=== PATIENT | female | born 1940 | race Caucasian/White ===

== ENCOUNTER → 2016-11-06 | Outpatient (CLI) | payer OTHER ==
[~2016-11-06] MED LIST: ACET-1311 PO; AMPH12.5 PO; ASCA500 PO; CHOL100010 PO; LANS30TA3 PO; LMC25 PO; MIRT15TA2 PO; MIRT15TA3 PO; MRLP17 PO; OMEG10007 PO; PANT40TA PO; co Q10 PO
== END | disposition home or self-care (01) ==
LOC: C.LAB 16:42
PROVIDERS: ATTEND Psychiatry & Neurology Psychiatry
DX: F33.2 Major depressive disorder, recurrent severe without psychotic features (principal); Z51.81 Encounter for therapeutic drug level monitoring; Z79.899 Other long term (current) drug therapy

== ENCOUNTER → 2017-11-03 | Outpatient (CLI) | payer OTHER ==
[2017-11-03 18:02] LABS: INR 0.9 (0.9-1.1)
[2017-11-03 18:22] LABS: ALBUMIN 3.4 gm/dl (3.4-5.0); ALKALINE PHOSPHATASE 37 U/L (45-117); ALT/SGPT 19 U/L (12-78); AST/SGOT 16 U/L (15-37); BLOOD UREA NITROGEN 17 mg/dl (7-18); CALCIUM 9.2 mg/dl (8.5-10.1); CARBON DIOXIDE 27 mmol/L (21-32); CHOLESTEROL 290 mg/dl (0-200); CREATININE 1.04 mg/dl (0.60-1.20); GLUCOSE 89 mg/dl (70-99); GLUCOSE,FASTING 89 mg/dl (70-99); POTASSIUM 4.1 mmol/L (3.5-5.1); SODIUM 140 mmol/L (136-145)
[2017-11-03 18:29] LABS: LDL CHOLESTEROL CALCULATED 188 mg/dl; TOTAL PROTEIN 7.5 gm/dl (6.4-8.2)
[2017-11-03 19:45] LABS: BASO % 0.2 %; BASO ABS # 0.01 K/uL (0-0.2); EOS ABS # 0.13 K/uL (0-0.5); HEMOGLOBIN 13.2 g/dL (12.0-16.0); IG# 0.02 K/uL (0.00-0.02); LYMPH % 32.8 %; MEAN CELL VOLUME 97.6 fL (80-100); MEAN CORPUSCULAR HEMOGLOBIN 31.4 pg (25-34); MEAN CORPUSCULAR HGB CONC 32.2 g/dl (32-36); MEAN PLATELET VOLUME 13.1 fL (7.4-10.4); MONO % 8.4 %; MONO ABS # 0.54 K/uL (0.11-0.59); NEUT % 56.3 %; NEUT ABS # 3.61 K/uL (1.4-6.5); PLATELET COUNT 292 K/uL (130-400); RED CELL DISTRIBUTION WIDTH CV 15.3 % (11.5-14.5); RED CELL DISTRIBUTION WIDTH SD 54.7 fL (36.4-46.3); WHITE BLOOD COUNT 6.41 K/uL (4.8-10.8)
== END | disposition home or self-care (01) ==
LOC: C.LAB 15:47
PROVIDERS: ATTEND Psychiatry & Neurology Psychiatry
DX: F33.2 Major depressive disorder, recurrent severe without psychotic features (principal)

== ENCOUNTER 2018-07-22 16:33 | Inpatient (IN) ==
[2018-07-22] MEDS ORDERED: SODIUM CHLORIDE 0.9% 1000ML 1,000 ML IV SCH (17:15)
[2018-07-22 17:31] LABS: Basophils # (auto) 0.04 K/uL (0-0.2); Basophils % (auto) 0.6 %; Eosinophils # (auto) 0.22 K/uL (0-0.5); Eosinophils % (auto) 3.2 %; Hemoglobin 10.3 g/dL (12.0-16.0); Immature Granulocytes # (auto) 0.01 K/uL (0.00-0.02); Immature Granulocytes % (auto) 0.1 %; Lymphocytes # (auto) 2.52 K/uL (1.2-3.4); Lymphocytes % (auto) 36.7 %; Mean Corpuscular Hgb Conc 32.2 g/dL (32-36); Mean Corpuscular Volume 95.8 fL (80-100); Mean Platelet Volume 11.6 fL (7.4-10.4); Monocytes # (auto) 0.91 K/uL (0.11-0.59); Monocytes % (auto) 13.2 %; Neutrophils # (auto) 3.17 K/uL (1.4-6.5); Neutrophils % (auto) 46.2 %; Platelet Count 371 K/uL (130-400); RDW Coefficient of Variation 16.3 % (11.5-14.5); RDW Standard Deviation 57.6 fL (36.4-46.3); Red Blood Count 3.34 M/uL (4.2-5.4); White Blood Count 6.87 K/uL (4.8-10.8)
[2018-07-22 17:47] LABS: Albumin Level 2.8 gm/dl (3.4-5.0); BUN Creatinine Ratio 28.9 (10-20); Calcium 9.1 mg/dl (8.5-10.1); Creatinine Clr Calc Pharmacy 39.8 ml/min; Est GFR (Non-African American) 52.6; Potassium 3.7 mmol/L (3.5-5.1)
[2018-07-22 17:50] LABS: Albumin Globulin Ratio 0.7 (0.9-2); Bilirubin,Total 0.2 mg/dl (0.2-1); Globulin 3.8 gm/dl (2.5-4.0); Total Protein 6.6 gm/dl (6.4-8.2)
[2018-07-22] MEDS ORDERED: OPTIRAY 320 125ml IV PRN (19:52)
--- NOTE | 2018-07-22 20:10 | CT Scan Report ---
CT abd pelvis oral and IV con CLINICAL HISTORY: 78 years-old Female presenting with ABD PAIN, ostomy obstruction. TECHNIQUE: Multidetector CT of the abdomen and pelvis was performed after the administration of oral and intravenous contrast. IV contrast: 116 mL of Optiray 320. One or more dose lowering techniques we re used consistent with the principles of ALARA (as low as reasonably achievable), including automati c exposure control, mA or kV adjustment to individual patient size, and/or use of iterative reconstru ction. COMPARISON: . CT DOSE (mGy.cm): The estimated cumulative dose is 274.10 mGy.cm. FINDINGS: Custom Ski Maker topogram: Marked stool burden. Lung bases: Minimal dependent changes likely atelectasis. Mild multichamber enlargement of the heart. Aortic valve and mitral annular calcification. No pericardial or pleural effusion. Liver: Normal morphology. No liver lesion. Patent hepatic vasculature. Biliary: No intrahepatic or extrahepatic biliary ductal dilatation. Normal gallbladder. Pancreas: Moderate parenchymal atrophy. Spleen: Surgically absent. Adrenal glands: Normal. Kidneys and ureters: Multiple parapelvic cysts at the lower poles of the kidneys. No nephrolithiasis. No hydronephrosis. Cortical atrophy of the left kidney. Nondistended ureters. Bladder: Normal. Pelvic organs: Normal. Bowel: Marked stool burden in the mid transverse colon to the mid descending colon. Mild wall thicken ing of the proximal transverse colon. Postsurgical changes of ileocecectomy with thin ileocolic anast omosis in the right mid abdomen, which is patent. There is also an overlying decompression stoma ari ing from the ascending colon (series 3 image 203). This is new from prior. Small bowel is unobstructe d. Trace hilar hernia. Postsurgical changes at the gastroesophageal junction. Circumferential wall th ickening of the distal esophagus suggested. Peritoneal cavity: No free fluid or intraperitoneal gas. Lymph nodes: No enlarged lymph nodes in the abdomen or pelvis. Vasculature: Atherosclerosis of the normal caliber abdominal aorta. IVC patent. Abdominal wall: Postsurgical changes of the ventral midline abdomen. No associated fluid collection. The right mid abdominal stoma is also new from prior. No associated inflammatory change or fluid. Musculoskeletal: Osteopenia suspected. Anterior vertebral body height loss of T11, unchanged. Postsur gical changes of an old intramedullary jeanette tract in the left femur. IMPRESSION: 1. Marked stool burden in the transverse colon to the descending colon. Mild wall thickening of the proximal transverse colon raises concern for stercoral colitis. 2. Decompression stoma in the ascending colon new from prior. No associated complication. 3. Postsurgical changes of ileocecectomy with a patent right mid abdomen ileocolic anastomosis. This also appears new from prior. 4. Circumferential wall thickening of the distal esophagus raises concern for esophagitis. Correlate clinically. 5. Mild cardiomegaly. Electronically signed by: Philip Baez M.D. 07/22/2018 8:08 PM
[2018-07-22 23:03] LABS: Magnesium 2.3 mg/dl (1.8-2.4)
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
[2018-07-23] MEDS ORDERED: LORazepam 0.25 MG/0.5 ML VIAL IV PRN (00:16)
[2018-07-23] MEDS ORDERED: LACTULOSE SYRUP 30 GM/45 ML UDP PO STA (00:16)
[2018-07-23] MEDS ORDERED: KETOROLAC TROMETHAMINE 15 MG/ML VIAL IV PRN (00:16)
[2018-07-23] MEDS ORDERED: NON-FORMULARY MEDICATION (Acetaminophen [Tylenol 8 Hour] 650 MG) PO PRN (00:16)
[2018-07-23] MEDS ORDERED: LACTATED RINGER'S 1,000 ML IV ONE (00:16)
[2018-07-23] MEDS ORDERED: POLYETHYLENE (MIRALAX) 17 GM PACK PO PRN (00:16)
[2018-07-23] MEDS ORDERED: PROCHLORPERAZINE 5 MG in SYRINGE 4 ML IV PRN (00:16)
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
[2018-07-23] MEDS: PANTOprazole 40 MG TAB PO SCH ×3 (01:45→21:12)
[2018-07-23] MEDS: DOCUSATE SODIUM/SENNA 50/8.6MG TAB PO SCH ×2 (01:45→08:45)
[2018-07-23] MEDS ORDERED: POLYETHYLENE (MIRALAX) 17 GM PACK PO STA (03:49)
[2018-07-23] MEDS ORDERED: LACTULOSE SYRUP 20 GM/30 ML UDC PO STA (03:49)
[2018-07-23] MEDS: LEVOTHYROXINE SODIUM 50 MCG TABLET PO SCH (06:01)
[2018-07-23 06:28] LABS: Basophils # (auto) 0.03 K/uL (0-0.2); Basophils % (auto) 0.5 %; Eosinophils # (auto) 0.23 K/uL (0-0.5); Eosinophils % (auto) 3.5 %; Hematocrit (blood only) 32.2 % (37-47); Hemoglobin 10.1 g/dL (12.0-16.0); Immature Granulocytes # (auto) 0.02 K/uL (0.00-0.02); Immature Granulocytes % (auto) 0.3 %; Lymphocytes # (auto) 2.44 K/uL (1.2-3.4); Lymphocytes % (auto) 36.7 %; Mean Corpuscular Hgb Conc 31.4 g/dL (32-36); Mean Platelet Volume 12.2 fL (7.4-10.4); Monocytes # (auto) 1.05 K/uL (0.11-0.59); Monocytes % (auto) 15.8 %; Neutrophils # (auto) 2.88 K/uL (1.4-6.5); Neutrophils % (auto) 43.2 %; Platelet Count 375 K/uL (130-400); RDW Coefficient of Variation 16.3 % (11.5-14.5); RDW Standard Deviation 56.8 fL (36.4-46.3); Red Blood Count 3.39 M/uL (4.2-5.4); White Blood Count 6.65 K/uL (4.8-10.8)
[2018-07-23] MEDS: lamoTRIgine 100 MG TAB PO SCH (08:46)
[2018-07-23] MEDS: LORATADINE 10 MG TAB PO SCH (08:46)
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
[2018-07-23] MEDS: AMPHETAMINE ASP/SULF/DEXTRAMPH 10 MG TAB PO SCH ×2 (08:47→13:03)
[2018-07-23] MEDS: LISINOPRIL 10 MG TAB PO SCH (08:47)
[2018-07-23] MEDS: ENOXAPARIN INJ 30 MG/0.3 ML SYR SQ SCH (08:47)
[2018-07-23] MEDS ORDERED: AMPHETAMINE ASP/SULF/DEXTRAMPH 10 MG TAB PO SCH ×2 (09:00→14:00)
[2018-07-23] MEDS ORDERED: LAVAGE SOLUTION 4000ML PR SCH (09:15)
[2018-07-23] MEDS: MINERAL OIL ENEMA 133 ML BTL PR SCH ×2 (10:10→22:05)
--- NOTE | 2018-07-23 15:19 | Hospitalist Progress Note ---
Date of Service July 23, 2018 Assessment & Plan (1) Abdominal pain: Obstipation H/O bowel surgery/colostomy May 2018 --CT ABD: Marked stool burden in the transverse colon to the descending colon. Mild wall thickening of the proximal transverse colon raises concern for stercoral colitis. Decompression stoma in the ascending colon new from prior. No associated complication. Postsurgical changes of ileocecectomy with a patent right mid abdomen ileocolic anastomosis. This also appears new from prior. Circumferential wall thickening of the distal esophagus raises concern for esophagitis. Correlate clinically. Mild cardiomegaly. --Continue bowel regimen as per surgery --May need sub total colectomy with permanent end colostomy if conservative management fails --Appreciate Surgery help --Monitor Stoma output Hypertension stable Continue Lisinopril Hypothyroidism: Continue Levothyroxine Mood disorder, ADD Continue home meds GERD Esophagitis noted on CT Continue Ranitidine PPI increased to BID Hypokalemia: Resolved Monitor Post Op Anemia Hb stable monitor DVT Px: Lovenox SQ Code Status Full code Subjective Patient resting in bed comfortably No apparent distress Currently not interested to discuss Discussed with Staff Getting enemas for stool burden Physical Exam 2 Vital Signs (Past 24 Hours): Last Vital Signs Temp 36.8 C 07/23/18 15:02 Pulse 64 07/23/18 15:02 Resp 17 07/23/18 15:02 BP 127/74 07/23/18 15:02 Pulse Ox 93 07/23/18 15:02 Physical Exam: Physical Exam: Vitals signs as noted above General Appearance:Moderately built and nourished, no apparent distress Head: normocephalic, Atraumatic Eyes: normal inspection, EOMI Neck: Trachea midline Respiratory/Chest: Patient refused Cardiovascular: Refused Abdomen/GI:Refused Extremities/Musculoskelatal:normal inspection Neurologic/Psych:AAOX3 Skin: normal color, warm Results & Data Laboratory Results Short CBC 07/22/18 07/23/18 Range/Units 17:23 05:53 WBC 6.87 6.65 (4.8-10.8) K/uL Hgb 10.3 L 10.1 L (12.0-16.0) g/dL Hct 32.0 L 32.2 L (37-47) % Plt Count 371 375 (130-400) K/uL BMP 07/22/18 17:23 Sodium 142 Potassium 3.7 Chloride 112 H Carbon Dioxide 24 BUN 30 H Creatinine 1.02 Glucose 97 Calcium 9.1 Liver Function 07/22/18 Range/Units 17:23 Total Bilirubin 0.2 (0.2-1) mg/dl AST 12 L (15-37) U/L ALT 16 (12-78) U/L Alkaline Phosphatase 31 L (45-117) U/L Albumin 2.8 L (3.4-5.0) gm/dl _ (1) Abdominal pain Abdominal location: generalized Qualified Code(s): R10.84 - Generalized abdominal pain
[2018-07-23] MEDS: MIRTAZAPINE SOLTAB 15 MG PO SCH (21:13)
[2018-07-24] MEDS: LEVOTHYROXINE SODIUM 50 MCG TABLET PO SCH (05:47)
[2018-07-24 06:15] LABS: Hemoglobin 10.9 g/dL (12.0-16.0); Mean Corpuscular Hgb Conc 32.1 g/dL (32-36); Mean Platelet Volume 11.8 fL (7.4-10.4); Platelet Count 387 K/uL (130-400); RDW Coefficient of Variation 16.3 % (11.5-14.5); RDW Standard Deviation 57.5 fL (36.4-46.3); Red Blood Count 3.54 M/uL (4.2-5.4); White Blood Count 8.18 K/uL (4.8-10.8)
[2018-07-24 06:53] LABS: BUN Creatinine Ratio 14.5 (10-20); Calcium 9.3 mg/dl (8.5-10.1); Creatinine Clr Calc Pharmacy 35.6 ml/min; Est GFR (African American) 60.3; Potassium 3.9 mmol/L (3.5-5.1)
[2018-07-24] MEDS: AMPHETAMINE ASP/SULF/DEXTRAMPH 10 MG TAB PO SCH ×2 (08:58→14:04)
[2018-07-24] MEDS: LORATADINE 10 MG TAB PO SCH (08:59)
[2018-07-24] MEDS: PANTOprazole 40 MG TAB PO SCH ×2 (08:59→22:00)
[2018-07-24] MEDS: lamoTRIgine 100 MG TAB PO SCH (08:59)
[2018-07-24] MEDS: LISINOPRIL 10 MG TAB PO SCH (09:00)
[2018-07-24] MEDS: ENOXAPARIN INJ 30 MG/0.3 ML SYR SQ SCH ×2 (09:00→09:06)
[2018-07-24] MEDS: MINERAL OIL ENEMA 133 ML BTL PR SCH ×4 (10:04→22:45)
--- NOTE | 2018-07-24 10:41 | Surgery Progress Note ---
Date of Service July 24, 2018 Assessment & Plan (1) Constipation: s/p loop colostomy for stercoral perforation, now with functioning afferent limb but constipation in efferent limb/distal colon. Currently getting cholyte, enemas, awaiting bm. Continue current therapy Advance to full liquids. continue cholyte, enemas until bm no acute surgical management surgery will follow Present on Admission?: Yes Subjective 78 y/o female s/p loop colostomy for hypotonic colon and severe constipation with stercoral perforation, readmitted for poorly functioning colostomy. Good output from afferent limb into colostomy bag. Currently getting golyte through bright into efferent limb due to larger stool burden in distal colon, also getting enemas. She reports no bm yet. Denies pain, tolerating clears. Physical Exam 2 Vital Signs (Past 24 Hours): Last Vital Signs Temp 36.7 C 07/24/18 07:33 Pulse 63 07/24/18 07:33 Resp 18 07/24/18 07:33 BP 158/83 H 07/24/18 07:33 Pulse Ox 94 07/24/18 07:33 Constitutional: WD/WN, vitals as above no acute distress Gastrointestinal (Abdomen): Inspection/Auscultation: abdomen not distended Percussion/Palpation: abdomen soft; abdomen nontender colostomy healthy, stool and gas in bag. Catheter in efferent limb clamped. _ (1) Constipation Constipation type: unspecified constipation type Qualified Code(s): K59.00 - Constipation, unspecified
--- NOTE | 2018-07-24 15:29 | Hospitalist Progress Note ---
Date of Service July 24, 2018 Assessment & Plan (1) Abdominal pain: Obstipation H/O bowel surgery/colostomy May 2018 --CT ABD: Marked stool burden in the transverse colon to the descending colon. Mild wall thickening of the proximal transverse colon raises concern for stercoral colitis. Decompression stoma in the ascending colon new from prior. No associated complication. Postsurgical changes of ileocecectomy with a patent right mid abdomen ileocolic anastomosis. This also appears new from prior. Circumferential wall thickening of the distal esophagus raises concern for esophagitis. Correlate clinically. Mild cardiomegaly. --Continue bowel regimen as per surgery --May need sub total colectomy with permanent end colostomy if conservative management fails --Appreciate Surgery help --Monitor Stoma output + stool in colostomy bag --Advance diet as tolerated Hypertension stable Continue Lisinopril Hypothyroidism: Continue Levothyroxine Mood disorder, ADD Continue home meds GERD Esophagitis noted on CT Continue Ranitidine PPI increased to BID Hypokalemia: Resolved Monitor Post Op Anemia Hb stable monitor DVT Px: Lovenox SQ Code Status Full code Subjective Patient is seen and examined at bedside Doing better today Reports intermittent abd pain Nausea improving Denies chest pain, dyspnea Getting enemas for stool burden Physical Exam 2 Vital Signs (Past 24 Hours): Last Vital Signs Temp 36.7 C 07/24/18 07:33 Pulse 63 07/24/18 07:33 Resp 18 07/24/18 07:33 BP 158/83 H 07/24/18 07:33 Pulse Ox 94 07/24/18 07:33 Physical Exam: Physical Exam: Vitals signs as noted above General Appearance:Moderately built and nourished, no apparent distress Head: normocephalic, Atraumatic Eyes: normal inspection, EOMI Neck: Trachea midline Respiratory/Chest: Normal Breath sounds, CTA Cardiovascular: S1, S2, +systolic murmur Abdomen/GI:+ colostomy -stool in colostomy bag Extremities/Musculoskelatal:normal inspection Neurologic/Psych:AAOX3, grossly no focal deficits Skin: normal color, warm Results & Data Laboratory Results Short CBC 07/24/18 Range/Units 05:56 WBC 8.18 (4.8-10.8) K/uL Hgb 10.9 L (12.0-16.0) g/dL Hct 34.0 L (37-47) % Plt Count 387 (130-400) K/uL [facility] 07/24/18 05:56 Sodium 140 Potassium 3.9 Chloride 110 H Carbon Dioxide 24 BUN 15 Creatinine 1.03 Glucose 84 Calcium 9.3 _ (1) Abdominal pain Abdominal location: generalized Qualified Code(s): R10.84 - Generalized abdominal pain
[2018-07-24] MEDS: ACETAMINOPHEN 325 MG TAB PO PRN (18:09)
[2018-07-24] MEDS: MIRTAZAPINE SOLTAB 15 MG PO SCH (21:59)
[2018-07-25] MEDS: LEVOTHYROXINE SODIUM 50 MCG TABLET PO SCH (06:09)
[2018-07-25 06:35] LABS: BUN Creatinine Ratio 12.6 (10-20); Calcium 9.2 mg/dl (8.5-10.1); Est GFR (African American) 67.3; Est GFR (Non-African American) 58.1; Potassium 4.3 mmol/L (3.5-5.1)
--- NOTE | 2018-07-25 09:19 | Surgery Progress Note ---
Date of Service July 25, 2018 Assessment & Plan (1) Constipation: 07/25/2018 +BM x 3 between yesterday and this AM. Denies pain Tolerating full liquid diet and states that she is hungry and would like more options- will advance to low fiber diet for lunch. 07/24/2018 s/p loop colostomy for stercoral perforation, now with functioning afferent limb but constipation in efferent limb/distal colon. Currently getting cholyte , enemas, awaiting bm. Continue current therapy Advance to full liquids. continue cholyte, enemas until bm no acute surgical management surgery will follow Subjective Sitting at side of the bed for examination. Reports 3 BMs between yesterday and this AM. Denies pain Tolerating full liquid diet. States that she is hungry and would like more options to eat. Physical Exam 2 Vital Signs (Past 24 Hours): Last Vital Signs Temp 36.8 C 07/25/18 07:40 Pulse 71 07/25/18 07:40 Resp 18 07/25/18 07:40 BP 161/71 H 07/25/18 07:40 Pulse Ox 95 07/25/18 07:40 Gastrointestinal (Abdomen): Percussion/Palpation: abdomen soft; abdomen nontender output good into colostomy bag _ (1) Constipation Constipation type: unspecified constipation type Qualified Code(s): K59.00 - Constipation, unspecified
[2018-07-25] MEDS: ENOXAPARIN INJ 30 MG/0.3 ML SYR SQ SCH (09:51)
[2018-07-25] MEDS: LORATADINE 10 MG TAB PO SCH (09:56)
[2018-07-25] MEDS: LISINOPRIL 10 MG TAB PO SCH (09:56)
[2018-07-25] MEDS: PANTOprazole 40 MG TAB PO SCH ×2 (09:56→21:24)
[2018-07-25] MEDS: AMPHETAMINE ASP/SULF/DEXTRAMPH 10 MG TAB PO SCH ×2 (09:56→13:37)
[2018-07-25] MEDS: lamoTRIgine 100 MG TAB PO SCH (09:57)
[2018-07-25] MEDS: MINERAL OIL ENEMA 133 ML BTL PR SCH (10:16)
[2018-07-25] MEDS: ACETAMINOPHEN 325 MG TAB PO PRN (15:40)
[2018-07-25] MEDS: TRAMADOL HCL 50 MG TABLET PO PRN (17:40)
--- NOTE | 2018-07-25 17:41 | Hospitalist Progress Note ---
Date of Service July 25, 2018 Assessment & Plan (1) Abdominal pain: Obstipation H/O bowel surgery/colostomy May 2018 --CT ABD: Marked stool burden in the transverse colon to the descending colon. Mild wall thickening of the proximal transverse colon raises concern for stercoral colitis. Decompression stoma in the ascending colon new from prior. No associated complication. Postsurgical changes of ileocecectomy with a patent right mid abdomen ileocolic anastomosis. This also appears new from prior. Circumferential wall thickening of the distal esophagus raises concern for esophagitis. Correlate clinically. Mild cardiomegaly. --Continue bowel regimen as per surgery --May need sub total colectomy with permanent end colostomy if conservative management fails --Appreciate Surgery help --Monitor Stoma output -- +BMs --Advanced to low fiber diet --nausea, abd pain resolved Hypertension stable Continue Lisinopril Hypothyroidism: Continue Levothyroxine Mood disorder, ADD Continue home meds GERD Esophagitis noted on CT Continue Ranitidine PPI increased to BID Hypokalemia: Resolved Monitor Post Op Anemia Hb stable monitor DVT Px: Lovenox SQ Code Status Full code Subjective Patient is seen and examined at bedside Doing well today Denies abd pain, nausea today Tolerating diet + BMs Denies chest pain, dyspnea Physical Exam 2 Vital Signs (Past 24 Hours): Last Vital Signs Temp 36.6 C 07/25/18 15:31 Pulse 79 07/25/18 15:31 Resp 18 07/25/18 15:31 BP 129/79 07/25/18 15:31 Pulse Ox 94 07/25/18 15:31 Physical Exam: Physical Exam: Vitals signs as noted above General Appearance:Moderately built and nourished, no apparent distress Head: normocephalic, Atraumatic Eyes: normal inspection, EOMI Neck: Trachea midline Respiratory/Chest: Normal Breath sounds, CTA Cardiovascular: S1, S2, +systolic murmur Abdomen/GI:+ colostomy Extremities/Musculoskelatal:normal inspection Neurologic/Psych:AAOX3, grossly no focal deficits Skin: normal color, warm Results & Data Laboratory Results [facility] [place] 07/25/18 05:41 Sodium 139 Potassium 4.3 Chloride 109 H Carbon Dioxide 25 BUN 12 Creatinine 0.94 Glucose 91 Calcium 9.2 _ (1) Abdominal pain Abdominal location: generalized Qualified Code(s): R10.84 - Generalized abdominal pain
[2018-07-25] MEDS: MIRTAZAPINE SOLTAB 15 MG PO SCH (21:24)
[2018-07-26] MEDS: LEVOTHYROXINE SODIUM 50 MCG TABLET PO SCH (06:29)
[2018-07-26] MEDS: PANTOprazole 40 MG TAB PO SCH ×2 (08:22→21:55)
[2018-07-26] MEDS: LORATADINE 10 MG TAB PO SCH (08:22)
[2018-07-26] MEDS: LISINOPRIL 10 MG TAB PO SCH (08:22)
[2018-07-26] MEDS: lamoTRIgine 100 MG TAB PO SCH (08:22)
[2018-07-26] MEDS: ENOXAPARIN INJ 30 MG/0.3 ML SYR SQ SCH (08:23)
[2018-07-26] MEDS: AMPHETAMINE ASP/SULF/DEXTRAMPH 10 MG TAB PO SCH ×2 (08:26→13:57)
--- NOTE | 2018-07-26 08:49 | Surgery Progress Note ---
Date of Service July 26, 2018 Assessment & Plan (1) Constipation: 07/26/2018 patient denies abdominal pain +BM (formed) Denies nausea- tolerating low fiber diet. Will order KUB this AM- hopefully can remove catheter from stoma. as above. KUB shows continued large stool burden distal to stoma. clinically doing better but will continue to give enemas and colyte prep through stoma. We really need to clean out the entire colon distal to the stoma. 07/25/2018 +BM x 3 between yesterday and this AM. Denies pain Tolerating full liquid diet and states that she is hungry and would like more options- will advance to low fiber diet for lunch. 07/24/2018 s/p loop colostomy for stercoral perforation, now with functioning afferent limb but constipation in efferent limb/distal colon. Currently getting cholyte , enemas, awaiting bm. Continue current therapy Advance to full liquids. continue cholyte, enemas until bm no acute surgical management surgery will follow Subjective Patient in chair at bedside- reports that she is feeling good today. +BM tolerating low fiber diet. Physical Exam 2 Vital Signs (Past 24 Hours): Last Vital Signs Temp 36.7 C 07/26/18 08:00 Pulse 68 07/26/18 08:00 Resp 16 07/26/18 08:00 BP 152/82 H 07/26/18 08:00 Pulse Ox 96 07/26/18 08:00 Gastrointestinal (Abdomen): Percussion/Palpation: abdomen soft; abdomen nontender and no guarding good output into colostomy bag; catheter in stoma clamped at this time _ (1) Constipation Constipation type: unspecified constipation type Qualified Code(s): K59.00 - Constipation, unspecified
[2018-07-26] MEDS ORDERED: MINERAL OIL ENEMA 133 ML BTL PR SCH (09:00)
[2018-07-26 09:41] LABS: Hematocrit (blood only) 34.7 % (37-47); Hemoglobin 10.9 g/dL (12.0-16.0); Mean Corpuscular Hgb Conc 31.4 g/dL (32-36); Mean Corpuscular Volume 95.3 fL (80-100); Platelet Count 406 K/uL (130-400); RDW Coefficient of Variation 16.3 % (11.5-14.5); RDW Standard Deviation 57.1 fL (36.4-46.3); Red Blood Count 3.64 M/uL (4.2-5.4); White Blood Count 5.25 K/uL (4.8-10.8)
[2018-07-26] MEDS: MINERAL OIL ENEMA 133 ML BTL PR SCH (09:57)
--- NOTE | 2018-07-26 09:57 | XRay Report ---
KUB CLINICAL HISTORY: Atonic colon. History of perforation with right lower quadrant colostomy. FINDINGS: 2 AP supine abdominal radiographs are compared to study dated 06/10/2018 and correlated wit h abdominal CT dated 07/22/2018. There is a nonobstructed abdominal bowel gas pattern, noting a colost juliano in the right lower quadrant. There is moderate to severe constipation. No evidence of intraperito esthela free air is seen on these supine images. There are no abnormal abdominal calcifications. The ske letal structures are osteopenic. Degenerative changes noted in the lumbar spine, sacroiliac joints, a nd hips. IMPRESSION: 1. Moderate to severe constipation. 2. There is no evidence of bowel obstruction, noting a right lower quadrant colostomy. Electronically signed by: Irineo Chang M.D. 07/26/2018 9:56 AM
[2018-07-26 10:17] LABS: Creatinine Clr Calc Pharmacy 31.9 ml/min; Est GFR (African American) 52.8; Est GFR (Non-African American) 45.5
[2018-07-26] MEDS: LAVAGE SOLUTION 4000ML PR SCH ×3 (12:44→14:41)
--- NOTE | 2018-07-26 15:28 | Hospitalist Progress Note ---
Date of Service July 26, 2018 Assessment & Plan (1) Abdominal pain: Obstipation H/O bowel surgery/colostomy May 2018 --CT ABD: Marked stool burden in the transverse colon to the descending colon. Mild wall thickening of the proximal transverse colon raises concern for stercoral colitis. Decompression stoma in the ascending colon new from prior. No associated complication. Postsurgical changes of ileocecectomy with a patent right mid abdomen ileocolic anastomosis. This also appears new from prior. Circumferential wall thickening of the distal esophagus raises concern for esophagitis. Correlate clinically. Mild cardiomegaly. --Continue bowel regimen as per surgery --May need sub total colectomy with permanent end colostomy if conservative management fails --Appreciate Surgery help --Monitor Stoma output -- +BMs --Advanced to low fiber diet --Repeat KUB today: Moderate to severe constipation. There is no evidence of bowel obstruction, noting a right lower quadrant colostomy. --Continue bowel regimen--enemas Hypertension stable Continue Lisinopril Hypothyroidism: Continue Levothyroxine Mood disorder, ADD Continue home meds GERD Esophagitis noted on CT Continue Ranitidine PPI increased to BID Hypokalemia: Resolved Monitor Post Op Anemia Hb stable monitor DVT Px: Lovenox SQ Code Status Full code Subjective Patient is seen and examined at bedside Reports abdominal pain with movement Denies nausea, chest pain, dyspnea KUB today shows moderate to severe stool burden + stool in colostomy bag Tolerating diet Physical Exam 2 Vital Signs (Past 24 Hours): Last Vital Signs Temp 36.7 C 07/26/18 08:00 Pulse 68 07/26/18 08:00 Resp 16 07/26/18 08:00 BP 128/68 07/26/18 13:29 Pulse Ox 96 07/26/18 08:00 Physical Exam: Physical Exam: Vitals signs as noted above General Appearance:Moderately built and nourished, no apparent distress Head: normocephalic, Atraumatic Eyes: normal inspection, EOMI Neck: Trachea midline Respiratory/Chest: Normal Breath sounds, CTA Cardiovascular: S1, S2, +systolic murmur Abdomen/GI:+ colostomy Extremities/Musculoskelatal:normal inspection Neurologic/Psych:AAOX3, grossly no focal deficits Skin: normal color, warm Results & Data Laboratory Results Short CBC 07/26/18 Range/Units 09:28 WBC 5.25 (4.8-10.8) K/uL Hgb 10.9 L (12.0-16.0) g/dL Hct 34.7 L (37-47) % Plt Count 406 H (130-400) K/uL [facility] 07/26/18 09:28 Creatinine 1.15 _ (1) Abdominal pain Abdominal location: generalized Qualified Code(s): R10.84 - Generalized abdominal pain
[2018-07-26] MEDS: TRAMADOL HCL 50 MG TABLET PO PRN ×2 (16:03→22:07)
[2018-07-26] MEDS: MIRTAZAPINE SOLTAB 15 MG PO SCH (21:56)
[2018-07-27] MEDS: LEVOTHYROXINE SODIUM 50 MCG TABLET PO SCH (06:38)
[2018-07-27] MEDS: LAVAGE SOLUTION 4000ML PR SCH ×12 (08:29→21:58)
--- NOTE | 2018-07-27 08:42 | Surgery Progress Note ---
Date of Service July 27, 2018 Assessment & Plan (1) Constipation: 07/27/2018 Patient doing well- denies abdominal pain +passing flatus, +BM KUB reviewed with patient - will continue to give enemas and colyte prep through stoma Tolerating low fiber diet. pt seen/as above. no bm per rectum today no pain/looks good stoma functioning will hold the enemas for now but increase his golytely to 100 cc's per hour. recommend better bowel prep prior to d/c. 07/26/2018 patient denies abdominal pain +BM (formed) Denies nausea- tolerating low fiber diet. Will order KUB this AM- hopefully can remove catheter from stoma. as above. KUB shows continued large stool burden distal to stoma. clinically doing better but will continue to give enemas and colyte prep through stoma. We really need to clean out the entire colon distal to the stoma. 07/25/2018 +BM x 3 between yesterday and this AM. Denies pain Tolerating full liquid diet and states that she is hungry and would like more options- will advance to low fiber diet for lunch. 07/24/2018 s/p loop colostomy for stercoral perforation, now with functioning afferent limb but constipation in efferent limb/distal colon. Currently getting cholyte , enemas, awaiting bm. Continue current therapy Advance to full liquids. continue cholyte, enemas until bm no acute surgical management surgery will follow Subjective Patient feeling well- reviewed results of KUB with her. Physical Exam 2 Vital Signs (Past 24 Hours): Last Vital Signs Temp 36.6 C 07/26/18 23:55 Pulse 65 07/26/18 23:55 Resp 16 07/26/18 23:55 BP 130/72 07/26/18 23:55 Pulse Ox 94 07/26/18 23:55 Gastrointestinal (Abdomen): Inspection/Auscultation: + abdomen distended ( mild distention ) Percussion/Palpation: abdomen soft catheter in place in stoma- clamped _ (1) Constipation Constipation type: unspecified constipation type Qualified Code(s): K59.00 - Constipation, unspecified
[2018-07-27] MEDS: AMPHETAMINE ASP/SULF/DEXTRAMPH 10 MG TAB PO SCH ×2 (09:35→13:01)
[2018-07-27] MEDS: lamoTRIgine 100 MG TAB PO SCH (09:40)
[2018-07-27] MEDS: LORATADINE 10 MG TAB PO SCH (09:40)
[2018-07-27] MEDS: PANTOprazole 40 MG TAB PO SCH ×2 (09:42→20:29)
[2018-07-27] MEDS: LISINOPRIL 10 MG TAB PO SCH (09:42)
[2018-07-27] MEDS: ENOXAPARIN INJ 30 MG/0.3 ML SYR SQ SCH (09:45)
[2018-07-27] MEDS: MINERAL OIL ENEMA 133 ML BTL PR SCH (10:14)
[2018-07-27 13:23] LABS: Calcium 8.6 mg/dl (8.5-10.1); Creatinine Clr Calc Pharmacy 39.4 ml/min; Est GFR (African American) 68.2; Est GFR (Non-African American) 58.9; Potassium 3.9 mmol/L (3.5-5.1)
--- NOTE | 2018-07-27 15:38 | Hospitalist Progress Note ---
Date of Service July 27, 2018 Assessment & Plan (1) Abdominal pain: Obstipation H/O bowel surgery/colostomy May 2018 --CT ABD: Marked stool burden in the transverse colon to the descending colon. Mild wall thickening of the proximal transverse colon raises concern for stercoral colitis. Decompression stoma in the ascending colon new from prior. No associated complication. Postsurgical changes of ileocecectomy with a patent right mid abdomen ileocolic anastomosis. This also appears new from prior. Circumferential wall thickening of the distal esophagus raises concern for esophagitis. Correlate clinically. Mild cardiomegaly. --Continue bowel regimen as per surgery --May need sub total colectomy with permanent end colostomy if conservative management fails -- +BMs, Still not Clear --Advanced to low fiber diet --KUB Yesterday: Moderate to severe constipation. There is no evidence of bowel obstruction, noting a right lower quadrant colostomy. --Continue bowel regimen--enemas Hypertension stable Continue Lisinopril Hypothyroidism: Continue Levothyroxine Mood disorder, ADD Continue home meds GERD Esophagitis noted on CT Continue Ranitidine PPI increased to BID Hypokalemia: Resolved Monitor Post Op Anemia Hb stable monitor DVT Px: Lovenox SQ Code Status Full code Subjective 78 yo female c PMH of hypertension, mood disorder, ADD, hypothyroidism, GERD. Recent confinement last month for bowel perforation status post ex lap, colonic decompression, enteral lysis, abdominal washout, right diverting right colostomy. Patient discharged to [facility]. Recent outpatient follow-up with surgeon last week. Patient has not had bowel movement for over 24 hours despite laxative which is unusual as per patient. Patient noted pain on ostomy site. Some nausea, no emesis. Bothersome reflux symptoms despite antacid intake. No chest pain, S OB, no fever, no chills. KUB c moderate to severe stool burden + stool in colostomy bag Tolerating diet, Bowels not cleared out yet, DC when OK c Surgery ROS-No Headache, No Visual Changes, No Fever, No Chills, No Neck Pain or Stiffness, No Chest Pain, No Palpitations, No SOB, No BEGUM, No Cough, No Sputum, No Wheezing, No Abdominal Pain, No Diarrhea, No Hematemesis, No Hemoptysis, No Unexpected Weight Loss, No Flank pain, No Melena, No Hematochezia, No Frequency , No Urgency, No Burning, No Hematuria, No Rashes, No Diaphoresis. Appetite is Normal, C/O Constipation Physical Exam Gen-AAO x 3, NAD, Afebrile Head-NCAT, EOMI, PERRLA, Anicteric Sclera, No Posterior Pharyngeal Erythema Neck-Supple, No JVD, No Thyromegaly, No Masses, No LAD, No Bruits Lungs-Clear to Auscultation Bilaterally, No Rales, No Rhonchi, No Wheezing, No Crepitus Chest-No S4, +S1, +S2, No S3, No Murmurs, No Rubs, No Gallops, No Ectopy Abdomen-Soft, Bowel Sounds Present, Non Tender, Non Distended, No Hepatomegaly, No Splenomegaly, No Palpable Masses, No Rebound, No Rigidity, No Guarding Musculoskeletal-Full Range of Motion Bilaterally, No CVAT Extremities-No Cyanosis, No Clubbing, No Edema Nuero-Cranial Nerves II-XII grossly intact, Motor WNL, DTRs WNL, Strength WNL, No Focal Psych-Normal Mood Physical Exam 2 Vital Signs (Past 24 Hours): Last Vital Signs Temp 36.7 C 07/27/18 08:43 Pulse 60 07/27/18 08:43 Resp 16 07/27/18 08:43 BP 162/82 H 07/27/18 08:43 Pulse Ox 94 07/27/18 08:43 Results & Data Laboratory Results Current Diagnoses Constipation, unspecified (07/23/18) Generalized abdominal pain (07/23/18) Allergies aspirin Allergy (Unknown, Verified 07/22/18 17:33) Unknown meperidine Allergy (Unknown, Verified 07/22/18 17:33) Unknown Height/Weight/Isolation Height 5 ft 2 in Weight 52.4 kg Chemistry 07/26/18 07/27/18 09:28 12:50 Sodium 143 Potassium 3.9 Chloride 111 H Carbon Dioxide 26 Anion Gap 7.0 BUN 18 Creatinine 1.15 0.93 Glucose 95 _ (1) Abdominal pain Abdominal location: generalized Qualified Code(s): R10.84 - Generalized abdominal pain
[2018-07-27] MEDS: MIRTAZAPINE SOLTAB 15 MG PO SCH (20:29)
[2018-07-28] MEDS: LEVOTHYROXINE SODIUM 50 MCG TABLET PO SCH (06:23)
[2018-07-28] MEDS: LAVAGE SOLUTION 4000ML PR SCH ×11 (07:44→21:31)
[2018-07-28] MEDS: PANTOprazole 40 MG TAB PO SCH ×2 (09:43→20:21)
[2018-07-28] MEDS: LORATADINE 10 MG TAB PO SCH (09:43)
[2018-07-28] MEDS: lamoTRIgine 100 MG TAB PO SCH (09:43)
[2018-07-28] MEDS: AMPHETAMINE ASP/SULF/DEXTRAMPH 10 MG TAB PO SCH ×2 (09:43→13:30)
[2018-07-28] MEDS: ENOXAPARIN INJ 30 MG/0.3 ML SYR SQ SCH (09:43)
[2018-07-28] MEDS: LISINOPRIL 10 MG TAB PO SCH (09:45)
--- NOTE | 2018-07-28 09:59 | Surgery Progress Note ---
Date of Service July 28, 2018 Assessment & Plan (1) Constipation: 07/28/2018 +passing flatus, +BM per rectum (per patient they were large BMs) Tolerating low fiber diet without issue. Continue to give enemas and colyte prep through stoma until completed. May repeat imaging. Plan is for patient to return to [facility] at discharge. as above. clinically doing ok. will d/w primary team. Would be ok to d/c to [facility]. would keep bright in stoma and have [facility] give colyte 3-4 times daily for the next 1-2 weeks. I can remove catheter in the office. 07/27/2018 Patient doing well- denies abdominal pain +passing flatus, +BM KUB reviewed with patient - will continue to give enemas and colyte prep through stoma Tolerating low fiber diet. pt seen/as above. no bm per rectum today no pain/looks good stoma functioning will hold the enemas for now but increase his golytely to 100 cc's per hour. recommend better bowel prep prior to d/c. 07/26/2018 patient denies abdominal pain +BM (formed) Denies nausea- tolerating low fiber diet. Will order KUB this AM- hopefully can remove catheter from stoma. as above. KUB shows continued large stool burden distal to stoma. clinically doing better but will continue to give enemas and colyte prep through stoma. We really need to clean out the entire colon distal to the stoma. 07/25/2018 +BM x 3 between yesterday and this AM. Denies pain Tolerating full liquid diet and states that she is hungry and would like more options- will advance to low fiber diet for lunch. 07/24/2018 s/p loop colostomy for stercoral perforation, now with functioning afferent limb but constipation in efferent limb/distal colon. Currently getting cholyte , enemas, awaiting bm. Continue current therapy Advance to full liquids. continue cholyte, enemas until bm no acute surgical management surgery will follow Subjective Patient sitting in chair at bedside- reports she is feeling ok, "wants to get out of here" Reports that she moved her bowels yesterday afternoon and this AM. Physical Exam 2 Vital Signs (Past 24 Hours): Last Vital Signs Temp 36.7 C 07/28/18 07:00 Pulse 60 07/28/18 07:00 Resp 16 07/28/18 07:00 BP 137/75 07/28/18 07:00 Pulse Ox 96 07/28/18 07:00 Gastrointestinal (Abdomen): Percussion/Palpation: abdomen soft; abdomen nontender _ (1) Constipation Constipation type: unspecified constipation type Qualified Code(s): K59.00 - Constipation, unspecified
--- NOTE | 2018-07-28 13:50 | Discharge Summary ---
Date of Service July 28, 2018 Admission HPI Per Admitting Provider Patient name : Tonia Higuera History obtained from patient and records. Medical history significant for hypertension, mood disorder, ADD, hypothyroidism , GERD. Recent confinement last month for bowel perforation status post ex lap, colonic decompression, enteral lysis, abdominal washout, right diverting right colostomy. Patient discharged to [facility]. Recent outpatient follow-up with surgeon last week. Patient has not had bowel movement for over 24 hours despite laxative which is unusual as per patient. Patient noted pain on ostomy site. Some nausea, no emesis. Bothersome reflux symptoms despite antacid intake. No chest pain, S OB, no fever, no chills. 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 Admission Exam Per Admitting Provider Temp 36.7 C 07/22/18 16:41 Pulse 72 07/22/18 21:14 Resp 16 07/22/18 21:14 BP 130/72 07/22/18 21:14 Pulse Ox 98 07/22/18 21:14 Physical Exam: GENERAL: Slightly uncomfortable, anxious , no respiratory distress SKIN: Pallor , warm HEENT: Pale palpebral conjunctivae, no ptosis, dry buccal mucosa NECK : Supple, no tenderness CHEST : CTA, no tenderness HEART : RRR, systolic murmur ABDOMEN: distention, dressing right anterior abdomen, minimal tenderness over ostomy site EXTREMITIES : No LE swelling/tenderness, no other conspicuous deformities noted NEUROLOGIC : Coherent, no facial asymmetry, no other gross focality Principal Diagnosis Obstipation Abdominal pain Constipation UTI Altered mental status Anemia Gastroparesis Osteoarthritis Discharge Exam ROS-No Headache, No Visual Changes, No Fever, No Chills, No Neck Pain or Stiffness, No Chest Pain, No Palpitations, No SOB, No BEGUM, No Cough, No Sputum, No Wheezing, No Abdominal Pain, No Diarrhea, No Hematemesis, No Hemoptysis, No Unexpected Weight Loss, No Flank pain, No Melena, No Hematochezia, No Frequency , No Urgency, No Burning, No Hematuria, No Rashes, No Diaphoresis. Appetite is Normal, notes positive large BMs Physical Exam Gen-AAO x 3, NAD, Afebrile Head-NCAT, EOMI, PERRLA, Anicteric Sclera, No Posterior Pharyngeal Erythema Neck-Supple, No JVD, No Thyromegaly, No Masses, No LAD, No Bruits Lungs-Clear to Auscultation Bilaterally, No Rales, No Rhonchi, No Wheezing, No Crepitus Chest-No S4, +S1, +S2, No S3, No Murmurs, No Rubs, No Gallops, No Ectopy Abdomen-Soft, Bowel Sounds Present, Non Tender, Non Distended, No Hepatomegaly, No Splenomegaly, No Palpable Masses, No Rebound, No Rigidity, No Guarding Musculoskeletal-Full Range of Motion Bilaterally, No CVAT Extremities-No Cyanosis, No Clubbing, No Edema Nuero-Cranial Nerves II-XII grossly intact, Motor WNL, DTRs WNL, Strength WNL, No Focal Psych-Normal Mood Discharge Data Allergies Allergy/AdvReac Type Severity Reaction Status Date / Time aspirin Allergy Unknown Unknown Verified 07/22/18 17:33 meperidine Allergy Unknown Unknown Verified 07/22/18 17:33 Consultations 07/22/18 22:19 ED Decision to Admit Stat 07/23/18 00:16 Consult General Surgery Routine Current Diagnoses Constipation, unspecified (07/23/18) Generalized abdominal pain (07/23/18) Allergies aspirin Allergy (Unknown, Verified 07/22/18 17:33) Unknown meperidine Allergy (Unknown, Verified 07/22/18 17:33) Unknown Height/Weight/Isolation Height 5 ft 2 in Weight 52.4 kg Chemistry 07/27/18 12:50 Sodium 143 Potassium 3.9 Chloride 111 H Carbon Dioxide 26 Anion Gap 7.0 BUN 18 Creatinine 0.93 Glucose 95 Ordered Studies 07/22/18 17:06 CT abd pelvis oral and IV con Stat Hospital Course (1) Abdominal pain: Obstipation H/O bowel surgery/colostomy May 2018 --CT ABD: Marked stool burden in the transverse colon to the descending colon. Mild wall thickening of the proximal transverse colon raises concern for stercoral colitis. Decompression stoma in the ascending colon new from prior. No associated complication. Postsurgical changes of ileocecectomy with a patent right mid abdomen ileocolic anastomosis. This also appears new from prior. Circumferential wall thickening of the distal esophagus raises concern for esophagitis. Correlate clinically. Mild cardiomegaly. -- +BMs Hypertension stable Continue Lisinopril Hypothyroidism: Continue Levothyroxine Mood disorder, ADD Continue home meds GERD Esophagitis noted on CT Continue Ranitidine PPI increased to BID Hypokalemia: Resolved Monitor Post Op Anemia Hb stable monitor DVT Px: Lovenox SQ Code Status Full code Total Time Total Time Spent Total Time Spent (In Minutes): 60 mins Total Time Includes: Examination of the Patient, Discharge Planning, Medication Reconciliation and Communication With Other Providers Discharge Plan Discharge Items Patient Disposition: Transfer [facility] Reason For Visit: ABD PAIN Discharge Diagnosis: Obstipation/constipation Hypothyroidism ADHD Depression GERD Hypertension Hyperlipidemia Osteoarthritis UTI Gastroparesis Discharge Goals: Improve function Activity: Resume your previous activity Lifting: None Bathing: No limitations Exercise/Sports: None Weightbearing: Left weightbearing and Right weightbearing Non-emergency contact: Primary Care Provider and Surgeon Call non-emergency contact if: you have any medication questions Follow-up/Referrals: Marino Isabel, DO [Surgeon] - (In 1-2 weeks to remove colostomy catheter , please send extra colostomy supplies) Diet: Heart Healthy Addtl Provider Instructions: Irrigate colostomy catheter with 150 cc Golytely TID for 1 week, then retrun to Dr. Isabel's office to have cath removed Prescriptions: Continue lisinopril 10 mg tablet 10 mg PO QAM RF: 0 pantoprazole 40 mg Tablet,Delayed Release (Dr/Ec) 40 mg PO QAM RF: 0 lamotrigine [Lamictal] 150 mg Tablet 150 mg PO QAM RF: 0 cholecalciferol (vitamin D3) 1,000 unit Capsule 1,000 unit PO QAM RF: 0 dextroamphetamine-amphetamine [Adderall] 10 mg Tablet 20 mg PO QAM RF: 0 levothyroxine 50 mcg Tablet 50 mcg PO QAM RF: 0 mirtazapine 45 mg Tablet 45 mg PO HS RF: 0 acetaminophen [Tylenol 8 Hour] 650 mg tablet extended release 650 mg PO Q4 PRN (Reason: genergal discomfort/fever) RF: 0 ranitidine HCl 300 mg Tablet 300 mg PO HS RF: 0 ondansetron HCl [Zofran] 4 mg Tablet 4 mg PO Q6 PRN (Reason: Nausea) RF: 0 pseudoephedrine HCl [Sudafed] 30 mg Tablet 30 mg PO Q6H PRN (Reason: Congestion) RF: 0 loratadine 10 mg Tablet 10 mg PO QAM RF: 0 bisacodyl 5 mg Tablet 5 mg PO Q12 PRN (Reason: constipation) RF: 0 guaifenesin 600 mg Tablet Extended Release 12hr 600 mg PO Q12H PRN (Reason: liquidy sectretion) RF: 0 Discontinued dextroamphetamine-amphetamine [Adderall] 10 mg Tablet 10 mg PO DAILY RF: 0 Stand-Alone Forms: [facility] Discharge Orders: Discharge Order (Routine); Ordered 07/28/18 Ordered By: Toi Mendez Skilled Items Patient informed of condition?: Yes DNR: No Discharge Level of Care: Skilled Communicable Disease: No Discharge Prognosis: Improving Admission Data Admit Date/Time: 07/23/18 13:55 Attending Provider: Toi Mendez Admit Provider: Yan Rodriguez Primary Care Provider: Kyle Angel Other Providers: Yan Rodriguez ; Marino Isabel Service: Surgical Services Other Pending Studies at Discharge: No
[2018-07-28] MEDS: MIRTAZAPINE SOLTAB 15 MG PO SCH (20:20)
[2018-07-29] MEDS: LEVOTHYROXINE SODIUM 50 MCG TABLET PO SCH (06:26)
[2018-07-29 07:23] LABS: Hematocrit (blood only) 30.8 % (37-47); Hemoglobin 9.7 g/dL (12.0-16.0); Mean Corpuscular Hgb Conc 31.5 g/dL (32-36); Mean Corpuscular Volume 95.4 fL (80-100); Mean Platelet Volume 12.4 fL (7.4-10.4); Platelet Count 365 K/uL (130-400); RDW Coefficient of Variation 16.3 % (11.5-14.5); RDW Standard Deviation 57.4 fL (36.4-46.3); Red Blood Count 3.23 M/uL (4.2-5.4); White Blood Count 7.32 K/uL (4.8-10.8)
[2018-07-29 07:56] LABS: Creatinine Clr Calc Pharmacy 47.6 ml/min; Est GFR (African American) 85.7
[2018-07-29] MEDS: LAVAGE SOLUTION 4000ML PR SCH ×11 (08:08→22:02)
[2018-07-29] MEDS: LORATADINE 10 MG TAB PO SCH (08:09)
[2018-07-29] MEDS: AMPHETAMINE ASP/SULF/DEXTRAMPH 10 MG TAB PO SCH ×2 (08:09→13:06)
[2018-07-29] MEDS: ENOXAPARIN INJ 30 MG/0.3 ML SYR SQ SCH (08:09)
[2018-07-29] MEDS: lamoTRIgine 100 MG TAB PO SCH (08:10)
[2018-07-29] MEDS: PANTOprazole 40 MG TAB PO SCH ×2 (08:11→20:53)
[2018-07-29] MEDS: LISINOPRIL 10 MG TAB PO SCH (08:11)
[2018-07-29] MEDS: MIRTAZAPINE SOLTAB 15 MG PO SCH (20:53)
[2018-07-29] MEDS ORDERED: HYDROmorphone INJ 0.5 MG/0.5 ML SYR IV PRN (23:19)
[2018-07-29] MEDS ORDERED: HYDROmorphone INJ 0.5 MG/0.5 ML SYR ONE (23:23)
[2018-07-29] MEDS ORDERED: SODIUM CHLORIDE 0.9% 1000ML 1,000 ML IV SCH (23:30)
[2018-07-29] MEDS ORDERED: IOVERSOL 100ml IV PRN (23:59)
[2018-07-30] MEDS: LEVOTHYROXINE SODIUM 50 MCG TABLET PO SCH (06:14)
[2018-07-30] MEDS: LAVAGE SOLUTION 4000ML PR SCH (06:16)
--- NOTE | 2018-07-30 08:13 | CT Scan Report ---
CT abd pelvis IV con only CLINICAL HISTORY: 78 years-old Female presenting with severe abdominal pain. TECHNIQUE: Multidetector CT of the abdomen and pelvis was performed after the administration of intra venous contrast. IV contrast: 93 mL of Optiray 320. One or more dose lowering techniques were used co nsistent with the principles of ALARA (as low as reasonably achievable), including automatic exposure control, mA or kV adjustment to individual patient size, and/or use of iterative reconstruction. COMPARISON: 07/22/2018. CT DOSE (mGy.cm): The estimated cumulative dose is 269.85 mGy.cm. FINDINGS: Sheet [employer] topogram: Moderate stool burden, slightly decreased from prior. Lung bases: Minimal dependent changes likely atelectasis. Solid polygonal subpleural 3 mm nodule in t he lateral basal left lower lobe (series 3 image 16). This is unchanged since chest CT in 2007. Mild multichamber enlargement of the heart. Aortic valve and mitral annular calcification. No pericardial or pleural effusion. Liver: Congenital hypoplasia of the medial segments of the left hepatic lobe. No focal lesion. Patent hepatic vasculature. Biliary: No intrahepatic or extrahepatic biliary ductal dilatation. Normal gallbladder. Pancreas: Moderate parenchymal atrophy. Spleen: Surgically absent. Adrenal glands: Normal. Kidneys and ureters: Mild atrophy of the left kidney. Few parapelvic cysts noted bilaterally. No neph rolithiasis. No hydronephrosis. Nondistended ureters. Bladder: Normal. Pelvic organs: Uterus and ovaries normal. Bowel: Significant interval decrease in stool burden in the left:. Persistent moderate stool burden i n the right colon. Mild wall thickening of the colon is suggested extending from the distal transvers e to the proximal sigmoid colon though this may in part be due to underdistention. Postsurgical devlin es of ileocecectomy with ileocolic anastomosis. Decompression stoma of the ascending colon with inter milo placement of a Chowdhury catheter through the stoma. Small bowel is unobstructed. Postsurgical change s at the gastroesophageal junction likely from closure of the hernia defect. Postsurgical changes of distal gastrectomy with a gastroduodenal ostomy. Peritoneal cavity: No free fluid or intraperitoneal gas. Lymph nodes: No enlarged lymph nodes in the abdomen or pelvis. Vasculature: Atherosclerosis of the normal caliber abdominal aorta. IVC patent. Abdominal wall: Postsurgical changes of the ventral midline abdomen. No associated fluid collection. Musculoskeletal: Osteopenia suspected. Anterior vertebral body height loss of T11, unchanged. Postsur gical changes of an old intramedullary jeanette tract in the left femur. Defect in the left iliac fossa as on prior exam, chronic. IMPRESSION: 1. Interval decreased all burden predominantly in the left colon with moderate persistent stool sunshine en in the right colon. Mild wall thickening of the left colon may be due to underdistention or mild b owel wall edema/colitis. 2. Chowdhury catheter now in place within the ascending colonic decompression stoma. 3. Postsurgical changes of ileocecectomy, ileocolic anastomosis, distal gastrectomy, gastrojejunosto my, and hiatal hernia repair. No bowel obstruction. 4. Mild cardiomegaly. Electronically signed by: Philip Baez M.D. 07/30/2018 8:12 AM
[2018-07-30] MEDS: PANTOprazole 40 MG TAB PO SCH (08:44)
[2018-07-30] MEDS: LORATADINE 10 MG TAB PO SCH (08:44)
[2018-07-30] MEDS: LISINOPRIL 10 MG TAB PO SCH (08:45)
[2018-07-30] MEDS: lamoTRIgine 100 MG TAB PO SCH (08:45)
[2018-07-30] MEDS: AMPHETAMINE ASP/SULF/DEXTRAMPH 10 MG TAB PO SCH ×2 (08:46→13:06)
[2018-07-30] MEDS: ENOXAPARIN INJ 30 MG/0.3 ML SYR SQ SCH (08:46)
--- NOTE | 2018-07-30 13:01 | Surgery Progress Note ---
Date of Service July 30, 2018 Assessment & Plan (1) Obstipation: pt can be discharged I recommend keeping catheter in colon and giving colyte daily for another week or 10 days to clean out remaining distal colon apparently not accepted at rehab. will go home with visiting nurses f/u with me in 7-10 days tried to call son...voicemail not set up Subjective feeling ok. denies pain alot of bowel movements according to her nurse Physical Exam 2 Vital Signs (Past 24 Hours): Last Vital Signs Temp 36.3 C L 07/30/18 11:30 Pulse 61 07/30/18 11:30 Resp 16 07/30/18 11:30 BP 166/80 H 07/30/18 11:34 Pulse Ox 95 07/30/18 11:30 Physical Exam: alert. nad abd: soft. stoma fx. nontender. minimal distension
[2018-07-30] MEDS ORDERED: LAVAGE SOLUTION 4000ML PR SCH (14:00)
== END 2018-07-30 18:21 | disposition home health service (06) | DRG 392 ==
LOC: ED 16:33 → 3N 16:33 → SUATTDRO 07-23 13:55

== ENCOUNTER 2021-11-29 05:05 | Inpatient (IN) ==
--- NOTE | 2021-11-06 08:51 | PAT Medication Instructions ---
Medication Instructions Date of Service November 06, 2021 Home Medications cholecalciferol (vitamin D3) 25 mcg (1,000 unit) capsule 1,000 unit PO QAM lamotrigine 150 mg tablet (Lamictal) 150 mg PO QAM pantoprazole 40 mg tablet,delayed release 40 mg PO QAM acetaminophen 650 mg tablet,extended release (Tylenol 8 Hour) 650 mg PO Q4 PRN loratadine 10 mg tablet 10 mg PO QAM dextroamphetamine-amphetamine 10 mg tablet (Adderall) 10 mg PO .COMPLEX levothyroxine 50 mcg tablet 25 mcg PO QAM lisinopril 5 mg tablet 10 mg PO QAM mirtazapine 15 mg tablet 15 mg PO HS ondansetron HCl 4 mg tablet (Zofran) 8 mg PO Q6 PRN aluminum-magnesium hydroxide 225 mg-200 mg/5 mL oral suspension 5 ml PO DAILY DO NOT take the morning of surgery cholecalciferol (vitamin D3) 25 mcg (1,000 unit) capsule 1,000 unit PO QAM loratadine 10 mg tablet 10 mg PO QAM dextroamphetamine-amphetamine 10 mg tablet (Adderall) 10 mg PO .COMPLEX lisinopril 5 mg tablet 10 mg PO QAM aluminum-magnesium hydroxide 225 mg-200 mg/5 mL oral suspension 5 ml PO DAILY Take morning of surgery With a small sip of water, OTHERWISE NOTHING TO EAT OR DRINK AFTER MIDNIGHT: lamotrigine 150 mg tablet (Lamictal) 150 mg PO QAM pantoprazole 40 mg tablet,delayed release 40 mg PO QAM acetaminophen 650 mg tablet,extended release (Tylenol 8 Hour) 650 mg PO Q4 PRN (okay to take up to 4 hours prior to surgery if needed) levothyroxine 50 mcg tablet 25 mcg PO QAM ondansetron HCl 4 mg tablet (Zofran) 8 mg PO Q6 PRN (if needed) Take evening before surgery acetaminophen 650 mg tablet,extended release (Tylenol 8 Hour) 650 mg PO Q4 PRN (if needed) mirtazapine 15 mg tablet 15 mg PO HS ondansetron HCl 4 mg tablet (Zofran) 8 mg PO Q6 PRN (if needed) Other Notes If you have any questions please call us at [phone] or [phone] or or [phone]
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
[2021-11-29] MEDS ORDERED: ACETAMINOPHEN 500 MG TAB PO SCH (06:00)
[2021-11-29] MEDS ORDERED: GABAPENTIN 300 MG CAP PO SCH (06:00)
[2021-11-29] MEDS ORDERED: ceFAZolin 1000MG 1,000 MG/7.5 ML SYR IV SCH (06:00)
[2021-11-29] MEDS ORDERED: LR 500ML BOLUS, THEN 15ML/HR IV SCH (06:00)
[2021-11-29] MEDS ORDERED: TRANEXAMIC ACID 1,000 MG **IV Pre-op IV SCH (06:00)
[2021-11-29] MEDS ORDERED: TRANEXAMIC ACID 1,000 MG **IV Intra-op IV SCH (06:00)
[2021-11-29] MEDS ORDERED: ROPIVACAINE 0.5% HCL/PF 150 MG, BUPIVACAINE 0.75% MPF 20 ML, EPINEPHrine 30MG/30ML (OR ... INFIL SCH (06:00)
[2021-11-29] MEDS ORDERED: dexAMETHasone 4 MG TAB PO SCH (06:00)
[2021-11-29] MEDS ORDERED: LR 60ML/HR IV SCH (06:00)
[2021-11-29] MEDS ORDERED: FAMOTIDINE 20 MG TAB PO SCH (06:00)
[2021-11-29] MEDS ORDERED: BUPIVACAINE 0.5 % 5 MG/1 ML PF 10ML VIAL ONE (06:10)
[2021-11-29] MEDS ORDERED: ORTHO JOINT ANESTHETIC ONE (06:27)
--- NOTE | 2021-11-29 06:42 | History & Physical Bridge Note ---
Date of Service November 29, 2021 History & Physical Bridge Note I have examined the patient, reviewed the History & Physical and in the interval since the performance of the History & Physical I have noted the following changes of clinical significance: no changes noted
[2021-11-29] MEDS ORDERED: PROPOFOL IV EMULSION 10 MG/ML 20 ML VIAL IV ONE (06:48)
[2021-11-29] MEDS ORDERED: MIDAZOLAM HCL 1 MG/ML 2ML VIAL ONE (06:48)
[2021-11-29] MEDS ORDERED: fentaNYL citrate 100 MCG/2 ML VIAL IV PRN (07:04)
[2021-11-29] MEDS ORDERED: ePHEDrine sulfate 50 MG/ML AMP IV PRN (07:04)
[2021-11-29] MEDS ORDERED: ONDANSETRON INJ 2 MG/ML 2 ML VIAL IV PRN (07:04)
[2021-11-29] MEDS ORDERED: ATROPINE SULFATE 0.1 MG/ML 10ML SYR IV PRN (07:04)
[2021-11-29] MEDS ORDERED: ONDANSETRON INJ 2 MG/ML 2 ML VIAL ONE (07:43)
[2021-11-29] MEDS ORDERED: ePHEDrine sulfate 50 MG/ML AMP ONE (07:47)
--- NOTE | 2021-11-29 08:12 | Operative Report ---
PG Post Operative Report Pre & Post Diagnosis Operation Date: 11/29/21 07:00 Pre-Op Diagnosis: Degenerative Joint Disease Right Hip Post-Op Diagnosis: Degenerative Joint Disease Right Hip I identified the patient and participated in the time-out.: Yes Procedure Operation Date: 11/29/21 07:00 Actual Procedures p Right Anterior Total Hip Arthroplasty, Uncemented(Right) - Jose Roberto Macias DO Surgeon Jose Roberto Macias, Foreign Exchange Dealer Jose Roberto Otto PAC Estimated Blood Loss 100 Findings Consistent with Post-Op Diagnosis Specimens Right femoral head Complications none Disposition Disposition: Recovery Room Indications Tonia is a pleasant 81-year-old female who is been doing chronic increasing right hip and groin pain. X-rays and clinical examination are diagnostic for advanced arthritis of the right hip. After failing conservative treatment, she elected proceed with a right anterior total hip arthroplasty. Description of Procedure Implants used I used a ZimmerBiomet total hip arthroplasty system with a size 5 standard offset Avenir Complete stem, a 46 mm G7 cup with a 25mm screw, an E1 polyethylene liner, a 28 mm ceramic head with a -3.5 neck. Shira arrived at the hospital for the above procedure. She was seen in the preoperative holding area and the operative extremity was identified and signed. She was given a spinal anesthetic, a preoperative antibiotic, and TXA. She was then taken back to the operating room and laid on the table in the supine position. She was given basic sedation. The operative leg was secured to a Puristst leg positioner. The hip was then prepped and draped in sterile fashion. A timeout was done and the patient and the operative extremity was properly identified. An anterior approach was used. Dissection was taken down through the fascia and the tensor muscle belly was retracted laterally and the rectus was retracted medially. The circumflex vessels were identified and ligated. The capsule was then incised and tagged for later repair. The femoral neck was then cut and the femoral head was removed. The acetabulum was exposed. Time was spent doing a complete circumferential labral release. Sequential reaming of the acetabulum up to a size 45 reamer was done. Final reamings were done under fluoroscopy to ensure appropriate version. A Biomet 46mm G7 cup was then impacted into place. A single 25 mm screw was placed. The E1 polyethylene liner was then snapped into place. Surrounding soft tissues were then injected with 100 cc of an orthopedic pain control cocktail. The proximal femur was then exposed. Sequential broaching up to a size 5 broach was done. Off that broach a size 28 head with a -3.5 neck was trialed. The hip was reduced and fluoroscopic images showed anatomic alignment of the implants in acceptable length. The broach was removed. The final size 5 standard offset Avenir Complete stem was then impacted into place. A ceramic 28mm head with a - 3.5 neck was then impacted onto the stem and the hip was reduced. Final fluoroscopic images showed anatomic alignment of the hip. The capsule was then closed with #1 Vicryl suture. A dilute betadyne lavage was then done for 3 minutes. The joint was then irrigated with normal saline solution. The fascia was closed with #1 PDS suture. Skin was closed with 2-0 Vicryl, edin, and a Silverlon dressing. She was then transferred to a hospital bed and taken to the post anesthesia care unit in stable condition. She tolerated the procedure well. Jose Roberto Otto PA-C, was present for the entire procedure. He was critical for patient positioning, prepping, draping, retraction exposure, wound closure and application of sterile dressing. I attest to the content of the Intraoperative Record and any orders documented therein. Any exceptions are noted below.
--- NOTE | 2021-11-29 08:48 | Fluoroscopy Report ---
INTRAOPERATIVE RADIOGRAPHS CLINICAL HISTORY: Right hip arthroplasty. Fluoroscopy time: 18 seconds. FINDINGS: 2 spot fluoroscopic views of the right hip are presented. The first image shows surgical ab sence of the right femoral head with the acetabular cup in place. The second image shows a right hip arthroplasty in near-anatomic alignment. A single cortical lag screw transfixes the acetabular cup. T here is no evidence of acute fracture on these fluoroscopic views. IMPRESSION: Intraoperative images from a right hip arthroplasty procedure as above. Electronically signed by: Irineo Chang M.D. 11/29/2021 8:47 AM
--- NOTE | 2021-11-29 09:08 | XRay Report ---
XR hip 1V RT w pelvis CLINICAL HISTORY: IN PACU - A/P PELVIS and LATERAL HIP TECHNIQUE: 2 views of the right hip and single frontal view of the pelvis were obtained. Comparison: Comparison is made to hip radiographs 07/24/2021 FINDINGS: Patient is status post total hip arthroplasty with expected postsurgical changes including soft tissu e swelling, subcutaneous emphysema, and surgical staple placement. No periarticular lucency or hardwa re fracture is seen. IMPRESSION: Expected postoperative appearance status post placement of total hip arthroplasty. ACT 112: Negative or not required by law. Electronically signed by: Flip Barlow M.D. 11/29/2021 9:07 AM
--- NOTE | 2021-11-29 09:41 | Anesthesiology Progress Note ---
Date of Service November 29, 2021 Anesthesia Post Procedure Vital Signs Vital Signs: Temp Pulse Pulse Resp BP Pulse Ox 11/29/21 09:30 36.7 C 63 12 130/62 95 11/29/21 09:20 65 20 148/51 H 95 11/29/21 09:10 65 20 147/67 H 96 11/29/21 09:00 36.9 C 65 19 148/63 H 100 11/29/21 08:50 68 19 147/61 H 100 11/29/21 08:40 65 17 149/65 H 100 11/29/21 08:34 37 C 66 18 153/58 H 100 11/29/21 06:00 36.9 C 53 L 18 178/76 H 97 Transfer of Care Handoff Completed per policy Notes Mental Status: alert / awake / arousable Patient Amnestic to Procedure: Yes Nausea / Vomiting: adequately controlled Pain: adequately controlled Airway Patency, RR, SpO2: stable & adequate BP & HR: stable & adequate Hydration State: stable & adequate Neuraxial Anesthesia: was administered and sensory block is resolving Anesthetic Complications: no major complications apparent and Pt Satisfied with anesthetic care
[2021-11-29] MEDS ORDERED: MAGNESIUM HYDROXIDE SUSP 30 ML UDC PO PRN (09:45)
[2021-11-29] MEDS ORDERED: bisacodyL 10 MG SUPP PR PRN (09:45)
[2021-11-29] MEDS ORDERED: SODIUM CHLORIDE 0.9% 1000ML 1,000 ML IV SCH (09:45)
[2021-11-29] MEDS ORDERED: HYDROmorphone INJ 0.5 MG/0.5 ML SYR IV PRN (09:45)
[2021-11-29] MEDS ORDERED: NALOXONE HCL 0.4 MG/1 ML VIAL/CARP IV PRN (09:45)
[2021-11-29] MEDS ORDERED: METOCLOPRAMIDE HCL INJ 5 MG/ML 2 ML VIAL IV PRN (09:45)
[2021-11-29] MEDS: KETOROLAC TROMETHAMINE 15 MG/ML VIAL IV SCH ×3 (12:28→23:41)
[2021-11-29] MEDS: LORATADINE 10 MG TAB PO SCH (12:28)
[2021-11-29] MEDS: MULTIVITAMIN TAB PO SCH (12:28)
[2021-11-29] MEDS: lisinopril 10 MG TAB PO SCH (12:29)
[2021-11-29] MEDS: DOCUSATE SODIUM 100 MG CAP PO SCH ×2 (12:30→20:54)
[2021-11-29] MEDS: LEVOTHYROXINE SODIUM 25 MCG TABLET PO SCH (12:30)
[2021-11-29] MEDS: lamoTRIgine 100 MG TAB PO SCH (12:30)
[2021-11-29] MEDS: ACETAMINOPHEN 500 MG TAB PO SCH ×2 (15:26→20:54)
[2021-11-29] MEDS: ceFAZolin 2000MG 2,000 MG/15 ML SYR IV SCH ×2 (15:32→23:41)
[2021-11-29] MEDS: SENNA 8.6 MG TAB PO SCH (20:53)
[2021-11-29] MEDS: MIRTAZAPINE TAB 15 MG TAB PO SCH (20:54)
[2021-11-30] MEDS: ACETAMINOPHEN 500 MG TAB PO SCH ×3 (05:36→21:57)
[2021-11-30] MEDS: KETOROLAC TROMETHAMINE 15 MG/ML VIAL IV SCH ×3 (05:36→18:01)
[2021-11-30] MEDS: LEVOTHYROXINE SODIUM 25 MCG TABLET PO SCH (05:36)
[2021-11-30] MEDS: oxyCODONE HCL IR 5 MG TAB (IMMEDIATE RELEASE) PO PRN (05:41)
[2021-11-30] MEDS ORDERED: dexAMETHasone 4 MG TAB PO SCH (08:00)
--- NOTE | 2021-11-30 08:30 | Orthopedic Progress Note ---
Date of Service November 30, 2021 Assessment & Plan (1) Status post right hip replacement: Overall she is doing fairly well. She does not need much pain in the right hip. She will be seen by physical therapy today for ambulation and range of motion exercises. She is on Xarelto for DVT prophylaxis. She is hoping to be discharged to rehab facility. I do want to keep her for a day or 2 to make sure that her pain is controlled and she feels stable in the hip before discharge. Raymond Randall was seen and examined at bedside this morning. Overall she seems to be doing fairly well. She has been up to the bedside commode but has not been ambulating more than that. She is not having much pain in the right hip. She has no complaints. Review of Systems All systems reviewed & are unremarkable except as noted in HPI & below. Physical Exam On physical examination of the right hip, the dressing is clean and dry. Her leg lengths are equal. She has active dorsiflexion plantarflexion of her right ankle.. Results & Data Results & Data Laboratory Results . Diagnostic Findings Postoperative x-rays of the right hip show the prosthesis to be in anatomic alignment without any evidence of fracture, screws, or loosening. PG Care Time/CCT Total # of Minutes Spent Total Time Spent with Patient: Total time spent is greater than 50% in coordination of care (as documented) at patient's floor/unit and/or counseling patient: Coding Level of Care Code 42854 Post Operative Follow-Up Diagnoses Status post right hip replacement Z96.641
[2021-11-30] MEDS: RIVAROXABAN 10 MG TABLET PO SCH (08:55)
[2021-11-30] MEDS: lamoTRIgine 100 MG TAB PO SCH (08:56)
[2021-11-30] MEDS: MULTIVITAMIN TAB PO SCH (08:56)
[2021-11-30] MEDS: lisinopril 10 MG TAB PO SCH (08:56)
[2021-11-30] MEDS: LORATADINE 10 MG TAB PO SCH (08:56)
[2021-11-30] MEDS: DOCUSATE SODIUM 100 MG CAP PO SCH ×2 (08:57→20:23)
[2021-11-30] MEDS: AMPHETAMINE ASP/SULF/DEXTRAMPH 20 MG TAB PO SCH (09:05)
[2021-11-30] MEDS: SENNA 8.6 MG TAB PO SCH (20:23)
[2021-11-30] MEDS: MIRTAZAPINE TAB 15 MG TAB PO SCH (20:24)
[2021-12-01] MEDS: KETOROLAC TROMETHAMINE 15 MG/ML VIAL IV SCH ×2 (00:15→05:29)
[2021-12-01] MEDS: LEVOTHYROXINE SODIUM 25 MCG TABLET PO SCH (05:28)
[2021-12-01] MEDS: ACETAMINOPHEN 500 MG TAB PO SCH ×3 (05:28→21:55)
--- NOTE | 2021-12-01 07:59 | Orthopedic Progress Note ---
Date of Service December 01, 2021 Assessment & Plan (1) Status post right hip replacement: Overall she is progressing slowly. She was able to ambulate 10 feet yesterday with physical therapy. She will be seen by physical therapy again for ambulation and range of motion exercises. She is on Xarelto 10 mg daily for a aspirin allergy. She would like to go to [facility] upon discharge but it does not appear that a bed will be available until Thursday or Thursday. She will continue to work with physical therapy. Raymond Randall was seen and examined at bedside this morning. Overall she is doing fairly well. She was able to walk about 10 feet yesterday with physical therapy. She is having too much pain in the left hip. She is awaiting bed availability at a rehab facility. Review of Systems All systems reviewed & are unremarkable except as noted in HPI & below. Physical Exam On physical examination of the right hip, the dressing is clean and dry. Her leg lengths are equal. She has active dorsiflexion and plantarflexion of her right ankle. Results & Data Results & Data Laboratory Results . Diagnostic Findings . PG Care Time/CCT Total # of Minutes Spent Total Time Spent with Patient: Total time spent is greater than 50% in coordination of care (as documented) at patient's floor/unit and/or counseling patient: Coding Level of Care Code 20859 Post Operative Follow-Up Diagnoses Status post right hip replacement Z96.641
[2021-12-01] MEDS: AMPHETAMINE ASP/SULF/DEXTRAMPH 20 MG TAB PO SCH (08:19)
[2021-12-01] MEDS: MULTIVITAMIN TAB PO SCH (08:20)
[2021-12-01] MEDS: lisinopril 10 MG TAB PO SCH (08:20)
[2021-12-01] MEDS: RIVAROXABAN 10 MG TABLET PO SCH (08:20)
[2021-12-01] MEDS: lamoTRIgine 100 MG TAB PO SCH (08:20)
[2021-12-01] MEDS: DOCUSATE SODIUM 100 MG CAP PO SCH ×2 (08:20→21:55)
[2021-12-01] MEDS: LORATADINE 10 MG TAB PO SCH (08:20)
[2021-12-01] MEDS: ONDANSETRON INJ 2 MG/ML 2 ML VIAL IV PRN (08:25)
[2021-12-01] MEDS: MIRTAZAPINE TAB 15 MG TAB PO SCH (21:55)
[2021-12-01] MEDS: SENNA 8.6 MG TAB PO SCH (21:55)
[2021-12-02] MEDS: LEVOTHYROXINE SODIUM 25 MCG TABLET PO SCH (05:29)
[2021-12-02] MEDS: ACETAMINOPHEN 500 MG TAB PO SCH ×3 (05:29→21:00)
[2021-12-02] MEDS: MULTIVITAMIN TAB PO SCH (08:28)
[2021-12-02] MEDS: RIVAROXABAN 10 MG TABLET PO SCH (08:28)
[2021-12-02] MEDS: AMPHETAMINE ASP/SULF/DEXTRAMPH 20 MG TAB PO SCH (08:28)
[2021-12-02] MEDS: lisinopril 10 MG TAB PO SCH (08:29)
[2021-12-02] MEDS: LORATADINE 10 MG TAB PO SCH (08:29)
[2021-12-02] MEDS: lamoTRIgine 100 MG TAB PO SCH (08:29)
[2021-12-02] MEDS: DOCUSATE SODIUM 100 MG CAP PO SCH ×2 (08:29→20:50)
[2021-12-02] MEDS: ONDANSETRON INJ 2 MG/ML 2 ML VIAL IV PRN (09:09)
--- NOTE | 2021-12-02 10:46 | Orthopedic Progress Note ---
Date of Service December 02, 2021 Assessment & Plan (1) Status post right hip replacement: Unfortunately she does not seem to be doing well right now. She had some emesis in a bag, which she said was mostly from intense gastric reflux. She was a little bit difficult to arouse and she was very confused and upset while was talking with her. I am going to get some blood work including a CBC and CMP. I also got a consult the hospitalist for help in treating her intense GERD as well as her delirium. She is waiting for placement at [facility] when a bed becomes available. Raymond Randall was seen and examined at bedside this morning. Unfortunately she seems very confused. She was insistent that somebody contact her son. She seemed confused about what was going on. She was very upset. She was having significant acid reflux, which apparently is not new for her. She was participating well with physical therapy yesterday. She does not seem to be doing as well today. She seems very tired. It was a little bit difficult to g et her to respond to my questions. Review of Systems All systems reviewed & are unremarkable except as noted in HPI & below. Physical Exam Physical examination of the right hip, the dressing is clean and dry. Her leg lengths are equal. She has active dorsiflexion plantarflexion of her right ank le. Results & Data Results & Data Laboratory Results . Diagnostic Findings . PG Care Time/CCT Total # of Minutes Spent Total Time Spent with Patient: Total time spent is greater than 50% in coordination of care (as documented) at patient's floor/unit and/or counseling patient: Coding Level of Care Code 72038 Post Operative Follow-Up Diagnoses Status post right hip replacement Z96.641
[2021-12-02] MEDS ORDERED: PANTOprazole 40 MG in SYRINGE 0 ML IV SCH (11:00)
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
[2021-12-02 13:15] LABS: Basophils # (auto) 0.02 K/uL (0-0.2); Basophils % (auto) 0.2 %; Eosinophils % (auto) 2.4 %; Hematocrit (blood only) 36.6 % (37-47); Hemoglobin 11.6 g/dL (12.0-16.0); Immature Granulocytes # (auto) 0.03 K/uL (0.00-0.02); Immature Granulocytes % (auto) 0.4 %; Lymphocytes % (auto) 23.8 %; Mean Corpuscular Hemoglobin 30.6 pg (25-34); Mean Corpuscular Hgb Conc 31.7 g/dL (32-36); Mean Corpuscular Volume 96.6 fL (80-100); Mean Platelet Volume 13.1 fL (7.4-10.4); Monocytes # (auto) 0.81 K/uL (0.11-0.59); Monocytes % (auto) 9.6 %; Neutrophils # (auto) 5.34 K/uL (1.4-6.5); Neutrophils % (auto) 63.6 %; Platelet Count 296 K/uL (130-400); RDW Coefficient of Variation 15.6 % (11.5-14.5); RDW Standard Deviation 54.9 fL (36.4-46.3); Red Blood Count 3.79 M/uL (4.2-5.4)
[2021-12-02 13:48] LABS: Albumin Globulin Ratio 1.1 (0.9-2); Albumin Level 3.4 gm/dl (3.4-5.0); BUN Creatinine Ratio 29.5 (10-20); Bilirubin,Total 0.5 mg/dl (0.2-1.0); Creatinine Clr Calc Pharmacy 33.2 ml/min; Est GFR (African American) 57.7 ml/min; Est GFR (Non-African American) 49.8 ml/min; Potassium 4.1 mmol/L (3.5-5.1); Total Protein 6.4 gm/dl (6.0-8.3)
[2021-12-02] MEDS: FAMOTIDINE 20 MG TAB PO SCH ×2 (14:45→20:50)
[2021-12-02] MEDS: PANTOprazole 40 MG TAB PO SCH (14:46)
[2021-12-02] MEDS ORDERED: OLANZapine 10 MG/2.1 ML SDV IM STA (20:27)
[2021-12-02] MEDS: MIRTAZAPINE TAB 15 MG TAB PO SCH (20:33)
[2021-12-02] MEDS: SENNA 8.6 MG TAB PO SCH (20:51)
[2021-12-03] MEDS: ACETAMINOPHEN 500 MG TAB PO SCH ×3 (06:06→21:55)
[2021-12-03] MEDS: LEVOTHYROXINE SODIUM 25 MCG TABLET PO SCH (06:06)
--- NOTE | 2021-12-03 06:48 | CT Scan Report ---
CT OF THE HEAD WITHOUT CONTRAST CLINICAL HISTORY: Altered mental status. COMPARISON STUDY: Head CT April 07, 2013. CT DOSE: 537.48 mGy.cm TECHNIQUE: Helical axial images of the head were obtained without IV contrast. Automated exposure con trol was utilized for the study. A dose lowering technique was utilized adhering to the principles o f ALARA. FINDINGS: No acute intracranial hemorrhage, midline shift or mass effect is present. White matter hyp odensities favor small vessel disease. The ventricular system is unremarkable. The basal cisterns are patent. No extra-axial collections are present. There are no findings to suggest acute dural sinus t hrombosis or acute territorial infarct. No significant calvarial abnormalities are present. Visualize d portions of the sinuses and mastoid air cells are clear. IMPRESSION: No acute intracranial findings. ACT 112: Negative or not required by law. Electronically signed by: Bebo Purcell M.D. 12/03/2021 6:45 AM
--- NOTE | 2021-12-03 06:48 | Orthopedic Progress Note ---
Date of Service December 03, 2021 Assessment & Plan (1) Status post right hip replacement: With regards to her hip she seems to be doing well. She is actually ambulating very well with physical therapy when they come by. She does have this intermittent postoperative confusion. She was seen by the hospitalist and her H&H was acceptable. When she is not having this intermittent postoperative confusion or delirium, she is actually doing quite well. I think she is stable for discharge to a rehab facility. She can be discharged to rehab facility when a bed becomes available. She will follow-up with orthopedics in 2 weeks. Raymond Bertrand was seen and examined at bedside this morning. She was asleep when I am in the room and I woke her up. She was a little delirious at that point. She seemed a little confused about where she was or what was going on. She did not seem to be having much pain in the hip. She was a little bit sleepy and I let her fall back asleep. Review of Systems All systems reviewed & are unremarkable except as noted in HPI & below. Physical Exam Physical examination the right hip shows dressing to be clean and dry. Her leg lengths are equal.. Results & Data Results & Data Laboratory Results . Diagnostic Findings . PG Care Time/CCT Total # of Minutes Spent Total Time Spent with Patient: Total time spent is greater than 50% in coordination of care (as documented) at patient's floor/unit and/or counseling patient: Coding Level of Care Code 77787 Post Operative Follow-Up Diagnoses Status post right hip replacement Z96.641
[2021-12-03 07:41] LABS: BUN Creatinine Ratio 25.2 (10-20); Calcium 8.6 mg/dl (8.5-10.1); Creatinine Clr Calc Pharmacy 33.9 ml/min; Est GFR (Non-African American) 50.9 ml/min; Potassium 4.2 mmol/L (3.5-5.1)
[2021-12-03] MEDS: lamoTRIgine 100 MG TAB PO SCH (09:38)
[2021-12-03] MEDS: RIVAROXABAN 10 MG TABLET PO SCH (09:38)
[2021-12-03] MEDS: PANTOprazole 40 MG TAB PO SCH (09:38)
[2021-12-03] MEDS: LORATADINE 10 MG TAB PO SCH (09:39)
[2021-12-03] MEDS: DOCUSATE SODIUM 100 MG CAP PO SCH ×2 (09:39→21:53)
[2021-12-03] MEDS: MULTIVITAMIN TAB PO SCH (09:39)
[2021-12-03] MEDS: FAMOTIDINE 20 MG TAB PO SCH ×2 (09:39→21:54)
[2021-12-03] MEDS: lisinopril 10 MG TAB PO SCH (09:39)
[2021-12-03] MEDS: AMPHETAMINE ASP/SULF/DEXTRAMPH 20 MG TAB PO SCH (09:42)
[2021-12-03 10:25] LABS: Appearance Urine Clear (Clear); Bilirubin Urine Negative (Negative); Blood Urine Negative (Negative); Color Urine Yellow; Glucose Urine UA Negative (Negative); Ketones Urine Negative (Negative); Leukocyte Esterase Urine Negative (Negative); Nitrite Urine Negative (Negative); Protein Urine Negative (Negative); Specific Gravity Urine 1.019 (1.000-1.030); Urobilinogen Urine Negative (Negative)
--- NOTE | 2021-12-03 17:36 | Hospitalist Progress Note ---
Date of Service December 03, 2021 Assessment & Plan (1) Status post right hip replacement: Plan: S/P Right SERENA with Dr. Macias Activity and wound care orders as per ortho Pain control with bowel regimen Continue PT/OT Incentive Spirometry Monitor CBC Hgb stable 11.6 (2) GERD (gastroesophageal reflux disease): Plan: Longstanding history of GERD Noted that patient has not been receiving routine Protonix Continue Protonix, Pepcid (3) Postoperative confusion: Plan: Delirium UA normal Limit use of narcotics as able Delirium precautions Use of Glasses/Hearing aids if uses at baseline Reorient frequently Zyprexa as needed (4) HTN (hypertension): Plan: Continue lisinopril (5) Depression: (6) ADHD: Plan: Continue home meds Follows with Dr. Francois (7) Hypothyroidism: Plan: Continue levothyroxine (8) DVT prophylaxis: Plan: Rivaroxaban 10 mg daily as per Ortho Thank you for this consultation. We will follow the patient with you during their hospital stay. You can [facility] a [facility] via the [facility] role in [place] Text. Admission and Anticipated Discharge Date Admission Date: December 03, 2021 Subjective Patient is seen and examined at bedside Oriented and cooperative during my encounter today Pain at surgical site is controlled Denies any chest pain, shortness of breath, dizziness, nausea, abdominal pain Was confused and agitated overnight likely secondary to delirium Review of Systems Review of Systems: All systems reviewed & are unremarkable except as noted in Subjective Physical Exam Physical Exam: Physical Exam: Vitals signs as noted above General Appearance:Moderately built and nourished, no apparent distress Head: normocephalic, Atraumatic Eyes: normal inspection, EOMI Neck: supple, Trachea midline Respiratory/Chest: Normal breath sounds, CTA, No accessory muscle use Cardiovascular: S1, S2, + murmur Abdomen/GI:Soft, Non tender, + well-healed surgical scar, Bowel sounds present Extremities/Musculoskeletal:normal inspection, no edema, right hip surgical site in dressing Neurologic/Psych:AAO, grossly no focal neurological deficits Skin: normal color, warm Results & Data Results & Data ([facility]) Vital Signs (Past 12 Hours) Vital Signs Temp Pulse Pulse Resp BP Pulse Ox 12/03/21 15:34 36.9 C 73 16 125/76 94 12/03/21 07:29 36.4 C L 63 16 107/70 95 Laboratory Results BMP 12/03/21 06:38 Sodium 139 Potassium 4.2 Chloride 109 H Carbon Dioxide 25 BUN 26 H Creatinine 1.03 Glucose 92 Calcium 8.6 Urine 12/03/21 Range/Units 10:05 Urine Color Yellow Urine Appearance Clear (Clear) Urine pH 5.0 (4.5-7.5) Ur Specific [place] 1.019 (1.000-1.030) Urine Protein Negative (Negative) Urine Glucose (UA) Negative (Negative)
[2021-12-03] MEDS: MIRTAZAPINE TAB 15 MG TAB PO SCH (21:54)
[2021-12-03] MEDS: SENNA 8.6 MG TAB PO SCH (21:54)
[2021-12-04] MEDS: ACETAMINOPHEN 500 MG TAB PO SCH ×3 (06:08→21:37)
[2021-12-04] MEDS: LEVOTHYROXINE SODIUM 25 MCG TABLET PO SCH (06:08)
--- NOTE | 2021-12-04 06:41 | Orthopedic Progress Note ---
Date of Service December 04, 2021 Assessment & Plan (1) Status post right hip replacement: She seems to be doing about as well as expected. She is working well with physical therapy. She does have some intermittent confusion. She is currently awaiting discharge to a nursing facility. She was recently switched to an inpatient. She is on Xarelto for DVT prophylaxis. Raymond Bertrand was seen and examined at bedside this morning. She was asleep when I entered the room. I spoke with the nurse. She said that she was awake and alert overnight. She was not having much pain in her hip. She has been participating well with physical therapy. She does have intermittent bouts of confusion. Review of Systems All systems reviewed & are unremarkable except as noted in HPI & below. Physical Exam On physical examination of the right hip, the dressing has been changed. Her leg lengths are equal. Results & Data Results & Data Laboratory Results . Diagnostic Findings . PG Care Time/CCT Total # of Minutes Spent Total Time Spent with Patient: Total time spent is greater than 50% in coordination of care (as documented) at patient's floor/unit and/or counseling patient: Coding Level of Care Code 47752 Post Operative Follow-Up Diagnoses Status post right hip replacement Z96.641
[2021-12-04 08:04] LABS: Hematocrit (blood only) 33.5 % (37-47); Hemoglobin 10.8 g/dL (12.0-16.0); Mean Corpuscular Hemoglobin 31.3 pg (25-34); Mean Corpuscular Hgb Conc 32.2 g/dL (32-36); Mean Corpuscular Volume 97.1 fL (80-100); Mean Platelet Volume 12.6 fL (7.4-10.4); Platelet Count 309 K/uL (130-400); RDW Coefficient of Variation 15.6 % (11.5-14.5); RDW Standard Deviation 55.3 fL (36.4-46.3); Red Blood Count 3.45 M/uL (4.2-5.4); White Blood Count 6.92 K/uL (4.8-10.8)
[2021-12-04 08:17] LABS: Est GFR (African American) 45.8 ml/min; Est GFR (Non-African American) 39.5 ml/min; Potassium 4.2 mmol/L (3.5-5.1)
[2021-12-04 08:18] LABS: BUN Creatinine Ratio 22.8 (10-20); Calcium 9.1 mg/dl (8.5-10.1); Creatinine Clr Calc Pharmacy 27.5 ml/min
[2021-12-04] MEDS: LORATADINE 10 MG TAB PO SCH (08:27)
[2021-12-04] MEDS: DOCUSATE SODIUM 100 MG CAP PO SCH ×2 (08:27→21:36)
[2021-12-04] MEDS: PANTOprazole 40 MG TAB PO SCH (08:27)
[2021-12-04] MEDS: FAMOTIDINE 20 MG TAB PO SCH ×2 (08:27→21:37)
[2021-12-04] MEDS: lamoTRIgine 100 MG TAB PO SCH (08:27)
[2021-12-04] MEDS: MULTIVITAMIN TAB PO SCH (08:27)
[2021-12-04] MEDS: RIVAROXABAN 10 MG TABLET PO SCH (08:27)
[2021-12-04] MEDS: lisinopril 10 MG TAB PO SCH (08:28)
[2021-12-04] MEDS: AMPHETAMINE ASP/SULF/DEXTRAMPH 20 MG TAB PO SCH (08:30)
[2021-12-04] MEDS ORDERED: SODIUM CHLORIDE 0.9% 1000ML 1,000 ML IV ONE (10:51)
--- NOTE | 2021-12-04 19:05 | Hospitalist Progress Note ---
Date of Service December 04, 2021 Assessment & Plan (1) Status post right hip replacement: Plan: S/P Right SERENA with Dr. Macias Activity and wound care orders as per ortho Pain control with bowel regimen Continue PT/OT Incentive Spirometry Monitor CBC Hgb stable Waiting for rehab placement (2) GERD (gastroesophageal reflux disease): Plan: Longstanding history of GERD Noted that patient has not been receiving routine Protonix Continue Protonix, Pepcid (3) Postoperative confusion: Plan: Delirium UA normal Limit use of narcotics as able Delirium precautions Use of Glasses/Hearing aids if uses at baseline Reorient frequently Zyprexa as needed (4) HTN (hypertension): Plan: Continue lisinopril (5) Depression: (6) ADHD: Plan: Continue home meds Follows with Dr. Francois (7) Hypothyroidism: Plan: Continue levothyroxine (8) DVT prophylaxis: Plan: Rivaroxaban 10 mg daily as per Ortho Thank you for this consultation. We will follow the patient with you during their hospital stay. You can reach a member of the [facility] Hospitalist Team 12/01 via [facility] in [place] Text. Admission and Anticipated Discharge Date Admission Date: December 03, 2021 Subjective Patient is seen and examined at bedside No recurrence of confusion Has some pain at surgical site with ambulation No other complaints Family at bedside Waiting for placement Denies any chest pain, shortness of breath, dizziness, nausea, abdominal pain Review of Systems Review of Systems: All systems reviewed & are unremarkable except as noted in Subjective Physical Exam Physical Exam: Physical Exam: Vitals signs as noted above General Appearance:Moderately built and nourished, no apparent distress Head: normocephalic, Atraumatic Eyes: normal inspection, EOMI Neck: supple, Trachea midline Respiratory/Chest: Normal breath sounds, CTA, No accessory muscle use Cardiovascular: S1, S2, + murmur Abdomen/GI:Soft, Non tender, + well-healed surgical scar, Bowel sounds present Extremities/Musculoskeletal:normal inspection, no edema, right hip surgical site in dressing Neurologic/Psych:AAO, grossly no focal neurological deficits Skin: normal color, warm Results & Data Results & Data ([facility]) Vital Signs (Past 12 Hours) Vital Signs Temp Pulse Resp BP Pulse Ox 12/04/21 15:50 36.7 C 86 16 111/75 95 12/04/21 07:51 36.8 C 61 16 132/79 98 Laboratory Results Short CBC 12/04/21 Range/Units 07:19 WBC 6.92 (4.8-10.8) K/uL Hgb 10.8 L (12.0-16.0) g/dL Hct 33.5 L (37-47) % Plt Count 309 (130-400) K/uL BMP 12/04/21 07:19 Sodium 139 Potassium 4.2 Chloride 107 Carbon Dioxide 27 BUN 29 H Creatinine 1.27 H Glucose 100 H Calcium 9.1
[2021-12-04] MEDS: MIRTAZAPINE TAB 15 MG TAB PO SCH (21:37)
[2021-12-04] MEDS: SENNA 8.6 MG TAB PO SCH (21:37)
[2021-12-05] MEDS: LEVOTHYROXINE SODIUM 25 MCG TABLET PO SCH (05:23)
[2021-12-05] MEDS: ACETAMINOPHEN 500 MG TAB PO SCH ×3 (05:23→20:21)
[2021-12-05 06:34] LABS: Creatinine Clr Calc Pharmacy 30.6 ml/min; Est GFR (African American) 52.2 ml/min; Est GFR (Non-African American) 45.1 ml/min
--- NOTE | 2021-12-05 06:43 | Orthopedic Progress Note ---
Date of Service December 05, 2021 Assessment & Plan (1) Status post right hip replacement: Overall she seems to be doing well. She is not having much pain in the hip. She does have intermittent confusion. She is awaiting placement at [facility] facility. Unfortunately, there are no beds available at [facility] and the family is unwilling to go to any other rehab facility. Raymond Randall was seen and examined at bedside this morning. She was sleeping when I entered the room. I did not wake her. She is usually confused when I wake her. According to the therapy notes, she has been doing well with therapy, walking 150 feet. She had no acute events overnight. Review of Systems All systems reviewed & are unremarkable except as noted in HPI & below. Physical Exam On physical examination of the right hip, the dressing is clean and dry and her leg lengths are equal. . Results & Data Results & Data Laboratory Results . Diagnostic Findings . PG Care Time/CCT Total # of Minutes Spent Total Time Spent with Patient: Total time spent is greater than 50% in coordination of care (as documented) at patient's floor/unit and/or counseling patient: Coding Level of Care Code 82589 Post Operative Follow-Up Diagnoses Status post right hip replacement Z96.641
[2021-12-05] MEDS: DOCUSATE SODIUM 100 MG CAP PO SCH ×2 (08:21→20:22)
[2021-12-05] MEDS: RIVAROXABAN 10 MG TABLET PO SCH (08:21)
[2021-12-05] MEDS: MULTIVITAMIN TAB PO SCH (08:21)
[2021-12-05] MEDS: LORATADINE 10 MG TAB PO SCH (08:21)
[2021-12-05] MEDS: PANTOprazole 40 MG TAB PO SCH (08:21)
[2021-12-05] MEDS: lamoTRIgine 100 MG TAB PO SCH (08:21)
[2021-12-05] MEDS: FAMOTIDINE 20 MG TAB PO SCH ×2 (08:21→20:22)
[2021-12-05] MEDS: lisinopril 10 MG TAB PO SCH (08:21)
[2021-12-05] MEDS: AMPHETAMINE ASP/SULF/DEXTRAMPH 20 MG TAB PO SCH (08:21)
--- NOTE | 2021-12-05 18:20 | Hospitalist Progress Note ---
Date of Service December 05, 2021 Assessment & Plan (1) Status post right hip replacement: Plan: S/P Right SERENA with Dr. Macias Activity and wound care orders as per ortho Pain control with bowel regimen Continue PT/OT Incentive Spirometry Monitor CBC Hgb stable Waiting for rehab placement (2) GERD (gastroesophageal reflux disease): Plan: Longstanding history of GERD Noted that patient has not been receiving routine Protonix Continue Protonix, Pepcid (3) Postoperative confusion: Plan: Delirium UA normal Limit use of narcotics as able Delirium precautions Use of Glasses/Hearing aids if uses at baseline Reorient frequently Zyprexa as needed continue current management (4) HTN (hypertension): Plan: Continue lisinopril (5) Depression: (6) ADHD: Plan: Continue home meds Follows with Dr. Francois (7) Hypothyroidism: Plan: Continue levothyroxine (8) DVT prophylaxis: Plan: Rivaroxaban 10 mg daily as per Ortho Thank you for this consultation. We will follow the patient with you during their hospital stay. You can reach a member of the [facility] Hospitalist Team 12/01 via [facility] in [place] Text. Admission and Anticipated Discharge Date Admission Date: December 03, 2021 Subjective Patient is seen and examined at bedside Intermittently confused on and off Offers no complaints Waiting for placement Denies any chest pain, shortness of breath, dizziness, nausea, abdominal pain Review of Systems Review of Systems: All systems reviewed & are unremarkable except as noted in Subjective Physical Exam Physical Exam: Physical Exam: Vitals signs as noted above General Appearance:Moderately built and nourished, no apparent distress Head: normocephalic, Atraumatic Eyes: normal inspection, EOMI Neck: supple, Trachea midline Respiratory/Chest: Normal breath sounds, CTA, No accessory muscle use Cardiovascular: S1, S2, + murmur Abdomen/GI:Soft, Non tender, + well-healed surgical scar, Bowel sounds present Extremities/Musculoskeletal:normal inspection, no edema, right hip surgical site in dressing Neurologic/Psych:AAO, grossly no focal neurological deficits Skin: normal color, warm Results & Data Results & Data ([facility]) Vital Signs (Past 12 Hours) Vital Signs Temp Pulse Resp BP Pulse Ox 12/05/21 15:57 36.6 C 96 H 16 137/72 98 12/05/21 07:25 36.7 C 64 16 134/77 95 Laboratory Results [facility] 12/05/21 05:29 Creatinine 1.14
[2021-12-05] MEDS: MIRTAZAPINE TAB 15 MG TAB PO SCH (20:22)
[2021-12-05] MEDS: SENNA 8.6 MG TAB PO SCH (20:23)
[2021-12-06] MEDS: ACETAMINOPHEN 500 MG TAB PO SCH ×3 (05:37→21:13)
[2021-12-06] MEDS: LEVOTHYROXINE SODIUM 25 MCG TABLET PO SCH (05:37)
[2021-12-06] MEDS: DOCUSATE SODIUM 100 MG CAP PO SCH ×2 (08:49→21:14)
[2021-12-06] MEDS: lisinopril 10 MG TAB PO SCH (08:49)
[2021-12-06] MEDS: PANTOprazole 40 MG TAB PO SCH (08:49)
[2021-12-06] MEDS: MULTIVITAMIN TAB PO SCH (08:50)
[2021-12-06] MEDS: lamoTRIgine 100 MG TAB PO SCH (08:50)
[2021-12-06] MEDS: LORATADINE 10 MG TAB PO SCH (08:50)
[2021-12-06] MEDS: FAMOTIDINE 20 MG TAB PO SCH ×2 (08:50→21:14)
[2021-12-06] MEDS: RIVAROXABAN 10 MG TABLET PO SCH (08:51)
[2021-12-06] MEDS: AMPHETAMINE ASP/SULF/DEXTRAMPH 20 MG TAB PO SCH (08:53)
[2021-12-06] MEDS: oxyCODONE HCL IR 5 MG TAB (IMMEDIATE RELEASE) PO PRN ×2 (09:57→21:13)
--- NOTE | 2021-12-06 13:32 | Orthopedic Progress Note ---
Date of Service December 06, 2021 Assessment & Plan (1) Status post right hip replacement: She seems more awake and alert today. She is on Xarelto for DVT prophylaxis. She has been ambulating well with physical therapy. We are currently awaiting placement in a rehab facility. Raymond Bertrand was seen and examined at bedside this morning. Overall she is doing fairly well. She is having little bit of pain in the hip but is not too bad. She has no complaints. Review of Systems All systems reviewed & are unremarkable except as noted in HPI & below. Physical Exam On physical examination of the right hip, the dressing is clean and dry. Her leg lengths are equal. Results & Data Results & Data Laboratory Results . Diagnostic Findings . PG Care Time/CCT Total # of Minutes Spent Total Time Spent with Patient: Total time spent is greater than 50% in coordination of care (as documented) at patient's floor/unit and/or counseling patient: Coding Level of Care Code 19642 Post Operative Follow-Up Diagnoses Status post right hip replacement Z96.641
[2021-12-06] MEDS: SENNA 8.6 MG TAB PO SCH (21:13)
[2021-12-06] MEDS: MIRTAZAPINE TAB 15 MG TAB PO SCH (21:14)
[2021-12-07] MEDS: LEVOTHYROXINE SODIUM 25 MCG TABLET PO SCH (05:37)
[2021-12-07] MEDS: ACETAMINOPHEN 500 MG TAB PO SCH ×3 (05:37→20:52)
--- NOTE | 2021-12-07 07:40 | Orthopedic Progress Note ---
Date of Service December 07, 2021 Assessment & Plan (1) Status post right hip replacement: She seems to be doing pretty well with her right hip. She has been working well with physical therapy. She does have intermittent bouts of confusion, but other than that she is not having any issues. We are awaiting bed availability at [facility] on Thursday. Raymond Bertrand was seen and examined at bedside this morning. She was sleeping when I entered the room. I did not wake her. I was not aware of any acute events overnight. Review of Systems All systems reviewed & are unremarkable except as noted in HPI & below. Physical Exam Physical examination of the right leg shows leg lengths to be equal. The dressing is clean and dry.. Results & Data Results & Data Laboratory Results . Diagnostic Findings . PG Care Time/CCT Total # of Minutes Spent Total Time Spent with Patient: Total time spent is greater than 50% in coordination of care (as documented) at patient's floor/unit and/or counseling patient: Coding Level of Care Code 93583 Post Operative Follow-Up Diagnoses Status post right hip replacement Z96.641
[2021-12-07] MEDS: lamoTRIgine 100 MG TAB PO SCH (08:49)
[2021-12-07] MEDS: AMPHETAMINE ASP/SULF/DEXTRAMPH 20 MG TAB PO SCH (08:49)
[2021-12-07] MEDS: RIVAROXABAN 10 MG TABLET PO SCH (08:49)
[2021-12-07] MEDS: MULTIVITAMIN TAB PO SCH (08:49)
[2021-12-07] MEDS: FAMOTIDINE 20 MG TAB PO SCH ×2 (08:49→20:52)
[2021-12-07] MEDS: lisinopril 10 MG TAB PO SCH (08:49)
[2021-12-07] MEDS: DOCUSATE SODIUM 100 MG CAP PO SCH ×2 (08:49→20:51)
[2021-12-07] MEDS: PANTOprazole 40 MG TAB PO SCH (08:49)
[2021-12-07] MEDS: LORATADINE 10 MG TAB PO SCH (08:49)
[2021-12-07] MEDS ORDERED: ALUMINUM/MAGNESIUM/SIMETH (MAALOX MAX) 30 ML UDC PO PRN (11:15)
--- NOTE | 2021-12-07 18:00 | Hospitalist Progress Note ---
Date of Service December 07, 2021 Assessment & Plan (1) Status post right hip replacement: Plan: S/P Right SERENA with Dr. Macias Activity and wound care orders as per ortho Pain control with bowel regimen Continue PT/OT Incentive Spirometry Monitor CBC Hgb stable Waiting for rehab placement (2) GERD (gastroesophageal reflux disease): Plan: Longstanding history of GERD Noted that patient has not been receiving routine Protonix Continue Protonix, Pepcid Added Maalox as needed (3) Postoperative confusion: Plan: Delirium UA normal Limit use of narcotics as able Delirium precautions Use of Glasses/Hearing aids if uses at baseline Reorient frequently Zyprexa as needed continue current management (4) HTN (hypertension): Plan: Continue lisinopril (5) Depression: (6) ADHD: Plan: Continue home meds Follows with Dr. Francois (7) Hypothyroidism: Plan: Continue levothyroxine (8) DVT prophylaxis: Plan: Rivaroxaban 10 mg daily as per Ortho Thank you for this consultation. We will follow the patient with you during their hospital stay. You can reach a member of the [facility] Hospitalist Team 12/01 [facility] in [place] Text. Admission and Anticipated Discharge Date Admission Date: December 03, 2021 Subjective Patient is seen and examined at bedside States having heartburn today Waiting for rehab placement Intermittently delirious Denies any chest pain, shortness of breath, dizziness, nausea, abdominal pain Review of Systems Review of Systems: All systems reviewed & are unremarkable except as noted in Subjective Physical Exam Physical Exam: Physical Exam: Vitals signs as noted above General Appearance:Moderately built and nourished, no apparent distress Head: normocephalic, Atraumatic Eyes: normal inspection, EOMI Neck: supple, Trachea midline Respiratory/Chest: Normal breath sounds, CTA, No accessory muscle use Cardiovascular: S1, S2, + murmur Abdomen/GI:Soft, Non tender, + well-healed surgical scar, Bowel sounds present Extremities/Musculoskeletal:normal inspection, no edema, right hip surgical site in dressing Neurologic/Psych:AAO, grossly no focal neurological deficits Skin: normal color, warm Results & Data Results & Data ([facility]) Vital Signs (Past 12 Hours) Vital Signs Temp Pulse Resp BP Pulse Ox 12/07/21 15:49 36.7 C 96 H 16 164/98 H 98 12/07/21 07:43 36.3 C L 58 L 16 104/69 95
[2021-12-07] MEDS: SENNA 8.6 MG TAB PO SCH (20:51)
[2021-12-07] MEDS: MIRTAZAPINE TAB 15 MG TAB PO SCH (20:52)
[2021-12-08] MEDS: ACETAMINOPHEN 500 MG TAB PO SCH ×3 (05:29→21:08)
[2021-12-08] MEDS: LEVOTHYROXINE SODIUM 25 MCG TABLET PO SCH (05:29)
[2021-12-08 07:47] LABS: Creatinine Clr Calc Pharmacy 33.6 ml/min; Est GFR (African American) 58.4 ml/min; Est GFR (Non-African American) 50.3 ml/min
[2021-12-08] MEDS: RIVAROXABAN 10 MG TABLET PO SCH (08:21)
[2021-12-08] MEDS: FAMOTIDINE 20 MG TAB PO SCH ×2 (08:21→21:08)
[2021-12-08] MEDS: AMPHETAMINE ASP/SULF/DEXTRAMPH 20 MG TAB PO SCH (08:21)
[2021-12-08] MEDS: PANTOprazole 40 MG TAB PO SCH (08:21)
[2021-12-08] MEDS: lisinopril 10 MG TAB PO SCH (08:22)
[2021-12-08] MEDS: lamoTRIgine 100 MG TAB PO SCH (08:22)
[2021-12-08] MEDS: MULTIVITAMIN TAB PO SCH (08:22)
[2021-12-08] MEDS: LORATADINE 10 MG TAB PO SCH (08:22)
[2021-12-08] MEDS: DOCUSATE SODIUM 100 MG CAP PO SCH ×2 (08:22→21:09)
--- NOTE | 2021-12-08 16:05 | Hospitalist Progress Note ---
Date of Service December 08, 2021 Assessment & Plan (1) Status post right hip replacement: Plan: S/P Right SERENA with Dr. Macias Activity and wound care orders as per ortho Pain control with bowel regimen Continue PT/OT Incentive Spirometry Monitor CBC Hgb stable Waiting for rehab placement (2) GERD (gastroesophageal reflux disease): Plan: Longstanding history of GERD Noted that patient has not been receiving routine Protonix Continue Protonix, Pepcid Added Maalox as needed (3) Postoperative confusion: Plan: Delirium UA normal Limit use of narcotics as able Delirium precautions Use of Glasses/Hearing aids if uses at baseline Reorient frequently Zyprexa as needed continue current management (4) HTN (hypertension): Plan: Continue lisinopril (5) Depression: (6) ADHD: Plan: Continue home meds Follows with Dr. Frnacois (7) Hypothyroidism: Plan: Continue levothyroxine (8) DVT prophylaxis: Plan: Rivaroxaban 10 mg daily as per Ortho Thank you for this consultation. We will follow the patient with you during their hospital stay. You can reach a member of the [facility] Hospitalist Team 12/01 via the [facility] in [place] Text. Admission and Anticipated Discharge Date Admission Date: December 03, 2021 Subjective Patient is seen and examined at bedside No new complaints today Waiting for rehab placement Intermittently delirious, seemed to be oriented today Denies any chest pain, shortness of breath, dizziness, nausea, abdominal pain Review of Systems Review of Systems: All systems reviewed & are unremarkable except as noted in Subjective Physical Exam Physical Exam: Physical Exam: Vitals signs as noted above General Appearance:Moderately built and nourished, no apparent distress Head: normocephalic, Atraumatic Eyes: normal inspection, EOMI Neck: supple, Trachea midline Respiratory/Chest: Normal breath sounds, CTA, No accessory muscle use Cardiovascular: S1, S2, + murmur Abdomen/GI:Soft, Non tender, + well-healed surgical scar, Bowel sounds present Extremities/Musculoskeletal:normal inspection, no edema, right hip surgical site in dressing Neurologic/Psych:AAO, grossly no focal neurological deficits Skin: normal color, warm Results & Data Results & Data ([facility]) Vital Signs (Past 12 Hours) Vital Signs Temp Pulse Resp BP BP Pulse Ox 12/08/21 15:55 36.5 C 89 18 123/77 95 12/08/21 07:11 36.4 C L 69 18 150/75 H 99 Laboratory Results [facility] 12/08/21 06:22 Creatinine 1.04
[2021-12-08] MEDS: MIRTAZAPINE TAB 15 MG TAB PO SCH (21:09)
[2021-12-08] MEDS: SENNA 8.6 MG TAB PO SCH (21:09)
[2021-12-09] MEDS: LEVOTHYROXINE SODIUM 25 MCG TABLET PO SCH (05:53)
[2021-12-09] MEDS: ACETAMINOPHEN 500 MG TAB PO SCH (05:53)
[2021-12-09] MEDS: AMPHETAMINE ASP/SULF/DEXTRAMPH 20 MG TAB PO SCH (08:25)
[2021-12-09] MEDS: RIVAROXABAN 10 MG TABLET PO SCH (08:25)
[2021-12-09] MEDS: MULTIVITAMIN TAB PO SCH (08:25)
[2021-12-09] MEDS: lisinopril 10 MG TAB PO SCH (08:25)
[2021-12-09] MEDS: FAMOTIDINE 20 MG TAB PO SCH (08:25)
[2021-12-09] MEDS: LORATADINE 10 MG TAB PO SCH (08:25)
[2021-12-09] MEDS: lamoTRIgine 100 MG TAB PO SCH (08:25)
[2021-12-09] MEDS: DOCUSATE SODIUM 100 MG CAP PO SCH (08:26)
[2021-12-09] MEDS: PANTOprazole 40 MG TAB PO SCH (08:26)
--- NOTE | 2021-12-09 11:35 | Orthopedic Progress Note ---
Date of Service December 09, 2021 Assessment & Plan (1) Status post right hip replacement: Overall she seems to be doing fairly well. She has been working well with physical therapy and her pain is well controlled. She is on Xarelto for DVT prophylaxis. [facility]. She will follow-up with orthopedics in 2 weeks. Raymond Randall was seen and examined at bedside this morning. Overall she is doing f airly well. She denies any much pain in the right hip. She has been working well with physical therapy. She has no complaints. Review of Systems All systems reviewed & are unremarkable except as noted in HPI & below. Physical Exam On physical examination of the right hip, the dressing is clean and dry. Her leg lengths are equal.. Results & Data Results & Data Laboratory Results . Diagnostic Findings . PG Care Time/CCT Total # of Minutes Spent Total Time Spent with Patient: Total time spent is greater than 50% in coordination of care (as documented) at patient's floor/unit and/or counseling patient: Coding Level of Care Code 94548 Post Operative Follow-Up Diagnoses Status post right hip replacement Z96.641
--- NOTE | 2021-12-09 11:36 | Discharge Summary ---
Date of Service December 09, 2021 Principal Diagnosis Same as "Discharge Diagnosis" noted below under Discharge Instructions. Discharge Exam On physical examination of the right hip, the dressing is clean and dry. Her leg lengths are equal.. Discharge Data Consultations 12/02/21 10:41 Consult Hospitalist Routine Procedures Performed Operation Date: 11/29/21 07:00 Actual Procedures p Right Anterior Total Hip Arthroplasty, Uncemented(Right) - Jose Roberto Macias DO Ordered Studies 11/29/21 07:00 FL hip RT 1V Routine 12/03/21 05:24 CT head/brain wo con Urgent Hospital Course (1) Status post right hip replacement: On November 29, 2021 Elza arrived at [facility] and underwent a right hip replacement without complication. She had a spinal anesthetic. Postoperatively she was started on Xarelto for DVT prophylaxis and transferred to the general orthopedic floors. On postop day #1, her vital signs were stable and her pain was well controlled. She was able to participate pretty well with physical therapy. She was awaiting placement to a group home facility. On postop day #2 she continued to do fairly well but she seemed to have intermittent bouts of confusion. Full work-up was negative. The hospitalist was consulted to help evaluate. She can continue to do fairly well throughout her stay. She was able to participate well with physical therapy daily. She had intermittent bouts of confusion but it always resolved. She was not complaining of pain in her hip and all narcotics had been held. On December 09, 2021 a bed became available at [facility] and she was then discharged to home. She will follow-up with orthopedics in 2 weeks. PG Care Time/CCT Total # of Minutes Spent Total Time Spent with Patient: Total time spent is greater than 50% in coordination of care (as documented) at patient's floor/unit and/or counseling patient: Discharge Plan Discharge Items Patient Disposition: Transfer [facility] Reason For Visit: Degenerative Joint Disease Right Hip Discharge Diagnosis: Right hip replacement Activity: As commented below Non-emergency contact: Surgeon Call non-emergency contact if: your wound has increased redness and your wound has increased drainage Follow-up/Referrals: Kyle Angel MD [Primary Care Provider] - Diet: Regular Addtl Attending Provider Instructions: Activity and Therapy Recommendations: * If you are using [facility] then therapy will be provided at your home until they feel you have accomplished all of your goals. * If you are using [facility] then Physical Therapy will be provided until they feel you are ready to start Outpatient Physical Therapy. * If you are not using home therapy then Outpatient Physical Therapy should start about 3-5 days from your day of surgery. Therapy will last about 6-10 weeks * You were shown a series of exercises in the hospital. Do these exercises three times each day including the exercises you were shown in physical therapy. * Get up and walk several times each day.~ For the first four weeks, try not to stand or walk for more than one hour at a time. If you do stand or walk for more than one hour, you will not hurt anything, but your leg will likely swe ll.~~ * As you feel comfortable, you may change from the walker or crutches to a cane and~then to independent walking. Medications: * Narcotic You will likely be sent home from the hospital with a prescription for the narcotic pain medication that worked best throughout your stay. * Aspirin Most patients will be required to take Aspirin 81mg twice a day for 6 weeks after surgery. This is obtained [id number] and a prescription is not necessary. * Other medications may be prescribed for specific circumstances. If you have any questions, please call the office at . * Resume previous home medications unless otherwise instructed TEDs/Elastic Stockings: The white elastic stockings help limit swelling and prevent blood clots from forming in your legs. The more you wear them, the more they work. Wear them for six weeks. Dressing Care: Leave the Silverlon dressing in place for 7 days. After 7 days you may remove the dressing. If the incision is not draining then you may leave the edin open to air. If there is a little bit of drainage or if the edni are getting stuck on your clothing then cover the incision with a dry dressing. The edin will be removed at your 2 week follow-up appointment. Showering: You may shower with the Silverlon dressing in place. Do not let the shower spray hit the dressing directly. Pat the Silverlon dressing dry. If the dressing becomes wet underneath, then simply remove the dressing. Keep the incision dry until you are 7 days out from the day of surgery. After 7 days you may remove the Silverlon dressing and shower with the edin exposed. Let soapy water run over the edin and pat them dry. Do not scrub or soak the incision. Things To Watch For: * Drainage from the incision site that occurs more than one week after your surgery. * Increased redness at the incision site. * Fever above 102 degrees Fahrenheit. * Unusual chest pain or shortness of breath. * Call [facility] at with any of the above problems Follow-Up Visit: Follow-up with Dr. Macias's PA (Jose Roberto Otto) 2-3 weeks after your day of surgery. He will remove your edin and answer any questions. If you have any additional questions or concerns, Dr Macias is usually in the office at the same time and will be available An appointment was probably scheduled when you signed-up for surgery in the office. If you have any questions call Office Instructions: More detailed instructions as well as Frequently Asked Questions were provided in a folder by our office when you signed-up for surgery. Please review these instructions when you get home. If you have any further questions or concerns, please feel free to call the office at [phone] Pending Studies at Discharge: No Stand-Alone Forms: My [facility] Tr[facility].by, Smoking Cessation Skilled Items Patient informed of condition?: Yes DNR: No Discharge Level of Care: Skilled Communicable Disease: No Discharge Prognosis: Improving Lines: None Urinary Catheter: No Medications and DC Order Prescriptions: New Xarelto 10 mg Tablet 10 mg PO DAILY Qty: 30 RF: 0 Continued mirtazapine 15 mg tablet 15 mg PO HS RF: 0 pantoprazole 40 mg Tablet,Delayed Release (Dr/Ec) 40 mg PO QAM RF: 0 lamotrigine [Lamictal] 150 mg Tablet 150 mg PO QAM RF: 0 cholecalciferol (vitamin D3) 1,000 unit Capsule 1,000 unit PO QAM RF: 0 acetaminophen [Tylenol 8 Hour] 650 mg tablet extended release 650 mg PO Q4 PRN (Reason: genergal discomfort/fever) RF: 0 loratadine 10 mg Tablet 10 mg PO QAM RF: 0 ondansetron HCl [Zofran] 4 mg tablet 8 mg PO Q6 PRN (Reason: Nausea) RF: 0 dextroamphetamine-amphetamine [Adderall] 10 mg tablet 10 mg PO .COMPLEX RF: 0 levothyroxine 50 mcg tablet 25 mcg PO QAM RF: 0 lisinopril 5 mg tablet 10 mg PO QAM RF: 0 aluminum-magnesium hydroxide 225-200 mg/5 mL Suspension 5 ml PO DAILY RF: 0 Discharge Orders: Discharge Order (Routine); Ordered 12/09/21 Ordered By: Jose Roberto Macias Admission Data Admit Date/Time: 12/03/21 09:36 Attending Provider: Jose Roberto Macias Admit Provider: Jose Roberto Macias Primary Care Provider: Kyle Angel Other Providers: [place] ; Andrey Taylor Other Interventions: Discharge Summary Assessment (RN) Last Done: 12/09/21 11:33
--- NOTE | 2021-12-09 13:17 | Hospitalist Progress Note ---
Date of Service December 09, 2021 Assessment & Plan (1) Status post right hip replacement: Plan: S/P Right SERENA with Dr. Macias Activity and wound care orders as per ortho Pain control with bowel regimen Continue PT/OT Incentive Spirometry Monitor CBC Hgb stable Plan to be discharged to rehab facility today. (2) GERD (gastroesophageal reflux disease): Plan: Longstanding history of GERD Noted that patient has not been receiving routine Protonix Continue Protonix, Pepcid Added Maalox as needed (3) Postoperative confusion: Plan: Delirium UA normal Limit use of narcotics as able Delirium precautions Use of Glasses/Hearing aids if uses at baseline Reorient frequently Zyprexa as needed No confusion today. (4) HTN (hypertension): Plan: Continue lisinopril (5) Depression: (6) ADHD: Plan: Continue home meds Follows with Dr. Francois (7) Hypothyroidism: Plan: Continue levothyroxine (8) DVT prophylaxis: Plan: Rivaroxaban 10 mg daily as per Ortho Thank you for this consultation. We will follow the patient with you during their hospital stay. You can reach a member of the [facility] Hospitalist Team 12/01 via the [employer] Hospitalist role in [place] Text. Admission and Anticipated Discharge Date Admission Date: December 03, 2021 Subjective Patient is seen and examined at bedside States having chronic nausea intermittently Plan to be discharged to rehab facility No confusion today Denies any significant pain at surgical site. Denies any chest pain, shortness of breath, dizziness, nausea, abdominal pain Review of Systems Review of Systems: All systems reviewed & are unremarkable except as noted in Subjective Physical Exam Physical Exam: Physical Exam: Vitals signs as noted above General Appearance:Moderately built and nourished, no apparent distress Head: normocephalic, Atraumatic Eyes: normal inspection, EOMI Neck: supple, Trachea midline Respiratory/Chest: Normal breath sounds, CTA, No accessory muscle use Cardiovascular: S1, S2, + murmur Abdomen/GI:Soft, Non tender, + well-healed surgical scar, Bowel sounds present Extremities/Musculoskeletal:normal inspection, no edema, right hip surgical site in dressing Neurologic/Psych:AAO, grossly no focal neurological deficits Skin: normal color, warm Results & Data Results & Data ([facility]) Vital Signs (Past 12 Hours) Vital Signs Temp Pulse Resp BP Pulse Ox 12/09/21 07:47 36.6 C 63 16 110/67 94
== END 2021-12-09 13:25 | DRG 470 ==
LOC: 3E 05:05 → ASU 05:05

== ENCOUNTER 2022-09-28 21:12 | Inpatient (IN) ==
[2022-09-28] MEDS ORDERED: SODIUM CHLORIDE 0.9% 1000ML 1,000 ML IV SCH (21:30)
[2022-09-28] MEDS ORDERED: ONDANSETRON INJ 2 MG/ML 2 ML VIAL IV STA (21:50)
[2022-09-28] MEDS ORDERED: ACETAMINOPHEN 1,000 MG/100 ML VIAL IV STA (21:50)
[2022-09-28] MEDS ORDERED: MoRPHine SULFATE 2 MG/ML CARP IV STA (21:50)
[2022-09-28] MEDS ORDERED: MoRPHine SULFATE 2 MG/ML CARP IV PRN (22:07)
[2022-09-28 22:20] LABS: Albumin Globulin Ratio 1.2 (0.9-2); Albumin Level 3.5 gm/dl (3.4-5.0); BUN Creatinine Ratio 19.8 (10-20); Bilirubin,Total 0.6 mg/dl (0.2-1.0); Calcium 9.2 mg/dl (8.6-10.3); Creatinine Clr Calc Pharmacy 43.2 ml/min; Est GFR (African American) 72.9 ml/min; Est GFR (Non-African American) 62.9 ml/min; Globulin 2.9 gm/dl (2.5-4.0); Potassium 4.3 mmol/L (3.5-5.1); Total Protein 6.4 gm/dl (6.0-8.3)
[2022-09-28 22:39] LABS: Basophils # (auto) 0.04 K/uL (0-0.2); Basophils % (auto) 0.3 %; Eosinophils # (auto) 0.11 K/uL (0-0.50); Eosinophils % (auto) 0.9 %; Hematocrit (blood only) 40.2 % (37.0-47.0); Hemoglobin 12.9 g/dl (12.0-16.0); Immature Granulocytes # (auto) 0.06 K/uL (0.01-0.20); Immature Granulocytes % (auto) 0.5 %; Lymphocytes # (auto) 1.51 K/uL (1.2-3.4); Lymphocytes % (auto) 12.6 %; Mean Corpuscular Hemoglobin 30.4 pg (25.0-34.0); Mean Corpuscular Hgb Conc 32.1 g/dL (32.0-36.0); Mean Corpuscular Volume 94.8 fL (80.0-100.0); Mean Platelet Volume 14.6 fL (9.4-12.4); Monocytes # (auto) 1.31 K/uL (0.11-0.59); Monocytes % (auto) 10.9 %; Neutrophils # (auto) 8.95 K/uL (1.40-6.50); Neutrophils % (auto) 74.8 %; Platelet Count 226 K/uL (130-400); RDW Coefficient of Variation 16.5 % (11.5-14.5); Red Blood Count 4.24 M/uL (4.20-5.40); White Blood Count 11.98 K/ul (4.8-10.8)
[2022-09-28 22:44] LABS: Partial Thromboplastin Ratio 0.8; Partial Thromboplastin Time 22.2 Seconds (21.0-31.0); Prothrombin Time 10.4 Seconds (9.0-12.0)
--- NOTE | 2022-09-29 00:48 | CT Scan Report ---
Exam(s): CT PELVIS Without Contrast History: Reason for exam: fall, L>R hip pain. Exam: CT PELVIS Without Contrast Technique more: Automated exposure control was utilized for the study. A dose lowering technique was utilized adhering to the principles of ALARA. Comparison: Findings: Bones: Status post right hip prosthesis in anatomic alignment. Femoral stem, intratrochanteric region are normal. Mild/moderate left hip osteoarthritis with joint space narrowing. Tracks of prior intramedullary jeanette in proximal left femur Minimally displaced fracture of the left pubic bone near the junction to superior inferior pubic rami. Probable nondisplaced fractures of the right pubic bone and right inferior pubic ramus. Pubic symphysis, pelvic bones are normal. SI joints, anterior posterior cortical margin of the sacrum are normal. Mild lower lumbar spine facet arthropathy. Compression deformity and small nodes along the superior endplate of L5. L4-5, L5-S1 facet arthropathy. Soft tissue: Postsurgical changes along the left anterior abdominal wall Suture line along the right cecum. Sigmoid diverticulosis. Negative for diverticulitis. Fracture of left pubic bone near the junction to superior inferior pubic rami. Streaky changes/small hematoma are noted in left posterior pelvis involving the piriformis muscle extending to the sciatic notch. Mild streakiness also noted in left adductor sadie. Impression: 1. Fracture of the left pubic bone near the junction to superior and inferior pubic rami with adjacent small hematoma and edema involving the left piriformis muscle as well as the left adductor sadie muscle. 2. Right inferior pubic ramus mild cortical irregularity and possibly another nondisplaced fracture near the right pubic bone. Electronically signed by: Esha Shane MD 09/29/22 00:47 AM
[2022-09-29] MEDS ORDERED: oxyCODONE HCL IR 5 MG TAB (IMMEDIATE RELEASE) PO PRN (01:24)
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
[2022-09-29] MEDS ORDERED: SODIUM CHLORIDE 0.9% 1000ML 1,000 ML IV STA (01:32)
[2022-09-29 01:42] LABS: Appearance Urine Clear (Clear); Bilirubin Urine Negative (Negative); Blood Urine Negative (Negative); Color Urine Yellow; Glucose Urine UA Negative (Negative); Ketones Urine Trace (Negative); Leukocyte Esterase Urine Negative (Negative); Nitrite Urine Positive (Negative); Protein Urine Negative (Negative); Specific Gravity Urine 1.025 (1.000-1.030); Urobilinogen Urine Negative (Negative)
[2022-09-29 01:56] LABS: Bacteria Urine 3+ (Negative); Mucus Urine Present (None Prsent); RBC Urine 0-4 /hpf (0-4); WBC Urine 0-5 /hpf (0-5)
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
[2022-09-29] MEDS ORDERED: POLYETHYLENE (MIRALAX) 17 GM PACK PO PRN (03:25)
[2022-09-29 03:30] LABS: Thyroid Stimulating Hormone 7.253 uIu/ml (0.300-4.500)
[2022-09-29 04:03] LABS: T4 Free Thyroxine 0.9 ng/dl (0.61-1.60)
[2022-09-29] MEDS ORDERED: PROMETHAZINE HCL 6.25 MG in SODIUM CHLORIDE 0.9% 50 ML IV PRN (04:45)
[2022-09-29] MEDS ORDERED: MoRPHine SULFATE 2 MG/ML CARP IV PRN (04:45)
[2022-09-29] MEDS: ACETAMINOPHEN 325 MG TAB PO PRN (05:01)
[2022-09-29] MEDS ORDERED: ACETAMINOPHEN W/CODEINE #3 1 TAB PO PRN (05:34)
[2022-09-29] MEDS: lisinopril 10 MG TAB PO SCH (06:23)
[2022-09-29] MEDS: LEVOTHYROXINE SODIUM 25 MCG TABLET PO SCH (06:23)
[2022-09-29 06:24] LABS: Basophils # (auto) 0.04 K/uL (0-0.2); Basophils % (auto) 0.5 %; Eosinophils # (auto) 0.09 K/uL (0-0.50); Hematocrit (blood only) 33.8 % (37.0-47.0); Immature Granulocytes # (auto) 0.02 K/uL (0.01-0.20); Immature Granulocytes % (auto) 0.2 %; Lymphocytes # (auto) 1.68 K/uL (1.2-3.4); Lymphocytes % (auto) 19.2 %; Mean Corpuscular Hemoglobin 30.1 pg (25.0-34.0); Mean Corpuscular Hgb Conc 32.5 g/dL (32.0-36.0); Mean Corpuscular Volume 92.3 fL (80.0-100.0); Mean Platelet Volume 14.2 fL (9.4-12.4); Monocytes # (auto) 0.92 K/uL (0.11-0.59); Monocytes % (auto) 10.5 %; Neutrophils % (auto) 68.6 %; Platelet Count 220 K/uL (130-400); RDW Coefficient of Variation 16.2 % (11.5-14.5); RDW Standard Deviation 54.6 fL (36.4-46.3); Red Blood Count 3.66 M/uL (4.20-5.40); White Blood Count 8.75 K/ul (4.8-10.8)
[2022-09-29] MEDS: lamoTRIgine 100 MG TAB PO SCH (07:40)
[2022-09-29] MEDS: PANTOprazole 40 MG TAB PO SCH (07:41)
[2022-09-29] MEDS: FLUTICASONE PROPIONATE NA SPR 16 GM BTL SCH (07:41)
[2022-09-29] MEDS: DEXTROAMPHETAMINE/AMPHETAMINE ER 10 MG CAP PO SCH (08:02)
--- NOTE | 2022-09-29 08:18 | XRay Report ---
SINGLE VIEW CHEST CLINICAL HISTORY: Trauma. Fall. FINDINGS: An AP, portable, upright chest radiograph is compared to study dated 11/06/2021. The cardiom ediastinal silhouette is unremarkable noting atherosclerotic calcification of the thoracic aorta. Chr onic interstitial thickening is similar to previous. There is bibasilar scarring/atelectasis. The ashleigh gs and pleural spaces are otherwise clear. No pneumothorax is seen. The skeletal structures are osteo penic. The bony thorax is grossly intact. Surgical clips project over the gastroesophageal junction. IMPRESSION: No acute cardiopulmonary abnormality. ACT 112: Negative or not required by law. Electronically signed by: Irineo Chang M.D. 09/29/2022 8:17 AM
--- NOTE | 2022-09-29 08:20 | XRay Report ---
RIGHT HIP 2 VIEWS CLINICAL HISTORY: Fall. Right hip pain. FINDINGS: AP and frog-leg views of the right hip are compared to study dated 11/29/2021. The skeletal structures are osteopenic. There is no radiographic evidence of acute fracture involving the right hi p or the visualized right hemipelvis. A right hip arthroplasty is in near anatomic alignment. No ben prosthetic lucency is seen. The overlying soft tissues are within normal limits. IMPRESSION: 1. No acute fracture is seen. 2. A right hip arthroplasty is in near anatomic alignment. Electronically signed by: Irineo Chang M.D. 09/29/2022 8:19 AM
--- NOTE | 2022-09-29 08:23 | XRay Report ---
LEFT HIP 2 VIEWS CLINICAL HISTORY: Fall. Left hip pain. FINDINGS: AP and frog leg views of the left hip are correlated with pelvic CT dated 07/29/2018. The ske letal structures are osteopenic. There is no radiographic evidence of acute fracture involving the le ft proximal femur. Chronic deformity and postsurgical change is partially imaged in the distal left f emur. Question parasymphyseal fracture of the left pubic ring. Moderate to severe arthritic change an d joint space narrowing is seen in the left hip. There is degenerative sclerosis of the left sacroili ac joint. IMPRESSION: 1. There is no radiographic evidence of acute fracture involving left proximal femur. 2. Question parasymphyseal fracture of the left pubic ring. Electronically signed by: Irineo Chang M.D. 09/29/2022 8:22 AM
[2022-09-29] MEDS: oxyCODONE HCL IR 5 MG TAB (IMMEDIATE RELEASE) PO PRN ×2 (08:57→17:32)
[2022-09-29] MEDS ORDERED: lisinopril 10 MG TAB PO SCH (09:00)
[2022-09-29] MEDS: cefTRIAXone SODIUM 1,000 MG in DEXTROSE 5% AD-VAN 50 ML IV SCH (09:55)
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
--- NOTE | 2022-09-29 17:07 | Hospitalist Progress Note ---
Date of Service September 29, 2022 Assessment & Plan (1) Fracture, pelvis closed: Plan: Closed pelvic fracture Secondary to mechanical fall Pelvic muscle hematoma secondary to above --Pelvic CT:Fracture of the left pubic bone near the junction to superior and inferior pubic rami with adjacent small hematoma and edema involving the left piriformis muscle as well as the left adductor sadie muscle. Right inferior pubic ramus mild cortical irregularity and possibly another nondisplaced fracture near the right pubic bone. --Hip X ray:No acute fracture is seen. A right hip arthroplasty is in near anatomic alignment. Appreciate orthopedics input: Conservative management, pain control, weightbearing as tolerated and range of movement as tolerated Will benefit from follow-up with orthopedics upon discharge in 6 to 8 weeks Fall precautions PT OT as able Monitor CBC Suspected UTI Urine culture pending Empirically started on Rocephin Depression Poor historian Appreciate psychiatry input Continue current medications Hypertension Mood disorder, suboptimal due to non compliance IBD s/p surgery GERD Hypothyroidism. 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 GERD Hypothyroidism, TSH slightly elevated, medication noncompliance Patient has been noncompliant with home medications Resume home medications Monitor DVT Px: SCDs Re: Pelvic hematoma Code Status Full code Admission and Anticipated Discharge Date Admission Date: September 29, 2022 Subjective Patient is seen and examined at bedside Poor historian Seem to have pain with movement of her pelvic region Denies any chest pain, dyspnea, dizziness Reports chronic nausea, no vomiting Review of Systems Review of Systems: All systems reviewed & are unremarkable except as noted in Subjective Physical Exam Physical Exam: Physical Exam: Vitals signs as noted above General Appearance: Thin, frail, elderly, mild distress Head: normocephalic, Atraumatic Eyes: normal inspection, EOMI Neck: supple, Trachea midline Respiratory/Chest: Normal breath sounds, CTA, No accessory muscle use Cardiovascular: S1, S2, + murmur Abdomen/GI:Soft, Non tender, + well-healed surgical scar, Bowel sounds present Extremities/Musculoskeletal:normal inspection, no edema, right hip surgical site in dressing Neurologic/Psych:AAO, grossly no focal neurological deficits, mild hearing impairment Skin: normal color, warm Results & Data Results & Data Vital Signs (Past 12 Hours) Vital Signs Temp Pulse Resp BP Pulse Ox O2 Del Method 09/29/22 15:55 37.1 C 94 H 18 118/73 95 Room Air 09/29/22 08:35 36.8 C 59 L 18 103/59 L 97 Room Air 09/29/22 06:20 60 133/76 09/29/22 05:23 Room Air 09/29/22 05:23 36.9 C 59 L 16 175/79 H 98 Room Air Laboratory Results Short CBC 09/28/22 09/29/22 Range/Units 21:38 05:24 WBC 11.98 H 8.75 (4.8-10.8) K/ul Hgb 12.9 11.0 L (12.0-16.0) g/dl Hct 40.2 33.8 L (37.0-47.0) % Plt Count 226 220 (130-400) K/uL BMP 09/28/22 21:38 Sodium 141 Potassium 4.3 Chloride 109 H Carbon Dioxide 24 BUN 17 Creatinine 0.86 Glucose 103 H Calcium 9.2 Cardiac Enzymes 09/28/22 Range/Units 21:38 Total Creatine Kinase 52 (26-192) U/L Liver Function 09/28/22 Range/Units 21:38 Total Bilirubin 0.6 (0.2-1.0) mg/dl AST 40 H (13-39) U/L ALT 30 (7-52) U/L Alkaline Phosphatase 32 L (34-104) U/L Albumin 3.5 (3.4-5.0) gm/dl Urine 09/29/22 Range/Units 01:14 Urine Color Yellow Urine Appearance Clear (Clear) Urine pH 5.0 (4.5-7.5) Ur Specific [place] 1.025 (1.000-1.030) Urine Protein Negative (Negative) Urine Glucose (UA) Negative (Negative) (1) Fracture, pelvis closed Encounter type: initial encounter Pelvic bone location: unspecified part of pelvis
[2022-09-29] MEDS ORDERED: MIRTAZAPINE TAB 15 MG TAB PO SCH (21:00)
--- NOTE | 2022-09-29 23:44 | Electrocardiogram Report ---
Test Reason : Blood Pressure : / mmHG Vent. Rate : 069 BPM Atrial Rate : 069 BPM P-R Int : 154 ms QRS Dur : 084 ms QT Int : 402 ms P-R-T Axes : 090 -03 007 degrees QTc Int : 430 ms Poor data quality, interpretation may be adversely affected Normal sinus rhythm Nonspecific ST abnormality Abnormal ECG When compared with ECG of 06-NOV-2021 15:29, No significant change Confirmed by Binh Mathew ([id number]) on 09/29/2022 11:43:51 PM Referred By: REFERRED SELF Confirmed By:Binh Mathew
[2022-09-30] MEDS: LEVOTHYROXINE SODIUM 25 MCG TABLET PO SCH (06:09)
[2022-09-30 07:24] LABS: Calcium 8.4 mg/dl (8.6-10.3); Creatinine Clr Calc Pharmacy 32.4 ml/min; Est GFR (African American) 56.6 ml/min; Est GFR (Non-African American) 48.9 ml/min; Potassium 3.8 mmol/L (3.5-5.1)
[2022-09-30 07:40] LABS: Hematocrit (blood only) 31.9 % (37.0-47.0); Hemoglobin 10.5 g/dl (12.0-16.0); Mean Corpuscular Hemoglobin 30.5 pg (25.0-34.0); Mean Corpuscular Hgb Conc 32.9 g/dL (32.0-36.0); Mean Corpuscular Volume 92.7 fL (80.0-100.0); Mean Platelet Volume 13.8 fL (9.4-12.4); Platelet Count 196 K/uL (130-400); Platelet Estimate Normal (Normal); RDW Coefficient of Variation 16.4 % (11.5-14.5); RDW Standard Deviation 55.8 fL (36.4-46.3); Red Blood Count 3.44 M/uL (4.20-5.40); White Blood Count 8.53 K/ul (4.8-10.8)
[2022-09-30] MEDS: lamoTRIgine 100 MG TAB PO SCH (07:58)
[2022-09-30] MEDS: DEXTROAMPHETAMINE/AMPHETAMINE ER 10 MG CAP PO SCH (07:58)
[2022-09-30] MEDS: PANTOprazole 40 MG TAB PO SCH (07:58)
[2022-09-30] MEDS: cefTRIAXone SODIUM 1,000 MG in DEXTROSE 5% AD-VAN 50 ML IV SCH (07:59)
[2022-09-30] MEDS: lisinopril 10 MG TAB PO SCH (07:59)
[2022-09-30] MEDS: FLUTICASONE PROPIONATE NA SPR 16 GM BTL SCH (07:59)
[2022-09-30] MEDS: ACETAMINOPHEN 325 MG TAB PO PRN ×2 (10:56→20:20)
--- NOTE | 2022-09-30 17:23 | Hospitalist Progress Note ---
Date of Service September 30, 2022 Assessment & Plan (1) Fracture, pelvis closed: Plan: Closed pelvic fracture Secondary to mechanical fall Pelvic muscle hematoma secondary to above Age-related osteoporosis with current pathological fracture, R inferior pubic ramus and near junction of superior and inferior L pubic rami --Pelvic CT:Fracture of the left pubic bone near the junction to superior and inferior pubic rami with adjacent small hematoma and edema involving the left piriformis muscle as well as the left adductor sadie muscle. Right inferior pubic ramus mild cortical irregularity and possibly another nondisplaced fracture near the right pubic bone. --Hip X ray:No acute fracture is seen. A right hip arthroplasty is in near anatomic alignment. Appreciate orthopedics input: Conservative management, pain control, weightbearing as tolerated and range of movement as tolerated Will benefit from follow-up with orthopedics upon discharge in 6 to 8 weeks Fall precautions PT OT as able Monitor CBC Continue current management Suspected UTI Urine culture growing gram-negative bacilli Continue Rocephin Depression Poor historian Appreciate psychiatry input Hold Adderall, Lamictal for now as recommended by psychiatry Needs psychiatry to reevaluate when patient able to provide more information Hypertension Mood disorder, suboptimal due to non compliance Metabolic encephalopathy secondary to medications, UTI IBD s/p surgery GERD Hypothyroidism. 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 GERD Hypothyroidism, TSH slightly elevated, medication noncompliance Patient has been noncompliant with home medications as she believed that her meds are not helping Continue current medications Monitor DVT Px: SCDs Re: Pelvic hematoma Code Status Full code Admission and Anticipated Discharge Date Admission Date: September 29, 2022 Subjective Patient is seen and examined at bedside Poor historian Seem to have pain with movement of her pelvic region Denies any chest pain, dyspnea, dizziness Reports chronic nausea, no vomiting Review of Systems Review of Systems: All systems reviewed & are unremarkable except as noted in Subjective Physical Exam Physical Exam: Physical Exam: Vitals signs as noted above General Appearance: Thin, frail, elderly, mild distress Head: normocephalic, Atraumatic Eyes: normal inspection, EOMI Neck: supple, Trachea midline Respiratory/Chest: Normal breath sounds, CTA, No accessory muscle use Cardiovascular: S1, S2, + murmur Abdomen/GI:Soft, Non tender, + well-healed surgical scar, Bowel sounds present Extremities/Musculoskeletal:normal inspection, no edema, right hip surgical site in dressing Neurologic/Psych:AAO, grossly no focal neurological deficits, mild hearing impairment Skin: normal color, warm Results & Data Results & Data Vital Signs (Past 12 Hours) Vital Signs Temp Pulse Resp BP Pulse Ox O2 Del Method 09/30/22 15:38 37.4 C 99 H 16 146/83 H 95 Room Air 09/30/22 11:26 37.4 C 94 H 18 146/79 H 96 Room Air 09/30/22 08:17 37.6 C H 80 18 119/73 95 Room Air Laboratory Results Short CBC 09/30/22 Range/Units 06:50 WBC 8.53 (4.8-10.8) K/ul Hgb 10.5 L (12.0-16.0) g/dl Hct 31.9 L (37.0-47.0) % Plt Count 196 (130-400) K/uL BMP 09/30/22 06:50 Sodium 139 Potassium 3.8 Chloride 111 H Carbon Dioxide 21 BUN 17 Creatinine 1.06 Glucose 109 H Calcium 8.4 L (1) Fracture, pelvis closed Encounter type: initial encounter Pelvic bone location: unspecified part of pelvis
--- NOTE | 2022-09-30 17:35 | XRay Report ---
XR KUB/Abdomen 1 view CLINICAL HISTORY: constipation, abd pain TECHNIQUE: 1 view of the abdomen was obtained. Comparison: Comparison is made to abdomen radiograph 07/26/2018 FINDINGS: Right hip total arthroplasty is seen. The osseous structures are grossly unremarkable. The bowel gas pattern is nonobstructive. Moderate to large stool burden is seen. IMPRESSION: Moderate to large stool burden is seen. Nonobstructive bowel gas pattern. ACT 112: Negative or not required by law. Electronically signed by: Flip Barlow M.D. 09/30/2022 5:34 PM
[2022-09-30] MEDS: hydrOXYzine HCl 10 MG TAB PO PRN (20:21)
[2022-10-01] MEDS ORDERED: COUGH DROP (SUGAR FREE) LOZ 24 LOZ/1 BOX BUCCAL ONE (00:42)
[2022-10-01] MEDS: LEVOTHYROXINE SODIUM 25 MCG TABLET PO SCH (05:57)
[2022-10-01 08:23] LABS: Hematocrit (blood only) 30.8 % (37.0-47.0); Hemoglobin 10.1 g/dl (12.0-16.0); Mean Corpuscular Hemoglobin 30.3 pg (25.0-34.0); Mean Corpuscular Hgb Conc 32.8 g/dL (32.0-36.0); Mean Corpuscular Volume 92.5 fL (80.0-100.0); Mean Platelet Volume 13.6 fL (9.4-12.4); Platelet Count 185 K/uL (130-400); RDW Coefficient of Variation 16.7 % (11.5-14.5); RDW Standard Deviation 56.5 fL (36.4-46.3); Red Blood Count 3.33 M/uL (4.20-5.40)
[2022-10-01 08:40] LABS: BUN Creatinine Ratio 16.1 (10-20); Calcium 8.3 mg/dl (8.6-10.3); Creatinine Clr Calc Pharmacy 36.9 ml/min; Est GFR (African American) 66.3 ml/min; Est GFR (Non-African American) 57.2 ml/min; Potassium 3.9 mmol/L (3.5-5.1)
[2022-10-01] MEDS: PANTOprazole 40 MG TAB PO SCH (08:52)
[2022-10-01] MEDS: lisinopril 10 MG TAB PO SCH (08:52)
[2022-10-01] MEDS: FLUTICASONE PROPIONATE NA SPR 16 GM BTL SCH (08:52)
[2022-10-01] MEDS: cefTRIAXone SODIUM 1,000 MG in DEXTROSE 5% AD-VAN 50 ML IV SCH (08:53)
[2022-10-01] MEDS: oxyCODONE HCL IR 5 MG TAB (IMMEDIATE RELEASE) PO PRN (14:12)
--- NOTE | 2022-10-01 14:16 | Hospitalist Progress Note ---
Date of Service October 01, 2022 Assessment & Plan (1) Fracture, pelvis closed: Plan: Closed pelvic fracture Secondary to mechanical fall Pelvic muscle hematoma secondary to above Age-related osteoporosis with current pathological fracture, R inferior pubic ramus and near junction of superior and inferior L pubic rami --Pelvic CT:Fracture of the left pubic bone near the junction to superior and inferior pubic rami with adjacent small hematoma and edema involving the left piriformis muscle as well as the left adductor sadie muscle. Right inferior pubic ramus mild cortical irregularity and possibly another nondisplaced fracture near the right pubic bone. --Hip X ray:No acute fracture is seen. A right hip arthroplasty is in near anatomic alignment. Appreciate orthopedics input: Conservative management, pain control, weightbearing as tolerated and range of movement as tolerated Outpatient follow-up with orthopedics upon discharge in 6 to 8 weeks Fall precautions PT/OT noted Metabolic encephalopathy secondary to UTI UTI Urine culture growing E coli Continue Rocephin Remove bright. History of Depression Poor historian Psychiatry eval and recs noted Per family, she had stopped lamictal and remeron for months Currently off any psych meds Hypertension Continue lisinopril Hypothyroidism Elevated TSH [id number] noted she was on levothyroxine in the past. 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 Reports hip pain. Reported nausea earlier today which had resolved. Denies any vomiting, abdominal pain. Denies fevers Denies cough, chest pain or shortness of breath Physical Exam Constitutional: + well hydrated; no acute distress Elderly woman Eyes: PERRL, conjunctivae normal, anicteric sclerae ENMT: external ear and nose normal, oropharynx normal Respiratory: normal respiratory effort, lungs clear to auscultation Cardiovascular: Rate/Rhythm: regular rate and regular rhythm S1 S2 Gastrointestinal (Abdomen): normal bowel sounds, soft, nontender, no hepatosplenomegaly Musculoskeletal: No pedal edema Neurologic: PERRL, EOMI, accommodation nl, no face palsy, no dysarthria Psychiatric: Alert and oriented to person, place and month only Genitourinary: Bright in situ Results & Data Results & Data Vital Signs (Past 12 Hours) Vital Signs Temp Pulse Resp BP Pulse Ox O2 Del Method 10/01/22 07:45 36.5 C 64 14 119/59 L 95 Room Air Laboratory Results Abnormal lab results 10/01/22 10/01/22 Range/Units 07:24 07:24 RBC 3.33 L (4.20-5.40) M/uL Hgb 10.1 L (12.0-16.0) g/dl Hct 30.8 L (37.0-47.0) % RDW Std Deviation 56.5 H (36.4-46.3) fL RDW Coeff of Edilberto 16.7 H (11.5-14.5) % MPV 13.6 H (9.4-12.4) fL Chloride 113 H (98-107) mmol/L Calcium 8.3 L (8.6-10.3) mg/dl (1) Fracture, pelvis closed Encounter type: initial encounter Pelvic bone location: unspecified part of pelvis
[2022-10-01] MEDS: ACETAMINOPHEN 325 MG TAB PO PRN (20:12)
[2022-10-01] MEDS: hydrOXYzine HCl 10 MG TAB PO PRN (20:12)
[2022-10-02] MEDS: oxyCODONE HCL IR 5 MG TAB (IMMEDIATE RELEASE) PO PRN (05:37)
[2022-10-02] MEDS: LEVOTHYROXINE SODIUM 25 MCG TABLET PO SCH (05:38)
[2022-10-02] MEDS: FLUTICASONE PROPIONATE NA SPR 16 GM BTL SCH (08:47)
[2022-10-02] MEDS: cefTRIAXone SODIUM 1,000 MG in DEXTROSE 5% AD-VAN 50 ML IV SCH (08:47)
[2022-10-02] MEDS: hydrOXYzine HCl 10 MG TAB PO PRN ×2 (08:48→20:22)
[2022-10-02] MEDS: lisinopril 10 MG TAB PO SCH (08:48)
[2022-10-02] MEDS: PANTOprazole 40 MG TAB PO SCH (08:48)
[2022-10-02 09:17] LABS: Hematocrit (blood only) 29.8 % (37.0-47.0); Hemoglobin 9.8 g/dl (12.0-16.0); Mean Corpuscular Hemoglobin 30.8 pg (25.0-34.0); Mean Corpuscular Hgb Conc 32.9 g/dL (32.0-36.0); Mean Corpuscular Volume 93.7 fL (80.0-100.0); Mean Platelet Volume 13.9 fL (9.4-12.4); Platelet Count 198 K/uL (130-400); RDW Standard Deviation 58.3 fL (36.4-46.3); Red Blood Count 3.18 M/uL (4.20-5.40); White Blood Count 6.38 K/ul (4.8-10.8)
[2022-10-02 09:25] LABS: BUN Creatinine Ratio 24.8 (10-20); Calcium 8.5 mg/dl (8.6-10.3); Creatinine Clr Calc Pharmacy 32.7 ml/min; Est GFR (African American) 57.3 ml/min; Est GFR (Non-African American) 49.4 ml/min; Potassium 3.9 mmol/L (3.5-5.1)
[2022-10-02] MEDS: POLYETHYLENE (MIRALAX) 17 GM PACK PO SCH (16:15)
--- NOTE | 2022-10-02 17:40 | Hospitalist Progress Note ---
Date of Service October 02, 2022 Assessment & Plan (1) Fracture, pelvis closed: Plan: Closed pelvic fracture Secondary to mechanical fall Pelvic muscle hematoma secondary to above Age-related osteoporosis with current pathological fracture, R inferior pubic ramus and near junction of superior and inferior L pubic rami --Pelvic CT:Fracture of the left pubic bone near the junction to superior and inferior pubic rami with adjacent small hematoma and edema involving the left piriformis muscle as well as the left adductor sadie muscle. Right inferior pubic ramus mild cortical irregularity and possibly another nondisplaced fracture near the right pubic bone. --Hip X ray:No acute fracture is seen. A right hip arthroplasty is in near anatomic alignment. Appreciate orthopedics input: Conservative management, pain control, weightbearing as tolerated and range of movement as tolerated Outpatient follow-up with orthopedics upon discharge in 6 to 8 weeks Fall precautions PT/OT noted Metabolic encephalopathy secondary to UTI UTI Urine culture grew E coli Currently on ceftriaxone History of Depression Poor historian Psychiatry eval and recs noted Per family, she had stopped lamictal and remeron for months Currently off any psych meds Hypertension Continue lisinopril Monitor BP Hypothyroidism Elevated TSH [id number] noted she was on levothyroxine in the past. 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 Reports hip pain is controlled Denies any vomiting, abdominal pain. Denies fevers, chills Denies cough, chest pain or shortness of breath Denied dysuria Reports constipation Physical Exam Constitutional: + well hydrated; no acute distress Eyes: PERRL, conjunctivae normal, anicteric sclerae ENMT: external ear and nose normal, oropharynx normal Respiratory: normal respiratory effort, lungs clear to auscultation Cardiovascular: Rate/Rhythm: regular rate and regular rhythm S1 S2 Gastrointestinal (Abdomen): normal bowel sounds, soft, nontender, no hepatosplenomegaly Musculoskeletal: No pedal edema Neurologic: PERRL, EOMI, accommodation nl, no face palsy, no dysarthria Psychiatric: Alert and oriented to person, place and month Euthymic affect Results & Data Results & Data Vital Signs (Past 12 Hours) Vital Signs Temp Pulse Resp BP Pulse Ox O2 Del Method 10/02/22 15:25 36.7 C 56 L 16 92/55 L 95 Room Air 10/02/22 07:33 36.4 C L 54 L 16 110/63 94 Room Air Laboratory Results Abnormal lab results 10/02/22 10/02/22 Range/Units 08:33 08:33 RBC 3.18 L (4.20-5.40) M/uL Hgb 9.8 L (12.0-16.0) g/dl Hct 29.8 L (37.0-47.0) % RDW Std Deviation 58.3 H (36.4-46.3) fL RDW Coeff of Edilberto 17.0 H (11.5-14.5) % MPV 13.9 H (9.4-12.4) fL Chloride 110 H (98-107) mmol/L BUN 26 H (6-23) mg/dl BUN/Creatinine Ratio 24.8 H (10-20) Calcium 8.5 L (8.6-10.3) mg/dl (1) Fracture, pelvis closed Encounter type: initial encounter Pelvic bone location: unspecified part of pelvis
[2022-10-03] MEDS: LEVOTHYROXINE SODIUM 25 MCG TABLET PO SCH (05:59)
[2022-10-03] MEDS: oxyCODONE HCL IR 5 MG TAB (IMMEDIATE RELEASE) PO PRN ×3 (05:59→20:53)
[2022-10-03] MEDS: lisinopril 10 MG TAB PO SCH (08:47)
[2022-10-03] MEDS: PANTOprazole 40 MG TAB PO SCH (08:47)
[2022-10-03] MEDS: POLYETHYLENE (MIRALAX) 17 GM PACK PO SCH (08:47)
[2022-10-03] MEDS: cefTRIAXone SODIUM 1,000 MG in DEXTROSE 5% AD-VAN 50 ML IV SCH (08:49)
[2022-10-03] MEDS ORDERED: bisacodyL 10 MG SUPP PR STA (09:23)
[2022-10-03] MEDS: FLUTICASONE PROPIONATE NA SPR 16 GM BTL SCH (10:15)
[2022-10-03] MEDS: SENNA 8.6 MG TAB PO SCH (10:15)
--- NOTE | 2022-10-03 16:57 | Hospitalist Progress Note ---
Date of Service October 03, 2022 Assessment & Plan (1) Fracture, pelvis closed: Plan: Closed pelvic fracture Secondary to mechanical fall Pelvic muscle hematoma secondary to above Age-related osteoporosis with current pathological fracture, R inferior pubic ramus and near junction of superior and inferior L pubic rami --Pelvic CT:Fracture of the left pubic bone near the junction to superior and inferior pubic rami with adjacent small hematoma and edema involving the left piriformis muscle as well as the left adductor sadie muscle. Right inferior pubic ramus mild cortical irregularity and possibly another nondisplaced fracture near the right pubic bone. --Hip X ray:No acute fracture is seen. A right hip arthroplasty is in near anatomic alignment. Appreciate orthopedics input: Conservative management, pain control, weightbearing as tolerated and range of movement as tolerated Outpatient follow-up with orthopedics upon discharge in 6 to 8 weeks Fall precautions PT/OT noted Metabolic encephalopathy secondary to UTI UTI Urine culture grew E coli Currently on ceftriaxone to complete treatment History of Depression Poor historian Psychiatry eval and recs noted Per family, she had stopped lamictal and remeron for months Currently off any psych meds Hypertension Continue lisinopril Monitor BP Hypothyroidism Elevated TSH [id number] noted she was on levothyroxine in the past. 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 Reports hip pain is controlled and only with movement Denies any nausea, vomiting, abdominal pain. Reported constipation earlier today but had BM after getting bowel regimen Denies fevers Denies cough, chest pain or shortness of breath Physical Exam Constitutional: + well hydrated; no acute distress Eyes: PERRL, conjunctivae normal, anicteric sclerae ENMT: external ear and nose normal, oropharynx normal Respiratory: normal respiratory effort, lungs clear to auscultation Cardiovascular: Rate/Rhythm: regular rate and regular rhythm S1 S2 Gastrointestinal (Abdomen): normal bowel sounds, soft, nontender, no hepatosplenomegaly Musculoskeletal: No pedal edema Neurologic: PERRL, EOMI, accommodation nl, no face palsy, no dysarthria Results & Data Results & Data Vital Signs (Past 12 Hours) Vital Signs Temp Pulse Resp BP Pulse Ox O2 Del Method 10/03/22 15:41 36.4 C L 60 16 98/54 L 96 Room Air 10/03/22 07:30 36.7 C 63 16 148/73 H 93 Room Air (1) Fracture, pelvis closed Encounter type: initial encounter Pelvic bone location: unspecified part of pelvis
[2022-10-04] MEDS: LEVOTHYROXINE SODIUM 25 MCG TABLET PO SCH (05:38)
[2022-10-04] MEDS: oxyCODONE HCL IR 5 MG TAB (IMMEDIATE RELEASE) PO PRN ×2 (05:42→20:47)
[2022-10-04] MEDS: SENNA 8.6 MG TAB PO SCH (08:35)
[2022-10-04] MEDS: POLYETHYLENE (MIRALAX) 17 GM PACK PO SCH (08:35)
[2022-10-04] MEDS: FLUTICASONE PROPIONATE NA SPR 16 GM BTL SCH (08:35)
[2022-10-04] MEDS: PANTOprazole 40 MG TAB PO SCH (08:35)
[2022-10-04] MEDS: lisinopril 10 MG TAB PO SCH (08:35)
[2022-10-04] MEDS: ACETAMINOPHEN 325 MG TAB PO PRN (08:38)
--- NOTE | 2022-10-04 16:49 | Hospitalist Progress Note ---
Date of Service October 04, 2022 Assessment & Plan (1) Fracture, pelvis closed: Plan: Closed pelvic fracture Secondary to mechanical fall Pelvic muscle hematoma secondary to above Age-related osteoporosis with current pathological fracture, R inferior pubic ramus and near junction of superior and inferior L pubic rami --Pelvic CT:Fracture of the left pubic bone near the junction to superior and inferior pubic rami with adjacent small hematoma and edema involving the left piriformis muscle as well as the left adductor sadie muscle. Right inferior pubic ramus mild cortical irregularity and possibly another nondisplaced fracture near the right pubic bone. --Hip X ray:No acute fracture is seen. A right hip arthroplasty is in near anatomic alignment. Appreciate orthopedics input: Conservative management, pain control, weightbearing as tolerated and range of movement as tolerated Outpatient follow-up with orthopedics upon discharge in 6 to 8 weeks Fall precautions PT/OT noted Metabolic encephalopathy secondary to UTI UTI Urine culture grew E coli Complete ceftriaxone today History of Depression Poor historian Psychiatry eval and recs noted Per family, she had stopped lamictal and remeron for months Currently off any psych meds Hypertension Continue lisinopril Monitor BP Hypothyroidism Elevated TSH [id number] noted she was on levothyroxine in the past. 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 Reports hip pain is controlled and only with movement PT working with patient. She is sitting on edge of bed Denies any nausea, vomiting, abdominal pain, constipation Denies fevers Denies cough, chest pain or shortness of breath Physical Exam Constitutional: + well hydrated; no acute distress Eyes: PERRL, conjunctivae normal, anicteric sclerae ENMT: external ear and nose normal, oropharynx normal Respiratory: normal respiratory effort, lungs clear to auscultation Cardiovascular: Rate/Rhythm: regular rate and regular rhythm S1 S2 Gastrointestinal (Abdomen): normal bowel sounds, soft, nontender, no hepatosplenomegaly Musculoskeletal: No pedal edema Neurologic: PERRL, EOMI, accommodation nl, no face palsy, no dysarthria Results & Data Results & Data Vital Signs (Past 12 Hours) Vital Signs Temp Pulse Resp BP Pulse Ox O2 Del Method 10/04/22 16:44 36.5 C 55 L 16 120/70 97 Room Air 10/04/22 07:42 36.7 C 55 L 16 97/56 L 93 Room Air (1) Fracture, pelvis closed Encounter type: initial encounter Pelvic bone location: unspecified part of pelvis
[2022-10-04] MEDS: hydrOXYzine HCl 10 MG TAB PO PRN (20:47)
[2022-10-05] MEDS: LEVOTHYROXINE SODIUM 25 MCG TABLET PO SCH (06:15)
[2022-10-05] MEDS: SENNA 8.6 MG TAB PO SCH (08:43)
[2022-10-05] MEDS: PANTOprazole 40 MG TAB PO SCH (08:43)
[2022-10-05] MEDS: FLUTICASONE PROPIONATE NA SPR 16 GM BTL SCH (08:43)
[2022-10-05] MEDS: POLYETHYLENE (MIRALAX) 17 GM PACK PO SCH (08:44)
[2022-10-05] MEDS: oxyCODONE HCL IR 5 MG TAB (IMMEDIATE RELEASE) PO PRN (08:46)
[2022-10-05] MEDS ORDERED: lisinopril 5 MG TAB PO SCH (09:00)
--- NOTE | 2022-10-05 11:50 | Hospitalist Progress Note ---
Date of Service October 05, 2022 Assessment & Plan (1) Fracture, pelvis closed: Plan: Closed pelvic fracture Secondary to mechanical fall Pelvic muscle hematoma secondary to above Age-related osteoporosis with current pathological fracture, R inferior pubic ramus and near junction of superior and inferior L pubic rami --Pelvic CT:Fracture of the left pubic bone near the junction to superior and inferior pubic rami with adjacent small hematoma and edema involving the left piriformis muscle as well as the left adductor sadie muscle. Right inferior pubic ramus mild cortical irregularity and possibly another nondisplaced fracture near the right pubic bone. --Hip X ray:No acute fracture is seen. A right hip arthroplasty is in near anatomic alignment. Appreciate orthopedics input: Conservative management, pain control, weightbearing as tolerated and range of movement as tolerated Outpatient follow-up with orthopedics upon discharge in 6 to 8 weeks Fall precautions PT/OT noted Metabolic encephalopathy secondary to UTI UTI Urine culture grew E coli Completed ceftriaxone Monitor urine output. Bladder scan prn. Ensure regular BM History of Depression Poor historian Psychiatry eval and recs noted Per family, she had stopped lamictal and remeron for months Currently off any psych meds Hypertension BP has been low to normal in the past 24h Hold lisinopril for now Monitor Hypothyroidism Elevated TSH Srqueamr-ad-der noted she was on levothyroxine in the past. 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 Patient sitting in chair Denied any pain today Denies any nausea, vomiting, abdominal pain, constipation Denies fevers Denies cough, chest pain or shortness of breath Had urinary retention overnight Physical Exam Constitutional: + well hydrated; no acute distress Eyes: PERRL, conjunctivae normal, anicteric sclerae ENMT: external ear and nose normal, oropharynx normal Respiratory: normal respiratory effort, lungs clear to auscultation Cardiovascular: Rate/Rhythm: regular rate and regular rhythm S1 S2 Gastrointestinal (Abdomen): normal bowel sounds, soft, nontender, no hepatosplenomegaly Musculoskeletal: No pedal edema Neurologic: PERRL, EOMI, accommodation nl, no face palsy, no dysarthria Psychiatric: AOx 1 (person only) today Results & Data Results & Data Vital Signs (Past 12 Hours) Vital Signs Temp Pulse Resp BP Pulse Ox O2 Del Method 10/05/22 07:12 36.5 C 60 16 107/58 L 94 Room Air (1) Fracture, pelvis closed Encounter type: initial encounter Pelvic bone location: unspecified part of pelvis
[2022-10-05] MEDS ORDERED: bisacodyL 10 MG SUPP PR STA (13:47)
[2022-10-06] MEDS: LEVOTHYROXINE SODIUM 25 MCG TABLET PO SCH (05:53)
[2022-10-06 06:36] LABS: BUN Creatinine Ratio 27.7 (10-20); Calcium 9.1 mg/dl (8.6-10.3); Est GFR (Non-African American) 51.8 ml/min; Magnesium 2.2 mg/dl (1.7-2.4); Potassium 4.1 mmol/L (3.5-5.1)
[2022-10-06] MEDS: oxyCODONE HCL IR 5 MG TAB (IMMEDIATE RELEASE) PO PRN ×2 (08:05→14:44)
[2022-10-06] MEDS: PANTOprazole 40 MG TAB PO SCH (08:07)
[2022-10-06] MEDS: FLUTICASONE PROPIONATE NA SPR 16 GM BTL SCH (08:07)
[2022-10-06] MEDS: SENNA 8.6 MG TAB PO SCH (08:07)
[2022-10-06] MEDS: POLYETHYLENE (MIRALAX) 17 GM PACK PO SCH (08:07)
--- NOTE | 2022-10-06 13:42 | Hospitalist Progress Note ---
Date of Service October 06, 2022 Assessment & Plan (1) Fracture, pelvis closed: Plan: Closed pelvic fracture Secondary to mechanical fall Pelvic muscle hematoma secondary to above Age-related osteoporosis with current pathological fracture, R inferior pubic ramus and near junction of superior and inferior L pubic rami --Pelvic CT:Fracture of the left pubic bone near the junction to superior and inferior pubic rami with adjacent small hematoma and edema involving the left piriformis muscle as well as the left adductor sadie muscle. Right inferior pubic ramus mild cortical irregularity and possibly another nondisplaced fracture near the right pubic bone. --Hip X ray:No acute fracture is seen. A right hip arthroplasty is in near anatomic alignment. Appreciate orthopedics input: Conservative management, pain control, weightbearing as tolerated and range of movement as tolerated Outpatient follow-up with orthopedics upon discharge in 6 to 8 weeks Fall precautions PT/OT noted Metabolic encephalopathy secondary to UTI UTI Urine culture grew E coli Completed ceftriaxone Monitor urine output. Bladder scan prn. Ensure regular BM History of Depression Poor historian Psychiatry eval and recs noted Per family, she had stopped lamictal and remeron for months Currently off any psych meds Hypertension BP has been low to normal Hold lisinopril for now Currently 138/59 - satisfactory Monitor Hypothyroidism Elevated TSH [id number]-[id number] noted she was on levothyroxine in the past. Not seen on PCP's note Continue levothyroxine 25mcg daily on discharge Needs repeat Thyroid function test in 6-8 weeks IBD s/p surgery GERD H/O bowel surgery/colostomy May 2018 GERD DVT Px: SCDs Re: Pelvic hematoma Code Status Full code Awaiting placement A total of 35 minutes was spent with greater than 50% of that time personally viewing all current laboratory work and diagnostic imaging studies obtained in the ED. Additionally, I was able to view the patients past medication reconciliation and history with direct visualization in the patients chart. Included in the time above, a portion of that time was spent assessing the patient while discussing and collaborating with specialists, if necessary, and making medical decision making on treatment plan. All of the above was collaborated with Dr. Daniels. Please see addendum for further details. Admission and Anticipated Discharge Date Admission Date: September 29, 2022 Supervising Physician Co-Signing Physician Notes Patient seen and examined SBP runs 90-130 Continue to hold lisinopril. May need to discontinue on dc Stop oxycodone prn. Use tylenol prn for pain Continue bowel regimen CM working on placement Agree with other plans as detailed by Mary Beth Belcher PA-C Subjective Patient was seen and examined in room 384-2. Follow-up pelvic fracture. ROS unobtainable and unreliable due to cognitive status. Nurse states patient is urinating via purwic and no BM yet today. Review of Systems Review of Systems: Unobtainable due to cognitive status Physical Exam Physical Exam: Gen: WD/WN, NAD, A&O x1 person only HEENT: Normocephalic, atraumatic, conjunctivae moist, sclerae anicteric, mucous membranes moist. Lung: Clear to Auscultation bilaterally, no wheezes/rales/rhonchi Heart: Regular rate, regular rhythm, no murmurs, rubs, or gallops Abdomen: Soft, NT, ND +BS x 4 Extremities: No edema Skin: Warm, no rash, negative turgor. Results & Data Results & Data Vital Signs (Past 12 Hours) Vital Signs Temp Pulse Resp BP Pulse Ox O2 Del Method 10/06/22 07:50 Room Air 10/06/22 07:46 36.7 C 55 L 16 138/59 L 93 Room Air Medications Administered Current Inpatient Medications Acetaminophen (Acetaminophen 325 Mg Tab) 650 mg PO Q4H PRN PRN Reason: mild pain/fever Stop: 10/29/22 04:44 Last Admin: 10/04/22 08:38 Dose: 650 mg Amphetamine/Dextroamphetamine (Dextroamphetamine/Amphetamine Er 10 Mg Cap) 30 mg PO Q24H [facility] Stop: 10/13/22 07:29 Last Admin: 09/30/22 07:58 Dose: 30 mg Fluticasone Propionate (Fluticasone Propionate Na Spr 16 Gm Btl) 2 sprays NA QAM [facility] Stop: 10/29/22 08:59 Last Admin: 10/06/22 08:07 Dose: 2 sprays Promethazine HCl 6.25 mg/ (Sodium Chloride) 50.25 mls @ 201 mls/hr IV Q6H PRN PRN Reason: Nausea And Vomiting Stop: 10/29/22 04:44 Lamotrigine (Lamotrigine 100 Mg Tab) 150 mg PO DAILY [facility] Stop: 10/29/22 08:59 Last Admin: 09/30/22 07:58 Dose: 150 mg Levothyroxine Sodium (Levothyroxine Sodium 25 Mcg Tablet) 25 mcg PO DAILYBB [facility] Stop: 10/29/22 06:29 Last Admin: 10/06/22 05:53 Dose: 25 mcg Lisinopril (Lisinopril 5 Mg Tab) 5 mg PO DAILY [facility] Stop: 11/04/22 08:59 Last Admin: 10/05/22 08:43 Dose: 5 mg Oxycodone HCl (Oxycodone Hcl Ir 5 Mg Tab (Immediate Release)) 5 mg PO Q6H PRN PRN Reason: moderate to severe pain Stop: 10/13/22 08:03 Last Admin: 10/06/22 08:05 Dose: 5 mg Pantoprazole Sodium (Pantoprazole 40 Mg Tab) 40 mg PO DAILY [facility] Stop: 10/29/22 08:59 Last Admin: 10/06/22 08:07 Dose: 40 mg Polyethylene Glycol (Polyethylene (Miralax) 17 Gm Pack) 17 gm PO DAILY [facility] Stop: 11/01/22 15:14 Last Admin: 10/06/22 08:07 Dose: 17 gm Sennosides (Senna 8.6 Mg Tab) 17.2 mg PO QAM [facility] Stop: 11/02/22 09:29 Last Admin: 10/06/22 08:07 Dose: 17.2 mg (1) Fracture, pelvis closed Encounter type: initial encounter Pelvic bone location: unspecified part of pelvis
[2022-10-06] MEDS ORDERED: bisacodyL 10 MG SUPP PR STA (13:51)
[2022-10-06] MEDS: ACETAMINOPHEN 325 MG TAB PO PRN (21:08)
[2022-10-07] MEDS: LEVOTHYROXINE SODIUM 25 MCG TABLET PO SCH (06:08)
[2022-10-07] MEDS: PANTOprazole 40 MG TAB PO SCH (08:11)
[2022-10-07] MEDS: SENNA 8.6 MG TAB PO SCH (08:11)
[2022-10-07] MEDS: POLYETHYLENE (MIRALAX) 17 GM PACK PO SCH (08:11)
[2022-10-07] MEDS: FLUTICASONE PROPIONATE NA SPR 16 GM BTL SCH (08:12)
--- NOTE | 2022-10-07 10:32 | XRay Report ---
XR KUB/Abdomen 1 view CLINICAL HISTORY: constipation TECHNIQUE: 1 view of the abdomen was obtained. Comparison: Comparison is made to abdomen radiograph 09/30/2022 FINDINGS: Cholecystomy clips are seen in the right upper quadrant. Degenerative changes are seen in the visuali zed skeleton. Right hip total arthroplasty is seen. The bowel gas pattern is nonobstructive. A modera te amount of stool is noted within the large bowel. IMPRESSION: Moderate stool burden without evidence of fecal impaction. ACT 112: Negative or not required by law. Electronically signed by: Flip Barlow M.D. 10/07/2022 10:31 AM
[2022-10-07] MEDS: DOCUSATE SODIUM 100 MG CAP PO SCH ×2 (11:15→21:19)
[2022-10-07] MEDS: ACETAMINOPHEN 325 MG TAB PO PRN (11:15)
--- NOTE | 2022-10-07 12:58 | Hospitalist Progress Note ---
Date of Service October 07, 2022 Assessment & Plan (1) Fracture, pelvis closed: Plan: Closed pelvic fracture Secondary to mechanical fall Pelvic muscle hematoma secondary to above Age-related osteoporosis with current pathological fracture, R inferior pubic ramus and near junction of superior and inferior L pubic rami --Pelvic CT:Fracture of the left pubic bone near the junction to superior and inferior pubic rami with adjacent small hematoma and edema involving the left piriformis muscle as well as the left adductor sadie muscle. Right inferior pubic ramus mild cortical irregularity and possibly another nondisplaced fracture near the right pubic bone. --Hip X ray:No acute fracture is seen. A right hip arthroplasty is in near anatomic alignment. Appreciate orthopedics input: Conservative management, pain control, weightbearing as tolerated and range of movement as tolerated Outpatient follow-up with orthopedics upon discharge in 6 to 8 weeks Fall precautions PT/OT noted Metabolic encephalopathy secondary to UTI UTI Urine culture grew E coli Completed ceftriaxone Monitor urine output. Bladder scan prn. Ensure regular BM Constipation KUB: nonobstructive bowel gas pattern on 10/07 on Senna 2 tabs daily add colace bid and tap water enema x 1 History of Depression Poor historian Psychiatry eval and recs noted Per family, she had stopped lamictal and remeron for months Currently off any psych meds Hypertension BP has been low to normal Hold lisinopril for now Currently 134/69 - satisfactory Monitor Hypothyroidism Elevated TSH [id number]-dk-[id number] noted she was on levothyroxine in the past. Not seen on PCP's note Continue levothyroxine 25mcg daily on discharge Needs repeat Thyroid function test in 6-8 weeks IBD s/p surgery GERD H/O bowel surgery/colostomy May 2018 GERD DVT Px: SCDs Re: Pelvic hematoma Code Status Full code Awaiting placement to [facility] A total of 35 minutes was spent with greater than 50% of that time personally viewing all current laboratory work and diagnostic imaging studies obtained in the ED. Additionally, I was able to view the patients past medication reconciliation and history with direct visualization in the patients chart. Included in the time above, a portion of that time was spent assessing the patient while discussing and collaborating with specialists, if necessary, and making medical decision making on treatment plan. All of the above was collaborated with Dr. Daniels. Please see addendum for further details. Admission and Anticipated Discharge Date Admission Date: September 29, 2022 Supervising Physician Co-Signing Physician Notes Patient seen and examined Continue to hold lisinopril. May need to discontinue on dc Continue bowel regimen CM working on placement. Possible dc tomorrow Agree with other plans as detailed by Mary Beth Belcher PA-C Subjective Patient was seen and examined in room 384-2. Follow-up pelvic fracture. ROS unobtainable and unreliable due to cognitive status. Nurse states patient is urinating via purwic and no BM yet today. Pt appears to be complaining of abdominal discomfort Review of Systems Review of Systems: All systems reviewed & are unremarkable except as noted in HPI & below Physical Exam Physical Exam: Gen: WD/WN, NAD, A&O x1 person only HEENT: Normocephalic, atraumatic, conjunctivae moist, sclerae anicteric, mucous membranes moist. Lung: Clear to Auscultation bilaterally, no wheezes/rales/rhonchi Heart: Regular rate, regular rhythm, no murmurs, rubs, or gallops Abdomen: Soft, slightly distended, tender to touch but no rebound guarding or rigidity, +BS x 4 Extremities: No edema Skin: Warm, no rash, negative turgor. Results & Data Results & Data Vital Signs (Past 12 Hours) Vital Signs Temp Pulse Resp BP Pulse Ox O2 Del Method 10/07/22 11:03 36.8 C 62 16 134/69 95 Room Air 10/07/22 07:41 36.4 C L 64 16 151/76 H 95 Room Air Diagnostic Findings KUB X-Ray 10/07/22 09:51 XR KUB/Abdomen 1 view CLINICAL HISTORY: constipation TECHNIQUE: 1 view of the abdomen was obtained. Comparison: Comparison is made to abdomen radiograph 09/30/2022 FINDINGS: Cholecystomy clips are seen in the right upper quadrant. Degenerative changes are seen in the visualized skeleton. Right hip total arthroplasty is seen. The bowel gas pattern is nonobstructive. A moderate amount of stool is noted within the large bowel. IMPRESSION: Moderate stool burden without evidence of fecal impaction. ACT 112: Negative or not required by law. Electronically signed by: Flip Barlow M.D. 10/07/2022 10:31 AM (1) Fracture, pelvis closed Encounter type: initial encounter Pelvic bone location: unspecified part of pelvis
[2022-10-07] MEDS ORDERED: LACTULOSE SYRUP 20 GM/30 ML UDC PO ONE ×2 (13:00→16:19)
[2022-10-08] MEDS: LEVOTHYROXINE SODIUM 25 MCG TABLET PO SCH (05:44)
[2022-10-08 07:49] LABS: BUN Creatinine Ratio 14.9 (10-20); Creatinine Clr Calc Pharmacy 39.4 ml/min; Est GFR (African American) 71.9 ml/min; Phosphorus 3.2 mg/dl (2.5-4.9); Potassium 3.8 mmol/L (3.5-5.1)
[2022-10-08] MEDS: PANTOprazole 40 MG TAB PO SCH (08:17)
[2022-10-08] MEDS: SENNA 8.6 MG TAB PO SCH (08:17)
[2022-10-08] MEDS: DOCUSATE SODIUM 100 MG CAP PO SCH (08:17)
[2022-10-08] MEDS: FLUTICASONE PROPIONATE NA SPR 16 GM BTL SCH (08:18)
[2022-10-08] MEDS: POLYETHYLENE (MIRALAX) 17 GM PACK PO SCH (08:19)
[2022-10-08] MEDS: ACETAMINOPHEN 325 MG TAB PO PRN (09:30)
--- NOTE | 2022-10-08 11:06 | Discharge Summary ---
Discharge Summary Date of Service October 08, 2022 Notes For Next Care Provider Non operative closed pelvic fracture. WBAT, rehab at SNF, ortho follow up in 6-8 weeks. Would benefit from outpatient psych for ongoing depression. Medication Changes From Visit Restarted on levothyroxine 25mcg daily, continue bowel regimen. Admission HPI Per Admitting Provider History obtained from patient, family, and records. Medical history significant for hypertension, mood disorder, ADD, IBD status post surgery, GERD, hypothyroidism. Last confinement November 2021 under Orthopedics service for right hip replacement. Patient noted to have postop delirium. Patient stopped taking her home medications late last year because she felt they were not helping. Admits to bad depression but denies suicidality. Patient family states patient unhappy living by herself. 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 Achy pelvic pain post fall, patient unable to get up. No head trauma, syncope, chest pain, SOB. 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 Admission Exam Per Admitting Provider GENERAL: Slightly uncomfortable, anxious, no respiratory distress SKIN: Normal color, warm HEENT: Pale palpebral conjunctivae, no ptosis, dry buccal mucosa NECK : Supple, no tenderness CHEST : CTA, no tenderness HEART : RRR, systolic murmur ABDOMEN : some distention, hypogastric tenderness EXTREMITIES : No LE swelling/, no LE tenderness NEUROLOGIC : Coherent, no facial asymmetry, mild hearing impairment, gait and stance not assessed Principal Dx & Hospital Course #1 = Principal Diagnosis (1) Fracture, pelvis closed: (2) Major depression: (3) Hypothyroidism: (4) HLD (hyperlipidemia): (5) HTN (hypertension): Plan This is an 82yo F with PMH of hypertension, mood disorder, ADD, IBD status post surgery, GERD, hypothyroidism who presented with mechanical fall and was found to have closed pelvic fracture. No head trauma or LOC. Pelvic CT with fracture of the left pubic bone near the junction to superior and inferior pubic rami with adjacent small hematoma and edema involving the left piriformis muscle as well as the left adductor sadie muscle. Right inferior pubic ramus mild cortical irregularity and possibly of another nondisplaced fracture near the right pubic bone. Evaluated by orthopedic service who recommended conservative management, pain control, weightbearing as tolerated and range of motion as tolerated. Patient is to follow-up with outpatient orthopedics upon discharge in 6-8 weeks. Evaluated by PT/OT with recommendation for SNF for ongoing rehab. Was found to have E. coli UTI on admission and completed ceftriaxone course. Had constipation during admission but KUB with nonobstructive bowel gas pattern on 10/07 with bowel movement today. Continue bowel regimen upon discharge. Patient with history of depression and self stopped Lamictal and Remeron months ago and is currently off of medication. Psychiatry did not recommend any medication changes while in-patient. Lisinopril was held temporarily due to low BP reads but resumed today. Continue to monitor in rehab setting. Restarted on levothyroxine 25 mcg during admission and will need repeat thyroid function test in 6-8 weeks. Patient comfortable and hemodynamically stable at time of discharge to SNF. Discharge Exam Gen: WD/WN, NAD, A&O x1 person only, pleasant HEENT: Normocephalic, atraumatic, conjunctivae moist, sclerae anicteric, mucous membranes moist. Lung: Clear to Auscultation bilaterally, no wheezes/rales/rhonchi Heart: Regular rate, regular rhythm, no murmurs, rubs, or gallops Abdomen: Soft, non-tender, +BS x 4 Extremities: No edema Skin: Warm, no rash Updated Medication List Medication Instructions Recorded Confirmed Type docusate sodium 100 mg capsule 100 mg PO BID #30 caps 10/07/22 Rx sennosides 8.6 mg tablet (Senokot) 17.2 mg PO QAM #30 tabs 10/07/22 Rx cholecalciferol (vitamin D3) 50 100 mcg PO DAILY #30 caps 10/08/22 Rx mcg (2,000 unit) capsule (Vitamin D3) fluticasone propionate 50 2 spray intranasal QAM #16 grams 10/08/22 Rx mcg/actuation nasal spray,suspension levothyroxine 25 mcg tablet 25 mcg PO DAILY #30 tabs 10/08/22 Rx lisinopril 10 mg tablet 10 mg PO DAILY #30 tabs 10/08/22 Rx pantoprazole 40 mg tablet,delayed 40 mg PO DAILY #30 tabs 10/08/22 Rx release polyethylene glycol 3350 17 gram 17 g PO DAILY PRN Constipation #30 10/08/22 Rx oral powder packet (Miralax) ea Hospital Stay Data Consultations 09/29/22 01:02 ED Decision to Admit Stat 09/29/22 03:26 Consult Psychiatry Routine Diagnostic Imagining Performed 09/28/22 22:25 CT pelvis wo con Stat Pending Results Patient Have Any Pending Studies at Discharge: No Discharge Instructions Given to Patient (Per Discharging Provider) MEDICATION CHANGES: Senna 8.6mg, two tablets, once daily for constipation; hold for loose stool Colace 100mg by mouth twice daily; hold for loose stool. Restarted on levothyroxine 25mcg daily. RECOMMENDATIONS FOR FOLLOW-UP: Please follow up with primary care provider upon discharge from rehab. Recommend follow up with orthopedics, Dr. Lai, in 5 weeks. Will need repeat thyroid labwork in 6-8 weeks. OTHER INSTRUCTIONS: Seek medical attention if you have: * temperature above 101 * chest pain or trouble breathing * abdominal pain, nausea, vomiting * diarrhea, dark stools or bloody stools * any unanswered questions or concerns Call 911 if symptoms are severe. Please take good care of yourself. It has been a pleasure taking care of you. Please take care of yourself. If you have any questions regarding your recent hospitalization please contact [facility] and request Nilda Mishra @ [phone]. Total Time Total Time Spent Total Time Spent (In Minutes): 65
[2022-10-09] MEDS ORDERED: CHOLECALCIFEROL 1,000 UNITS 25 MCG TAB PO SCH (09:00)
== END 2022-10-08 11:18 | DRG 542 ==
LOC: ED 21:12 → 3N 21:12 → SUATTDRO 09-29 13:39 → 3N 09-29 20:33

== ENCOUNTER 2023-05-29 13:44 | Inpatient (IN) ==
--- NOTE | 2023-05-29 13:52 | ED Triage Note ---
Date of Service May 29, 2023 Provider in Triage Author: Delmy Dai History of Present Illness This patient was briefly evaluated while in triage. An abbreviated physical exam was performed. This patient is a 82-year-old Female who presents to the ED for evaluation of vomiting, dehydration. Son reports symptoms started last night. Denies fevers, diarrhea. Notes generalized abdominal pain. Lives at home. Denies recent falls. Physical Exam Constitutional: alert and oriented x3. no acute distress. HEENT: normocephalic, atraumatic. normal conjunctiva.PERRLA. EOM's grossly intact. Respiratory: lungs are clear to auscultation without wheezes, rhonchi, or rales bilaterally. equal chest rise. normal respiratory effort, no accessory muscle use. Cardiovascular: normal heart sounds without murmur. regular rate and rhythm. GI: abdomen is soft, nontender. No palpable masses. No rebound tenderness or gua rding. MSK: moves all 4 extremities spontaneously Psych:appropriate mood and affect. Initial orders for labs and / or imaging were placed and patient was placed in the waiting area until a bed is available. Please see further documentation for the full ED course.
--- NOTE | 2023-05-29 14:50 | XRay Report ---
XR chest 1V portable HISTORY: 82 years-old Female vomiting acute chest pain with nausea and vomiting COMPARISON: 12/31/2022 TECHNIQUE: AP view of the chest FINDINGS: Cardiomediastinal and hilar silhouettes are unchanged. Unchanged moderate hemidiaphragmatic elevation . Surgical clips project over the midline lower chest/upper abdomen. Mild pleural parenchymal scarrin g is again seen. There is no pneumothorax, pleural effusion or airspace consolidation. Bones appear g rossly intact. IMPRESSION: No acute process. ACT 112: Negative or not required by law. The above report was generated using voice recognition software. It may contain grammatical, syntax o r spelling errors. Electronically signed by: Wes Cartagena M.D. 05/29/2023 2:48 PM
[2023-05-29 15:26] LABS: Alanine Aminotransferase 9 U/L (7-52); Albumin Globulin Ratio 1.2 (0.9-2); Albumin Level 4.3 gm/dl (3.4-5.0); Alkaline Phosphatase 35 U/L (34-104); Anion Gap 13 (3-11); Aspartate Aminotransferase 16 U/L (13-39); Bilirubin,Total 0.4 mg/dl (0.2-1.0); Blood Urea Nitrogen 23 mg/dl (6-23); Carbon Dioxide 21 mmol/L (21-32); Chloride 108 mmol/L (98-107); Est GFR (African American) 60.8 ml/min; Est GFR (Non-African American) 52.4 ml/min; Globulin 3.5 gm/dl (2.5-4.0); Glucose 109 mg/dl (70-99(Fasting)); Lipase 24 U/L (11-82); Potassium 3.9 mmol/L (3.5-5.1); Sodium 142 mmol/L (136-145); Total Protein 7.8 gm/dl (6.0-8.3)
[2023-05-29 15:29] LABS: Basophils # (auto) 0.02 K/uL (0.00-0.20); Basophils % (auto) 0.2 %; Eosinophils # (auto) 0.02 K/uL (0.00-0.50); Eosinophils % (auto) 0.2 %; Hematocrit (blood only) 45.9 % (37.0-47.0); Hemoglobin 14.8 g/dl (12.0-16.0); Immature Granulocytes # (auto) 0.05 K/uL (0.01-0.20); Immature Granulocytes % (auto) 0.5 %; Lymphocytes # (auto) 1.49 K/uL (1.20-3.40); Lymphocytes % (auto) 15.6 %; Mean Corpuscular Hemoglobin 32.9 pg (25.0-34.0); Mean Corpuscular Hgb Conc 32.2 g/dL (32.0-36.0); Mean Platelet Volume 13.7 fL (9.4-12.4); Monocytes # (auto) 0.51 K/uL (0.11-0.59); Monocytes % (auto) 5.3 %; Neutrophils # (auto) 7.48 K/uL (1.40-6.50); Neutrophils % (auto) 78.2 %; Platelet Count 264 K/uL (130-400); RDW Coefficient of Variation 13.8 % (11.5-14.5); RDW Standard Deviation 52.6 fL (36.4-46.3); White Blood Count 9.57 K/ul (4.8-10.8)
[2023-05-29 15:33] LABS: Troponin I High Sensitivity 10.8 pg/ml (0-14)
--- NOTE | 2023-05-29 15:55 | Electrocardiogram Report ---
Test Reason : Blood Pressure : / mmHG Vent. Rate : 084 BPM Atrial Rate : 084 BPM P-R Int : 154 ms QRS Dur : 084 ms QT Int : 392 ms P-R-T Axes : 057 002 074 degrees QTc Int : 463 ms Normal sinus rhythm Minimal voltage criteria for LVH, may be normal variant ( R in aVL ) Abnormal ECG When compared with ECG of 01-JAN-2023 01:00, Inverted T waves have replaced nonspecific T wave abnormality in Lateral leads Confirmed by Tan Kraus ([id number]) on 05/29/2023 3:54:42 PM Referred By: Confirmed By:Tan Kraus
[2023-05-29] MEDS ORDERED: OPTIRAY 320 500ml IV ONE (16:12)
--- NOTE | 2023-05-29 16:32 | CT Scan Report ---
CT OF THE ABDOMEN AND PELVIS WITH CONTRAST CLINICAL HISTORY: Abdominal pain and vomiting. COMPARISON STUDY: KUB September 27, 2022. CT of the pelvis September 28, 2022. CT of the abdomen and pelvis [id number]. TECHNIQUE: Following IV administration of 83 mL of Optiray, axial images of the abdomen and pelvis we re obtained from the lung bases to the proximal femurs. Images were reviewed in the axial, sagittal, and coronal planes. IV contrast was administered without complication. Automated exposure control wa s utilized for the study. A dose lowering technique was utilized adhering to the principles of ALARA . CT DOSE: 823.81 mGy.cm FINDINGS: Distal esophagus is mildly dilated and fluid-filled. There is mild esophageal wall thickeni ng. No pneumatosis, free air or portal venous gas is present. There are no hepatic lesions. There is no biliary or pancreatic ductal dilatation dictation. There are postoperative findings involving the stomach. The spleen is not visualized. Adrenal glands, right kidney and pancreas are unremarkable. Th ere is moderate left renal atrophy. There are bilateral parapelvic cysts. There is no hydronephrosis. No ureteral calculi are identified. The appendix is likely surgically absent. Moderate amount of sto ol within the colon and rectum is present. There is no evidence for a bowel obstruction. Colonic dive rticulosis without evidence for acute diverticulitis. There is no lymphadenopathy or ascites. Right h ip arthroplasty is incidentally noted. Healing left ischiopubic ring fractures are noted. There are o ld T11 and L5 compression fractures. No acute fractures within the visualized skeletal structures are present. Bladder is mildly distended. Major vasculature is patent. IMPRESSION: 1. No bowel obstruction. No bowel wall thickening. Colonic diverticulosis without evidence for acute diverticulitis. 2. Moderate amount of stool within the colon and rectum. 3. Healing left ischiopubic ring fractures. No acute fractures. Old T11 and L5 compression deformitie s. 4. Slightly dilated fluid-filled distal esophagus with mild esophageal wall thickening. ACT 112: Negative or not required by law. Electronically signed by: Bebo Purcell M.D. 05/29/2023 4:31 PM
[2023-05-29] MEDS ORDERED: ONDANSETRON INJ 2 MG/ML 2 ML VIAL IV STA (16:51)
[2023-05-29] MEDS ORDERED: SODIUM CHLORIDE 0.9% 500 ML IV ONE ×2 (16:51→18:21)
[2023-05-29] MEDS ORDERED: FAMOTIDINE 20MG IV PUSH 20 MG/5 ML SYR IV STA (16:51)
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
[2023-05-29 18:50] LABS: Adenovirus PCR Not Detected (NotDetected); Bordetella parapertussis PCR Not Detected (NotDetected); Bordetella pertussis PCR Not Detected (NotDetected); Chlamydia pneumoniae PCR Not Detected (NotDetected); Coronavirus 229E PCR Not Detected (NotDetected); Coronavirus CoV-2 (COVID19)PCR Not Detected (NotDetected); Coronavirus HKU1 PCR Not Detected (NotDetected); Coronavirus NL63 PCR Not Detected (NotDetected); Coronavirus OC43PCR Not Detected (NotDetected); Human Metapneumovirus PCR Not Detected (NotDetected); Influenza A PCR Not Detected (NotDetected); Influenza B PCR Not Detected (NotDetected); Mycoplasma pneumoniae PCR Not Detected (NotDetected); Parainfluenza Virus 1 PCR Not Detected (NotDetected); Parainfluenza Virus 2 PCR Not Detected (NotDetected); Parainfluenza Virus 3 PCR Not Detected (NotDetected); Parainfluenza Virus 4 PCR Not Detected (NotDetected); Respiratory Syncytial VirusPCR Not Detected (NotDetected); Rhinovirus/Enterovirus PCR Not Detected (NotDetected)
--- OUTSIDE RECORDS SUMMARY | 2023-05-29 20:32 | External Medical Summary | Summary of Care ---
Author Name Unknown Organization [facility] Address [address] [place] [address] Phone [phone] Care Team Providers Care Automotive General Manager Name Role Phone Stanley LANGFORD MD, Kyle Sorensen Primary Care Provider [phone] Reason for Visit * Reason Comments Follow Up 6 week follow up Encounter Details Date Type Department Care Team Description 01/27/2023 Office Visit Family [facility] [address] [facility] [place] [address] Yelitza Solorzano PA-C [address] [facility] [place] [address] HTN, goal below 140/90*; Hypertensive kidney disease with stage 3a chronic kidney disease; Delirium; Metabolic encephalopathy; Severe episode of recurrent major depressive disorder, with psychotic features (HCC); Protein-calorie malnutrition, unspecified severity (HCC) Allergies Active Allergy Reactions Severity Noted Date Comments Aspirin 08/16/2002 hx of 2 gastric bypasses Meperidine And Related Nausea/vomiting 09/19/18 94 documented as of this encounter (statuses as of 01/27/2023) Medications Medication Sig Dispensed Refills Start Date End Date Status Cholecalciferol (HM VITAMIN D) 1000 units Tablet Take 1 Tab by mouth daily. 0 8 Active Sennosides-Docusate Sodium 8.6-50 MG Oral Tablet (Senna S) Take 2 Tablets by mouth in the morning and 2 Tablets before bedtime. 120 Tablet 0 3 Active Polyethylene Glycol 3350 17 GM/SCOOP Oral Powder (MiraLax) Take 17 g by mouth in the morning. Dissolve one heaping tablespoon in 8 ounces of water or juice.. 255 g 3 Active Fluticasone Propionate 50 MCG/ACT Nasal Suspension (Flonase) Administer 2 Sprays into each nostril in the morning. Aim towards ears. 16 g 3 Active Ondansetron HCl 4 MG Oral Tablet (Zofran) Take 1 Tablet by mouth every 6 hours as needed for Nausea. 20 Tablet 3 3 Active Ferrous Sulfate 325 (65 Fe) MG Oral Tablet (Feosol) Take 1 Tablet by mouth daily with breakfast. 100 Tablet 3 3 Active Docusate Sodium 100 MG Oral Capsule (Colace) Take 1 Capsule by mouth 2 times a day as needed for Constipation. 100 Capsule 3 Active Acetaminophen 325 MG Oral Tablet (Tylenol) Take 2 Tablets by mouth in the morning and 2 Tablets at noon and 2 Tablets before bedtime. Gel caps. 100 Tablet 3 Active lamoTRIgine 25 MG Oral Tablet (LaMICtal)Indicatio ns:Delirium,Metabol ic encephalopathy,Alejandra re episode of recurrent major depressive disorder, with psychotic features (HCC) Take 1 Tablet by mouth in the morning and 1 Tablet before bedtime. 60 Tablet 3 Active Lisinopril 10 MG Oral Tablet (Prinivil)Indicatio ns:HTN, goal below 140/90 Take 1 Tablet by mouth in the morning. 30 Tablet 3 Active Mirtazapine 15 MG Oral Tablet (Remeron)Indication s:Severe episode of recurrent major depressive disorder, with psychotic features (HCC) Take 1 Tablet by mouth at bedtime. 30 Tablet 3 Active Pantoprazole Sodium 40 MG Oral Tablet Delayed Release (Protonix)Indicatio ns:Gastroesophageal reflux disease, unspecified whether esophagitis present Take 1 Tablet by mouth in the morning. 30 min before breakfast BRAND NECESSARY. 30 Tablet 3 Active Levothyroxine Sodium 25 MCG Oral Tablet (Levoxyl)Indication s:Acquired hypothyroidism Take 1 Tablet by mouth in the morning. (at least 30 min prior to breakfast or other meds). 30 Tablet 3 Active risperiDONE 0.25 MG Oral Tablet (RisperDAL)Indicati ons:Delirium,Metabo lic encephalopathy,Alejandra re episode of recurrent major depressive disorder, with psychotic features (HCC) Take 1 Tablet by mouth in the morning. 60 Tablet 11 3 Active risperiDONE 0.25 MG Oral Tablet (RisperDAL)Indicati ons:Delirium,Metabo lic encephalopathy,Alejandra re episode of recurrent major depressive disorder, with psychotic features (HCC) Take 1 Tablet by mouth in the morning and 1 Tablet before bedtime. 60 Tablet 11 3 01/28/20 23 Discontinued documented as of this encounter (statuses as of 01/27/2023) Active Problems Problem Noted Date Protein-calorie malnutrition 01/27/2023 Hypertensive kidney disease with stage 3 a chronic kidney disease 04/30/2020 Overview: Per CKD protocol Ulcerative colitis 04/04/2020 Severe episode of recurrent major depressive disorder, without psychotic features 05/04/2018 S/P splenectomy 11/10/2017 HTN, goal below 140/90 08/11/2017 REVISION KNEE JOINT REPLACEMENT STATUS 1 ADVANCE DIRECTIVE INFORMATION 10/28/2004 Overview: No, Advance Directive brochure offered , patient declined. Other osteoporosis without current patho logical fracture 07/19/2002 Overview: ICD-10 update of inactive term Hypothyroidism ATTN DEFIC NONHYPERACT Esophageal reflux documented as of this encounter (statuses as of 01/27/2023) Resolved Problems Problem Noted Date Resolved Date Chronic kidney disease, stage 3a 10/30/2020 10/09/2022 Overview: Per CKD protocol Colostomy status 07/09/2018 05/17/2021 Hypertensive kidney disease with CKD stage III 1 07/25/2017 05/03/2020 Overview: Per CKD protocol Kidney disease, chronic, stage III (GFR 30-59 ml /min) 05/03/2018 06/04/2018 Overview: Per CKD protocol #1 Rectal prolapse 12/15/2011 09/03/2018 Examination following surgery 12/15/2011 Undiagnosed cardiac murmurs 12/12/201101/2017 Overview: 12 Dec 2011: She never heard that she had a murmur before. Systolic, blowing, but loudest at the base. Ends in a low click or second heart sound. Other specified gastritis without mention of hem orrhage 08/18/2007 05/24/2018 Overview: mild gastric irritation Encounter for long-term (current) use of medicat ions 09/04/2005 05/29/2017 Overview: ICD-10 update of inactive term Osteoarthritis of knee 11/18/2004 8 Dyslipidemia, goal to be determined 10/11/2002 01/09/2014 GASTROPARESIS, severe 05/24/2018 DEPRESS PSYCHOSIS-UNSPEC 018 Constipation 05/29/2017 Overview: ICD-10 update of inactive term Chronic peptic ulcer, unspec ified site, without mention of hemorrhage, perforation, or obstruction 11/10/2017 Overview: with secondary outlet obstruction/pyloric stenosis documented as of this encounter (statuses as of 01/27/2023) Immunizations Name Administration Dates Next Due COVID-19 mRNA, LNP-s, No Pre serve, 2-Dose Series ([employer]) 11/22/2021,05/25/2021,09/17/2020,08/20 COVID-19, LNP-s, No Preserve , Rupert-sucrose, Ages 12+ ([employer]) 11/22/2021 Covid-19, Mrna, Lnp-s, Pf, B ivalent, 30 Mcg, IM, 12 yrs and above ([employer]) 12/10/2022 Meningococcal Conjugate Vacc ine (Menactra/Menveo) 05/04/2018 Meningococcal MCV4O Conjugat e Vaccine (Menveo) 09/03/2018 Pneumococcal Conjugate Vacc, 13 Valent (Prevnar) 08/11/2017 Pneumococcal Polysaccharide PPV23 (Pneumovax) 11/14/2021,05/01/2008 Seasonal Influenza, Quadriva lent Hd (Fluzone Hd) 03/28/2022,05/17/2021 Seasonal Influenza, Quadriva lent, No Preserve, 6 Mons & Above, IM 05/04/2018,08/11/2017 Seasonal Influenza, Quadriva lent, No Preserve, Adjuvanted, 65+ Yrs, IM 04/04/2020 Seasonal Influenza, Split, I IV3, With Preserve, Inj 04/26/2013,09/17/2010,03/21/2009,05/01,04/23/2007 TD, Preservative Free 09/17/2010,01/14/2006 TDAP (age 11 and older)(Adacel) 03/03/2018 Zoster Vaccine Recombinant (Shingrix) 07/05/2018 documented as of this encounter Social History Tobacco Use Types Packs/Day Years Used Date Smoking Tobacco: Never Smokeless Tobacco: Never Alcohol Use Standard Drinks/Week Comments Yes 0 (1 standard drink = 0.6 oz pur e alcohol) rare Sex Assigned at Date Recorded Not on file Job Start Date Occupation Industry Not on file Not on file Not on file documented as of this encounter Last Filed Vital Signs Vital Sign Reading Time Taken Comments Blood Pressure 120/64 01/27/2023 4:19 PM EDT Pulse 62 01/27/2023 4:19 PM EDT Temperature 36.4 C (97.5 F) 01/27/2023 4:19 PM ED T Respiratory Rate 16 01/27/2023 4:19 PM EDT Oxygen Saturation 96% 01/27/2023 4:19 PM EDT Inhaled Oxygen Concentration - - Weight - - Height - - Body Mass Index - - documented in this encounter Progress Notes * September Jeromy Solorzano PA-C - 01/27/2023 4:40 PM EDT Images from the original note were not included. History of Present Illness Tonia David is a 82 year old female that presents for Follow Up (6 week follow up) Patient is a 82 year old female who presents for a follow up. Did a pelvic fracture back in September. Was in [place] for a period of time. Getting home PT or OT. Appetite fair Sleep improved Urination / bowel movements normal. Has caregivers 14 hours per day. Weighed 120 pounds on 01/22 Physical Exam Vitals: 01/27/23 1619 Temp: 36.4 C (97.5 F) Pulse: 62 Resp: 16 SpO2: 96% BP: 120/64 BP Readings from Last 3 Encounters: 01/27/23 120/64 11/24/22 118/80 11/18/22 149/87 Wt Readings from Last 3 Encounters: 11/18/22 53.4 kg (117 lb 12.8 oz) 11/04/22 53.4 kg (117 lb 12.8 oz) 10/31/22 53.4 kg (117 lb 12.8 oz) General: alert, healthy, no distress, well nourished, well developed, comfortable and cooperative Head: Normocephalic, No masses, lesions, tenderness or abnormalities Eye Exam: PERRLA, extraocular movements intact, conjunctiva are pink and non- injected, sclera clear Neck: supple, no adenopathy, no bruits, thyroid normal size, non-tender, without nodularity Heart: regular rate & rhythm, no murmur and no gallops Lungs: chest symmetric with normal AP diameter, no chest deformities noted, normal respiratory rateand rhythm, no chest wall tenderness, diaphragmatic excursion normal, lungs clear to auscultation Extremities: less than 2 second capillary refill, no joint deformities, effusion, or inflammation, no edema, no skin discoloration, no clubbing, no cyanosis I have reviewed the following results: None Assessment and Plan HTN, goal below 140/90 (Primary) Hypertensive kidney disease with stage 3a chronic kidney disease Delirium Metabolic encephalopathy Severe episode of recurrent major depressive disorder, with psychotic features (HCC) Protein-calorie malnutrition, unspecified severity (HCC) Follow Up: Return in about 6 months (around 07/30/2023) for Clinic Visit/ with pcp. | For: Clinic Visit/ with pcp Continue current medications Wrap-Up Time: I spent a total of 30-39 minutes (exact time 37 mins) on the date of service in preparation, delivery, and documentation of the care provided to Tonia David excluding any time spent in the performance of separately billed services. documented in this encounter Nursing Notes * REGGIE Barajas - 01/27/2023 4:19 PM EDT Tonia David 82 year old female is here for a 6 week follow up. Her son Kyle accompanies her and says that things are going okay. Kyle has Asperger's. She saw psychiatry. Was seen in the ER December 31 due to spitting up saliva for several days. This has since resolved. documented in this encounter Plan of Treatment Upcoming Encounters Date Type Specialty Care Team Description 07/29/2023 Office Visit Family Medicine Jeanine, Yelitza Pinzon, PAJean CarlosC [address] [place] [address] Health Maintenance Due Date Last Done Comments Meningitis B Vaccine (Bexsero/Trumemba) (1 of 4 - Increased Risk Bexsero 2-dose series) 1950 Depression, Most Recent Score >= 10 (will fire each visit until score < 10) 05/05/2018 05/04/2018 *BISPHONATE OR OTHER ACCEPTABLE MEDICATION NEEDED FOR OSTEOPOROSIS (REFER TO SMARTSET #1146) 05/30/2018 Zoster Vaccines (2 of 2) 08/30/2018 07/05/2018 TSH 05/17/2022 05/17/2021, 08/21, 08/18/2019, Additional history exists Influenza Vaccine (FLU shot) (#1) 2023 03/28/2022, 05/17/2021, 04/04/2020, Additional history exists GFR 04/22/2023 10/20/2022, 09/21, 10/09/2022, Additional history exists MENINGOCOCCAL (MENACTRA/MENVEO) (3 - Risk 2-dose series) 09/04/2023 09/03/2018, 05/04/2018 Albumin/Creatinine Ratio 09/11/2023 09/10/2022 CKD PHOS USE SMARTSET 24559 09/11/2023 09/10/2022, 1 07/25/2017 CKD HGB USE SMARTSET 58160 11/14/202311/13, 11/06/2022, 10/30/2022, Additional history exists DXA Scan 06/25/2024 06/25/2022, 01/22, 01/11/2014, Additional history exists DTaP,Tdap,and Td Vaccines (2 - Td or Tdap) 03/03/2028 03/03/2018, 09/17/2010, 01/14/2006, Additional history exists VITAMIN D LEVEL ONCE IN A LIFETIME-USE SMARTSET# 69035 Completed 05/06/2016, 04/24/2011, 09/18/2010, Additional history exists Pneumococcal Vaccine: 65+ Years Completed 11/14/2021, 08/11/2017, 05/01/2008 COVID-19 Vaccine Completed 12/10/2022, 08/2021, 11/22/2021, Additional history exists GARDASIL-HPV IMMUNIZATION SERIES Aged Out No longer eligible based on patient's age to complete this topic Hepatitis B Aged Out No longer eligi ble based on patient's age to complete this topic documented as of this encounter Medical Devices Not on filedocumented as of this encounter Visit Diagnoses Diagnosis HTN, goal below 140/90- Primary Unspecified essential hypertension Hypertensive kidney disease with stage 3a chronic kidney disease Delirium Other alteration of consciousness Metabolic encephalopathy Severe episode of recurrent major depressive disorder, with psychotic features (HCC) Protein-calorie malnutrition, unspecified severity (HCC) documented in this encounter Advance Directives Latest Code Status on File Code Status Date Activated Date Inactivated Comments Full Code 12/12/2011 3:06 PM 12/14/2011 6:23 PM Question Answer Comments Discussion of Advance Direct soraida occurred with: Not Discussed Code Status History Code Status Date Activated Date Inactivated Comments Full Code 12/12/2011 11:08 AM 12/12/2011 3:06 PM This order reflects the patients wishes and were consensually agreed upon. Question Answer Comments Discussion of Advance Directives occurred with: Patient Does the patient have a Living Will? No Does the patient have Health Care Power of Food Mixer Assembler? No Healthcare Agents on File Name Relationship Healthcare Agent Relationshi p Communication Kyle Almendarez Adult Child Health Care Repr esentative (appointed verbally by patient or by statute hierarchy) Care Teams Automotive General Manager Relationship Specialty Start Date End Date Kyle Angel III, MD [address] [facility] [place] [address] PCP - General Family Medicine 04/29/18 documented as of this encounter"
--- OUTSIDE RECORDS SUMMARY | 2023-05-29 20:32 | External Medical Summary | Summary of Care ---
Author Name Unknown Organization [facility] Address [address] [place] [address] Phone [phone] Care Team Providers Care Human Factors Engineer Name Role Phone Stanley LANGFORD MD, Kyle Sorensen Primary Care Provider Encounter Details Date Type Department Care Team (Late st Contact Info) Description 11/24/2022 Population Health External Data Unspecified Department Allergies Active Allergy Reactions Criticality Noted Date Comments Aspirin 08/16/2002 hx of 2 gastric bypasses Meperidine And Related Nausea/vomiting 09/19/18 94 documented as of this encounter (statuses as of 05/04/2023) Medications Medication Sig Dispensed Refills Start Date End Date Status Cholecalciferol (HM VITAMIN D) 1000 units Tablet Take 1 Tab by mouth daily. 0 11/10/2017 Active Sennosides-Docusat e Sodium 8.6-50 MG Oral Tablet (Senna S) Take 2 Tablets by mouth in the morning and 2 Tablets before bedtime. 120 Tablet 0 10/09/2022 Active Polyethylene Glycol 3350 17 GM/SCOOP Oral Powder (MiraLax) Take 17 g by mouth in the morning. Dissolve one heaping tablespoon in 8 ounces of water or juice.. 255 g 11 11/24/2022 Active Fluticasone Propionate 50 MCG/ACT Nasal Suspension (Flonase) Administer 2 Sprays into each nostril in the morning. Aim towards ears. 16 g 6 11/24/2022 Active Ferrous Sulfate 325 (65 Fe) MG Oral Tablet (Feosol) Take 1 Tablet by mouth daily with breakfast. 100 Tablet 3 11/24/2022 Active Docusate Sodium 100 MG Oral Capsule (Colace) Take 1 Capsule by mouth 2 times a day as needed for Constipation. 100 Capsule 3 11/24/2022 Active Acetaminophen 325 MG Oral Tablet (Tylenol) Take 2 Tablets by mouth in the morning and 2 Tablets at noon and 2 Tablets before bedtime. Gel caps. 100 Tablet 6 11/24/2022 Active documented as of this encounter (statuses as of 05/04/2023) Active Problems Problem Noted Date Diagnosed Date Protein-calorie malnutrition 01/27/2023 Hypertensive kidney disease with stage 3a chronic kidney disease 04/30/2020 Overview: Per CKD protocol Ulcerative colitis 04/04/2020 Severe episode of recurrent major depressive disorder, without psychotic features 05/04/2018 S/P splenectomy 11/10/2017 HTN, goal below 140/90 08/11/2017 REVISION KNEE JOINT REPLACEMENT STATUS 5 ADVANCE DIRECTIVE INFORMATION 10/28/2004 Overview: No, Advance Directive brochure offered , patient declined. Other osteoporosis without current pathological fracture 07/19/2002 Overview: ICD-10 update of inactive term Hypothyroidism ATTN DEFIC NONHYPERACT Esophageal reflux documented as of this encounter (statuses as of 05/04/2023) Resolved Problems Problem Noted Date Diagnosed Date Resolved Date Chronic kidney disease, stage 3a 10/30/2020 10/09/2022 Overview: Per CKD protocol Colostomy status 07/09/2018 05/17/2021 Hypertensive kidney disease with CKD stage III 05/24/2018 05/03/2020 Overview: Per CKD protocol Kidney disease, chronic, sta ge III (GFR 30-59 ml/min) 05/03/2018 06/04/2018 Overview: Per CKD protocol #1 Rectal prolapse 12/15/2011 09/03/2018 Examination following surgery 12/15/2011 05/29/2017 Undiagnosed cardiac murmurs 12/12/2011 05/29/2017 Overview: 12 Dec 2011: She never heard that she had a murmur before. Systolic, blowing, but loudest at the base. Ends in a low click or second heart sound. Other specified gastritis wi thout mention of hemorrhage 08/18/2007 05/24/2018 Overview: mild gastric irritation Encounter for long-term (cur rent) use of medications 09/04/2005 05/29/2017 Overview: ICD-10 update of inactive term Osteoarthritis of knee 11/18/200405/24 Dyslipidemia, goal to be determined 10/11/2002 01/09/2014 GASTROPARESIS, severe 2017 DEPRESS PSYCHOSIS-UNSPEC Constipation 05/29/2017 Overview: ICD-10 update of inactive term Chronic peptic ulcer, unspec ified site, without mention of hemorrhage, perforation, or obstruction 11/10/2017 Overview: with secondary outlet obstruction/pyloric stenosis documented as of this encounter (statuses as of 05/04/2023) Immunizations Name Administration Dates Next Due COVID-19 mRNA, LNP-s, No Pre serve, 2-Dose Series ([employer]) 11/22/2021,05/25/2021,09/17/2020,08/20 COVID-19, LNP-s, No Preserve , Rupert-sucrose, Ages 12+ ([employer]) 11/22/2021 Meningococcal Conjugate Vacc ine (Menactra/Menveo) 05/04/2018 Meningococcal MCV4O Conjugat e Vaccine (Menveo) 09/03/2018 Pneumococcal Conjugate Vacc, 13 Valent (Prevnar) 08/11/2017 Pneumococcal Polysaccharide PPV23 (Pneumovax) 11/14/2021,05/01/2008 SEASONAL INFLUENZA, PF, 6 M & Above, IM , (FLULAVAL or FLUZONE) 05/04/2018,08/11/2017 Season Influenza, Quad, PF, Adjuvanted, 65+ Yrs, IM (FLUAD) 04/04/2020 Seasonal Influenza, Quadriva lent Hd (Fluzone Hd) 03/28/2022,05/17/2021 Seasonal Influenza, Split, I IV3, With Preserve, Inj 04/26/2013,09/17/2010,03/21/2009,05/01,04/23/2007 TD, Preservative Free 09/17/2010,01/14/2006 TDAP (age 11 and older)(Adacel) 03/03/2018 Zoster Vaccine Recombinant (Shingrix) 07/05/2018 documented as of this encounter Social History Tobacco Use Types Packs/Day Years Used Date Smoking Tobacco: Never Smokeless Tobacco: Never Alcohol Use Standard Drinks/Week Comments Yes 0 (1 standard drink = 0.6 oz pur e alcohol) rare PHQ-2 Answer Date Recorded PHQ-2 Score 22 05/04/2018 Sex and Gender Information Value Date Recorded Sex Assigned at Not on file Gender Identity Not on file Sexual Orientation Not on file Job Start Date Occupation Industry Not on file Not on file Not on file documented as of this encounter Plan of Treatment Upcoming Encounters Date Type Department Care Team (Late st Contact Info) Description 07/29/2023 4:00 PM EST Office Visit Family Practice [facility] [address] [facility] [place] [address] Yelitza Solorzano PA-C [address] [facility] [place] [address] Health Maintenance Due Date Last Done Comments Meningitis B Vaccine (Bexsero/Trumemba) (1 of 4 - Increased Risk) 1950 Depression, Most Recent Score >= 10 (will fire each visit until score < 10) 05/05/2018 05/04/2018 *BISPHONATE OR OTHER ACCEPTABLE MEDICATION NEEDED FOR OSTEOPOROSIS (REFER TO SMARTSET #1146) 05/30/2018 Zoster Vaccines (2 of 2) 08/30/2018 07/05/2018 TSH 05/17/2022 05/17/2021, 08/21, 08/18/2019, Additional history exists COVID-19 Vaccine (2022- season) 2023 12/10/2022, 11/22/2021, 11/22/2021, Additional history exists Influenza Vaccine (FLU shot) (#1) 2023 03/28/2022, 05/17/2021, 04/04/2020, Additional history exists GFR 04/22/2023 10/20/2022, 09/21, 10/09/2022, Additional history exists MENINGOCOCCAL (MENACTRA/MENVEO) (3 - Risk 2-dose series) 09/04/2023 09/03/2018, 05/04/2018 Albumin/Creatinine Ratio 09/11/2023 09/10/2022 CKD PHOS USE SMARTSET 10501 09/11/2023 09/10/2022, 1 07/25/2017 CKD HGB USE SMARTSET 90405 11/14/202311/13, 11/06/2022, 10/30/2022, Additional history exists DXA Scan 06/25/2024 06/25/2022, 01/22, 01/11/2014, Additional history exists DTaP,Tdap,and Td Vaccines (2 - Td or Tdap) 03/03/2028 03/03/2018, 09/17/2010, 01/14/2006, Additional history exists VITAMIN D LEVEL ONCE IN A LIFETIME-USE SMARTSET# [id number] Completed 05/06/2016, 04/24/2011, 09/18/2010, Additional history exists Pneumococcal Vaccine: 65+ Years Completed 11/14/2021, 08/11/2017, 05/01/2008 GARDASIL-HPV IMMUNIZATION SERIES Aged Out No longer eligible based on patient's age to complete this topic Hepatitis B Aged Out No longer eligi ble based on patient's age to complete this topic documented as of this encounter Medical Devices Not on filedocumented as of this encounter Advance Directives Latest Code Status [...] the patient have Health Care Power of Telephone Sales Representative? No Healthcare Agents on File Name Relationship Healthcare Agent Relationshi p Communication Kyle Almendarez Adult Child Health Care Repr esentative (appointed verbally by patient or by statute hierarchy) Care Teams Human Factors Engineer Relationship Specialty Start Date End Date Kyle Angel III, MD [address] [facility] [place] [address] PCP - General Family Medicine 04/29/18 documented as of this encounter
--- OUTSIDE RECORDS SUMMARY | 2023-05-29 20:32 | External Medical Summary | Summary of Care ---
Author Name Unknown Organization [facility] Address [address] [place] [address] Phone [phone] Care Team Providers Care Meat Team Member Name Role Phone Stanley LANGFORD MD, Kyle Sorensen Primary Care Provider [phone] Encounter Details Date Type Department Care Team (Late st Contact Info) Description 04/29/2023 Manager LegalFarmworker [employer] [facility] [address] [place] [address] Celestina Ash, RN [address] [place] [address] Medical home patient encounter* Allergies Active Allergy Reactions Criticality Noted Date Comments Aspirin 08/16/2002 hx of 2 gastric bypasses Meperidine And Related Nausea/vomiting 09/19/18 94 documented as of this encounter (statuses as of 04/29/2023) Medications Medication Sig Dispensed Refills Start Date End Date Status Cholecalciferol (HM VITAMIN D) 1000 units Tablet Take 1 Tab by mouth daily. 0 11/10/2017 Active Sennosides-Docusate Sodium 8.6-50 MG Oral Tablet [...] Tablets before bedtime. Gel caps. 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 60 Tablet 12/31/2022 Active Lisinopril 10 MG Oral Tablet (Prinivil)Indication s:HTN, goal below 140/90 Take 1 Tablet by mouth in the morning. 30 Tablet 12/31/2022 Active Mirtazapine 15 MG Oral Tablet (Remeron)Indications :Severe episode of recurrent major depressive disorder, with psychotic features (HCC) Take 1 Tablet by mouth at bedtime. 30 Tablet 12/31/2022 Active Pantoprazole Sodium 40 MG Oral Tablet Delayed Release (Protonix)Indication s:Gastroesophageal reflux disease, unspecified whether esophagitis present Take 1 Tablet by mouth in the morning. 30 min before breakfast BRAND NECESSARY. 30 Tablet 12/31/2022 Active Levothyroxine Sodium 25 MCG Oral Tablet (Levoxyl)Indications :Acquired hypothyroidism Take 1 Tablet by mouth in the morning. (at least 30 min prior to breakfast or other meds). 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 60 Tablet 01/27/2023 Active Ondansetron HCl 4 MG Oral Tablet (Zofran) Take 1 Tablet by mouth every 6 hours as needed for Nausea. 20 Tablet 3 04/18/2023 Active documented as of this encounter (statuses as of 04/29/2023) Active Problems Problem Noted Date Diagnosed Date [...] as of this encounter (statuses as of 04/29/2023) Resolved Problems Problem Noted Date Diagnosed Date [...] as of this encounter (statuses as of 04/29/2023) Immunizations Name Administration Dates Next Due COVID-19 mRNA, LNP-s, No Pre serve, 2-Dose Series ([employer]) 11/22/2021,05/25/2021,09/17/2020,08/20 COVID-19, LNP-s, No Preserve , Rupert-sucrose, Ages 12+ ([employer]) 11/22/2021 Covid-19, Mrna, Lnp-s, Pf, B ivalent, 30 Mcg, IM, 12 yrs and above (Pfizer) 12/10/2022 Meningococcal Conjugate Vacc ine (Menactra/Menveo) 05/04/2018 [...] on file documented as of this encounter Progress Notes * Celestina Ash RN - 04/29/2023 11:52 AM EST Manager Legal Progress Note: Date: 04/29/23 Assigned Patient Tier: 3 Connected with patient via telephone. Verified patient name/. Advised patient that call is beingrecorded for quality and training purposes. Assessment: Pt. noted the following: Is doing well with home caregivers. Discharged from home PT/OT. Continues to use walker for ambulation. Did you receive an alert for an annual wellness visit? No Is this call for a hospital, skilled nursing or rehab facility discharge to home? No Medication Reconciliation: Medication Reconciliation completed: no Review of Current goals: Discussed the following patient-centered CM goals with the patient during this discussion: -Prevention: Prevent admission/readmission -Status: Completed -SAFETY: Prevent falls or injuries -Status: Completed -Achieve Successful communication for patients with impaired verbal communication or for patients -Status: Completed COPD Patient: No CHF Patient: NO CM Plan: Patient will contact their provider regarding: health needs. Remote Patient Monitoring: At this time, RPM not offered/considered for patient due to NA. Advancement/Closure Plan: Close patient from case management as all goals and needs met. Patient provided CM contact information and encouraged to call with any changes in condition. SNP Member? No PCP Notified of enrollment in CM/HM program: Yes Is Provider in agreement with POC? Yes CM Transition/Closure: Review of current patient status: SNP LOB: no Outstanding Goals: NONE Current Status of Advanced Care Planning: ACP conversation initiated, referred to physician for continuation of conversation. (see ACP activity for specifics) Medications: Medications Reviewed and Optimized Current Exacerbation Plan: NA Community Resource Needs: All necessary community resource needs met/in place. Future Appointments Scheduled: Future Appointments-next 60 days Date/Time Provider Specialty Dept Phone 07/29/2023 4:00 PM (Arrive by 3:45 PM) Yelitza Solorzano PA-C Family [facility] [phone] No Appointment needed at this time. Health Plan Benefits assessed: yes Pt. Has had no utilization for a period of 5 months. Upon review of patient status plan to close patient from Outpatient Case Management services.. Reinforced CM contact information as well as PCP office contact information for any change in status or questions. Pt. made aware of this transition. Warm Hand-off: This note serves as written notification of Transition/Closure plan as well as handoff details. Warm hand-off conducted: No. Celestina Ash RN Outpatient Case Management documented in this encounter Plan of Treatment Upcoming Encounters Date Type Department Care Team (Late st Contact Info) Description 07/29/2023 4:00 PM EST Office Visit Family [facility] [address] [place] [address] Yelitza Solorzano PA-C [address] [place] [address] Health Maintenance Due Date Last Done Comments Meningitis B Vaccine (Bexsero/Trumemba) (1 of 4 - Increased Risk) 1950 Depression, Most Recent Score >= 10 (will fire each visit until score < 10) 05/05/2018 05/04/2018 *BISPHONATE OR OTHER ACCEPTABLE MEDICATION NEEDED FOR OSTEOPOROSIS (REFER TO SMARTSET #1146) 05/30/2018 Zoster Vaccines (2 of 2) 08/30/2018 07/05/2018 TSH 05/17/2022 05/17/2021, /07/2020, 08/18/2019, Additional history exists COVID-19 Vaccine (2022- season) 2023 12/10/2022, 11/22/2021, 11/22/2021, Additional history exists Influenza Vaccine (FLU shot) (#1) 2023 03/28/2022, 05/17/2021, 04/04/2020, Additional history exists GFR 04/22/2023 10/20/2022, 09/21, 10/09/2022, Additional history exists MENINGOCOCCAL (MENACTRA/MENVEO) (3 - Risk 2-dose series) 09/04/2023 09/03/2018, 05/04/2018 Albumin/Creatinine Ratio 09/11/2023 09/10/2022 CKD PHOS USE SMARTSET 61685 09/11/2023 09/10/2022, 1 07/25/2017 CKD HGB USE SMARTSET 18850 11/14/202311/13, 11/06/2022, 10/30/2022, Additional history exists DXA Scan 06/25/2024 06/25/2022, 01/22, 01/11/2014, Additional history exists DTaP,Tdap,and Td Vaccines (2 - Td or Tdap) 03/03/2028 03/03/2018, 09/17/2010, 01/14/2006, Additional history exists VITAMIN D LEVEL ONCE IN A LIFETIME-USE SMARTSET# 08492 Completed 05/06/2016, 04/24/2011, 09/18/2010, Additional history exists [...] as of this encounter Visit Diagnoses Diagnosis Medical home patient encounter- Primary Other specified examination documented in this encounter Advance Directives Latest [...] the patient have Health Care Power of Prison Guard Supervisor? No Healthcare Agents on File Name Relationship Healthcare Agent Relationshi p Communication Kyle Almendarez Adult Child Health Care Repr esentative (appointed verbally by patient or by statute hierarchy) Care Teams Meat Team Member Relationship Specialty Start Date End Date Kyle Angel III, MD [address] [place] [address] PCP - General Family Medicine 04/29/18 documented as of this encounter
--- OUTSIDE RECORDS SUMMARY | 2023-05-29 20:32 | External Medical Summary | Summary of Care ---
Author Name Unknown Organization [facility] Address [address] [place] [address] Phone [phone] Care Team Providers Care Purchase Request Editor Name Role Phone Stanley LANGFORD MD, Saeed Sorensen Primary Care Provider [phone] Reason for Visit * Reason Comments eRx-Medication Refill Encounter Details Date Type Department Care Team (Late st Contact Info) Description 04/17/2023 Refill Family Practice [facility] [address] [place] [address] Saeed Kovacs III, MD [address] [place] [address] Nausea Allergies Active Allergy Reactions Criticality Noted Date Comments Aspirin 08/16/2002 hx of 2 gastric bypasses Meperidine And Related Nausea/vomiting 09/19/18 94 documented as of this encounter (statuses as of 04/18/2023) Medications Medication Sig Dispensed Refills Start Date [...] the morning. Aim towards ears. 16 g 11/24/2022 Active Ferrous Sulfate 325 (65 Fe) MG Oral Tablet (Feosol) Take 1 Tablet by mouth daily with breakfast. 100 Tablet 11/24/2022 Active Docusate Sodium 100 MG Oral Capsule (Colace) Take 1 Capsule by mouth 2 times a day as needed for Constipation. 100 Capsule 11/24/2022 Active Acetaminophen 325 MG Oral Tablet (Tylenol) Take 2 Tablets by mouth in the morning and 2 Tablets at noon and 2 Tablets before bedtime. Gel caps. 100 Tablet 11/24/2022 Active lamoTRIgine 25 MG Oral Tablet (LaMICtal)Indicatio ns:Delirium,Metabol ic encephalopathy,Alejandra re episode of recurrent major depressive disorder, with psychotic features (HCC) Take 1 Tablet by mouth in the morning and 1 Tablet before bedtime. 60 Tablet 12/31/2022 Active Lisinopril 10 MG Oral Tablet (Prinivil)Indicatio ns:HTN, goal below 140/90 Take 1 Tablet by mouth in the morning. 30 Tablet 12/31/2022 Active Mirtazapine 15 MG Oral Tablet (Remeron)Indication [...] 12/31/2022 Active risperiDONE 0.25 MG Oral Tablet (RisperDAL)Indicati ons:Delirium,Metabo lic encephalopathy,Alejandra re episode of recurrent major depressive disorder, with psychotic features (HCC) Take 1 Tablet by mouth in the morning. 60 Tablet 11 01/27/2023 Active Ondansetron HCl 4 MG Oral Tablet (Zofran) Take 1 Tablet by mouth every 6 hours as needed for Nausea. 20 Tablet 3 04/18/2023 Active Ondansetron HCl 4 MG Oral Tablet (Zofran) Take 1 Tablet by mouth every 6 hours as needed for Nausea. 20 Tablet 3 11/24/2022 3 Discontinu ed(Refill) documented as of this encounter (statuses as of 04/18/2023) Active Problems Problem Noted Date Diagnosed Date [...] as of this encounter (statuses as of 04/18/2023) Resolved Problems Problem Noted Date Diagnosed Date [...] as of this encounter (statuses as of 04/18/2023) Immunizations Name Administration Dates Next Due COVID-19 mRNA, LNP-s, No Pre serve, 2-Dose Series ([employer] 11/22/2021,05/25/2021,09/17/2020,08/20 COVID-19, LNP-s, No Preserve , Rupert-sucrose, Ages 12+ ([employer] 11/22/2021 Covid-19, Mrna, Lnp-s, Pf, B ivalent, 30 Mcg, IM, 12 yrs and above ([employer] 12/10/2022 Meningococcal Conjugate Vacc ine (Menactra/Menveo) 05/04/2018 [...] 0.6 oz pur e alcohol) rare Sex and Gender Information Value Date Recorded Sex Assigned at Not on file Gender Identity Not on file Sexual Orientation Not on file Job Start Date Occupation Industry Not on file Not on file Not on file documented as of this encounter Miscellaneous Notes * Telephone Encounter - Jing Bernardo RPh - 04/18/2023 6:35 AM EDTSigned Prescriptions: Disp Refills Ondansetron HCl 4 MG Oral Tablet (Zofran) 20 Tab*3 Sig: Take 1 Tablet by mouth every 6 hours as needed for Nausea.Authorizing Provider: SAEED KOVACS III User: JING BERNARDORefodin Prescriptions: Disp Refills Ondansetron HCl 8 MG Oral Tablet (Zofran) 10 Tab*5 Sig: TAKE ONE TABLET BY MOUTH EVERY DAY NEEDED FORNAUSEARefused By: JING BERNARDO for Refusal: Dose needs clarification documented in this encounter Plan of Treatment Upcoming Encounters Date Type Department Care Team (Late st Contact Info) Description 07/29/2023 4:00 PM EST Office Visit [facility] [address] [place] [address] Yelitza Solorzano PA-C [address] [place] [address] Health Maintenance Due Date Last Done Comments [...] 08/21, 08/18/2019, Additional history exists COVID-19 Vaccine ( season) 2023 12/10/2022, 11/22/2021, 11/22/2021, Additional history exists Influenza Vaccine (FLU shot) (#1) 2023 03/28/2022, 05/17/2021, 04/04/2020, Additional history exists GFR 04/22/2023 10/20/2022, 09/21, 10/09/2022, Additional history exists MENINGOCOCCAL (MENACTRA/MENVEO) (3 - Risk 2-dose series) 09/04/2023 09/03/2018, 05/04/2018 Albumin/Creatinine Ratio 09/11/2023 09/10/2022 CKD PHOS USE SMARTSET 98541 09/11/2023 09/10/2022, 1 07/25/2017 CKD HGB USE SMARTSET 12840 11/14/202311/13, 11/06/2022, 10/30/2022, Additional history exists DXA Scan 06/25/2024 06/25/2022, /06/2015, 01/11/2014, Additional history exists DTaP,Tdap,and Td Vaccines (2 - Td or Tdap) 03/03/2028 03/03/2018, 09/17/2010, 01/14/2006, Additional history exists VITAMIN D LEVEL ONCE IN A LIFETIME-USE SMARTSET# 37939 Completed 05/06/2016, 04/24/2011, 09/18/2010, Additional history exists [...] as of this encounter Visit Diagnoses Diagnosis Nausea Nausea alone documented in this encounter Advance Directives Latest [...] the patient have Health Care Power of Basketball Referee? No Healthcare Agents on File Name Relationship Healthcare Agent Relationshi p Communication Saeed Almendarez Adult Child Health Care Repr esentative (appointed verbally by patient or by statute hierarchy) Care Teams Purchase Request Editor Relationship Specialty Start Date End Date Saeed Kovacs III, MD [address] [place] [address] PCP - General Family Medicine 04/29/18 documented as of this encounter
--- OUTSIDE RECORDS SUMMARY | 2023-05-29 20:32 | External Medical Summary | Summary of Care ---
Author Name Unknown Organization [facility] Address [address] [place] [address] Phone [phone] Care Team Providers Care Wood Machinist Apprentice Name Role Phone Stanley LANGFORD MD, John E Primary Care Provider [phone] Reason for Visit * Reason Onset Date Comments Health Maintenance 03/06/2023 Encounter Details Date Type Department Care Team Description 03/06/2023 Telephone Family Practice [facility] [address] [facility] [place] [address] Kyle Angel III, MD [address] [place] [address] Health Maintenance Allergies Active Allergy Reactions Severity Noted Date Comments Aspirin 08/16/2002 hx of 2 gastric bypasses Meperidine And Related Nausea/vomiting 09/19/18 94 documented as of this encounter (statuses as of 03/06/2023) Medications Medication Sig Dispensed Refills Start Date [...] Aim towards ears. 16 g 11/24/2022 Active Ondansetron HCl 4 MG Oral Tablet (Zofran) Take 1 Tablet by mouth every 6 hours as needed for Nausea. 20 Tablet 11/24/2022 Active Ferrous Sulfate 325 (65 Fe) [...] in the morning. 60 Tablet 01/27/2023 Active documented as of this encounter (statuses as of 03/06/2023) Active Problems Problem Noted Date Protein-calorie malnutrition [...] as of this encounter (statuses as of 03/06/2023) Resolved Problems Problem Noted Date Resolved Date [...] as of this encounter (statuses as of 03/06/2023) Immunizations Name Administration Dates Next Due COVID-19 mRNA, LNP-s, No Pre serve, 2-Dose Series ([employer]) 11/22/2021,05/25/2021,09/17/2020,08/20 COVID-19, LNP-s, No Preserve , Rupert-sucrose, Ages 12+ (Pfizer) 11/22/2021 Covid-19, Mrna, Lnp-s, Pf, B ivalent, 30 Mcg, IM, 12 yrs and above (Pfizer) 12/10/2022 Meningococcal Conjugate Vacc ine (Menactra/Menveo) 05/04/2018 Meningococcal MCV4O Conjugat e Vaccine (Menveo) 09/03/2018 Pneumococcal Conjugate Vacc, 13 Valent (Prevnar) 08/11/2017 Pneumococcal Polysaccharide PPV23 (Pneumovax) 11/14/2021,05/01/2008 Season Influenza, Quad, PF, Adjuvanted, 65+ Yrs, IM (FLUAD) 04/04/2020 Seasonal Influenza, PF, 6 mo ns & Above, IM , (Flulaval) 05/04/2018,08/11/2017 Seasonal Influenza, Quadriva lent Hd (Fluzone Hd) [...] encounter Miscellaneous Notes * Telephone Encounter - Frances Rankin LPN - 03/06/2023 9:03 AM EDT Care Gaps Comprehensive Care Outreach Last Office/Telemedicine Visit: 01/27/2023 (in office), Visit date not found (telemedicine) Next Office Visit: 07/29/2023 Hemoglobin AIC Results: No results found for: HEMOGLOBIN A1C Reviewed Health Maintenance below: Health Maintenance Topic Date Due Meningitis B Vaccine (Bexsero/Trumemba) (1 of 4 - Increased Risk Bexsero 2-dose series) Never done Depression, Most Recent Score >= 10 (will fire each visit until score < 10) 05/05/2018 *BISPHONATE OR OTHER ACCEPTABLE MEDICATION NEEDED FOR OSTEOPOROSIS (REFER TO SMARTSET #1146) Never done Zoster Vaccines (2 of 2) 08/30/2018 TSH 05/17/2022 Influenza Vaccine (FLU shot) (1) 02/20/2023 GFR 04/22/2023 Labs already ordered flu Care Gap Outreach Action Taken: Left message documented in this encounter Plan of Treatment Upcoming Encounters Date Type Specialty Care Team Description 07/29/2023 Office Visit Family Medicine Yelitza Solorzano PA-C [address] [place] [address] Health Maintenance Due Date Last Done Comments [...] Ratio 09/11/2023 09/10/2022 CKD PHOS USE SMARTSET 00482 09/11/2023 09/10/2022, 1 07/25/2017 CKD HGB USE SMARTSET 71355 11/14/202311/13, 11/06/2022, 10/30/2022, Additional history exists DXA Scan 06/25/2024 06/25/2022, 01/22, 01/11/2014, Additional history exists DTaP,Tdap,and Td Vaccines (2 - Td or Tdap) 03/03/2028 03/03/2018, 09/17/2010, 01/14/2006, Additional history exists VITAMIN D LEVEL ONCE IN A LIFETIME-USE SMARTSET# [id number] Completed 05/06/2016, 04/24/2011, 09/18/2010, Additional history exists [...] the patient have Health Care Power of Carpet Installer Helper? No Healthcare Agents on File Name Relationship Healthcare Agent Relationshi p Communication Kyle Almendarez Adult Child Health Care Repr esentative (appointed verbally by patient or by statute hierarchy) Care Teams Wood Machinist Apprentice Relationship Specialty Start Date End Date Stanley III, Kyle Sorensen MD [address] [place] [id number] PCP - General Family Medicine 04/29/18 documented as of this encounter
--- OUTSIDE RECORDS SUMMARY | 2023-05-29 20:33 | External Medical Summary | Summary of Care ---
Author Name Unknown Organization [facility] Address [address] [place] [address] Phone [phone] Care Team Providers Care Shell Shop Supervisor Name Role Phone Stanley LANGFORD MD, Kyle Sorensen Primary Care Provider [phone] Reason for Visit * Reason Comments case management Encounter Details Date Type Department Care Team Description 12/30/2022 Registered Veterinary TechnicianPattern Data Operator [employer] [address], [place] [id number] Celestina Benoit, JUS Medical home patient encounter* Allergies Active Allergy Reactions Severity Noted Date Comments Aspirin 08/16/2002 hx of 2 gastric bypasses Meperidine And Related Nausea/vomiting 09/19/18 94 documented as of this encounter (statuses as of 12/30/2022) Medications Medication Sig Dispensed Refills Start Date [...] or juice.. 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 60 Tablet 11/24/2022 Active Pantoprazole Sodium 40 MG Oral Tablet Delayed Release (Protonix)Indication s:Gastroesophageal reflux disease, unspecified whether esophagitis present Take 1 Tablet by mouth in the morning. 30 min before breakfast BRAND NECESSARY. 30 Tablet 11/24/2022 Active Mirtazapine 15 MG Oral Tablet (Remeron)Indications :Severe episode of recurrent major depressive disorder, with psychotic features (HCC) Take 1 Tablet by mouth at bedtime. 30 Tablet 11/24/2022 Active Lisinopril 10 MG Oral Tablet (Prinivil)Indication s:HTN, goal below 140/90 Take 1 Tablet by mouth in the morning. 30 Tablet 11/24/2022 Active Levothyroxine Sodium 25 MCG Oral Tablet (Levoxyl)Indications :Acquired hypothyroidism Take 1 Tablet by mouth in the morning. (at least 30 min prior to breakfast or other meds). 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 60 Tablet 11/24/2022 Active Fluticasone Propionate 50 MCG/ACT Nasal [...] bedtime. Gel caps. 100 Tablet 11/24/2022 Active documented as of this encounter (statuses as of 12/30/2022) Active Problems Problem Noted Date Hypertensive kidney disease with stage 3 a [...] as of this encounter (statuses as of 12/30/2022) Resolved Problems Problem Noted Date Resolved Date [...] as of this encounter (statuses as of 12/30/2022) Immunizations Name Administration Dates Next Due COVID-19 mRNA, LNP-s, No Pre serve, 2-Dose Series ([employer]) 11/22/2021,05/25/2021,09/17/2020,08/20 COVID-19, LNP-s, No Preserve , Rupert-sucrose, Ages 12+ ([facility]) 11/22/2021 Covid-19, Mrna, Lnp-s, Pf, B ivalent, 30 Mcg, IM, 12 yrs and above ([facility]) 12/10/2022 Meningococcal Conjugate Vacc ine (Menactra/Menveo) 05/04/2018 [...] Preserve, Inj 04/26/2013,09/17/2010,03/21/2009,05/01,04/23/2007 TD, Preservative Free 09/17/2010,01/14/2006 documented as of this encounter Social History [...] of this encounter Progress Notes * Celestina Benoit RN - 12/30/2022 3:31 PM EDT Registered Veterinary Technician Progress Note: Date: 12/30/22 Assigned Patient Tier: 3 Connected with patient via telephone/POA Kyle. Verified patient name/. Advised patient that david being recorded for quality and training purposes. Assessment: Pt. noted the following: Kyle states that pt is doing well. She is taking her medications and continues to use her walker. Kyle was calling in to this CM to get pt's upcoming appoiontment changed as he is not able to get patient in to be seen by [facility] until January. New appointment made for 8at 4pm with Yelitza Solorzano. Kyle was also requesting refills for pt's medications. CM sent separate TE to PCP on this date with that request. Did you receive an alert for an annual wellness visit? No Is this call for a hospital, detention or rehab facility discharge to home? No Medication Reconciliation: Medication Reconciliation completed: no Review of Current goals: Discussed the following patient-centered CM goals with the patient during this discussion: -Prevention: Prevent admission/readmission -Status: On Track pt has f/u with [facility] and with PCP scheduled. -SAFETY: Prevent falls or injuries -Status: On Track per son pt continues to use her walker. COPD Patient: No CHF Patient: NO CM Plan: Reviewed 3 Red Flags with patient. Advised to call CM with any of the following: Red Flag 1: weakness Red Flag 2: dizziness Red flag 3 changes in behaviors Remote Patient Monitoring: At this time, RPM not offered/considered for patient due to NA. Plan for Future Contacts: Plan to follow up within 1 month to check progress on the following goals/needs: Health status. Planned contacts from the following parties will occur this week: N/A as additional contacts per workflow. Advancement/Closure Plan: Graduate patient to the next lower tier. Tier: 3 Patient provided CM contact information and encouraged to call with any changes in condition. SNP Member? No PCP Notified of enrollment in CM/HM program: Yes Is Provider in agreement with POC? Yes Celestina Weyandt, RN Outpatient Case Management documented in this encounter Plan of Treatment Upcoming Encounters Date Type Specialty Care Team Description 01/27/2023 Office Visit Family Medicine Yelitza Solorzano, PAJean CarlosC [address] [facility] [place] [address] Health Maintenance Due Date Last Done Comments Meningitis B Vaccine (Bexsero/Trumemba) (1 of 4 - Increased Risk Bexsero 2-dose series) 1950 Zoster Vaccines (1 of 2) 1959 DTaP,Tdap,and Td Vaccines (1 - Tdap) 09/18/2010 09/17/2010, 01/14/2006, 12/06/1998 Depression, Most Recent Score >= 10 (will fire each visit until score < 10) 05/05/2018 05/04/2018 *BISPHONATE OR OTHER ACCEPTABLE MEDICATION NEEDED FOR OSTEOPOROSIS (REFER TO SMARTSET #1146) 05/30/2018 TSH 05/17/2022 05/17/2021, 08/21, 08/18/2019, Additional history exists Influenza Vaccine (FLU shot) (#1) 2023 03/28/2022, 05/17/2021, 04/04/2020, Additional history exists GFR 04/22/2023 10/20/2022, 09/21, 10/09/2022, Additional history exists MENINGOCOCCAL (MENACTRA/MENVEO) (3 - Risk 2-dose series) 09/04/2023 09/03/2018, 05/04/2018 Albumin/Creatinine Ratio 09/11/2023 09/10/2022 CKD PHOS USE SMARTSET 57395 09/11/2023 09/10/2022, 1 07/25/2017 CKD HGB USE SMARTSET 57239 11/14/202311/13, 11/06/2022, 10/30/2022, Additional history exists DXA Scan 06/25/2024 06/25/2022, 01/22, 01/11/2014, Additional history exists VITAMIN D LEVEL ONCE IN A LIFETIME-USE SMARTSET# 41684 Completed 05/06/2016, 04/24/2011, 09/18/2010, Additional history exists [...] the patient have Health Care Power of [employer]? No Healthcare Agents on File Name Relationship Healthcare Agent Relationshi p Communication Kyle Almendarez Adult Child Health Care Repr esentative (appointed verbally by patient or by statute hierarchy) Care Teams Shell Shop Supervisor Relationship Specialty Start Date End Date Kyle Angel III, MD [address] [place] [id number] PCP - General Family Medicine 04/29/18 documented as of this encounter
--- OUTSIDE RECORDS SUMMARY | 2023-05-29 20:33 | External Medical Summary | Summary of Care ---
Author Name Unknown Organization [facility] Address [address] [place] [address] Phone [phone] Care Team Providers Care Tool Design Drafter Name Role Phone Stanley LANGFORD MD, John E Primary Care Provider [phone] Reason for Visit * Reason Onset Date Comments Medication Question 12/22/202212/24 Encounter Details Date Type Department Care Team Description 12/22/2022 Telephone Family Practice [facility] [address] [place] [address] Kyle Angel III, MD [address] [place] [address] Medication Question (12/24) Allergies Active Allergy Reactions Severity Noted Date [...] mRNA, LNP-s, No Pre serve, 2-Dose Series ([employer]) 11/22/2021,05/25/2021,09/17/2020,08/20 COVID-19, LNP-s, No Preserve , Rupert-sucrose, Ages 12+ ([employer]) 11/22/2021 Covid-19, Mrna, Lnp-s, Pf, B ivalent, 30 Mcg, IM, 12 yrs and above ([employer]) 12/10/2022 Meningococcal Conjugate Vacc ine (Menactra/Menveo) 05/04/2018 [...] encounter Miscellaneous Notes * Telephone Encounter - Yeni Morales LPN - 12/24/2022 2:59 PM EDT Provider to address: Reason for Call: Medication Question Contact: Telephone Call Contact Type: Medication Outcome: Left message with family member to call back Total Time including non face to face (minutes): 5 * Telephone Encounter - Yelitza Solorzano PA-C - 12/22/2022 7:11 PM EDT Please contact patient and see if she is agreeable to getting a generic due to pharmacy being unable to get brand * Telephone Encounter - NATHANIEL Rios - 12/22/2022 5:35 PM EDT Pharmacy called asking if it is okay to dispense the generic Protonix due to they cannot get brand in, if so asking for a new script for Pantoprazole Sodium 40 MG Oral Tablet , please advise Thank you, Xiomy Frank CPhT Associate Professor Of Literacy [facility]) 12/22/2022,5:36 PM documented in this encounter Plan of Treatment Upcoming Encounters Date Type Specialty Care Team Description 01/27/2023 Office Visit Family Medicine Yelitza Solorzano PA-C [address] [facility] [place] [address] Health Maintenance Due Date Last Done Comments [...] Ratio 09/11/2023 09/10/2022 CKD PHOS USE SMARTSET 46829 09/11/2023 09/10/2022, 1 07/25/2017 CKD HGB USE SMARTSET 58886 11/14/202311/13, 11/06/2022, 10/30/2022, Additional history exists DXA Scan 06/25/2024 06/25/2022, 01/22, 01/11/2014, Additional history exists VITAMIN D LEVEL ONCE IN A LIFETIME-USE SMARTSET# [id number] Completed 05/06/2016, 04/24/2011, 09/18/2010, Additional history exists [...] the patient have Health Care Power of Ball Assembler? No Healthcare Agents on File Name Relationship Healthcare Agent Relationshi p Communication Kyle Almendarez Adult Child Health Care Repr esentative (appointed verbally by patient or by statute hierarchy) Care Teams Tool Design Drafter Relationship Specialty Start Date End Date Kyle Angel III, MD [address] [place] [address] PCP - General Family Medicine 04/29/18 documented as of this encounter
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
--- OUTSIDE RECORDS SUMMARY | 2023-05-29 20:33 | External Medical Summary | Summary of Care ---
Author Name Unknown Organization [facility] Address [address] [place] [address] Phone [phone] Care Team Providers Care System Administration Manager Name Role Phone Stanley LANGFORD MD, Kyle Sorensen Primary Care Provider [phone] Encounter Details Date Type Department Care Team Description 12/10/2022 Immunization Pharmacy, [facility] [address] [place] [address] [place] [address] Vaccine Pharmacy [address] [place] [address] Arrived Allergies Active Allergy Reactions Severity Noted Date [...] mRNA, LNP-s, No Pre serve, 2-Dose Series ([employer]) 11/22/2021,05/25/2021,09/17/2020,08/20 COVID-19, LNP-s, No Preserve , Rupert-sucrose, Ages 12+ ([employer]) 11/22/2021 Covid-19, Mrna, Lnp-s, Pf, B ivalent, 30 Mcg, IM, 12 yrs and above ([employer]) 12/10/2022 Meningococcal Conjugate Vacc ine (Menactra/Menveo) 05/04/2018 [...] Team Description 01/07/2023 Office Visit Family Medicine Stanley III, Kyle Sorensen MD [address] [place] [address] Health Maintenance Due Date Last Done Comments [...] FOR OSTEOPOROSIS (REFER TO SMARTSET #1146) 05/30/2018 COVID-19 Vaccine (6 - Pfizer series) 01/17/2022 12/10/2022, 11/22/2021, 11/22/2021, Additional history exists TSH 05/17/2022 05/17/2021, 08/21, 08/18/2019, Additional history exists GFR 04/22/2023 10/20/2022, 09/21, 10/09/2022, Additional history exists MENINGOCOCCAL (MENACTRA/MENVEO) (3 - Risk 2-dose series) 09/04/2023 09/03/2018, 05/04/2018 Albumin/Creatinine Ratio 09/11/2023 09/10/2022 CKD PHOS USE SMARTSET 97365 09/11/2023 09/10/2022, 1 07/25/2017 CKD HGB USE SMARTSET 10827 11/14/202311/13, 11/06/2022, 10/30/2022, Additional history exists DXA Scan 06/25/2024 06/25/2022, 01/22, 01/11/2014, Additional history exists VITAMIN D LEVEL ONCE IN A LIFETIME-USE SMARTSET# [id number] Completed 05/06/2016, 04/24/2011, 09/18/2010, Additional history exists Pneumococcal Vaccine: 65+ Years Completed 11/14/2021, 08/11/2017, 05/01/2008 Influenza Vaccine (FLU shot) Completed 12/2021, 05/17/2021, 04/04/2020, Additional history exists GARDASIL-HPV IMMUNIZATION SERIES Aged [...] the patient have Health Care Power of Guide Changer? No Healthcare Agents on File Name Relationship Healthcare Agent Relationshi p Communication Kyle Almendarez Adult Child Health Care Repr esentative (appointed verbally by patient or by statute hierarchy) Care Teams System Administration Manager Relationship Specialty Start Date End Date Kyle Angel III, MD [address] [place] [address] PCP - General Family Medicine 04/29/18 documented as of this encounter
--- OUTSIDE RECORDS SUMMARY | 2023-05-29 20:33 | External Medical Summary | Summary of Care ---
Author Name Unknown Organization [facility] Address [address] [place] [address] Phone [phone] Care Team Providers Care Procedure Tech Name Role Phone Stanley LANGFORD MD, Kyle Sorensen Primary Care Provider [phone] Encounter Details Date Type Department Care Team Description 12/03/2022 Tourist Information AssistantCommunity Service Patrol Officer [facility] [address] [place] [address] Celestina Benoit, RN Medical home patient encounter* Allergies Active Allergy Reactions Severity Noted Date Comments Aspirin 08/16/2002 hx of 2 gastric bypasses Meperidine And Related Nausea/vomiting 09/19/18 94 documented as of this encounter (statuses as of 12/03/2022) Medications Medication Sig Dispensed Refills Start Date [...] before bedtime. 60 Tablet 11 11/24/2022 Active Pantoprazole Sodium 40 MG Oral [...] as of this encounter (statuses as of 12/03/2022) Active Problems Problem Noted Date Hypertensive kidney [...] as of this encounter (statuses as of 12/03/2022) Resolved Problems Problem Noted Date Resolved Date [...] as of this encounter (statuses as of 12/03/2022) Immunizations Name Administration Dates Next Due COVID-19 mRNA, LNP-s, No Pre serve, 2-Dose Series ([employer]) 11/22/2021,05/25/2021,09/17/2020,08/20 COVID-19, LNP-s, No Preserve , Rupert-sucrose, Ages 12+ (Pf[employer]) 11/22/2021 Meningococcal Conjugate Vacc ine (Menactra/Menveo) 05/04/2018 [...] Progress Notes * Celestina Benoit RN - 12/03/2022 10:27 AM EDT CM Call for WOOD week 2 follow up CM placed t/c to pt's son, Kyle/KWADWO Wright states that pt continues to do well. She has caregivers coming in daily to ensure she is taking her medications and eating well. They are paying for this out of pocket at this time. Pt reports he feels his mom's confusion has been less and she is settling back into home well. Denies any needs at this time. documented in this encounter Plan of Treatment Upcoming Encounters Date Type Specialty Care Team Description 12/10/2022 Office Visit Orthopedics Andres Fairchild MD [address] [place] [phone] 01/07/2023 Office Visit Family Medicine Stanley III, Kyle Sorensen MD [address] [facility] [place] [id number] Health Maintenance Due Date Last Done Comments [...] COVID-19 Vaccine (6 - Pfizer series) 01/17/2022 11/22/2021, 11/22/2021, 05/25/2021, Additional history exists TSH 05/17/2022 05/17/2021, 08/21, 08/18/2019, Additional history exists GFR 04/22/2023 10/20/2022, 09/21, 10/09/2022, Additional history exists MENINGOCOCCAL (MENACTRA/MENVEO) (3 - Risk 2-dose series) 09/04/2023 09/03/2018, 05/04/2018 Albumin/Creatinine Ratio 09/11/2023 09/10/2022 CKD PHOS USE SMARTSET 13477 09/11/2023 09/10/2022, 1 07/25/2017 CKD HGB USE SMARTSET 61230 11/14/202311/13, 11/06/2022, 10/30/2022, Additional history exists DXA Scan 06/25/2024 06/25/2022, 01/22, 01/11/2014, Additional history exists VITAMIN D LEVEL ONCE IN A LIFETIME-USE SMARTSET# 38079 Completed 05/06/2016, 04/24/2011, 09/18/2010, Additional history exists [...] the patient have Health Care Power of Combat Systems Operator? No Healthcare Agents on File Name Relationship Healthcare Agent Relationshi p Communication Kyle Almendarez Adult Child Health Care Repr esentative (appointed verbally by patient or by statute hierarchy) Care Teams Procedure Tech Relationship Specialty Start Date End Date Kyle Angel III, MD [address] [place] [address] PCP - General Family Medicine 04/29/18 documented as of this encounter
--- OUTSIDE RECORDS SUMMARY | 2023-05-29 20:33 | External Medical Summary | Summary of Care ---
Author Name Unknown Organization [facility] Address [address] [place] [address] Phone [phone] Care Team Providers Care Ux Design Manager Name Role Phone Stanley LANGFORD MD, Saeed Sorensen Primary Care Provider [phone] Reason for Visit * Reason Onset Date Comments Medication Refill 12/30/2022 Encounter Details Date Type Department Care Team Description 12/30/2022 [facility]er [facility] Telephone Family [facility] [address] [place], [place] [id number] Celestina Benoit, service member Refill Allergies Active Allergy Reactions Severity Noted Date Comments Aspirin 08/16/2002 hx of 2 gastric bypasses Meperidine And Related Nausea/vomiting 09/19/18 94 documented as of this encounter (statuses as of 12/31/2022) Medications Medication Sig Dispensed Refills Start Date [...] Gel caps. 100 Tablet 6 11/24/2022 Active lamoTRIgine 25 MG Oral Tablet (LaMICtal)Indicatio ns:Delirium,Metabol ic encephalopathy,Alejandra re episode of recurrent major depressive disorder, with psychotic features (HCC) Take 1 Tablet by mouth in the morning and 1 Tablet before bedtime. 60 Tablet 12/31/2022 Active risperiDONE 0.25 MG Oral [...] 1 Tablet before bedtime. 60 Tablet 11/24/2022 3 Discontinu ed(Refill) Pantoprazole Sodium 40 MG Oral Tablet Delayed Release (Protonix)Indicatio ns:Gastroesophageal reflux disease, unspecified whether esophagitis present Take 1 Tablet by mouth in the morning. 30 min before breakfast BRAND NECESSARY. 30 Tablet 11/24/2022 3 Discontinu ed(Refill) Mirtazapine 15 MG Oral Tablet (Remeron)Indication s:Severe episode of recurrent major depressive disorder, with psychotic features (HCC) Take 1 Tablet by mouth at bedtime. 30 Tablet 11/24/2022 3 Discontinu ed(Refill) Lisinopril 10 MG Oral Tablet (Prinivil)Indicatio ns:HTN, goal below 140/90 Take 1 Tablet by mouth in the morning. 30 Tablet 11/24/2022 3 Discontinu ed(Refill) Levothyroxine Sodium 25 MCG Oral Tablet (Levoxyl)Indication s:Acquired hypothyroidism Take 1 Tablet by mouth in the morning. (at least 30 min prior to breakfast or other meds). 30 Tablet 11/24/2022 3 Discontinu ed(Refill) lamoTRIgine 25 MG Oral Tablet (LaMICtal)Indicatio ns:Delirium,Metabol ic encephalopathy,Alejandra re episode of recurrent major depressive disorder, with psychotic features (HCC) Take 1 Tablet by mouth in the morning and 1 Tablet before bedtime. 60 Tablet 11/24/2022 3 Discontinu ed(Refill) documented as of this encounter (statuses as of 12/31/2022) Active Problems Problem Noted Date Hypertensive kidney [...] as of this encounter (statuses as of 12/31/2022) Resolved Problems Problem Noted Date Resolved Date [...] as of this encounter (statuses as of 12/31/2022) Immunizations Name Administration Dates Next Due COVID-19 mRNA, LNP-s, No Pre serve, 2-Dose Series (AMCAD) 11/22/2021,05/25/2021,09/17/2020,08/20 COVID-19, LNP-s, No Preserve , Rupert-sucrose, [...] encounter Miscellaneous Notes * Telephone Encounter - Saeed Kovacs III, MD - 12/31/2022 7:40 AM EDTSigned Prescriptions: Disp Refills lamoTRIgine 25 MG Oral Tablet (LaMICtal) 60 Tab*11 Sig: Take 1 Tablet by mouth in the morning and 1 Tablet before bedtime.Authorizing Provider: SAEED KOVACS III risperiDONE 0.25 MG Oral Tablet (RisperDAL)60 Tab*11 Sig: Take 1 Tablet by mouth in the morning and 1 Tablet before bedtime.Authorizing Provider: SAEED KOVACS III Lisinopril 10 MG Oral Tablet (Prinivil) 30 Tab*11 Sig: Take 1 Tablet by mouth in the morning.Authorizing Provider: SAEED KOVACS III Mirtazapine 15 MG Oral Tablet (Remeron) 30 Tab*11 Sig: Take 1 Tablet by mouth at bedtime.Authorizing Provider: SAEED KOVACS III Pantoprazole Sodium 40 MG Oral Tablet Amy*30 Tab*11 Sig: Take1 Tablet by mouth in the morning. 30 min before breakfast BRAND NECESSARY.Authorizing Provider: MARISOL KOVACS III Levothyroxine Sodium 25 MCG Oral Tablet (L*30 Tab*11 Sig: Take 1 Tablet by mouth in the morning.(at least 30 min prior to breakfast or other meds).Authorizing Provider: SAEED KOVACS III * Telephone Encounter - Celestina Benoit RN - 12/30/2022 3:09 PM EDT Did you pend patient's preferred pharmacy and medication before forwarding?yes Pharmacy: [facility] [id number] [facility] Pending Prescriptions: Disp Refills lamoTRIgine 25 MG Oral Tablet (LaMICtal) 60 Tab*11 Sig: Take 1 Tablet by mouth in the morning and 1 Tablet before bedtime. risperiDONE 0.25 MG Oral Tablet (RisperDA*60 Tab*11 Sig: Take 1 Tablet by mouth in the morning and 1 Tablet before bedtime. Lisinopril 10 MG Oral Tablet (Prinivil) 30 Tab*11 Sig: Take 1 Tablet by mouth in the morning. Mirtazapine 15 MG Oral Tablet (Remeron) 30 Tab*11 Sig: Take 1 Tablet by mouth at bedtime. Pantoprazole Sodium 40 MG Oral Tablet Del*30 Tab*11 Sig: Take 1 Tablet by mouth in the morning. 30 min before breakfast BRAND NECESSARY. Levothyroxine Sodium 25 MCG Oral Tablet (*30 Tab*11 Sig: Take 1 Tablet by mouth in the morning. (at least 30 min prior to breakfast or other meds). Last Visit: 11/24/2022 (in office), Visit date not found (telemedicine) Next Visit: 01/07/2023 If no future appointments scheduled, and last appointment is greater than a year ago, please schedule patient for a follow-up appointment Last date the medication was ordered: 11/24/2022 Is this request for a controlled substance?No Urine Drug Screen:No results found for this or any previous visit. Patient Phone Numbers Labs: Lab Results Component Value Date/Time CREAT 1.0 10/20/2022 05:42 AM CREAT 0.93 09/10/2022 12:00 AM CREAT 1.1 (H) 04/18/2019 04:59 PM POTASSIUM 4.2 10/20/2022 05:42 AM POTASSIUM 3.9 09/10/2022 12:00 AM POTASSIUM 4.5 04/18/2019 04:59 PM TSH 1.74 05/17/2021 01:46 PM TSH 3.980 08/18/2019 12:00 AM TSH 4.37 (H) 04/18/2019 04:59 PM LDLCALC 188 11/03/2017 12:00 AM LDLCALC 163 (H) 11/28/2015 02:00 PM LDLDIRECT 214 (H) 04/18/2019 04:59 PM ALT 44 (H) 10/20/2022 05:42 AM ALT 18 04/18/2019 04:59 PM documented in this encounter Plan of Treatment Upcoming Encounters Date Type Specialty Care Team Description 01/27/2023 Office Visit Family Medicine Yelitza Solorzano PA-C [address] [facility] [place] [address] Health Maintenance Due Date Last Done Comments [...] Ratio 09/11/2023 09/10/2022 CKD PHOS USE SMARTSET 88617 09/11/2023 09/10/2022, 1 07/25/2017 CKD HGB USE SMARTSET 53413 11/14/202311/13, 11/06/2022, 10/30/2022, Additional history exists DXA Scan 06/25/2024 06/25/2022, 08/3 06/2015, 01/11/2014, Additional history exists VITAMIN D LEVEL ONCE IN A LIFETIME-USE SMARTSET# [id number] Completed 05/06/2016, 04/24/2011, 09/18/2010, Additional history exists [...] as of this encounter Visit Diagnoses Diagnosis Delirium Other alteration of consciousness Metabolic encephalopathy Severe episode of recurrent major depressive disorder, with psychotic features (HCC) HTN, goal below 140/90 Unspecified essential hypertension Gastroesophageal reflux disease, unspecified whether esophagitis present Acquired hypothyroidism Unspecified hypothyroidism documented in this encounter Advance Directives Latest [...] the patient have Health Care Power of Heating Unit Installer? No Healthcare Agents on File Name Relationship Healthcare Agent Relationshi p Communication Saeed Almendarez Adult Child Health Care Repr esentative (appointed verbally by patient or by statute hierarchy) Care Teams Ux Design Manager Relationship Specialty Start Date End Date Saeed Kovacs III, MD [address] [place] [address], [place] [address] PCP - General Family Medicine 04/29/18 documented as of this encounter
[2023-05-29 20:39] LABS: Appearance Urine Clear (Clear); Bilirubin Urine Negative (Negative); Blood Urine Negative (Negative); Color Urine Yellow; Glucose Urine UA Negative (Negative); Ketones Urine 1+ (Negative); Leukocyte Esterase Urine Negative (Negative); Nitrite Urine Negative (Negative); Protein Urine Negative (Negative); Specific Gravity Urine > 1.045 (1.000-1.030); Urobilinogen Urine Negative (Negative)
[2023-05-29 20:57] LABS: Creatine Kinase 41 U/L (26-192)
[2023-05-29] MEDS ORDERED: bisacodyL 5 MG TABEC PO ONE (22:11)
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
[2023-05-29] MEDS ORDERED: NITROGLYCERIN SL 0.4 MG/TAB TAB SL PRN (23:17)
[2023-05-29] MEDS ORDERED: FLUTICASONE PROPIONATE NA SPR 16 GM BTL PRN (23:17)
[2023-05-29] MEDS ORDERED: ACETAMINOPHEN 325 MG TAB PO PRN (23:17)
[2023-05-29] MEDS ORDERED: DOCUSATE SODIUM 100 MG CAP PO PRN (23:17)
[2023-05-29] MEDS: SENNA 8.6 MG TAB PO SCH (23:25)
[2023-05-29] MEDS: lamoTRIgine 25 MG TAB PO SCH (23:25)
[2023-05-29] MEDS: D5W AND 1/2NSS 1,000 ML IV SCH (23:25)
[2023-05-29] MEDS: ONDANSETRON INJ 2 MG/ML 2 ML VIAL IV PRN (23:31)
[2023-05-30] MEDS ORDERED: KETOROLAC TROMETHAMINE 15 MG/ML VIAL IV ONE (04:00)
[2023-05-30 05:50] LABS: BUN Creatinine Ratio 23.1 (10-20); Calcium 9.1 mg/dl (8.6-10.3); Creatinine Clr Calc Pharmacy 37.7 ml/min; Est GFR (African American) 68.1 ml/min; Est GFR (Non-African American) 58.8 ml/min; Potassium 3.7 mmol/L (3.5-5.1)
[2023-05-30 05:58] LABS: Troponin I High Sensitivity 24.9 pg/ml (0-14)
[2023-05-30] MEDS: LEVOTHYROXINE SODIUM 25 MCG TABLET PO SCH (06:02)
[2023-05-30 06:04] LABS: Hematocrit (blood only) 39.1 % (37.0-47.0); Hemoglobin 12.7 g/dl (12.0-16.0); Mean Corpuscular Hemoglobin 32.8 pg (25.0-34.0); Mean Corpuscular Hgb Conc 32.5 g/dL (32.0-36.0); Mean Platelet Volume 13.5 fL (9.4-12.4); Platelet Count 239 K/uL (130-400); RDW Coefficient of Variation 13.9 % (11.5-14.5); RDW Standard Deviation 51.8 fL (36.4-46.3); Red Blood Count 3.87 M/uL (4.20-5.40); White Blood Count 8.56 K/ul (4.8-10.8)
[2023-05-30 06:05] LABS: Basophils # (auto) 0.03 K/uL (0.00-0.20); Basophils % (auto) 0.4 %; Eosinophils # (auto) 0.04 K/uL (0.00-0.50); Eosinophils % (auto) 0.5 %; Immature Granulocytes # (auto) 0.03 K/uL (0.01-0.20); Immature Granulocytes % (auto) 0.4 %; Lymphocytes # (auto) 1.32 K/uL (1.20-3.40); Lymphocytes % (auto) 15.4 %; Monocytes # (auto) 0.89 K/uL (0.11-0.59); Monocytes % (auto) 10.4 %; Neutrophils # (auto) 6.25 K/uL (1.40-6.50); Neutrophils % (auto) 72.9 %
--- NOTE | 2023-05-30 07:17 | Electrocardiogram Report ---
Test Reason : Blood Pressure : / mmHG Vent. Rate : 060 BPM Atrial Rate : 060 BPM P-R Int : 164 ms QRS Dur : 084 ms QT Int : 452 ms P-R-T Axes : 072 012 192 degrees QTc Int : 452 ms Normal sinus rhythm Nonspecific ST and T wave abnormality Abnormal ECG When compared with ECG of 29-MAY-2023 14:50, Nonspecific T wave abnormality now evident in Inferior leads Nonspecific T wave abnormality has replaced inverted T waves in Lateral leads Confirmed by Dusty Milan ([id number]) on 05/30/2023 7:17:35 AM Referred By: REFERRED SELF Confirmed By:Monty Milan
[2023-05-30] MEDS: D5W AND 1/2NSS 1,000 ML IV SCH ×2 (09:06→19:20)
[2023-05-30] MEDS: CHOLECALCIFEROL 1,000 UNITS 25 MCG TAB PO SCH (09:08)
[2023-05-30] MEDS: lisinopril 10 MG TAB PO SCH (09:08)
[2023-05-30] MEDS: PANTOprazole 40 MG TAB PO SCH (09:08)
[2023-05-30] MEDS: FERROUS SULFATE 325 MG TAB PO SCH (09:08)
[2023-05-30] MEDS: SENNA 8.6 MG TAB PO SCH ×2 (09:08→20:36)
[2023-05-30] MEDS: lamoTRIgine 25 MG TAB PO SCH ×2 (09:09→20:36)
[2023-05-30] MEDS: ACETAMINOPHEN 325 MG TAB PO SCH ×3 (09:09→20:35)
[2023-05-30] MEDS: HEPARIN SOD 5,000 UNIT/0.5 ML VIAL SQ SCH ×2 (09:10→20:35)
[2023-05-30] MEDS: POLYETHYLENE (MIRALAX) 17 GM PACK PO PRN (09:16)
--- NOTE | 2023-05-30 11:44 | Hospitalist Progress Note ---
Date of Service May 30, 2023 Assessment & Plan (1) Nausea & vomiting: Plan: 52-year-old female with past med history significant for hypothyroidism, hypertension, GERD, history of protein calorie malnutrition, CKD stage III, osteoporosis, history of splenectomy, depression who lives alone at home ambulates with a walker and has help at home as per sons was brought in because of nausea vomiting and weakness. Possible gastroenteritis with dehydration Nausea and vomiting CT abdomen pelvis did not show any significant abnormalities Has been getting intravenous fluid She feels a little better Clear liquid diet and will advance diet as tolerated Clinically much better and denies any significant symptoms Advised to drink more for Weakness Likely secondary to dehydration and from nausea vomiting PT OT when stable Chest pain Serial troponins remain unremarkable and EKG did not show any significant change Echo of the heart showed-mild concentric LVH, no regional wall motion abnormalities, LV systolic function is normal with EF 60 to 65%, aortic valve sclerosis moderate without significant aortic valvular stenosis and grade 1 diastolic dysfunction Denies any cardiac symptoms Hypertension On lisinopril Blood pressure remains stable Depression On Remeron Lamictal Depressed mood but no acute delirium GERD On Protonix Constipation CT scan showing constipation Could be cause of her symptoms Continue home stool softeners Will do soapsuds enema in a.m. Hypothyroidism On Synthyroid CKD stage III Creatinine 1.0 Will follow labs DVT prophylaxis Heparin subcu Disposition Med/daily CODE STATUS Full Admission and Anticipated Discharge Date Admission Date: May 29, 2023 Subjective 05/30/2023 The patient was seen and examined in medical telemetry unit She is pleasantly demented and denies any symptoms She was advised to drink more fluid Has not been passing much urine Review of Systems Review of Systems: All systems reviewed and are unremarkable except as noted Physical Exam Physical Exam: Lying in bed comfortable Constitutional: + ill appearing and average body habitus Eyes: PERRL, conjunctivae normal, anicteric sclerae ENMT: external ear and nose normal, oropharynx normal Neck: trachea midline, no thyromegaly Respiratory: no respiratory distress Auscultation: lungs clear to auscultation bilaterally Cardiovascular: Rate/Rhythm: regular rate, regular rhythm and + bradycardic Heart Sounds: normal S1, normal S2 and + murmur Extremities: no edema Gastrointestinal (Abdomen): Inspection/Auscultation: normal bowel sounds; abdomen not distended Percussion/Palpation: + abdomen tender (Minimally tender epigastrium) and abdomen soft Musculoskeletal: No acute arthritis involving any of the joint Neurologic: normal touch/pain/proprioception and moves all extremities; no focal motor deficits Pleasantly confused Lymphatic: no cervical or axillary lymphadenopathy Results & Data Results & Data Vital Signs (Past 12 Hours) Vital Signs Temp Pulse Pulse Resp BP BP Pulse Ox 05/30/23 11:40 37 C 58 L 17 105/62 94 05/30/23 08:26 36.7 C 62 17 122/74 95 05/30/23 08:03 05/30/23 05:59 67 05/30/23 03:27 36.9 C 70 18 174/82 H 96 05/30/23 01:15 60 O2 Del Method 05/30/23 11:40 Room Air 05/30/23 08:26 Room Air 05/30/23 08:03 Room Air 05/30/23 05:59 05/30/23 03:27 Room Air 05/30/23 01:15 Laboratory Results Short CBC 05/29/23 05/30/23 Range/Units 14:33 05:17 WBC 9.57 8.56 (4.8-10.8) K/ul Hgb 14.8 12.7 (12.0-16.0) g/dl Hct 45.9 39.1 (37.0-47.0) % Plt Count 264 239 (130-400) K/uL BMP 05/29/23 05/30/23 14:33 05:17 Sodium 142 139 Potassium 3.9 3.7 Chloride 108 H 110 H Carbon Dioxide 21 20 L BUN 23 21 Creatinine 1.00 0.91 Glucose 109 H 168 H Calcium 10.0 9.1 Cardiac Enzymes 05/29/23 Range/Units 14:33 Total Creatine Kinase 41 (26-192) U/L Liver Function 05/29/23 Range/Units 14:33 Total Bilirubin 0.4 (0.2-1.0) mg/dl AST 16 (13-39) U/L ALT 9 (7-52) U/L Alkaline Phosphatase 35 (34-104) U/L Albumin 4.3 (3.4-5.0) gm/dl Urine 05/29/23 Range/Units Unknown Urine Color Yellow Urine Appearance Clear (Clear) Urine pH 5.0 (4.5-7.5) Ur Specific [place] > 1.045 H (1.000-1.030) Urine Protein Negative (Negative) Urine Glucose (UA) Negative (Negative) Medications Administered Current Inpatient Medications Acetaminophen (Acetaminophen 325 Mg Tab) 650 mg PO Q4H PRN PRN Reason: Pain or Fever Stop: 06/28/23 23:16 Acetaminophen (Acetaminophen 325 Mg Tab) 650 mg PO TID [facility] Stop: 06/29/23 08:59 Last Admin: 05/30/23 09:09 Dose: 650 mg Docusate Sodium (Docusate Sodium 100 Mg Cap) 100 mg PO DAILY PRN PRN Reason: Constipation Stop: 06/28/23 23:16 Last Admin: 05/30/23 09:16 Dose: 100 mg Ferrous Sulfate (Ferrous Sulfate 325 Mg Tab) 325 mg PO QDL [facility] Stop: 06/29/23 11:29 Last Admin: 05/30/23 09:08 Dose: 325 mg Fluticasone Propionate (Fluticasone Propionate Na Spr 16 Gm Btl) 2 sprays NA QAM PRN PRN Reason: Nasal Congestion Stop: 06/28/23 23:16 Heparin Sodium (Porcine) (Heparin Sod 5,000 Unit/0.5 Ml Vial) 5,000 units SQ Q12 [facility] Stop: 06/29/23 08:59 Last Admin: 05/30/23 09:10 Dose: 5,000 units Dextrose/Sodium Chloride (D5w And 1/2nss) 1,000 mls @ 100 mls/hr IV .Q10H [facility] Stop: 05/30/23 19:16 Last Admin: 05/30/23 09:06 Dose: 100 mls/hr Lamotrigine (Lamotrigine 25 Mg Tab) 25 mg PO BID [facility] Stop: 06/28/23 23:16 Last Admin: 05/30/23 09:09 Dose: 25 mg Levothyroxine Sodium (Levothyroxine Sodium 25 Mcg Tablet) 25 mcg PO DAILYBB [facility] Stop: 06/29/23 06:29 Last Admin: 05/30/23 06:02 Dose: Not Given Lisinopril (Lisinopril 10 Mg Tab) 10 mg PO DAILY [facility] Stop: 06/29/23 08:59 Last Admin: 05/30/23 09:08 Dose: 10 mg Mirtazapine (Mirtazapine Tab 15 Mg Tab) 30 mg PO HS [facility] Stop: 06/29/23 20:59 Nitroglycerin (Nitroglycerin Sl 0.4 Mg/Tab Tab) 0.4 mg SL Q5M PRN PRN Reason: Chest Pain Stop: 06/28/23 23:16 Ondansetron HCl (Ondansetron Inj 2 Mg/Ml 2 Ml Vial) 4 mg IV Q6H PRN PRN Reason: Nausea Stop: 06/28/23 23:16 Last Admin: 05/29/23 23:31 Dose: 4 mg Pantoprazole Sodium (Pantoprazole 40 Mg Tab) 40 mg PO DAILY [facility] Stop: 06/29/23 08:59 Last Admin: 05/30/23 09:08 Dose: 40 mg Polyethylene Glycol (Polyethylene (Miralax) 17 Gm Pack) 17 gm PO DAILY PRN PRN Reason: Constipation Stop: 06/28/23 23:16 Last Admin: 05/30/23 09:16 Dose: 17 gm Sennosides (Senna 8.6 Mg Tab) 17.2 mg PO BID [facility] Stop: 06/28/23 23:16 Last Admin: 05/30/23 09:08 Dose: 17.2 mg Vitamin D (Cholecalciferol 1,000 Units 25 Mcg Tab) 4,000 units PO DAILY [facility] Stop: 06/29/23 08:59 Last Admin: 05/30/23 09:08 Dose: 4,000 units (1) Nausea & vomiting Vomiting type: unspecified Qualified Code(s): R11.2 - Nausea with vomiting, unspecified
[2023-05-30] MEDS: MIRTAZAPINE TAB 15 MG TAB PO SCH (20:36)
[2023-05-31] MEDS: D5W AND 1/2NSS 1,000 ML IV SCH ×2 (04:57→14:06)
[2023-05-31] MEDS: LEVOTHYROXINE SODIUM 25 MCG TABLET PO SCH (05:37)
[2023-05-31 07:30] LABS: Acanthocytes 2+; Basophils # (auto) 0.03 K/uL (0.00-0.20); Basophils % (auto) 0.4 %; Echinocytes 1+; Eosinophils # (auto) 0.24 K/uL (0.00-0.50); Eosinophils % (auto) 3.4 %; Hematocrit (blood only) 34.1 % (37.0-47.0); Hemoglobin 10.9 g/dl (12.0-16.0); Immature Granulocytes # (auto) 0.03 K/uL (0.01-0.20); Immature Granulocytes % (auto) 0.4 %; Lymphocytes # (auto) 3.22 K/uL (1.20-3.40); Lymphocytes % (auto) 45.8 %; Mean Corpuscular Hemoglobin 32.8 pg (25.0-34.0); Mean Corpuscular Volume 102.7 fL (80.0-100.0); Monocytes % (auto) 11.4 %; Neutrophils # (auto) 2.71 K/uL (1.40-6.50); Neutrophils % (auto) 38.6 %; Platelet Count 148 K/uL (130-400); RDW Coefficient of Variation 14.3 % (11.5-14.5); Red Blood Count 3.32 M/uL (4.20-5.40); White Blood Count 7.03 K/ul (4.8-10.8)
--- NOTE | 2023-05-31 07:55 | Electrocardiogram Report ---
Test Reason : Blood Pressure : / mmHG Vent. Rate : 044 BPM Atrial Rate : 044 BPM P-R Int : 160 ms QRS Dur : 088 ms QT Int : 476 ms P-R-T Axes : 059 014 060 degrees QTc Int : 406 ms Marked sinus bradycardia Abnormal ECG When compared with ECG of 30-MAY-2023 05:36, Nonspecific T wave abnormality no longer evident in Inferior leads Nonspecific T wave abnormality, improved in Anterolateral leads Confirmed by Dusty Milan ([id number] on 05/31/2023 7:55:40 AM Referred By: REFERRED SELF Confirmed By:Monty Milan
[2023-05-31 08:06] LABS: BUN Creatinine Ratio 15.4 (10-20); Calcium 8.5 mg/dl (8.6-10.3); Creatinine Clr Calc Pharmacy 37.7 ml/min; Est GFR (African American) 68.1 ml/min; Est GFR (Non-African American) 58.8 ml/min; Magnesium 1.9 mg/dl (1.7-2.4); Phosphorus 2.5 mg/dl (2.5-4.9); Potassium 3.7 mmol/L (3.5-5.1)
[2023-05-31] MEDS: SENNA 8.6 MG TAB PO SCH ×2 (09:07→20:12)
[2023-05-31] MEDS: POLYETHYLENE (MIRALAX) 17 GM PACK PO PRN (09:07)
[2023-05-31] MEDS: HEPARIN SOD 5,000 UNIT/0.5 ML VIAL SQ SCH ×2 (09:07→20:13)
[2023-05-31] MEDS: lamoTRIgine 25 MG TAB PO SCH ×2 (09:07→20:12)
[2023-05-31] MEDS: lisinopril 10 MG TAB PO SCH (09:08)
[2023-05-31] MEDS: CHOLECALCIFEROL 1,000 UNITS 25 MCG TAB PO SCH (09:08)
[2023-05-31] MEDS: ACETAMINOPHEN 325 MG TAB PO SCH ×3 (09:08→20:13)
[2023-05-31] MEDS: PANTOprazole 40 MG TAB PO SCH (09:08)
[2023-05-31] MEDS: FERROUS SULFATE 325 MG TAB PO SCH (09:08)
[2023-05-31] MEDS: ONDANSETRON INJ 2 MG/ML 2 ML VIAL IV PRN (09:24)
[2023-05-31] MEDS ORDERED: SOD PHOSPHATE/SOD BIPHOSPHATE ENEMA 132 ML BTL PR STA (09:38)
--- NOTE | 2023-05-31 11:07 | Hospitalist Progress Note ---
Date of Service May 31, 2023 Assessment & Plan (1) Nausea & vomiting: Plan: 52-year-old female with past med history significant for hypothyroidism, hypertension, GERD, history of protein calorie malnutrition, CKD stage III, osteoporosis, history of splenectomy, depression who lives alone at home ambulates with a walker and has help at home as per sons was brought in because of nausea vomiting and weakness. Possible gastroenteritis with dehydration Nausea and vomiting CT abdomen pelvis did not show any significant abnormalities Has been getting intravenous fluid She feels a little better Clear liquid diet and will advance diet as tolerated Clinically much better and denies any significant symptoms Advised to drink more Remains stable still complains of nonspecific pains and nausea Has not had significant bowel movement Will try to give another Fleet enema Weakness Likely secondary to dehydration and from nausea vomiting PT OT when stable Seems to be at her baseline as per the caregiver Likely discharge tomorrow Chest pain Serial troponins remain unremarkable and EKG did not show any significant change Echo of the heart showed-mild concentric LVH, no regional wall motion abnormalities, LV systolic function is normal with EF 60 to 65%, aortic valve sclerosis moderate without significant aortic valvular stenosis and grade 1 diastolic dysfunction Denies any cardiac symptoms Bradycardia-heart rate around lower 40s to 60s Check TSH Will monitor Hypertension On lisinopril Blood pressure remains stable Depression On Remeron Lamictal Depressed mood but no acute delirium GERD On Protonix Constipation CT scan showing constipation Could be cause of her symptoms Continue home stool softeners Will do soapsuds enema in a.m. Hypothyroidism On Synthyroid Will check TSH to see if any change of medications needed CKD stage III Creatinine 1.0 Will follow labs DVT prophylaxis Heparin subcu Disposition Med/daily CODE STATUS Full Admission and Anticipated Discharge Date Admission Date: May 29, 2023 Subjective 05/30/2023 The patient was seen and examined in medical telemetry unit She is pleasantly demented and denies any symptoms She was advised to drink more fluid Has not been passing much urine 05/31/2023 The patient was seen and examined in medical telemetry unit in presence of the caregiver She has been complaining of nonspecific symptoms of pain in different parts of the body Complains nausea Patient remains pleasantly confused Review of Systems Review of Systems: All systems reviewed and are unremarkable except as noted Physical Exam Physical Exam: Lying in bed comfortable Constitutional: + ill appearing and average body habitus Eyes: PERRL, conjunctivae normal, anicteric sclerae ENMT: external ear and nose normal, oropharynx normal Neck: trachea midline, no thyromegaly Respiratory: no respiratory distress Auscultation: lungs clear to auscultation bilaterally Cardiovascular: Rate/Rhythm: regular rate, regular rhythm and + bradycardic Heart Sounds: normal S1, normal S2 and + murmur Extremities: no edema Gastrointestinal (Abdomen): Inspection/Auscultation: normal bowel sounds; abdomen not distended Percussion/Palpation: + abdomen tender (Minimally tender epigastrium) and abdomen soft Neurologic: normal touch/pain/proprioception and moves all extremities; no focal motor deficits Lymphatic: no cervical or axillary lymphadenopathy Results & Data Results & Data Vital Signs (Past 12 Hours) Vital Signs Temp Pulse Pulse Resp BP Pulse Ox O2 Del Method 05/31/23 07:50 41 L 05/31/23 07:26 36.7 C 45 L 16 116/63 93 Room Air 05/31/23 03:35 37 C 52 L 20 99/56 L 95 Room Air 05/31/23 01:02 51 L 05/30/23 23:23 36.4 C L 54 L 18 144/82 H 98 Room Air Laboratory Results Short CBC 05/31/23 Range/Units 06:36 WBC 7.03 (4.8-10.8) K/ul Hgb 10.9 L (12.0-16.0) g/dl Hct 34.1 L (37.0-47.0) % Plt Count 148 (130-400) K/uL BMP 05/31/23 06:36 Sodium 142 Potassium 3.7 Chloride 115 H Carbon Dioxide 23 BUN 14 Creatinine 0.91 Glucose 103 H Calcium 8.5 L Medications Administered Current Inpatient Medications Acetaminophen (Acetaminophen 325 Mg Tab) 650 mg PO Q4H PRN PRN Reason: Pain or Fever Stop: 06/28/23 23:16 Acetaminophen (Acetaminophen 325 Mg Tab) 650 mg PO TID [facility] Stop: 06/29/23 08:59 Last Admin: 05/31/23 09:08 Dose: 650 mg Docusate Sodium (Docusate Sodium 100 Mg Cap) 100 mg PO DAILY PRN PRN Reason: Constipation Stop: 06/28/23 23:16 Last Admin: 05/30/23 09:16 Dose: 100 mg Ferrous Sulfate (Ferrous Sulfate 325 Mg Tab) 325 mg PO QDL [facility] Stop: 06/29/23 11:29 Last Admin: 05/31/23 09:08 Dose: 325 mg Fluticasone Propionate (Fluticasone Propionate Na Spr 16 Gm Btl) 2 sprays NA QAM PRN PRN Reason: Nasal Congestion Stop: 06/28/23 23:16 Heparin Sodium (Porcine) (Heparin Sod 5,000 Unit/0.5 Ml Vial) 5,000 units SQ Q12 [facility] Stop: 06/29/23 08:59 Last Admin: 05/31/23 09:07 Dose: 5,000 units Dextrose/Sodium Chloride (D5w And 1/2nss) 1,000 mls @ 100 mls/hr IV .Q10H [facility] Stop: 06/01/23 01:16 Last Admin: 05/31/23 04:57 Dose: 100 mls/hr Lamotrigine (Lamotrigine 25 Mg Tab) 25 mg PO BID [facility] Stop: 06/28/23 23:16 Last Admin: 05/31/23 09:07 Dose: 25 mg Levothyroxine Sodium (Levothyroxine Sodium 25 Mcg Tablet) 25 mcg PO DAILYBB [facility] Stop: 06/29/23 06:29 Last Admin: 05/31/23 05:37 Dose: 25 mcg Lisinopril (Lisinopril 10 Mg Tab) 10 mg PO DAILY [facility] Stop: 06/29/23 08:59 Last Admin: 05/31/23 09:08 Dose: 10 mg Mirtazapine (Mirtazapine Tab 15 Mg Tab) 30 mg PO HS [facility] Stop: 06/29/23 20:59 Last Admin: 05/30/23 20:36 Dose: 30 mg Nitroglycerin (Nitroglycerin Sl 0.4 Mg/Tab Tab) 0.4 mg SL Q5M PRN PRN Reason: Chest Pain Stop: 06/28/23 23:16 Ondansetron HCl (Ondansetron Inj 2 Mg/Ml 2 Ml Vial) 4 mg IV Q6H PRN PRN Reason: Nausea Stop: 06/28/23 23:16 Last Admin: 05/31/23 09:24 Dose: 4 mg Pantoprazole Sodium (Pantoprazole 40 Mg Tab) 40 mg PO DAILY [facility] Stop: 06/29/23 08:59 Last Admin: 05/31/23 09:08 Dose: 40 mg Polyethylene Glycol (Polyethylene (Miralax) 17 Gm Pack) 17 gm PO DAILY PRN PRN Reason: Constipation Stop: 06/28/23 23:16 Last Admin: 05/31/23 09:07 Dose: 17 gm Sennosides (Senna 8.6 Mg Tab) 17.2 mg PO BID [facility] Stop: 06/28/23 23:16 Last Admin: 05/31/23 09:07 Dose: 17.2 mg Vitamin D (Cholecalciferol 1,000 Units 25 Mcg Tab) 4,000 units PO DAILY [facility] Stop: 06/29/23 08:59 Last Admin: 05/31/23 09:08 Dose: 4,000 units (1) Nausea & vomiting Vomiting type: unspecified Qualified Code(s): R11.2 - Nausea with vomiting, unspecified
[2023-05-31] MEDS: MIRTAZAPINE TAB 15 MG TAB PO SCH (20:12)
[2023-06-01] MEDS: LEVOTHYROXINE SODIUM 25 MCG TABLET PO SCH (05:37)
[2023-06-01] MEDS: lisinopril 10 MG TAB PO SCH (07:54)
[2023-06-01] MEDS: ACETAMINOPHEN 325 MG TAB PO SCH ×2 (07:54→13:33)
[2023-06-01] MEDS: PANTOprazole 40 MG TAB PO SCH (07:54)
[2023-06-01] MEDS: FERROUS SULFATE 325 MG TAB PO SCH (07:55)
[2023-06-01] MEDS: SENNA 8.6 MG TAB PO SCH (07:55)
[2023-06-01] MEDS: lamoTRIgine 25 MG TAB PO SCH (07:55)
[2023-06-01] MEDS: CHOLECALCIFEROL 1,000 UNITS 25 MCG TAB PO SCH (07:55)
[2023-06-01] MEDS: HEPARIN SOD 5,000 UNIT/0.5 ML VIAL SQ SCH (07:55)
--- NOTE | 2023-06-01 14:24 | Hospitalist Progress Note ---
Date of Service June 01, 2023 Assessment & Plan (1) Nausea & vomiting: Plan: 52-year-old female with past med history significant for hypothyroidism, hypertension, GERD, history of protein calorie malnutrition, CKD stage III, osteoporosis, history of splenectomy, depression who lives alone at home ambulates with a walker and has help at home as per sons was brought in because of nausea vomiting and weakness. Possible gastroenteritis with dehydration Nausea and vomiting CT abdomen pelvis did not show any significant abnormalities Has been getting intravenous fluid She feels a little better Clear liquid diet and will advance diet as tolerated Clinically much better and denies any significant symptoms Advised to drink more Remains stable still complains of nonspecific pains and nausea Has not had significant bowel movement Will try to give another Fleet enema Has had a small amount of bowel movement yesterday He has been stable and denies any significant symptoms Weakness Likely secondary to dehydration and from nausea vomiting PT OT when stable Seems to be at her baseline as per the caregiver Likely discharge tomorrow-awaiting PT and OT evaluation prior to discharge Chest pain Serial troponins remain unremarkable and EKG did not show any significant change Echo of the heart showed-mild concentric LVH, no regional wall motion abnormalities, LV systolic function is normal with EF 60 to 65%, aortic valve sclerosis moderate without significant aortic valvular stenosis and grade 1 diastolic dysfunction Denies any cardiac symptoms Bradycardia-heart rate around lower 40s to 60s Check TSH Will monitor-no more chest pain and her palpitation Hypertension On lisinopril Blood pressure remains stable Depression On Remeron Lamictal Depressed mood but no acute delirium GERD On Protonix Constipation CT scan showing constipation Could be cause of her symptoms Continue home stool softeners Will do soapsuds enema in a.m. Received Fleet enema with success Hypothyroidism On Synthyroid Will check TSH to see if any change of medications needed TSH remains normal and will not increase thyroxine CKD stage III Creatinine 1.0 Will follow labs DVT prophylaxis Heparin subcu Disposition Med/daily CODE STATUS Full Awaiting PT OT evaluation prior to discharge Admission and Anticipated Discharge Date Admission Date: May 29, 2023 Subjective 05/30/2023 The patient was seen and examined in medical telemetry unit She is pleasantly demented and denies any symptoms She was advised to drink more fluid Has not been passing much urine 05/31/2023 The patient was seen and examined in medical telemetry unit in presence of the caregiver She has been complaining of nonspecific symptoms of pain in different parts of the body Complains nausea Patient remains pleasantly confused 06/01/2023 The patient was seen and examined in medical telemetry unit She has been stable Requires help with ADL S Awaiting PT and OT evaluation prior to discharge Review of Systems Review of Systems: All systems reviewed and are unremarkable except as noted Physical Exam Physical Exam: Lying in bed comfortable Constitutional: + ill appearing and average body habitus Eyes: PERRL, conjunctivae normal, anicteric sclerae ENMT: external ear and nose normal, oropharynx normal Neck: trachea midline, no thyromegaly Respiratory: no respiratory distress Auscultation: lungs clear to auscultation bilaterally Cardiovascular: Rate/Rhythm: regular rate, regular rhythm and + bradycardic Heart Sounds: normal S1, normal S2 and + murmur Extremities: no edema Gastrointestinal (Abdomen): Inspection/Auscultation: normal bowel sounds; abdomen not distended Percussion/Palpation: + abdomen tender (Minimally tender epigastrium) and abdomen soft Neurologic: normal touch/pain/proprioception and moves all extremities; no focal motor deficits Lymphatic: no cervical or axillary lymphadenopathy Results & Data Results & Data Vital Signs (Past 12 Hours) Vital Signs Temp Pulse Pulse Resp BP BP Pulse Ox 06/01/23 11:32 37.0 C 49 L 16 145/77 H 95 06/01/23 08:21 36.6 C 51 L 16 136/68 94 06/01/23 07:21 48 L 06/01/23 03:03 37.1 C 56 L 18 105/65 94 O2 Del Method 06/01/23 11:32 Room Air 06/01/23 08:21 Room Air 06/01/23 07:21 06/01/23 03:03 Room Air Medications Administered Current Inpatient Medications Acetaminophen (Acetaminophen 325 Mg Tab) 650 mg PO Q4H PRN PRN Reason: Pain or Fever Stop: 06/28/23 23:16 Acetaminophen (Acetaminophen 325 Mg Tab) 650 mg PO TID [facility] Stop: 06/29/23 08:59 Last Admin: 06/01/23 13:33 Dose: 650 mg Docusate Sodium (Docusate Sodium 100 Mg Cap) 100 mg PO DAILY PRN PRN Reason: Constipation Stop: 06/28/23 23:16 Last Admin: 05/30/23 09:16 Dose: 100 mg Ferrous Sulfate (Ferrous Sulfate 325 Mg Tab) 325 mg PO QDL [facility] Stop: 06/29/23 11:29 Last Admin: 06/01/23 07:55 Dose: 325 mg Fluticasone Propionate (Fluticasone Propionate Na Spr 16 Gm Btl) 2 sprays NA QAM PRN PRN Reason: Nasal Congestion Stop: 06/28/23 23:16 Heparin Sodium (Porcine) (Heparin Sod 5,000 Unit/0.5 Ml Vial) 5,000 units SQ Q12 [facility] Stop: 06/29/23 08:59 Last Admin: 06/01/23 07:55 Dose: 5,000 units Lamotrigine (Lamotrigine 25 Mg Tab) 25 mg PO BID [facility] Stop: 06/28/23 23:16 Last Admin: 06/01/23 07:55 Dose: 25 mg Levothyroxine Sodium (Levothyroxine Sodium 25 Mcg Tablet) 25 mcg PO DAILYBB [facility] Stop: 06/29/23 06:29 Last Admin: 06/01/23 05:37 Dose: 25 mcg Lisinopril (Lisinopril 10 Mg Tab) 10 mg PO DAILY [facility] Stop: 06/29/23 08:59 Last Admin: 06/01/23 07:54 Dose: 10 mg Mirtazapine (Mirtazapine Tab 15 Mg Tab) 30 mg PO HS [facility] Stop: 06/29/23 20:59 Last Admin: 05/31/23 20:12 Dose: 30 mg Nitroglycerin (Nitroglycerin Sl 0.4 Mg/Tab Tab) 0.4 mg SL Q5M PRN PRN Reason: Chest Pain Stop: 06/28/23 23:16 Ondansetron HCl (Ondansetron Inj 2 Mg/Ml 2 Ml Vial) 4 mg IV Q6H PRN PRN Reason: Nausea Stop: 06/28/23 23:16 Last Admin: 05/31/23 09:24 Dose: 4 mg Pantoprazole Sodium (Pantoprazole 40 Mg Tab) 40 mg PO DAILY [facility] Stop: 06/29/23 08:59 Last Admin: 06/01/23 07:54 Dose: 40 mg Polyethylene Glycol (Polyethylene (Miralax) 17 Gm Pack) 17 gm PO DAILY PRN PRN Reason: Constipation Stop: 06/28/23 23:16 Last Admin: 05/31/23 09:07 Dose: 17 gm Sennosides (Senna 8.6 Mg Tab) 17.2 mg PO BID [facility] Stop: 06/28/23 23:16 Last Admin: 06/01/23 07:55 Dose: 17.2 mg Vitamin D (Cholecalciferol 1,000 Units 25 Mcg Tab) 4,000 units PO DAILY [facility] Stop: 06/29/23 08:59 Last Admin: 06/01/23 07:55 Dose: 4,000 units (1) Nausea & vomiting Vomiting type: unspecified Qualified Code(s): R11.2 - Nausea with vomiting, unspecified
[2023-06-01] MEDS ORDERED: INFLUENZA VIRUS QUADRIVALENT VACCINE (IIV4) 0.5 ML SYR IM ONE (16:55)
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
== END 2023-06-01 17:47 | disposition home health service (06) | DRG 392 ==
LOC: ED 13:44 → 2N 22:10

== ENCOUNTER 2023-09-25 21:26 | Inpatient (IN) ==
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
[2023-09-25] MEDS: SODIUM CHLORIDE 0.9% 500 ML IV ONE (23:09)
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
[2023-09-25] MEDS ORDERED: ONDANSETRON INJ 2 MG/ML 2 ML VIAL IV PRN (23:51)
[2023-09-25] MEDS ORDERED: LORazepam 0.5 MG in SYRINGE 0.25 ML IV PRN (23:51)
[2023-09-26 00:09] LABS: Alanine Aminotransferase 4 U/L (7-52); Albumin Globulin Ratio 1.1 (0.9-2); Albumin Level 3.1 gm/dl (3.4-5.0); Alkaline Phosphatase 34 U/L (34-104); Anion Gap 11 (3-11); Aspartate Aminotransferase 12 U/L (13-39); BUN Creatinine Ratio 26.5 (10-20); Bilirubin,Total 0.5 mg/dl (0.2-1.0); Blood Urea Nitrogen 18 mg/dl (6-23); Calcium 9.3 mg/dl (8.6-10.3); Carbon Dioxide 28 mmol/L (21-32); Chloride 106 mmol/L (98-107); Creatine Kinase 21 U/L (26-192); Est GFR (African American) 93.8 ml/min; Est GFR (Non-African American) 80.9 ml/min; Globulin 2.7 gm/dl (2.5-4.0); Glucose 92 mg/dl (70-99(Fasting)); Magnesium 1.8 mg/dl (1.7-2.4); Potassium 2.8 mmol/L (3.5-5.1); Sodium 145 mmol/L (136-145); Total Protein 5.8 gm/dl (6.0-8.3)
[2023-09-26 00:16] LABS: Troponin I High Sensitivity 48.9 pg/ml (0-14)
[2023-09-26 00:25] LABS: Thyroid Stimulating Hormone 0.835 uIu/ml (0.300-4.500)
[2023-09-26 00:34] LABS: Prothrombin Time 11.4 Seconds (9.0-12.0)
--- NOTE | 2023-09-26 07:32 | Electrocardiogram Report ---
Test Reason : Blood Pressure : / mmHG Vent. Rate : 067 BPM Atrial Rate : 067 BPM P-R Int : 146 ms QRS Dur : 096 ms QT Int : 408 ms P-R-T Axes : 062 -09 220 degrees QTc Int : 431 ms Normal sinus rhythm Left ventricular hypertrophy with repolarization abnormality T wave abnormality, consider anterior ischemia Abnormal ECG When compared with ECG of 13-JUN-2023 18:14, T wave inversion now evident in Anterior leads Confirmed by Binh Mathew ([id number]) on 09/26/2023 7:31:46 AM Referred By: REFERRED SELF Confirmed By:Binh Mathew
[2023-09-26] MEDS: MoRPHine SULFATE 2 MG/ML CARP IV PRN ×2 (08:13→13:14)
[2023-09-26] MEDS ORDERED: LORazepam 0.5 MG in SYRINGE 0.25 ML IV PRN (08:20)
--- OUTSIDE RECORDS SUMMARY | 2023-09-26 09:10 | External Medical Summary | Summary of Care ---
Author Name Unknown Organization [facility] Address [address] [place] [address] Phone [phone] Care Team Providers Care Kier Hand Name Role Phone Stanley LANGFORD MD, Kyle Sorensen Primary Care Provider [phone] Reason for Visit * Reason Onset Date Comments case management 06/16/2023 Encounter Details Date Type Department Care Team (Late st Contact Info) Description 06/16/2023 Herbicide Sprayer Telephone Care Coordination and Integration [address], [place] [id number] Jennifer Greenberg RN [address] [place] [address] case management Allergies Active Allergy Reactions Criticality Noted Date Comments Aspirin 08/16/2002 hx of 2 gastric bypasses Meperidine And Related Nausea/vomiting 09/19/18 94 documented as of this encounter (statuses as of 06/18/2023) Medications Medication Sig Dispensed Refills Start Date End Date Status Cholecalciferol (HM VITAMIN D) 1000 units Tablet Take 1 Tablet by mouth in the morning. 0 11/10/2017 Active Sennosides-Docusate Sodium 8.6-50 MG [...] hours as needed for Nausea. 20 Tablet 04/18/2023 Active documented as of this encounter (statuses as of 06/18/2023) Active Problems Problem Noted Date Diagnosed Date [...] as of this encounter (statuses as of 06/18/2023) Resolved Problems Problem Noted Date Diagnosed Date [...] as of this encounter (statuses as of 06/18/2023) Immunizations Name Administration Dates Next Due COVID-19 mRNA, LNP-s, No Pre serve, 2-Dose Series (TheTakes) 11/22/2021,05/25/2021,09/17/2020,08/20 COVID-19, LNP-s, No Preserve , Rupert-sucrose, Ages 12+ (TheTakes) 11/22/2021 Covid-19, Mrna, Lnp-s, Pf, B ivalent, 30 Mcg, IM, 12 yrs and above (TheTakes) 12/10/2022 Meningococcal Conjugate Vacc ine (Menactra/Menveo) 05/04/2018 Meningococcal MCV4O Conjugat e Vaccine (Menveo) 09/03/2018 Pneumococcal Conjugate Vacc, 13 Valent (Prevnar) 08/11/2017 Pneumococcal Conjugate Vacci ne, 7 Valent 12/06/1998 Pneumococcal Polysaccharide PPV23 (Pneumovax) 11/14/2021,05/01/2008 Season Influenza, Quad, PF, Adjuvanted, 65+ Yrs, IM (FLUAD) 04/04/2020 Seasonal Influenza, PF, 6 M & above, IM , (FluLaval or Fluzone) 05/04/2018,08/11/2017 Seasonal Influenza, Quadriva lent Hd (Fluzone Hd) 03/28/2022,05/17/2021 Seasonal Influenza, Split, I IV3, With Preserve, Inj 04/26/2013,09/17/2010,03/21/2009,05/01,04/23/2007,07/26/2004,05/28/2000 TD - Tetanus/Diptheria (ADULT) 12/06/1998 TD, Preservative Free 09/17/2010,01/14/2006 TDAP (age 11 and older)(Adacel) 03/03/2018 Zoster Vaccine Recombinant (Shingrix) 07/05/2018 documented as of this encounter Social History Tobacco Use Types Packs/Day Years Used Date Smoking Tobacco: Never Smokeless Tobacco: Never Alcohol Use Standard Drinks/Week Comments Yes 0 (1 standard drink = 0.6 oz pur e alcohol) rare PHQ-2 Answer Date Recorded PHQ Adult Total Score 21 06/17/2023 Hunger Vital Sign Answer Date Recorded Within the past 12 months, y ou worried that your food would run out before you got the money to buy more. Never true 06/17/20 23 Within the past 12 months, t he food you bought just didn't last and you didn't have money to get more. Never true 06/17/2023 Sex and Gender Information Value Date Recorded Sex Assigned at Not on file Gender Identity Not on file Sexual Orientation Not on file Job Start Date Occupation Industry Not on file Not on file Not on file documented as of this encounter Miscellaneous Notes * Telephone Encounter - Jennifer Greenberg RN - 06/18/2023 1:29 PM EST [facility] will not accept. Will discuss with family if patient is willing to do PT and what goals of care are after visit with Dr Waters on 06/23. * Telephone Encounter - Jennifer Greenberg RN - 06/17/2023 2:31 PM EST Faxed home health referral to [facility] Home Health- sent to [facility] but they will not accept. * Telephone Encounter - Jennifer Greenberg RN - 06/17/2023 1:52 PM EST Completed request in [facility] for Hospital Bed. * Telephone Encounter - Taya Waters MD - 06/16/2023 4:39 PM EST Order signed, thank you! * Telephone Encounter - Jennifer Greenberg RN - 06/16/2023 4:[address] Waters- pended hospital bed documented in this encounter Plan of Treatment Upcoming Encounters Date Type Department Care Team (Late st Contact Info) Description 06/23/2023 10:00 AM EST Office Visit [facility] [address] [place] [address] Taya Waters MD [address] [place] [address] 07/29/2023 4:00 PM EST Office Visit [facility] [address] [place] [address] Yelitza Solorzano PA-C [address] [facility] [place] [address] Health Maintenance Due Date Last Done Comments Meningitis B Vaccine (Bexsero/Trumemba) (1 of 4 - Increased Risk) 1950 *BISPHONATE OR OTHER ACCEPTABLE MEDICATION NEEDED FOR OSTEOPOROSIS (REFER TO SMARTSET #1146) 05/30/2018 Zoster Vaccines (2 of 2) 08/30/2018 07/05/2018 TSH 05/17/2022 05/17/2021, 03/07/2020, 08/18/2019, Additional history exists COVID-19 Vaccine ( season) 2023 12/10/2022, 11/22/2021, 11/22/2021, Additional history exists Influenza Vaccine (FLU shot) (#1) 2023 03/28/2022, 05/17/2021, 04/04/2020, Additional history exists GFR 04/22/2023 10/20/2022, 09/21, 10/09/2022, Additional history exists Depression, Most Recent Score >= 10 (will fire each visit until score < 10) 06/18/2023 06/17/2023 MENINGOCOCCAL (MENACTRA/MENVEO) (3 - Risk 2-dose series) 09/04/2023 09/03/2018, 05/04/2018 Albumin/Creatinine Ratio 09/11/2023 09/10/2022 CKD PHOS USE SMARTSET 14607 09/11/2023 09/10/2022, 1 07/25/2017 CKD HGB USE SMARTSET 56589 11/14/202311/13, 11/06/2022, 10/30/2022, Additional history exists DXA Scan 06/25/2024 06/25/2022, 09/2022, 02/20/2016, Additional history exists DTaP,Tdap,and Td Vaccines (2 - Td or Tdap) 03/03/2028 03/03/2018, 09/17/2010, 01/14/2006, Additional history exists VITAMIN D LEVEL ONCE IN A LIFETIME-USE SMARTSET# 68328 Completed 05/06/2016, 04/24/2011, 09/18/2010, Additional history exists [...] as of this encounter Visit Diagnoses Diagnosis Need for case management follow-up- Primary Other osteoporosis without current pathological fracture Severe episode of recurrent major depressive disorder, without psychotic features (HCC) documented in this encounter Advance Directives [...] the patient have Health Care Power of Auto Body Builder Apprentice? No Healthcare Agents on File Name Relationship Healthcare Agent Relationshi p Communication Kyle Almendarez Adult Child Health Care Repr esentative (appointed verbally by patient or by statute hierarchy) Care Teams Kier Hand Relationship Specialty Start Date End Date Kyle Angel III, MD [address] [place] [address] PCP - General Family Medicine 04/29/18 documented as of this encounter
--- OUTSIDE RECORDS SUMMARY | 2023-09-26 09:10 | External Medical Summary | Summary of Care ---
Author Name Unknown Organization [facility] Address [address] [place] [address] Phone [phone] Care Team Providers Care Boiler Assistant Operator Name Role Phone Stanley LANGFORD MD, Kyle Sorensen Primary Care Provider [phone] Reason for Visit * Reason Comments eRx-Medication Refill Encounter Details Date Type Department Care Team (Late st Contact Info) Description 07/03/2023 Refill Care Coordination and Integration [address] [place] [address] Taya Waters MD [address] [place] [address] Need for case management follow-up; Esophagitis Allergies Active Allergy Reactions Criticality Noted Date Comments Aspirin 08/16/2002 hx of 2 gastric bypasses Meperidine And Related Nausea/vomiting 09/19/18 94 documented as of this encounter (statuses as of 07/07/2023) Medications Medication Sig Dispensed Refills Start Date End Date Status Cholecalciferol (HM VITAMIN D) 1000 units Tablet Take 1 Tablet by mouth in the morning. 0 8 Active Sennosides-Docusate Sodium 8.6-50 MG Oral Tablet (Senna S) Take 2 Tablets by mouth in the morning and 2 Tablets before bedtime. 120 Tablet 0 3 Active Polyethylene Glycol 3350 17 GM/SCOOP Oral Powder (MiraLax) Take 17 g by mouth in the morning. Dissolve one heaping tablespoon in 8 ounces of water or juice.. 255 g 11 3 Active Fluticasone Propionate 50 MCG/ACT Nasal Suspension (Flonase) Administer 2 Sprays into each nostril in the morning. Aim towards ears. 16 g 6 3 Active Ferrous Sulfate 325 (65 Fe) MG Oral Tablet (Feosol) Take 1 Tablet by mouth daily with breakfast. 100 Tablet 3 3 Active Docusate Sodium 100 MG Oral Capsule (Colace) Take 1 Capsule by mouth 2 times a day as needed for Constipation. 100 Capsule 3 3 Active Acetaminophen 325 MG Oral Tablet (Tylenol) Take 2 Tablets by mouth in the morning and 2 Tablets at noon and 2 Tablets before bedtime. Gel caps. 100 Tablet 6 3 Active lamoTRIgine 25 MG Oral Tablet [...] by mouth in the morning. 60 Tablet 3 Active Ondansetron HCl 4 MG Oral Tablet (Zofran) Take 1 Tablet by mouth every 6 hours as needed for Nausea. 20 Tablet 3 3 Active Sucralfate 1 GM/10ML Oral Suspension (Carafate)Indicatio ns:Need for case management follow-up,Esophagit is TAKE 10 ML BY MOUTH IN THE MORNING, AT NOON, IN THE EVENING AND AT BEDTIME 600 mL 1 4 Active Sucralfate 1 GM/10ML Oral Suspension (Carafate)Indicatio ns:Need for case management follow-up,Esophagit is Take 10 mL by mouth in the morning and 10 mL at noon and 10 mL in the evening and 10 mL before bedtime. 600 mL 1 3 07/07/19 24 Discontinued documented as of this encounter (statuses as of 07/07/2023) Active Problems Problem Noted Date Diagnosed Date [...] as of this encounter (statuses as of 07/07/2023) Resolved Problems Problem Noted Date Diagnosed Date [...] as of this encounter (statuses as of 07/07/2023) Immunizations Name Administration Dates Next Due COVID-19 mRNA, LNP-s, No Pre serve, 2-Dose Series (Paraytec) 11/22/2021,05/25/2021,09/17/2020,08/20 COVID-19, LNP-s, No Preserve , Rupert-sucrose, Ages 12+ (Pfizer) 11/22/2021 Covid-19, Mrna, Lnp-s, Pf, B ivalent, 30 Mcg, IM, 12 yrs and above (Paraytec) 12/10/2022 Meningococcal Conjugate Vacc ine (Menactra/Menveo) 05/04/2018 Meningococcal MCV4O Conjugat e Vaccine (Menveo) 09/03/2018 Pneumococcal Conjugate Vacc, 13 Valent (Prevnar) 08/11/2017 Pneumococcal Polysaccharide PPV23 (Pneumovax) 11/14/2021,05/01/2008 Season Influenza, Quad, PF, Adjuvanted, 65+ Yrs, IM (FLUAD) 04/04/2020 Seasonal Influenza, PF, 6 M & above, IM , (FluLaval or Fluzone) 05/04/2018,08/11/2017 Seasonal Influenza, Quadriva lent Hd (Fluzone Hd) 03/28/2022,05/17/2021 Seasonal Influenza, Quadriva lent Hd, 65+ Yrs 06/01/2023 Seasonal Influenza, Split, I IV3, With Preserve, [...] encounter Miscellaneous Notes * Telephone Encounter - Taya Waters MD - 07/07/2023 12:03 PM ESTSigned Prescriptions: Disp Refills Sucralfate 1 GM/10ML Oral Suspension (Melvina*600 mL 1 Sig: TAKE 10 ML BY MOUTH IN THE MORNING, AT NOON, IN THE EVENING AND AT BEDTIME Authorizing Provider: TAYA WATERS * Telephone Encounter - Jesús JulianaSTANTON - 07/07/2023 11:40 AM ESTPending Prescriptions: Disp Refills Sucralfate 1 GM/10ML Oral Suspension [Phar*600 mL 1 Sig: TAKE 10 ML BY MOUTH IN THE MORNING, AT NOON, IN THE EVENING AND AT BEDTIME * Telephone Encounter - Juliana Espinosa LPN - 07/07/2023 11:38 AM EST Did you pend patient's preferred pharmacy and medication before forwarding?yes Pharmacy: [facility] [address] Pending Prescriptions: Disp Refills Sucralfate 1 GM/10ML Oral Suspension (Car*600 mL 1 Sig: TAKE 10 ML BY MOUTH IN THE MORNING, AT NOON, IN THE EVENING AND AT BEDTIME Last Visit: Visit date not found (in office), Visit date not found (telemedicine) Next Visit: Visit date not found If no future appointments scheduled, and last appointment is greater than a year ago, please schedule patient for a follow-up appointment Last date the medication was ordered: 06/18/2023 Is this request for a controlled substance?No [...] Care Team (Late st Contact Info) Description 07/22/2023 1:00 PM EST Office Visit Palliative Medicine [facility] [address] [place] [address] Olinda Chamberlain MD [address] [place] [address] [place] [address] 09/22/2023 1:00 PM EDT Office Visit Family Practice [facility] [address] [place] [address] Taya Waters MD [address] [place] [address] Health Maintenance Due Date Last Done Comments Meningitis B Vaccine (Bexsero/Trumemba) (1 of 4 - Increased Risk) 1950 *BISPHONATE OR OTHER ACCEPTABLE MEDICATION NEEDED FOR OSTEOPOROSIS (REFER TO SMARTSET #1146) 05/30/2018 Zoster Vaccines (2 of 2) 08/30/2018 07/05/2018 TSH 05/17/2022 05/17/2021, 032 07/2020, 08/18/2019, Additional history exists COVID-19 Vaccine ( season) 2023 12/10/2022, 11/22/2021, 11/22/2021, Additional history exists GFR 04/22/2023 10/20/2022, /2 09/2022, 10/09/2022, Additional history exists Depression, Most Recent Score >= 10 (will fire each visit until score < 10) 06/18/2023 06/17/2023 MENINGOCOCCAL (MENACTRA/MENVEO) (3 - Risk 2-dose series) 09/04/2023 09/03/2018, 05/04/2018 Albumin/Creatinine Ratio 09/11/2023 09/10/2022 CKD PHOS USE SMARTSET 74236 09/11/2023 09/10/2022, 1 07/25/2017 CKD HGB USE SMARTSET 02917 11/14/202311/13, 11/06/2022, 10/30/2022, Additional history exists DXA Scan 06/25/2024 06/25/2022, 09/2022, 02/20/2016, Additional history exists DTaP,Tdap,and Td Vaccines (2 - Td or Tdap) 03/03/2028 03/03/2018, 09/17/2010, 01/14/2006, Additional history exists VITAMIN D LEVEL ONCE IN A LIFETIME-USE SMARTSET# 07861 Completed 05/06/2016, 04/24/2011, 09/18/2010, Additional history exists Pneumococcal Vaccine: 65+ Years Completed 11/14/2021, 08/11/2017, 05/01/2008 Influenza Vaccine (FLU shot) Completed 04/2023, 03/28/2022, 05/17/2021, Additional history exists GARDASIL-HPV IMMUNIZATION SERIES Aged Out No longer eligible based on patient's age to complete this topic Hepatitis B Aged Out No longer eligi ble based on patient's age to complete this topic documented as of this encounter Medical Devices Not on filedocumented as of this encounter Visit Diagnoses Diagnosis Need for case management follow-up Esophagitis Esophagitis, unspecified documented in this encounter Advance Directives Latest [...] the patient have Health Care Power of Commercial Singer? No Healthcare Agents on File Name Relationship Healthcare Agent Relationshi p Communication Kyle Almendarez Adult Child Health Care Repr esentative (appointed verbally by patient or by statute hierarchy) Care Teams Boiler Assistant Operator Relationship Specialty Start Date End Date Kyle Angel III, MD [address] [place] [address] PCP - General Family Medicine 04/29/18 documented as of this encounter
--- OUTSIDE RECORDS SUMMARY | 2023-09-26 09:10 | External Medical Summary | Summary of Care ---
Author Name Unknown Organization [facility] Address [address] [place] [address] Phone [phone] Care Team Providers Care Jewelry Designer Name Role Phone Stanley LANGFORD MD, Kyle Sorensen Primary Care Provider [phone] Reason for Referral * Evaluate & Treat - Unlimited Visits (Within 30 days (routine)) - Authorized Specialty Diagnoses / Procedures Referred By Contac t Referred To Contact Hospice and Palliative Medicine / Palliative Medicine Diagnoses Chronic abdominal pain Protein-calorie malnutrition, unspecified severity (HCC) Taya Waters MD [address] [place] [address] Referral ID Status Reason Start Date Expiration Date Visits Requested Visits Authorized [id number] Authorized Specialty Services Required 06/23/2023 999 999 Question Answer Referral Priority Within 30 days (routine) Where should this appointment be scheduled? [facility] Reason for Referral: Other - Specify in Comments Palliative Medicine To Address: Goals of Care Is this referral for [facility] service? ([facility] Insurance Only) No Reason for Visit * Reason Onset Date Comments Emergency Department Follow-Up Hospital Follow-Up 06/23/2023 Encounter Details Date Type Department Care Team (Late st Contact Info) Description 06/23/2023 10:00 AM EST Office Visit [facility] [address] [place] [address] Taya Waters MD [address] [place] [address] Esophagitis*; Constipation, unspecified constipation type; Chronic abdominal pain; Protein-calorie malnutrition, unspecified severity (HCC) Allergies Active Allergy Reactions Criticality Noted Date Comments Aspirin 08/16/2002 hx of 2 gastric bypasses Meperidine And Related Nausea/vomiting 09/19/18 94 documented as of this encounter (statuses as of 06/23/2023) Medications Medication Sig Dispensed Refills Start Date [...] ounces of water or juice.. 255 g 11/24/2022 Active Fluticasone Propionate 50 MCG/ACT Nasal [...] by mouth at bedtime. 30 Tablet 11 12/31/2022 Active Pantoprazole Sodium 40 MG Oral Tablet Delayed Release (Protonix)Indication s:Gastroesophageal reflux disease, unspecified whether esophagitis present Take 1 Tablet by mouth in the morning. 30 min before breakfast BRAND NECESSARY. 30 Tablet 11 12/31/2022 Active Levothyroxine Sodium 25 MCG Oral [...] for Nausea. 20 Tablet 3 04/18/2023 Active Sucralfate 1 GM/10ML Oral Suspension (Carafate)Indication s:Need for case management follow-up,Esophagiti s Take 10 mL by mouth in the morning and 10 mL at noon and 10 mL in the evening and 10 mL before bedtime. 600 mL 1 06/18/2023 Active documented as of this encounter (statuses as of 06/23/2023) Active Problems Problem Noted Date Diagnosed Date [...] as of this encounter (statuses as of 06/23/2023) Resolved Problems Problem Noted Date Diagnosed Date [...] as of this encounter (statuses as of 06/23/2023) Immunizations Name Administration Dates Next Due COVID-19 mRNA, LNP-s, No Pre serve, 2-Dose Series (Picturelife) 11/22/2021,05/25/2021,09/17/2020,08/20 COVID-19, LNP-s, No Preserve , Rupert-sucrose, [...] Sign Reading Time Taken Comments Blood Pressure 118/74 06/23/2023 10:01 AM EST Pulse 77 06/23/2023 10:01 AM EST Temperature 36.8 C (98.2 F) 06/23/2023 10:[address] Respiratory Rate 16 06/23/2023 10:01 AM EST Oxygen Saturation 98% 06/23/2023 10:01 AM EST Inhaled Oxygen Concentration - - Weight - - Height - - Body Mass Index - - documented in this encounter Progress Notes * Taya Waters MD - 06/23/2023 10:28 AM EST Subjective Chief Complaint Patient presents with Emergency Department Follow-Up Hospital Follow-Up HPI: Tonia David is a 82 year old female. The following issues were addressed today: Patient presents today with sons Jose Roberto and Kyle for ER follow-up. Was seen at [facility] on 06/13/23 for c/o abdominal pain, nausea, and constipation. 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 She was started on Carafate which sons report have improved her pain. Patient not talking much today but notes she is feelingtired. She has 24-hour care at home, the majority of which is providing by nursing staff. In addition to Carafate she is taking Protonix and a bowel regimen of MiraLAX and stool softener. We discussed GI referral. Patient and her son Jose Roberto decline at this time. Would especially like to avoid any diagnostic work-up such as EGD. Discussed palliative care referral. Patient does not have a terminal diagnosis but Jose Roberto reports she is "going downhill quickly." Sleeps most of the time. He feels the family would benefit from a more in-depth [facility] discussion. Review of Systems: See HPI Objective BP 118/74 | Pulse 77 | Temp 36.8 C (98.2 F) (Tympanic) | Resp 16 | SpO2 98% Wt Readings from Last 3 Encounters: 11/18/22 53.4 kg (117 lb 12.8 oz) 11/04/22 53.4 kg (117 lb 12.8 oz) 10/31/22 53.4 kg (117 lb 12.8 oz) BP Readings from Last 3 Encounters: 06/23/23 118/74 01/27/23 120/64 11/24/22 118/80 General: No acute distress Abdomen: Soft, non-distended, non-tender, normoactive bowel sounds Neurological: Alert Assessment & Plan 1. Esophagitis Continue current regimen. 2. Constipation, unspecified constipation type Continue current regimen. 3. Chronic abdominal pain Continue current regimen. - PALLIATIVE CARE REFERRAL OP 4. Protein-calorie malnutrition, unspecified severity (HCC) - PALLIATIVE CARE REFERRAL OP Follow Up: Return in about 3 months (around 09/22/2023) for routine follow-up. | Check-out note: Palliative care referral ordered This note was electronically signed by Taya Waters MD documented in this encounter Nursing Notes * Gillian Man LPN - 06/23/2023 10:01 AM EST Patient presents today for an Er follow up. documented in this encounter Plan of Treatment Upcoming Encounters Date Type Department Care Team (Late st Contact Info) Description 07/22/2023 1:00 PM EST Office Visit Palliative Medicine [facility] [address] [place] [address] Olinda Chamberlain MD [address] [place] [address] [place] [address] 09/22/2023 1:00 PM EDT Office Visit Family Practice [address] [place] [address] Taya Waters MD [address] [place] [id number] Scheduled Referrals Name Type Priority Associated Diagnoses Orde r Schedule PALLIATIVE CARE REFERRAL OP Referral Within 30 days (routine) Chronic abdominal pain Protein-calorie malnutrition, unspecified severity (HCC) Ordered: 06/23/2023 Health Maintenance Due Date Last Done Comments Meningitis B Vaccine (Bexsero/Trumemba) (1 of 4 - Increased Risk) 1950 *BISPHONATE OR OTHER ACCEPTABLE MEDICATION NEEDED FOR OSTEOPOROSIS (REFER TO SMARTSET #1146) 05/30/2018 Zoster Vaccines (2 of 2) 08/30/2018 07/05/2018 TSH 05/17/2022 05/17/2021, 08/21, 08/18/2019, Additional history exists COVID-19 Vaccine ( season) 2023 12/10/2022, 11/22/2021, 11/22/2021, Additional history exists GFR 04/22/2023 10/20/2022, 09/21, 10/09/2022, Additional history exists Depression, Most Recent Score >= 10 (will fire each visit until score < 10) 06/18/2023 06/17/2023 MENINGOCOCCAL (MENACTRA/MENVEO) (3 - Risk 2-dose series) 09/04/2023 09/03/2018, 05/04/2018 Albumin/Creatinine Ratio 09/11/2023 09/10/2022 CKD PHOS USE SMARTSET 65560 09/11/2023 09/10/2022, 1 07/25/2017 CKD HGB USE SMARTSET 30104 11/14/202311/13, 11/06/2022, 10/30/2022, Additional history exists DXA Scan 06/25/2024 06/25/2022, 09/2022, 02/20/2016, Additional history exists DTaP,Tdap,and Td Vaccines (2 - Td or Tdap) 03/03/2028 03/03/2018, 09/17/2010, 01/14/2006, Additional history exists VITAMIN D LEVEL ONCE IN A LIFETIME-USE SMARTSET# 41375 Completed 05/06/2016, 04/24/2011, 09/18/2010, Additional history exists [...] as of this encounter Visit Diagnoses Diagnosis Esophagitis- Primary Esophagitis, unspecified Constipation, unspecified constipation type Chronic abdominal pain Abdominal pain, unspecified site Protein-calorie malnutrition, unspecified severity (HCC) documented in [...] the patient have Health Care Power of Housing Counselor? No Healthcare Agents on File Name Relationship Healthcare Agent Relationshi p Communication Kyle Almendarez Adult Child Health Care Repr esentative (appointed verbally by patient or by statute hierarchy) Care Teams Jewelry Designer Relationship Specialty Start Date End Date Kyle Angel III, MD [address] [facility] [place] [address] PCP - General Family Medicine 04/29/18 documented as of this encounter
--- OUTSIDE RECORDS SUMMARY | 2023-09-26 09:10 | External Medical Summary | Summary of Care ---
Author Name Unknown Organization [facility] Address [address] [place] [address] Phone [phone] Care Team Providers Care Engineering Program Analyst Name Role Phone Stanley LANGFORD MD, Kyle Sorensen Primary Care Provider [phone] Reason for Visit * Reason Comments eRx-Medication Refill Encounter Details Date Type Department Care Team (Late st Contact Info) Description 08/07/2023 Refill Care Coordination and Integration [address] [place] [address] Taya Waters MD [address] [place] [address] Need for case management follow-up; Esophagitis Allergies Active Allergy Reactions Criticality Noted Date Comments Aspirin 08/16/2002 hx of 2 gastric bypasses Meperidine And Related Nausea/vomiting 09/19/18 94 documented as of this encounter (statuses as of 08/10/2023) Medications Medication Sig Dispensed Refills Start Date [...] AND AT BEDTIME 600 mL 1 4 08/10/19 24 Discontinued documented as of this encounter (statuses as of 08/10/2023) Active Problems Problem Noted Date Diagnosed Date [...] as of this encounter (statuses as of 08/10/2023) Resolved Problems Problem Noted Date Diagnosed Date [...] as of this encounter (statuses as of 08/10/2023) Immunizations Name Administration Dates Next Due COVID-19 mRNA, LNP-s, No Pre serve, 2-Dose Series ([employer]) 11/22/2021,05/25/2021,09/17/2020,08/20 COVID-19, LNP-s, No Preserve , Rupert-sucrose, Ages 12+ (Pfizer) 11/22/2021 Covid-19, Mrna, Lnp-s, Pf, B ivalent, 30 Mcg, IM, 12 yrs and above ([employer]) 12/10/2022 Meningococcal Conjugate Vacc ine (Menactra/Menveo) 05/04/2018 [...] Telephone Encounter - Taya Waters MD - 08/10/2023 9:55 AM ESTSigned Prescriptions: Disp Refills Sucralfate 1 GM/10ML Oral Suspension (Melvina*600 mL 1 Sig: TAKE 10 ML BY MOUTH IN THE MORNING, AT NOON, IN THE EVENING AND AT BEDTIME Authorizing Provider: TAYA WATERS * Telephone Encounter - Juliana Espinosa LPN - 08/10/2023 8:43 AM ESTPending Prescriptions: Disp Refills Sucralfate 1 GM/10ML Oral Suspension [Phar*600 mL 1 Sig: TAKE 10 ML BY MOUTH IN THE MORNING, AT NOON, IN THE EVENING AND AT BEDTIME * Telephone Encounter - Juliana Espinosa LPN - 08/10/2023 8:43 AM EST Did you pend patient's preferred pharmacy and medication before forwarding?yes Pharmacy: [facility] [address] Pending Prescriptions: Disp Refills Sucralfate 1 [...] appointment Last date the medication was ordered: 07/07/2023 Is this request for a controlled substance?No [...] Care Team (Late st Contact Info) Description 09/22/2023 1:00 PM EDT Office Visit Family Practice [facility] [address] [facility] [place] [address] Taya Waters MD [address] [place] [address] Health Maintenance Due Date Last Done Comments *BISPHONATE OR OTHER ACCEPTABLE MEDICATION NEEDED FOR [...] Ratio 09/11/2023 09/10/2022 CKD PHOS USE SMARTSET 03315 09/11/2023 09/10/2022, 1 07/25/2017 CKD HGB USE SMARTSET 00994 11/14/202311/13, 11/06/2022, 10/30/2022, Additional history exists DXA Scan 06/25/2024 06/25/2022, 09/2022, 02/20/2016, Additional history exists DTaP,Tdap,and Td Vaccines (2 - Td or Tdap) 03/03/2028 03/03/2018, 09/17/2010, 01/14/2006, Additional history exists VITAMIN D LEVEL ONCE IN A LIFETIME-USE SMARTSET# [id number] Completed 05/06/2016, 04/24/2011, 09/18/2010, Additional history exists [...] the patient have Health Care Power of Hydrator? No Healthcare Agents on File Name Relationship Healthcare Agent [facility] Communication Kyle Almendarez Adult Child Health Care Repr esentative (appointed verbally by patient or by statute hierarchy) Care Teams Engineering Program Analyst Relationship Specialty Start Date End Date Kyle Angel III, MD [address] [facility] [place] [address] PCP - General Family Medicine 04/29/18 documented as of this encounter
--- OUTSIDE RECORDS SUMMARY | 2023-09-26 09:10 | External Medical Summary | Summary of Care ---
Author Name Unknown Organization [facility] Address [address] [place] [address] Phone [phone] Care Team Providers Care Poultry Scalder Name Role Phone Stanley LANGFORD MD, John E Primary Care Provider [phone] Reason for Referral * Evaluate & Treat - Unlimited Visits (Within 10 days (routine)) - Authorized Specialty Diagnoses / Procedures Referred By Contkinza t Referred To Contact Physical Therapy / Physical Medicine And Rehab Diagnoses Generalized weakness Physical deconditioning Balance problem Kyle Angel III, MD [address] [facility] [place] [address] Referral ID Status Reason Start Date Expiration Date Visits Requested Visits Authorized [id number] Authorized Specialty Services Required 3 [phone] Question Answer Referral Priority Within 10 days (routine) Where should this appointment be scheduled? [facility] Reason for Visit * Reason Onset Date Comments Advice 06/18/2023 Encounter Details Date Type Department Care Team (Late st Contact Info) Description 06/18/2023 Telephone Family Practice [facility] [address] [place] [address] Kyle Angel III, MD [address] [place] [address] Advice Allergies Active Allergy Reactions Criticality Noted Date Comments Aspirin 08/16/2002 hx of 2 gastric bypasses Meperidine And Related Nausea/vomiting 09/19/18 94 documented as of this encounter (statuses as of 06/19/2023) Medications Medication Sig Dispensed Refills Start Date [...] breakfast or other meds). 30 Tablet 11 12/31/2022 Active risperiDONE 0.25 MG Oral Tablet [...] as of this encounter (statuses as of 06/19/2023) Active Problems Problem Noted Date Diagnosed Date [...] as of this encounter (statuses as of 06/19/2023) Resolved Problems Problem Noted Date Diagnosed Date [...] as of this encounter (statuses as of 06/19/2023) Immunizations Name Administration Dates Next Due COVID-19 mRNA, LNP-s, No Pre serve, 2-Dose Series ([employer]) 11/22/2021,05/25/2021,09/17/2020,08/20 COVID-19, LNP-s, No Preserve , Rupert-sucrose, Ages 12+ ([employer]) 11/22/2021 Covid-19, Mrna, Lnp-s, Pf, B ivalent, 30 Mcg, IM, 12 yrs and above ([employer]) 12/10/2022 Meningococcal Conjugate Vacc ine (Menactra/Menveo) 05/04/2018 [...] encounter Miscellaneous Notes * Telephone Encounter - Corina Galeana LPN - 06/19/2023 10:59 AM EST Referral faxed. Confirmation received * Telephone Encounter - Taya Waters MD - 06/19/2023 9:27 AM EST Order signed * Telephone Encounter - Giancarlo Tavares LPN - 06/19/2023 8:48 AM EST Lucrecia calling back today because a HH referral was sent instead of a PT referral. Referral pended. Please fax back to [phone]. Once Signed * Telephone Encounter - Fauzia Turner OSA - 06/18/2023 12:57 PM EST Celestina from [facility] is asking for a nurse to call her back concerning the patient and an order that was sent over. Please call her at [phone]. documented in this encounter Plan of Treatment Upcoming Encounters Date Type Department Care Team (Late st Contact Info) Description 06/23/2023 10:00 AM EST Office Visit [facility] [place] [address] [address] Taya Waters MD [address] [place] [address] 07/29/2023 4:00 PM EST Office Visit [facility] [address] Yelitza Solorzano PA-C [address] [place] [address] [address] Scheduled Referrals Name Type Priority Associated Diagnoses Orde r Schedule PHYSICAL THERAPY REFERRAL OP Referral Within 10 days (routine) Generalized weakness Physical deconditioning Balance problem Ordered: 06/19/2023 Health Maintenance Due Date Last Done Comments [...] Ratio 09/11/2023 09/10/2022 CKD PHOS USE SMARTSET 72038 09/11/2023 09/10/2022, 1 07/25/2017 CKD HGB USE SMARTSET 55879 11/14/202311/13, 11/06/2022, 10/30/2022, Additional history exists DXA Scan 06/25/2024 06/25/2022, 09/2022, 02/20/2016, Additional history exists DTaP,Tdap,and Td Vaccines (2 - Td or Tdap) 03/03/2028 03/03/2018, 09/17/2010, 01/14/2006, Additional history exists VITAMIN D LEVEL ONCE IN A LIFETIME-USE SMARTSET# [id number] Completed 05/06/2016, 04/24/2011, 09/18/2010, Additional history exists [...] as of this encounter Visit Diagnoses Diagnosis Generalized weakness- Primary Other malaise and fatigue Physical deconditioning Debility, unspecified Balance problem Other symptoms involving nervous and musculoskeletal systems documented in this encounter Advance Directives Latest [...] the patient have Health Care Power of Community Service Director? No Healthcare Agents on File Name Relationship Healthcare Agent Relationshi p Communication Kyle Almendarez Adult Child Health Care Repr esentative (appointed verbally by patient or by statute hierarchy) Care Teams Poultry Scalder Relationship Specialty Start Date End Date Kyle Angel III, MD [address] [place] [address] PCP - General Family Medicine 04/29/18 documented as of this encounter
--- OUTSIDE RECORDS SUMMARY | 2023-09-26 09:10 | External Medical Summary | Summary of Care ---
Author Name Unknown Organization [facility] Address [address] [place] [address] Phone [phone] Care Team Providers Care Diamond Broker Name Role Phone Stanley LANGFORD MD, Kyle Sorensen Primary Care Provider [phone] Reason for Visit * Reason Onset Date Comments case management 06/16/2023 Encounter Details Date Type Department Care Team (Late st Contact Info) Description 06/16/2023 Light Armored Reconnaissance Officer Telephone Care Coordination and Integration [address] [place], [place] [id number] Jennifer Greenberg RN [address] [place] [address] case management Allergies Active Allergy Reactions Criticality Noted Date Comments Aspirin 08/16/2002 hx of 2 gastric bypasses Meperidine And Related Nausea/vomiting 09/19/18 94 documented as of this encounter (statuses as of 06/17/2023) Medications Medication Sig Dispensed Refills Start Date [...] as of this encounter (statuses as of 06/17/2023) Active Problems Problem Noted Date Diagnosed Date [...] as of this encounter (statuses as of 06/17/2023) Resolved Problems Problem Noted Date Diagnosed Date [...] as of this encounter (statuses as of 06/17/2023) Immunizations Name Administration Dates Next Due COVID-19 mRNA, LNP-s, No Pre serve, 2-Dose Series ([employer]) 11/22/2021,05/25/2021,09/17/2020,08/20 COVID-19, LNP-s, No Preserve , Rupert-sucrose, Ages 12+ ([employer]) 11/22/2021 Covid-19, Mrna, Lnp-s, Pf, B ivalent, 30 Mcg, IM, 12 yrs and above ([employer]) 12/10/2022 Meningococcal Conjugate Vacc ine (Menactra/Menveo) 05/04/2018 [...] Answer Date Recorded PHQ-2 Score 22 05/04/2018 Hunger Vital Sign Answer Date Recorded Within the past 12 months, y ou worried that your food would run out before you got the money to buy more. Never true 11/25/19 23 Within the past 12 months, t he food you bought just didn't last and you didn't have money to get more. Never true 11/24/2022 Sex and Gender Information Value Date Recorded Sex Assigned at Not on file Gender Identity Not on file Sexual Orientation Not on file Job Start Date Occupation Industry Not on file Not on file Not on file documented as of this encounter Miscellaneous Notes * Telephone Encounter - Jennifer Greenberg RN - 06/17/2023 2:31 PM EST Faxed home health referral to [facility]- sent to [facility] but they will not accept. * Telephone Encounter - Jennifer Greenberg RN - 06/17/2023 1:52 PM EST [facility] * Telephone Encounter - Taya Waters MD - 06/16/2023 4:39 PM EST Order signed, thank you! * Telephone Encounter - Jennifer Greenberg RN - 06/16/2023 4:[address] Waters- pended hospital bed documented in this encounter Plan of Treatment Upcoming Encounters Date Type Department Care Team (Late st Contact Info) Description 06/23/2023 10:00 AM EST Office Visit [facility] [address] [facility] [place] [address] Taya Waters MD [address] [facility] [place] [address] 07/29/2023 4:00 PM EST Office Visit [facility] [address] [facility] [address] [place] [address] Yelitza Solorzano PA-C [address] [facility] [address] [place] [address] Health Maintenance Due Date Last Done Comments [...] Ratio 09/11/2023 09/10/2022 CKD PHOS USE SMARTSET 94774 09/11/2023 09/10/2022, 1 07/25/2017 CKD HGB USE SMARTSET 77219 11/14/202311/13, 11/06/2022, 10/30/2022, Additional history exists DXA Scan 06/25/2024 06/25/2022, 09/2022, 02/20/2016, Additional history exists DTaP,Tdap,and Td Vaccines (2 - Td or Tdap) 03/03/2028 03/03/2018, 09/17/2010, 01/14/2006, Additional history exists VITAMIN D LEVEL ONCE IN A LIFETIME-USE SMARTSET# [id number] Completed 05/06/2016, 04/24/2011, 09/18/2010, Additional history exists [...] the patient have Health Care Power of Equipment Installer? No Healthcare Agents on File Name Relationship [facility] Communication Kyle Almendarez Adult Child Health Care Repr esentative (appointed verbally by patient or by statute hierarchy) Care Teams Diamond Broker Relationship Specialty Start Date End Date Kyle Angel III, MD [address] [facility] [place] [address] PCP - General Family Medicine 04/29/18 documented as of this encounter
--- OUTSIDE RECORDS SUMMARY | 2023-09-26 09:10 | External Medical Summary | Summary of Care ---
Author Name Unknown Organization [facility] Address [address] [place] [address] Phone [phone] Care Team Providers Care Field Supervisor Seed Production Name Role Phone Stanley LANGFORD MD, Kyle Sorensen Primary Care Provider [phone] Reason for Visit * Reason Comments NEW PATIENT * Evaluate & Treat - Unlimited Visits (Within 30 days (routine)) - Authorized Specialty Diagnoses / Procedures Referred By Contac t Referred To Contact Hospice and Palliative Medicine / Palliative Medicine Diagnoses Chronic abdominal pain Protein-calorie malnutrition, unspecified severity (HCC) Taya Waters MD [address] [place] [address] Referral ID Status Reason Start Date Expiration Date Visits Requested Visits Authorized [id number] Authorized Specialty Services Required 06/23/[phone] Encounter Details Date Type Department Care Team (Late st Contact Info) Description 07/22/2023 1:00 PM EST Office Visit Palliative Medicine [facility] [address] [place] [address] Olinda Chamberlain MD [address] [place] [address] [phone] Frailty*; Depression, unspecified depression type; Encounter for palliative care Allergies Active Allergy Reactions Criticality Noted Date Comments Aspirin 08/16/2002 hx of 2 gastric bypasses Meperidine And Related Nausea/vomiting 09/19/18 94 documented as of this encounter (statuses as of 07/22/2023) Medications Medication Sig Dispensed Refills Start Date [...] (Carafate)Indication s:Need for case management follow-up,Esophagiti s TAKE 10 ML BY MOUTH IN THE MORNING, AT NOON, IN THE EVENING AND AT BEDTIME 600 mL 1 07/07/2023 Active documented as of this encounter (statuses as of 07/22/2023) Active Problems Problem Noted Date Diagnosed Date [...] as of this encounter (statuses as of 07/22/2023) Resolved Problems Problem Noted Date Diagnosed Date [...] as of this encounter (statuses as of 07/22/2023) Immunizations Name Administration Dates Next Due COVID-19 mRNA, LNP-s, No Pre serve, 2-Dose Series ([employer]) 11/22/2021,05/25/2021,09/17/2020,08/20 COVID-19, LNP-s, No Preserve , Rupert-sucrose, Ages 12+ (Pfizer) 11/22/2021 Covid-19, Mrna, Lnp-s, Pf, B ivalent, 30 Mcg, IM, 12 yrs and above ([employer]) 12/10/2022 Meningococcal Conjugate Vacc ine (Menactra/Menveo) 05/04/2018 [...] Date Smoking Tobacco: Never Smokeless Tobacco: Never Tobacco Cessation:Counseling Given: No Alcohol Use Standard Drinks/Week Comments Yes 0 [...] Sign Reading Time Taken Comments Blood Pressure 161/83 07/22/2023 12:51 PM EST Pulse - - Temperature 36.7 C (98 F) 07/22/2023 12:51 PM EST Respiratory Rate - - Oxygen Saturation - - Inhaled Oxygen Concentration - - Weight - - Height - - Body Mass Index - - documented in this encounter Patient Instructions * Patient Instructions* Carmencita Vines LPN - 07/22/2023 12:47 PM EST Our Palliative Medicine Clinic is available Thursday through Thursday during business hours, so we are unavailable on weekends and holidays. Please ensure that you request refills early in the week as itmay take 1-2 days for them to be addressed and filled, for authorizations to be approved, or for the pharmacy to order them if needed. You can contact our office at [phone], which is our clinic in [place], or you can message us on [address]. If you have an emergency outside of these hours, we recommend calling your primary care clinic, Oncology office, or going to the ER if you have a medical emergency. documented in this encounter Progress Notes * Carmencita Vines LPN - 07/22/2023 12:52 PM EST NEW Palliative Visit Pain: no pain today Last BM: yesterday. No issues Lives at her home with 24/7 caregivers Patient states she eats well Denies any N/V States she sleeps well Had a fall last September and fx pelvis Uses walker in the home Other issues: Goals of Care * Olinda Chamberlain MD - 07/22/2023 12:46 PM EST Images from the original note were not included. Palliative Medicine Outpatient Consult Note [facility] 5th Floor [address] [facility] [address] Name: Tonia David Date: 07/22/2023 Referring Provider: Taya Waters MD Reason for Consult: Goals of care; Pain and symptom management Patient accompanied by augustine Cid and Kyle, history obtained from all 3 Kyle Candelario HPI: Tonia David is a 83 year old female with a primary diagnosis of frailty. She has a history of abdominal pain, was in [facility] in May for pain, which improved with Carafate. She was referred for goals of care discussion. Met with patient and sons. She has 24 hour caregiving, reports things are going well with most of the caregivers. Did not engage with home health when she had it a month ago. ROS: See HPI. All other systems negative. Functional Status: - Palliative Performance Scale: 60% Patient Active Problem List Diagnosis Code Other [...] stage 3a chronic kidney disease I12.9, N18.31 Protein-calorie malnutrition (HCC) E46 Past Surgical History: Procedure Laterality Date ARTHROPLASTY KNEE TOTAL 03/19/05 TKR (Total Knee Replacement) CATARACT SURGERY,COMPLEX Bilateral COLONOSCOPY, DIAGNOSTIC (RECTUM) 08/18/07 normal COLONOSCOPY, DIAGNOSTIC (RECTUM) 06/01/2018 inflammation, poor prep / [facility] COLOSTOMY Right 06/03/2018 diverting right colostomy, secondary to obstipation/bowel perforation EXCISION OF RECTAL PROLAPSE, FUSION 12/12/2011 EXCISION RECTAL PROCIDENTIA PERINEAL APPROACH performed by Primitivo Colby [place] [facility] [place]NEE ARTHROSCOPY, DIAGNOSTIC 1996 left MAMMOGRAM - BILATERAL 08/31/02 Birad code2 MAMMOGRAM - BILATERAL 08/30/04 birad code 2 MAMMOGRAM - BILATERAL 03/31/06 birad code 2 MAMMOGRAM SCREENING BILATERAL 03/22/10 birad code 1 MISCELLANEOUS ORDER ([facility] ONLY) removal of titanium luis alfredo prior [...] poor prep wnl STOMACH SURGERY PROCEDURE NEC 1/95 Billroth 1 for gastric outlet obstruction VITRECTOMY W/ REMOVE OF EPIRETINAL MEMBRANE Left 07/25/2019 23G PPV/MP for ERM/VMT OS; Dr. Avery Family History Problem Relation Age of Onset Cancer Mother breast/skin ca Hypertension Mother Mental Disorder Father alcohol abuse Diabetes Father Hypertension Father Cancer Grandfather (Maternal) skin ca Arthritis Grandfather (Maternal) hip brace Diabetes Grandmother (Paternal) Thyroid Disorder None Heart Disorder None Stroke None Eye Problems None Denies FH: AMD, Glaucoma, RD's or Blindness Family Status Relation Status Mo at age 82 breast cancer Fa at age 85 unknown Son Alive Son Alive MGFA (Not Specified) PGMA (Not Specified) NONE (Not Specified) NONE (Not Specified) NONE (Not Specified) NONE (Not Specified) Social History Socioeconomic History Marital status: Single Number of children: 2 Occupational History 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 Employer: [employer] [place] [address] Tobacco Use Smoking status: Never Smokeless tobacco: Never Vaping Use Vaping Use: Never used Substance and Sexual Activity Alcohol use: Yes Comment: rare Drug use: No Sexual activity: Never Other Topics Concern Service No Blood Transfusions No Caffeine Concern No Occupational Exposure No Hobby Hazards No Sleep Concern No Stress Concern No Weight Concern No Special Diet No Back Care No Exercise No Seat Belt Yes Self-Exams No Social Determinants of Health Food Insecurity: No Food Insecurity (06/17/2023) Hunger Vital Sign Worried About Running Out of Food in the Last Year: Never true Ran Out of Food in the Last Year: Never true Relevant Medications: Current Outpatient Medications Medication Sig Dispense Refill Cholecalciferol (HM VITAMIN D) 1000 units Tablet Take 1 Tablet by mouth in the morning. Sennosides-Docusate Sodium 8.6-50 MG Oral Tablet (Senna S) Take 2 Tablets by mouth in the morning and 2 Tablets before bedtime. 120 Tablet 0 Polyethylene Glycol 3350 17 GM/SCOOP Oral Powder (MiraLax) Take 17 g by mouth in the morning. Dissolve one heaping tablespoon in 8 ounces of water or juice.. 255 g 11 Fluticasone Propionate 50 MCG/ACT Nasal Suspension (Flonase) Administer 2 Sprays into each nostril in the morning. Aim towards ears. 16 g 6 Ferrous Sulfate 325 (65 Fe) MG Oral [...] before bedtime. Gel caps. 100 Tablet 6 lamoTRIgine 25 MG Oral Tablet (LaMICtal) Take 1 Tablet by mouth in the morning and 1 Tablet before bedtime. 60 Tablet 11 Lisinopril 10 MG Oral Tablet (Prinivil) Take 1 Tablet by mouth in the morning. 30 Tablet 11 Mirtazapine 15 MG Oral Tablet (Remeron) Take 1 Tablet by mouth at bedtime. 30 Tablet 11 Pantoprazole Sodium 40 MG Oral Tablet Delayed Release (Protonix) Take 1 Tablet by mouth in the morning. 30 min before breakfast BRAND NECESSARY. 30 Tablet 11 Levothyroxine Sodium 25 MCG Oral Tablet (Levoxyl) Take 1 Tablet by mouth in the morning. (at least 30 min prior to breakfast or other meds). 30 Tablet 11 risperiDONE 0.25 MG Oral Tablet (RisperDAL) Take 1 Tablet by mouth in the morning. 60 Tablet 11 Ondansetron HCl 4 MG Oral Tablet (Zofran) Take 1 Tablet by mouth every 6 hours as needed for Nausea. 20 Tablet 3 Sucralfate 1 GM/10ML Oral Suspension (Carafate) TAKE 10 ML BY MOUTH IN THE MORNING, AT NOON, IN THEEVENING AND AT BEDTIME 600 mL 1 No current facility-administered medications for this visit. Allergies: Aspirin and Meperidine and related PHYSICAL EXAMINATION: Constitutional: BP 161/83 | Temp 36.7 C (98 F) , no acute distress, chronically ill, breathing ambient air comfortably HENT: normocephalic, atraumatic. Eyes: anicteric, sclera and conjunctiva normal. Neck: no stridor Chest: normal respiratory effort Abdominal: nondistended Extremities: no edema, no clubbing, no cyanosis Psych: normal mood and flat affect Data Review: External notes reviewed: PCP notes reviewed, hospital notes reviewed Lab / Imaging Results: no History obtained from: pt, sons Jose Roberto and Kyle for collateral hx Discussion with other team members: no Decision-making Capacity: Does Patient have Decisional Capacity? Yes but she also defers to her kids Does Patient have a Healthcare Agent? Jose Roberto and Kyle Discussion with Patient & Family: Met with patient and sons Introduced role of Outpatient Palliative Medicine team and reviewed symptoms as above. Reviewed patient's/family's understanding of current medical situation. They know she does not havea terminal illness I brought up categories of ppl - ppl who want full tx, limited, or comfort measures. She did not engage in what her preference would be. Made comments like "whatever everyone thinks is right." She did say she had a living will and Kyle knows where it is. I explained risks of CPR including broken ribs, brain injury, etc. Jose Roberto asked her if she wanted it, she said "I guess so". I asked her to explain it to me and she said "oh no" and frowned and did not engage any further, and was clear she wanted to go home. ASSESSMENT/PLAN: Tonia David is a/an 83 year old female referred for consultation to Palliative Medicine with the primary diagnosis of: Frailty ?Depression - follows with [facility] Psychiatry Esophagitis - improved Chronic abdominal pain Goals of care - unclear. Sons want her to be comfortable overall, but pt does not seem to want to voice her preferences and shut down during our conversation Recommendations: Pt did not engage in conversations about her treatment preferences. Encouraged pt and son to think about these things. They do not want HH or hospice at this time No f/u at this time Thank you for this consult. We appreciate the opportunity to take part in the care of your patient. Note routed back to referring provider and PCP. I spent a total of 45 minutes on the date of service in preparation, delivery, and documentation ofthe care provided to Tonia David excluding any time spent in the performance of separately billed services. Olinda Chamberlain MD Palliative Medicine Physician [facility] Office: [phone] 07/22/2023 documented in this encounter Plan of Treatment Upcoming Encounters Date Type Department Care Team (Late st Contact Info) Description 09/22/2023 1:00 PM EDT Office Visit [facility] [place] [address] [place] [address] Taya Waters MD [address] [facility] [place] [address] Scheduled Referrals Name Type Priority Associated Diagnoses [...] Ratio 09/11/2023 09/10/2022 CKD PHOS USE SMARTSET 17000 09/11/2023 09/10/2022, 1 07/25/2017 CKD HGB USE SMARTSET 46133 11/14/202311/13, 11/06/2022, 10/30/2022, Additional history exists DXA Scan 06/25/2024 06/25/2022, 09/2022, 02/20/2016, Additional history exists DTaP,Tdap,and Td Vaccines (2 - Td or Tdap) 03/03/2028 03/03/2018, 09/17/2010, 01/14/2006, Additional history exists VITAMIN D LEVEL ONCE IN A LIFETIME-USE SMARTSET# [id number] Completed 05/06/2016, 04/24/2011, 09/18/2010, Additional history exists [...] as of this encounter Visit Diagnoses Diagnosis Frailty- Primary Senility without mention of psychosis Depression, unspecified depression type Encounter for palliative care documented in this encounter Advance Directives Latest [...] the patient have Health Care Power of It Infrastructure Engineer? No Healthcare Agents on File Name Relationship Healthcare Agent Relationshi p Communication Kyle Almendarez Adult Child Health Care Repr esentative (appointed verbally by patient or by statute hierarchy) Care Teams Field Supervisor Seed Production Relationship Specialty Start Date End Date Kyle Angel III, MD [address] [facility] [place] [address] PCP - General Family Medicine 04/29/18 documented as of this encounter
--- OUTSIDE RECORDS SUMMARY | 2023-09-26 09:10 | External Medical Summary | Summary of Care ---
Author Name Unknown Organization [facility] Address [address] [place] [address] Phone [phone] Care Team Providers Care Home Theater Experience Expert Name Role Phone Stanley LANGFORD MD, Kyle Sorensen Primary Care Provider [phone] Reason for Visit * Reason Onset Date Comments case management 06/17/2023 Encounter Details Date Type Department Care Team (Late st Contact Info) Description 06/17/2023 Manufactured Buildings Repairer Telephone Care Coordination and Integration [address], [place] [id number] Jennifer Greenberg RN [address] [place] [address] case management Allergies Active Allergy Reactions Criticality [...] 04/18/2023 Active Sucralfate 1 GM/10ML Oral Suspension (Carafate)Indicatio ns:Need for case management follow-up,Esophagit is Take 10 mL by mouth in the morning and 10 mL at noon and 10 mL in the evening and 10 mL before bedtime. 600 mL 1 06/18/2023 Active Sucralfate 1 GM/10ML Oral Suspension (Carafate) Take 10 mL by mouth in the morning and 10 mL at noon and 10 mL in the evening and 10 mL before bedtime. 0 3 Discontinu ed(Refill) documented as of this [...] mRNA, LNP-s, No Pre serve, 2-Dose Series ([employer]) 11/22/2021,05/25/2021,09/17/2020,08/20 COVID-19, LNP-s, No Preserve , Rupert-sucrose, Ages 12+ (Pfizer) 11/22/2021 Covid-19, Mrna, Lnp-s, Pf, B ivalent, 30 Mcg, IM, 12 yrs and above ([employer]) 12/10/2022 Meningococcal Conjugate Vacc ine (Menactra/Menveo) 05/04/2018 [...] Encounter - Jennifer Greenberg RN - 06/17/2023 3:41 PM EST See outreach encounter from today. Needs refill of carafate (was sent home with from ED) documented in this encounter Plan of Treatment Upcoming Encounters Date Type Department Care Team (Late st Contact Info) Description 06/23/2023 10:00 AM EST Office Visit [facility] [place] [address] [place], [place] [phone] Taya Waters MD [address] [place] [address] 07/29/2023 4:00 PM EST Office Visit Family Practice [facility] [place] [address] [place] [address] Yelitza Solorzano PA-C [address] [place] [address] Health Maintenance Due Date Last Done Comments [...] Ratio 09/11/2023 09/10/2022 CKD PHOS USE SMARTSET 44257 09/11/2023 09/10/2022, 1 07/25/2017 CKD HGB USE SMARTSET 96053 11/14/202311/13, 11/06/2022, 10/30/2022, Additional history exists DXA Scan 06/25/2024 06/25/2022, 09/2022, 02/20/2016, Additional history exists DTaP,Tdap,and Td Vaccines (2 - Td or Tdap) 03/03/2028 03/03/2018, 09/17/2010, 01/14/2006, Additional history exists VITAMIN D LEVEL ONCE IN A LIFETIME-USE SMARTSET# [id number] Completed 05/06/2016, 04/24/2011, 09/18/2010, Additional history exists [...] Diagnosis Need for case management follow-up- Primary Esophagitis Esophagitis, unspecified documented in this encounter [...] the patient have Health Care Power of Plastic Parts Fabricator? No Healthcare Agents on File Name Relationship Healthcare Agent Relationshi p Communication Kyle Almendarez Adult Child Health Care Repr esentative (appointed verbally by patient or by statute hierarchy) Care Teams Home Theater Experience Expert Relationship Specialty Start Date End Date Kyle Angel III, MD [address] [place] [address] PCP - General Family Medicine 04/29/18 documented as of this encounter
--- OUTSIDE RECORDS SUMMARY | 2023-09-26 09:10 | External Medical Summary | Summary of Care ---
Author Name Unknown Organization [facility] Address [address] [place] [address] Phone [phone] Care Team Providers Care Top Cleaner Name Role Phone Stanley LANGFORD MD, John E Primary Care Provider [phone] Reason for Referral * Evaluate & Treat - Unlimited Visits (Within 10 days (routine)) - Authorized Specialty Diagnoses / Procedures Referred By Contkinza t Referred To Contact Physical Therapy / Physical Medicine And Rehab Diagnoses Generalized weakness Physical deconditioning Balance problem Kyle Angel III, MD [address] [facility] [place] [address] Referral ID Status Reason Start Date Expiration Date Visits Requested Visits Authorized [id number] Authorized Specialty Services Required 3 [phone] Question Answer Referral Priority Within 10 days (routine) Where should this appointment be scheduled? [facility] Reason for Visit * Reason Onset Date Comments Advice 06/18/2023 Encounter Details Date Type Department Care Team (Late st Contact Info) Description 06/18/2023 Telephone Family Practice [facility] [address] [place] [address] Kyle Angel III, MD [address] [place] [address] Advice Allergies Active Allergy Reactions Criticality Noted [...] mRNA, LNP-s, No Pre serve, 2-Dose Series ([employer]) 11/22/2021,05/25/2021,09/17/2020,08/20 COVID-19, LNP-s, No Preserve , Rupert-sucrose, Ages 12+ ([employer]) 11/22/2021 Covid-19, Mrna, Lnp-s, Pf, B ivalent, 30 Mcg, IM, 12 yrs and above ([employer]) 12/10/2022 Meningococcal Conjugate Vacc ine (Menactra/Menveo) 05/04/2018 [...] referral. Referral pended. Please fax back to [phone]. Once Signed * Telephone Encounter - Fauzia Turner OSA - 06/18/2023 12:57 PM EST Celestina from [facility] is asking for a nurse to call her back concerning the patient and an order that was sent over. Please call her at [phone]. documented in this encounter Plan of Treatment Upcoming Encounters Date Type Department Care Team (Late st Contact Info) Description 06/23/2023 10:00 AM EST Office Visit [facility] [address] [place] [address] Taya Waters MD [address] [facility] [place] [address] 07/29/2023 4:00 PM EST Office Visit [facility] [address] [place] [address] Yelitza Solorzano PA-C [address] [facility] [place] [address] Scheduled Referrals Name Type Priority Associated Diagnoses [...] Ratio 09/11/2023 09/10/2022 CKD PHOS USE SMARTSET 74232 09/11/2023 09/10/2022, 1 07/25/2017 CKD HGB USE SMARTSET 50151 11/14/202311/13, 11/06/2022, 10/30/2022, Additional history exists DXA Scan 06/25/2024 06/25/2022, 09/2022, 02/20/2016, Additional history exists DTaP,Tdap,and Td Vaccines (2 - Td or Tdap) 03/03/2028 03/03/2018, 09/17/2010, 01/14/2006, Additional history exists VITAMIN D LEVEL ONCE IN A LIFETIME-USE SMARTSET# [id number] Completed 05/06/2016, 04/24/2011, 09/18/2010, Additional history exists [...] the patient have Health Care Power of Darklight Inspector? No Healthcare Agents on File Name Relationship Healthcare Agent Relationshi p Communication Kyle Almendarez Adult Child Health Care Repr esentative (appointed verbally by patient or by statute hierarchy) Care Teams Top Cleaner Relationship Specialty Start Date End Date Kyle Angel III, MD [address] [facility] [address] PCP - General Family Medicine 04/29/18 documented as of this encounter
--- OUTSIDE RECORDS SUMMARY | 2023-09-26 09:10 | External Medical Summary | Summary of Care ---
Author Name Unknown Organization [facility] Address [address] [place] [address] Phone [phone] Care Team Providers Care Bobbin Cleaner Hand Name Role Phone Stanley LANGFORD MD, Saeed Sorensen Primary Care Provider [phone] Reason for Referral * Medication Prior Authorization - Closed Specialty Diagnoses / Procedures Referred By Sabiha t Referred To Contact Diagnoses Nausea and vomiting, unspecified vomiting type Saeed Kovacs III, MD [address] [facility] [place] [address] Referral ID Status Reason Start Date Expiration Date Visits Re quested Visits Authorized [id number] Closed 999 999 Reason for Visit * Reason Comments eRx-Medication Refill Encounter Details Date Type Department Care Team (Late st Contact Info) Description 09/23/2023 Refill Family Practice [facility] [address] [place] [address] Saeed Kovacs III, MD [address] [place] [address] Nausea and vomiting, unspecified vomiting type* Allergies Active Allergy Reactions Criticality Noted Date Comments Aspirin 08/16/2002 hx of 2 gastric bypasses Meperidine And Related Nausea/vomiting 09/19/18 94 documented as of this encounter (statuses as of 09/24/2023) Medications Medication Sig Dispensed Refills Start Date [...] Aim towards ears. 16 g 3 Active Ferrous Sulfate 325 (65 Fe) [...] breakfast or other meds). 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 60 Tablet 11 3 Active Sucralfate 1 GM/10ML Oral Suspension (Carafate)Indicatio ns:Need for case management follow-up,Esophagit is TAKE 10 ML BY MOUTH IN THE MORNING, AT NOON, IN THE EVENING AND AT BEDTIME 600 mL 1 4 Active Ondansetron HCl 4 MG Oral Tablet (Zofran)Indications :Nausea and vomiting, unspecified vomiting type Take 1 Tablet by mouth every 6 hours as needed for Nausea. 20 Tablet 3 4 Active Ondansetron HCl 4 MG Oral Tablet (Zofran) Take 1 Tablet by mouth every 6 hours as needed for Nausea. 20 Tablet 3 3 09/24/19 24 Discontinued documented as of this encounter (statuses as of 09/24/2023) Active Problems Problem Noted Date Diagnosed Date [...] as of this encounter (statuses as of 09/24/2023) Resolved Problems Problem Noted Date Diagnosed Date [...] as of this encounter (statuses as of 09/24/2023) Immunizations Name Administration Dates Next Due COVID-19 mRNA, LNP-s, No Pre serve, 2-Dose Series ([employer]) 11/22/2021,05/25/2021,09/17/2020,08/20 COVID-19, LNP-s, No Preserve , Rupert-sucrose, Ages 12+ ([employer]) 11/22/2021 Covid-19, Mrna, Lnp-s, Pf, B ivalent, [...] encounter Miscellaneous Notes * Telephone Encounter - Stanley LANGFORD, Saeed Sorensen MD - 09/24/2023 9:01 AM EDTSigned Prescriptions: Disp Refills Ondansetron HCl 4 MG Oral Tablet (Zofran) 20 Tab*3 Sig: Take 1 Tablet by mouth every 6 hours as needed for Nausea.Authorizing Provider: SAEED KOVACS III * Telephone Encounter - Sarah Cleveland [facility] - 09/24/2023 8:39 AM EDTPending Prescriptions: Disp Refills Ondansetron HCl 4 MG Oral Tablet [Pharmacy*20 Tab*3 Sig: Take 1 Tablet by mouth every 6 hours as needed for Nausea. * Telephone Encounter - Sarah Celveland [facility] - 09/24/2023 8:38 AM EDT Unable to authorize medication refills for pended medication(s) at this time. Part of the protocol criteria used for refill authorization was not satisfied. Patient concurrently taking mirtazapine which may increase risk of QT prolongation when given with ondansetron. Please approve if appropriate. Thank you, Sarah Cleveland, PharmD Clinical Pharmacist [facility] ([facility]) (formerly [employer]) [phone] 09/24/2023, 8:38 AM Pending Prescriptions: Disp Refills Ondansetron HCl 4 MG Oral Tablet (Zofran)*20 Tab*3 Sig: Take 1 Tablet by mouth every 6 hours as needed for Nausea. Last Visit: 06/23/2023 (in office), Visit date not found (telemedicine) Next Visit: Visit date not found If no future appointments scheduled, and last appointment is greater than a year ago, please schedule patient for a follow-up appointment Last date the medication was ordered: 04/18/2023 Pharmacy: [facility] [address] Is this request for a controlled substance? No Urine Drug Screen:No results found for this [...] documented in this encounter Plan of Treatment Health Maintenance Due Date Last Done Comments [...] Ratio 09/11/2023 09/10/2022 CKD PHOS USE SMARTSET 62931 09/11/2023 09/10/2022, 1 07/25/2017 CKD HGB USE SMARTSET 90726 11/14/202311/13, 11/06/2022, 10/30/2022, Additional history exists DXA Scan 06/25/2024 06/25/2022, 09/2022, 02/20/2016, Additional history exists DTaP,Tdap,and Td Vaccines (2 - Td or Tdap) 03/03/2028 03/03/2018, 09/17/2010, 01/14/2006, Additional history exists VITAMIN D LEVEL ONCE IN A LIFETIME-USE SMARTSET# [id number] Completed 05/06/2016, 04/24/2011, 09/18/2010, Additional history exists [...] of this encounter Visit Diagnoses Diagnosis Nausea and vomiting, unspecified vomiting type- Primary documented in this encounter Advance Directives [...] the patient have Health Care Power of Warp Knitter? No Healthcare Agents on File Name Relationship Healthcare Agent Relationshi p Communication Saeed Almendarez Adult Child Health Care Repr esentative (appointed verbally by patient or by statute hierarchy) Care Teams Bobbin Cleaner Hand Relationship Specialty Start Date End Date Saeed Kovacs III, MD [address] [place] [address] PCP - General Family Medicine 04/29/18 documented as of this encounter
--- OUTSIDE RECORDS SUMMARY | 2023-09-26 09:11 | External Medical Summary | Summary of Care ---
Author Name Unknown Organization [facility] Address [address] [place] [address] Phone [phone] Care Team Providers Care Process Control Operator Name Role Phone Stanley LANGFORD MD, Kyle Sorensen Primary Care Provider [phone] Reason for Visit * Reason Onset Date Comments case management 06/16/2023 Encounter Details Date Type Department Care Team (Late st Contact Info) Description 06/16/2023 School Coordinator Telephone Care Coordination and Integration [address] [place], [place] [id number] Jennifer Greenberg RN [address] [place] [address] case management Allergies Active Allergy Reactions Criticality [...] mRNA, LNP-s, No Pre serve, 2-Dose Series ([employer]) 11/22/2021,05/25/2021,09/17/2020,08/20 COVID-19, LNP-s, No Preserve , Rupert-sucrose, Ages 12+ ([employer]) 11/22/2021 Covid-19, Mrna, Lnp-s, Pf, B ivalent, 30 Mcg, IM, 12 yrs and above ([employer]) 12/10/2022 Meningococcal Conjugate Vacc ine (Menactra/Menveo) 05/04/2018 [...] 06/17/2023 1:52 PM EST Completed request in [facility] for Hospital Bed. * Telephone Encounter - Taya Waters MD - 06/16/2023 4:39 PM EST Order signed, thank you! * Telephone Encounter - Jennifer Greenberg RN - 06/16/2023 4:[address] Waters- pended hospital bed documented in this encounter Plan of Treatment Upcoming Encounters Date Type Department Care Team (Late st Contact Info) Description 06/23/2023 10:00 AM EST [facility] [address] [facility] [address] [place] [address] Taya Waters MD [address] [facility] [place] [address] 07/29/2023 4:00 PM EST Office Visit Family Practice [facility] [place] [address] [facility] [place] [address] Yelitza Solorzano PA-C [address] [facility] [place] [address] Health Maintenance Due Date Last Done Comments [...] Ratio 09/11/2023 09/10/2022 CKD PHOS USE SMARTSET 61311 09/11/2023 09/10/2022, 1 07/25/2017 CKD HGB USE SMARTSET 45178 11/14/202311/13, 11/06/2022, 10/30/2022, Additional history exists DXA Scan 06/25/2024 06/25/2022, 09/2022, 02/20/2016, Additional history exists DTaP,Tdap,and Td Vaccines (2 - Td or Tdap) 03/03/2028 03/03/2018, 09/17/2010, 01/14/2006, Additional history exists VITAMIN D LEVEL ONCE IN A LIFETIME-USE SMARTSET# [id number] Completed 05/06/2016, 04/24/2011, 09/18/2010, Additional history exists [...] the patient have Health Care Power of Sushi Chef? No Healthcare Agents on File Name Relationship Healthcare Agent Relationshi p Communication Kyle Almendarez Adult Child Health Care Repr esentative (appointed verbally by patient or by statute hierarchy) Care Teams Process Control Operator Relationship Specialty Start Date End Date Kyle Angel III, MD [address] [facility] [place] [address] PCP - General Family Medicine 04/29/18 documented as of this encounter
--- OUTSIDE RECORDS SUMMARY | 2023-09-26 09:11 | External Medical Summary | Summary of Care ---
Author Name Unknown Organization [facility] Address [address] [place] [address] Phone [phone] Care Team Providers Care Grievance Coordinator Name Role Phone Stanley LANGFORD MD, Kyle Sorensen Primary Care Provider [phone] Reason for Visit * Reason Onset Date Comments case management 06/16/2023 Encounter Details Date Type Department Care Team (Late st Contact Info) Description 06/16/2023 Mixer Whipped Topping Telephone Care Coordination and Integration [address] [place], [place] [phone] Jennifer Greenberg RN [address] [place] [address] case management Allergies Active Allergy Reactions Criticality Noted Date Comments Aspirin 08/16/2002 hx of 2 gastric bypasses Meperidine And Related Nausea/vomiting 09/19/18 94 documented as of this encounter (statuses as of 06/16/2023) Medications Medication Sig Dispensed Refills Start Date [...] as of this encounter (statuses as of 06/16/2023) Active Problems Problem Noted Date Diagnosed Date [...] as of this encounter (statuses as of 06/16/2023) Resolved Problems Problem Noted Date Diagnosed Date [...] as of this encounter (statuses as of 06/16/2023) Immunizations Name Administration Dates Next Due COVID-19 mRNA, LNP-s, No Pre serve, 2-Dose Series ([employer]) 11/22/2021,05/25/2021,09/17/2020,08/20 COVID-19, LNP-s, No Preserve , Rupert-sucrose, Ages 12+ ([employer]Cont) 11/22/2021 Covid-19, Mrna, Lnp-s, Pf, B ivalent, 30 Mcg, IM, 12 yrs and above ([employer]Cont) 12/10/2022 Meningococcal Conjugate Vacc ine (Menactra/Menveo) 05/04/2018 [...] Description 06/23/2023 10:00 AM EST [facility] [place] [address] [place] [address] Taya Waters MD [address] [place] [address] [address] 07/29/2023 4:00 PM EST Office Visit [facility] [place] [address] [place] [address] [address] Yelitza Solorzano PA-C [address] [place] [address] [address] Health Maintenance Due Date Last Done Comments [...] Ratio 09/11/2023 09/10/2022 CKD PHOS USE SMARTSET 33109 09/11/2023 09/10/2022, 1 07/25/2017 CKD HGB USE SMARTSET 01866 11/14/202311/13, 11/06/2022, 10/30/2022, Additional history exists DXA Scan 06/25/2024 06/25/2022, 09/2022, 02/20/2016, Additional history exists DTaP,Tdap,and Td Vaccines (2 - Td or Tdap) 03/03/2028 03/03/2018, 09/17/2010, 01/14/2006, Additional history exists VITAMIN D LEVEL ONCE IN A LIFETIME-USE SMARTSET# [id number] Completed 05/06/2016, 04/24/2011, 09/18/2010, Additional history exists [...] the patient have Health Care Power of Brazing Machine Setter? No Healthcare Agents on File Name Relationship Healthcare Agent Relationshi p Communication Kyle Almendarez Adult Child Health Care Repr esentative (appointed verbally by patient or by statute hierarchy) Care Teams Grievance Coordinator Relationship Specialty Start Date End Date Kyle Angel III, MD [address] [place] [address] PCP - General Family Medicine 04/29/18 documented as of this encounter
--- OUTSIDE RECORDS SUMMARY | 2023-09-26 09:11 | External Medical Summary | Summary of Care ---
Author Name Unknown Organization [facility] Address [address] [place] [address] Phone [phone] Care Team Providers Care Filler Shredder Name Role Phone Stanley LANGFORD MD, Kyle Sorensen Primary Care Provider [phone] Reason for Referral * Evaluate & Treat - Unlimited Visits (Within 10 days (routine)) - Authorized Specialty Diagnoses / Procedures Referred By Contac t Referred To Contact HOME CARE / Home Care Diagnoses Generalized weakness Physical deconditioning Taya Waters MD [address] [place] [address] Referral ID Status Reason Start Date Expiration Date Visits Requested Visits Authorized [id number] Authorized Specialty Services Required 3 999 999 Question Answer Referral Priority Within 10 days (routine) Where should this appointment be scheduled? [facility] Documentation of Qxpt-[id number] Encounter Addendum Patient Name: Tonia David I certify that this patient is under my care and that I, or a nurse practitioner or physician's review assistant working with me, had a [id number] encounter that meets the physician yudf-[id number] encounter requirements with this patient on: 06/05/23 The encounter with the patient was in whole, or in part, for the following medical condition, which is the primary reason for home health care (List medical condition): ADL dysfunction, generalized weakness, physical deconditioning I certify that, based on my findings, the following services are medically necessary home health services: Physical Therapy and Occupational Therapy To provide the following care/treatments: (All hospitalists not following the patient after discharge should complete this section): PT/OT Primary Care Physician to follow home care plan of care after discharge: Taya Waters MD My clinical findings support the need for the above services because: Patient has progressive weakness and deconditioning, recent hospitalization Further, I certify that my clinical findings support that this patient is homebound (i.e. Absences from home require considerable and taxing effort and are for medical reasons or holiness services or infrequently or of short duration when for other reason) because: Limited mobility, requires assistance to ambulate Physician Signature: Date of Signature: Physician Printed Name: Taya Waters MD Reason for Visit * Reason Onset Date Comments Hospital Follow-Up Hospital Follow-Up 06/05/2023 Encounter Details Date Type Department Care Team (Late st Contact Info) Description 06/05/2023 9:00 AM EST Office Visit Family Practice [facility] [place] [address] [facility] [place] [address] Taya Waters MD [address] [facility] [address] Hospital discharge follow-up*; Gastroenteritis; Constipation, unspecified constipation type; Generalized weakness; Physical deconditioning; Balance problem Allergies Active Allergy Reactions Criticality Noted Date [...] mRNA, LNP-s, No Pre serve, 2-Dose Series ([employer]) 11/22/2021,05/25/2021,09/17/2020,08/20 COVID-19, LNP-s, No Preserve , Rupert-sucrose, Ages 12+ ([employer]) 11/22/2021 Covid-19, Mrna, Lnp-s, Pf, B ivalent, [...] Sign Reading Time Taken Comments Blood Pressure - - Pulse 63 06/05/2023 8:58 AM EST Temperature 36.6 C (97.8 F) 06/05/2023 8:58 AM ES T Respiratory Rate 16 06/05/2023 8:58 AM EST Oxygen Saturation 95% 06/05/2023 8:58 AM EST Inhaled Oxygen Concentration - - Weight - - Height - - Body Mass Index - - documented in this encounter Progress Notes * Taya Waters MD - 06/05/2023 9:27 AM EST Subjective Chief Complaint Patient presents with Hospital Follow-Up Hospital Follow-Up HPI: Tonia David is a 82 year old female. The following issues were addressed today: Date of admission: 05/29/23 Date of discharge: 06/01/23 Date of WOOD phone call: 06/02/23 Hospital course: Patient with hypothyroidism, hypertension, CKD stage III, osteoporosis, and depression was brought to [facility] ER due to nausea, vomiting, and weakness. Received IVF in the ER. Was having difficulty ambulating. Ultimately admitted for probably gastroenteritis with dehydration. CTAP didnot show any significant abnormalities other than constipation. Was given Fleet enema and had smallBM. Clinically improved and diet was advanced as tolerated. Tests/studies pending at time of discharge: None Home/outpatient services ordered: None Course since hospitalization: Patient presents today with son. She states she is still feeling slightly nauseated. Has been taking MiraLAX daily and reports she is moving her bowels. Overall feels tired and weak from the hospital. Son states she has been eating normally. Has not had any episodes ofvomiting. They are requesting orders for home PT/OT and a hospital bed. States she has issues with balance that make it hard for her to get around at home. Feel she and caregivers would benefit from hospital bed. Review of Systems: See HPI Objective Pulse 63 | Temp 36.6 C (97.8 F) (Tympanic) | Resp 16 | SpO2 95% Wt Readings from Last 3 Encounters: 11/18/22 53.4 kg (117 lb 12.8 oz) 11/04/22 53.4 kg (117 lb 12.8 oz) 10/31/22 53.4 kg (117 lb 12.8 oz) BP Readings from Last 3 Encounters: 01/27/23 120/64 11/24/22 118/80 11/18/22 149/87 General: Well-appearing, no acute distress Throat/Mouth: Oral mucosa pink and moist Cardiovascular: Regular rate and rhythm, no murmur Respiratory: Good respiratory effort, breath sounds equal and clear to auscultation bilaterally Abdomen: Soft, non-distended, non-tender, normoactive bowel sounds Skin: Warm and dry Neurological: Alert and oriented Psychiatric: Appropriate mood and affect Assessment & Plan 1. Hospital discharge follow-up - DISCH MED RECON CUR MED LIS 2. Gastroenteritis Improved. Continue diet as tolerated. 3. Constipation, unspecified constipation type Improved. Continue MiraLAX daily. 4. Generalized weakness 5. Physical deconditioning 5. Balance problem PT/OT referral placed. Will work with CM regarding hospital bed order. - HOME HEALTH REFERRAL OP Follow Up: Return for follow-up with Yelitza as scheduled. This note was electronically signed by Taya Waters MD documented in this encounter Nursing Notes * Corina Galeana LPN - 06/05/2023 8:52 AM EST Tonia Pike Joann presents for hospital recheck. Medications & HM reviewed. Admitted for gastroenteritis, dehydration. Is taking miralax to help with BM's Would like to discuss an order for hospital bed as well as PT and OT documented in this encounter Plan of Treatment Upcoming Encounters Date Type Department Care Team (Late st Contact Info) Description 06/23/2023 10:00 AM EST [address] [place] [address] Taya Waters MD [address] [facility] [place] [address] 07/29/2023 4:00 PM EST Office Visit [facility] [place] [address] Yelitza Solorzano PA-C [address] [facility] [place] [address] Scheduled Referrals Name Type Priority Associated Diagnoses Orde r Schedule HOME HEALTH REFERRAL OP Referral Within 10 days (routine) Generalized weakness Physical deconditioning Ordered: 06/05/2023 Health Maintenance Due Date Last Done Comments [...] Ratio 09/11/2023 09/10/2022 CKD PHOS USE SMARTSET 74045 09/11/2023 09/10/2022, 1 07/25/2017 CKD HGB USE SMARTSET 73572 11/14/202311/13, 11/06/2022, 10/30/2022, Additional history exists DXA Scan 06/25/2024 06/25/2022, 09/2022, 02/20/2016, Additional history exists DTaP,Tdap,and Td Vaccines (2 - Td or Tdap) 03/03/2028 03/03/2018, 09/17/2010, 01/14/2006, Additional history exists VITAMIN D LEVEL ONCE IN A LIFETIME-USE SMARTSET# [id number] Completed 05/06/2016, 04/24/2011, 09/18/2010, Additional history exists [...] as of this encounter Visit Diagnoses Diagnosis Hospital discharge follow-up- Primary Other follow-up examination Gastroenteritis Other and unspecified noninfectious gastroenteritis and colitis Constipation, unspecified constipation type Generalized weakness Other malaise and fatigue Physical deconditioning Debility, [...] the patient have Health Care Power of Manager Leadership Development? No Healthcare Agents on File Name Relationship Healthcare Agent Relationshi p Communication Kyle Almendarez Adult Child Health Care Repr esentative (appointed verbally by patient or by statute hierarchy) Care Teams Filler Shredder Relationship Specialty Start Date End Date Kyle Angel III, MD [address] [place] [address] PCP - General Family Medicine 04/29/18 documented as of this encounter"
--- OUTSIDE RECORDS SUMMARY | 2023-09-26 09:29 | External Medical Summary | Summary of Care ---
Author Name Unknown Organization [facility] Address [address] [place] [address] Phone [phone] Care Team Providers Care Professor Of Biblical Studies Name Role Phone Stanley LANGFORD MD, Kyle Sorensen Primary Care Provider [phone] Reason for Referral * Ancillary Services (Within 3 days (urgent)) - Authorized Specialty Diagnoses / Procedures Referred By Sabiha moses Referred To Contact HOME CARE / Palliative Medicine Diagnoses Frailty Anorexia Chronic abdominal pain Kyle Angel III, MD [address] [place] [id number] Referral ID Status Reason Start Date Expiration Date Visits Requested Visits Authorized [id number] Authorized Ancillary Services Required 09/24/2023 999 999 Question Answer Referral Priority Within 3 days (urgent) Where should this appointment be scheduled? [facility] Reason for Visit * Reason Onset Date Comments Advice 09/22/2023 Encounter Details Date Type Department Care Team (Late st Contact Info) Description 09/22/2023 Telephone Family Practice [facility] [place] [address] [facility] [place] [address] Kyle Angel III, MD [address] [facility] [place] [id number] Advice Allergies Active Allergy Reactions Criticality Noted Date Comments Aspirin 08/16/2002 hx of 2 gastric bypasses Meperidine And Related Nausea/vomiting 09/19/18 94 documented as of this encounter (statuses as of 09/25/2023) Medications Medication Sig Dispensed Refills Start Date [...] before breakfast BRAND NECESSARY. 30 Tablet 11 3 Active Levothyroxine Sodium 25 MCG Oral [...] as of this encounter (statuses as of 09/25/2023) Active Problems Problem Noted Date Diagnosed Date [...] as of this encounter (statuses as of 09/25/2023) Resolved Problems Problem Noted Date Diagnosed Date [...] as of this encounter (statuses as of 09/25/2023) Immunizations Name Administration Dates Next Due COVID-19 mRNA, LNP-s, No Pre serve, 2-Dose Series (GoPlaceIt) 11/22/2021,05/25/2021,09/17/2020,08/20 COVID-19, LNP-s, No Preserve , Rupert-sucrose, Ages 12+ (GoPlaceIt) 11/22/2021 Covid-19, Mrna, Lnp-s, Pf, B ivalent, 30 Mcg, IM, 12 yrs and above ([employer]PlaceIt) 12/10/2022 Meningococcal Conjugate Vacc ine (Menactra/Menveo) 05/04/2018 [...] encounter Miscellaneous Notes * Telephone Encounter - Lisa Valverde LPN - 09/25/2023 4:08 PM EDT Hospice Orders [facility], Calling from: [facility]. Asks that the Hospice referral and Palliative note from 07/22/23 faxed to [phone]. Faxed to [facility], received confirmation that the transmission was successful. * Telephone Encounter - Margoth Victor OSA - 09/25/2023 4:04 PM EDT Hospice. Calling to speak with a nurse, no other information given. Warm transferred to dedicated nurse line. * Telephone Encounter - Celestina sAh RN - 09/25/2023 12:48 PM EDT Called back to [facility] and spoke with JUS Narvaez. Pt currently does not have a hospice appropriate diagnosis on record. CM will fax last palliative note from 07/22. CM left [facility] for both brothers, Kyle and Jose Roberto, to discuss setting up a home visit with [facility] provider for pt to be evaluated for hospice services. * Telephone Encounter - Gillian Man LPN - 09/25/2023 11:57 AM EDT [facility] called about setting the patient up for hospice with them. They were requesting and H&P but the patient hasn't been seen since June. I talked with Celestina Ash and made her aware and she was going to call and figure out what she could do about the H&P they requested. Fax # for [facility] is [phone]. * Telephone Encounter - Celestina Ash RN - 09/23/2023 1:31 PM EDT Called and spoke with patient's son, Jose Roberto and Kyle. Pt is crying out through the night, not eatingand becoming unable to communicate. They are ready to have hospice come into the home. provided them with a list of hospice agencies in the area. I will call them back tomorrow to talk over options. Please sign below if you are in agreement. Thank you in advanced, Celestina Benoit (Nilsa) * Telephone Encounter - Candice Lloyd OSA - 09/22/2023 12:58 PM EDT Patients son called states he has been trying to reach a Celestina Sotomayor but the voicemail is full and they believe this is Dr. Mullen mortgage assistant or nurse. Patient has started to decline per Jose Roberto and they are wanting to look into hospice for patient. They are trying to keep patient at home instead of nursing facility as per patients wishes. She is not eating much at all. They would like to start process of getting Hospice into the home. Can Dr. Thapacilitate this. Her sons have provided 24 hour care for patient however, she also has started to cry out in her sleep. They are asking if there is something that can be prescribed such as a sedative that would aid in sleep. The staff that is with her states the crying out all night. They having difficulty understanding her. She just screams out. Per son she is not in pain. He thinks her mind is just going. He also has concerns her body is starting to shut down. Nursing staff is feeding her and hiding meds in applesauce. She has to drink from straw if they give it to her. She will nit feed herself. Jose Roberto denies any reports from staff of dehydration or decreased urine output. She just does not have the will to do things for herself. documented in this encounter Plan of Treatment Scheduled Referrals Name Type Priority Associated Diagnoses Orde r Schedule HOSPICE REFERRAL OP Referral Within 3 day s (urgent) Frailty Anorexia Chronic abdominal pain Ordered: 09/24/2023 Health Maintenance Due Date Last Done Comments [...] Ratio 09/11/2023 09/10/2022 CKD PHOS USE SMARTSET 23324 09/11/2023 09/10/2022, 1 07/25/2017 CKD HGB USE SMARTSET 21305 11/14/202311/13, 11/06/2022, 10/30/2022, Additional history exists DXA Scan 06/25/2024 06/25/2022, 09/2022, 02/20/2016, Additional history exists DTaP,Tdap,and Td Vaccines (2 - Td or Tdap) 03/03/2028 03/03/2018, 09/17/2010, 01/14/2006, Additional history exists VITAMIN D LEVEL ONCE IN A LIFETIME-USE SMARTSET# [id number] Completed 05/06/2016, 04/24/2011, 09/18/2010, Additional history exists [...] Frailty- Primary Senility without mention of psychosis Anorexia Chronic abdominal pain Abdominal pain, unspecified site documented in this encounter Advance Directives Latest [...] the patient have Health Care Power of Inspector Balance Bridge? No Healthcare Agents on File Name Relationship Healthcare Agent Relationshi p Communication Kyle Almendarez Adult Child Health Care Repr esentative (appointed verbally by patient or by statute hierarchy) Care Teams Professor Of Biblical Studies Relationship Specialty Start Date End Date Kyle Angel III, MD [address] [facility] [place] [address] PCP - General Family Medicine 04/29/18 documented as of this encounter
--- NOTE | 2023-09-26 09:43 | XRay Report ---
XR chest 1V portable CLINICAL HISTORY: weakness TECHNIQUE: Single frontal radiograph of the chest was obtained. Comparison: Comparison is made to chest radiograph 05/29/2023 FINDINGS: No lines and tubes are seen. The cardiomediastinal silhouette is normal. The lungs are clear. No evid ence of pleural effusion or pneumothorax. IMPRESSION: No acute chest disease. ACT 112: Negative or not required by law. Electronically signed by: Flip Barlow M.D. 09/26/2023 9:42 AM
[2023-09-26] MEDS ORDERED: MoRPHine SULFATE 2 MG/ML CARP IV PRN ×2 (10:49→10:50)
--- NOTE | 2023-09-26 11:02 | Palliative Care Consultation ---
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 Advanced Care Planning - 64084 Advanced Care Planning 30 Min: 81334 Advanced Care Planning 30 Min ([id number]) Advanced Care Planning - 09700 Advanced Care Planning Additional 30 Min: 72972 Advanced Care Planning Additional 30 Min ([id number])
[2023-09-26] MEDS ORDERED: LORazepam 1 MG in SYRINGE 0.25 ML IV PRN (13:01)
--- NOTE | 2023-09-26 15:33 | Hospitalist Progress Note ---
Date of Service September 26, 2023 Assessment & Plan (1) Failure to thrive in adult: Plan: Patient and family seeking end-of-life care due to progressive debility Palliative service consulted Continue morphine IV, Robinul, lorazepam as needed hypertension, elevated secondary to discomfort ADD/mood disorder IBD status post surgery hx GERD Hypothyroidism, hx medication noncompliance Palliative care consultation Re: End-of-life care, arrangements for home hospice if feasible DNR as per patient's prior directives Admission and Anticipated Discharge Date Admission Date: September 25, 2023 Subjective Follow-up for comfort measures only Resting in bed, mostly drowsy, occasionally opens eyes mumbles words Appears comfortable, no signs of distress, pain, shortness of breath Patient's son at the bedside visiting Review of Systems Review of Systems: all noted and negative except for above Physical Exam Physical Exam: General-drowsy, breathing with no effort or accessory muscle use Eyes- anicteric Neck- no JVD Lungs- clear breath sounds bilaterally, no rales/wheezes Heart- normal rate, regular rhythm; no murmurs Abdomen- normal bowel sounds, nondistended, soft, nontender Extremities- no pretibial edema, no calf tenderness Neuro-drowsy Skin- warm & dry Results & Data Results & Data Vital Signs (Past 12 Hours) Vital Signs O2 Del Method 09/26/23 07:00 Room Air
[2023-09-26] MEDS ORDERED: MIRTAZAPINE TAB 15 MG TAB PO SCH (21:00)
[2023-09-27] MEDS: MoRPHine SULFATE 2 MG/ML CARP IV PRN (04:11)
[2023-09-27] MEDS: LORazepam 1 MG in SYRINGE 0.5 ML IV PRN (09:12)
--- NOTE | 2023-09-27 14:36 | Hospitalist Progress Note ---
Date of Service September 27, 2023 Assessment & Plan (1) Failure to thrive in adult: Plan: Per admitting service notes with addendum Patient and family seeking end-of-life care due to progressive debility Palliative service consulted Continue morphine IV, Robinul, lorazepam as needed /7 Comfortable overall Continue IV morphine, Robinul, Ativan Appreciate palliative service recommendations hypertension ADD/mood disorder IBD status post surgery hx GERD Hypothyroidism, hx medication noncompliance DNR as per patient's prior directives Admission and Anticipated Discharge Date Admission Date: September 26, 2023 Subjective Follow-up for comfort measures status only, etc. Seen sleeping, not in distress No signs of pain, respiratory distress, tachycardia Patient appears comfortable overall Review of Systems Review of Systems: all noted and negative except for above Physical Exam Physical Exam: General-very drowsy, not in distress, accessory muscle use Lungs- clear breath sounds, no crackles bilaterally Heart- normal rate, regular rhythm; no murmurs Abdomen- normal bowel sounds, nondistended, soft, no tenderness Extremities- no pretibial edema, no calf tenderness Neuro-very drowsy Skin- warm & dry Results & Data Results & Data Vital Signs (Past 12 Hours) Vital Signs O2 Del Method 09/27/23 07:33 Room Air all noted and reviewed including below
--- NOTE | 2023-09-28 08:47 | Palliative Care Progress Note ---
Date of Service September 28, 2023 Assessment & Plan Admission and Anticipated Discharge Date Admission Date: September 26, 2023 Raymond Marcus has had 12mg IV MS in 24 hr which is 0.5mg per hour continues to have episodic distress with moaning , grimacing, crying out PG Care Time/CCT Total # of Minutes Spent Total Time Spent with Patient: Total time spent is greater than 50% in coordination of care (as documented) at patient's floor/unit and/or counseling patient: Coding
--- NOTE | 2023-09-28 09:09 | Communication Note ---
Date of Service: September 28, 2023 Brief Pall Med Note I called Angeline's son, Jose Roberto Almendarez. He/ are in [place] for a mandatory 2 day training, about 1 hr from [facility]. If pt acutely declines, change in condition/worsening, please call him NAKITA so they have time to get here - their instructor is aware of the situation and they have permission to leave if called. I gave him an update and we agreed to start Duragesic today and see how she does tomorrow. She cannot go home with hospice until the local pharmacies receive delivery of hospice meds which are currently on a regional shortage and therefore patients cannot be admitted to hospice bc there is no oral morphine available for the hospice comfort care pack. I have offered Zoom based family meeting in evenings/after their training if needed. He has my contact information. TS 23min Thank you for allowing us to participate in the ongoing care of this patient. Please don't hesitate to call or page with any additional concerns. Dr. Urmila Peres DNP Director, Palliative Care
[2023-09-28] MEDS: fentaNYL 12 MCG/HR TDSY TD SCH (09:38)
--- NOTE | 2023-09-28 12:17 | Palliative Care Progress Note ---
Date of Service September 28, 2023 Assessment & Plan (1) Dyspnea and respiratory abnormalities: (2) Abdominal pain, generalized: (3) Generalized weakness: (4) Encounter for end of life care: (5) Failure to thrive in adult: (6) Severe muscle deconditioning: (7) Discussion about advance care planning held with family member: Plan: Updated son Jose Roberto - ACP x 19min this morning 0845-904am Reviewed opioid use and recc TDF trial, begin 12mcg, he is in agreement Goal remains to optimize comfort and return home with hospice if possible but only when hospice is able to get their comfort meds filled at regional pharmacies, currently there is no roxanol available (8) Palliative care by specialist: 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 Please don't hesitate to call or page with any additional concerns. Dr. Urmila Peres DNP Director, Palliative Care Admission and Anticipated Discharge Date Admission Date: September 26, 2023 Subjective remains on CONSTRUCTION SALES MANAGER occ grimacing, moaning, crying out seems more comfortable than Thursday Used 12mg IV MS in past 24hr not very awake or resposnive Review of Systems Review of Systems: Unobtainable due to cognitive status and Unobtainable due to reduced consciousness Physical Exam Physical Exam: Frail and chronically appearing, cachectic elderly female, lying in bed, did not respond to verbal stimuli Bitemporal wasting is noted Pupils sluggishly reactive Neck supple, no gross stridor, no JVD Chest with diminished breath sounds, mild use of accessory muscles with some variation in respiratory pattern noted. Apnea of 2-3 seconds noted CV: S1S2, +murmur, Apical rate is 102 Abd scaphoid, BS diminished MS: gen weakness, pt is unable to engage in assessment; BUE with some contracturing changes noted, BLE with +atrophy, +muscle wasting/muscle deconditioning c/w frailty syndromes Neuro: lethargic, does not respond to verbal stimuli, slight grimace with sternal rub Skin: pale, warm to touch. No gross cyanosis or edema Results & Data Vital Signs (Past 12 Hours) Vital Signs O2 Del Method 09/28/23 08:43 Room Air Laboratory Results CONSTRUCTION SALES MANAGER Diagnostic Findings CONSTRUCTION SALES MANAGER PG Care Time/CCT Total # of Minutes Spent Total Time Spent with Patient: Total time spent is greater than 50% in coordination of care (as documented) at patient's floor/unit and/or counseling patient: I spent 59 minutes overall addressing this case: 10 min in medical data review/discussion with referring provider(s) and/or preparation for the visit 15 min in direct interaction with the patient/exam 19 min in Advance Care Planning/Goals of Care discussions as detailed above in note (must be >16min) 5 min in subsequent review and synthesis of assessment and plan 10 min communicating with other providers regarding the patient's case: nursing, primary team Advanced Care Planning 44088 Advanced Care Planning 30 Min C[place] [address] SUB INP/OBS CARE 3/50MIN Patient Type Established History Comprehensive Exam Comprehensive Medical Decision Making High Complexity Diagnoses Dyspnea and respiratory abnormalities R06.00; R06.89 Abdominal pain, generalized R10.84 Generalized weakness R53.1 Encounter for end of life care Z51.5 Failure to thrive in adult R62.7 Severe muscle deconditioning R29.898 Discussion about advance care planning held with family member Z71.0 Palliative care by specialist Z51.5 Additional Codes Advanced Care Planning - 61787 Advanced Care Planning 30 Min: 14386 Advanced Care Planning 30 Min ([id number])
[2023-09-28] MEDS: CHECK fentaNYL PATCH PLACEMENT SCH (15:52)
--- NOTE | 2023-09-28 17:52 | Hospitalist Progress Note ---
Date of Service September 28, 2023 Assessment & Plan (1) Failure to thrive in adult: Plan: Per admitting service notes with addendum Patient and family seeking end-of-life care due to progressive debility Palliative service consulted Continue morphine IV, Robinul, lorazepam as needed /8 Comfortable overall Continue IV morphine, Robinul, Ativan Appreciate palliative service recommendations hypertension ADD/mood disorder IBD status post surgery hx GERD Hypothyroidism, hx medication noncompliance DNR as per patient's prior directives Admission and Anticipated Discharge Date Admission Date: September 26, 2023 Subjective Follow-up for comfort measures status only, etc. Seen resting in bed, sleeping Open eyes briefly Comfortable, no signs of respiratory distress, pain No other new signs or symptoms Review of Systems Review of Systems: all noted and negative except for above Physical Exam Physical Exam: General-very drowsy, no accessory muscle use Lungs-mild rales at the bases Extremities- no pretibial edema, no calf tenderness Neuro-very drowsy Results & Data Results & Data Vital Signs (Past 12 Hours) Vital Signs O2 Del Method 09/28/23 08:43 Room Air
[2023-09-29] MEDS: fentaNYL 25 MCG/HR TDSY TD SCH (10:35)
--- NOTE | 2023-09-29 12:45 | Palliative Care Progress Note ---
Date of Service September 29, 2023 Assessment & Plan (1) Dyspnea and respiratory abnormalities: (2) Abdominal pain, generalized: (3) Generalized weakness: (4) Encounter for end of life care: (5) Failure to thrive in adult: (6) Severe muscle deconditioning: (7) Discussion about advance care planning held with family member: Plan: Updated sarwat Cid earlier this morning and reviewed opioid use; I recc inc TDF to 25mcg based on prn IV MS use; he notes she has seemed more uncomfortable at times/needed more prn morphine. He asks if this may be indicator of transitioning to active dying. We briefly reviewed the changes pt may move through in the dying process including but not limited to sleeping more, disorientation when awake, restlessness, diminished senses/inability to respond to stimulus although ability to be aware of them remains intact longer, changes in body temperatures, skin changes/mottling/cyanosis, respiratory pattern changes, oral secretions. Family verbalized understanding. The goal is to assure a peaceful . Her apneas are around 5 sec today. He is in agreement to increased TDF to 25mcg, no change to prn MS Goal remains to optimize comfort and return home with hospice if possible (8) Palliative care by specialist: Plan * COMPOSITION INSTRUCTOR continue * Updated sarwat Cid at 0830: reviewed opioid use and recc inc TDF to 25mcg based on prn IV MS use; he notes she ahs seemed more uncomfortable at times and has needed more prn morphine. He asks if this may be indicator of transitioning to active dying. We briefly reviewed the changes pt may move through in the dying process including but not limited to sleeping more, disorientation when awake, restlessness, diminished senses/inability to respond to stimulus although ability to be aware of them remains intact longer, changes in body tempera tures, skin changes/mottling/cyanosis, respiratory pattern changes, oral secretions. Family verbalized understanding. The goal is to assure a peaceful . Her apneas are around 5 sec today. * He is in agreement to increased TDF to 25mcg, no change to prn MS * Pt re assessed at 1220pm: remains non verbal and resp effort is peaceful. Son Kyle at bedside also updated during this afternoon visit. * Plan of care d/w nursing, updated on Jose Roberto and are 1 hr away and to call declan for any changes in condition/rapid decline Thank you for allowing us to participate in the ongoing care of this patient. Please don't hesitate to call or page with any additional concerns. Dr. Urmila Peres DNP Director, Palliative Care Admission and Anticipated Discharge Date Admission Date: September 26, 2023 Subjective Angeline remains on COMPOSITION INSTRUCTOR She used 12mg IV MS in past 24 hr with addition of TDF 12mcg yesterday She seems slightly uncomfortable at time of my visit She will open her eyes at times but does not respond Mild inc resp effort with use of accessory muscles noted She has not been taking PO [facility] hospice is working with to coordinate dc home, they reported to they will likely be able to get hospice comfort meds by today Review of Systems Review of Systems: Unobtainable due to reduced consciousness Physical Exam Physical Exam: Frail and chronically appearing, cachectic elderly female, lying in bed, yes are open when I entered but no tracking and no verbal response +Bitemporal wasting, PERRLA sluggish Neck supple, no gross stridor, no JVD Chest with diminished breath sounds, +variation in respiratory pattern noted. Apnea of 3-5 seconds noted; there is mild use of accessory muscles CV: S1S2, +murmur, Apical rate is 102 Abd scaphoid, BS diminished MS: gen weakness, pt is unable to engage in assessment; BUE with contractures/OA changes BLE with +atrophy, +muscle wasting/muscle deconditioning c/w frailty syndromes Neuro: lethargic, does not respond to verbal stimuli Skin: pale, cooler to touch. No gross cyanosis or edema PG Care Time/CCT Total # of Minutes Spent Total Time Spent with Patient: Total time spent is greater than 50% in coordination of care (as documented) at patient's floor/unit and/or counseling patient: I spent 55 minutes overall addressing this case: 10 min in medical data review/discussion with referring p michi(s) and/or preparation for the visit 20 min in direct interaction with the patient/exam 00 min in Advance Care Planning/Goals of Care discussions as detailed above in note (must be >16min) 10 min in subsequent review and synthesis of assessment and plan 15 min communicating with other providers regarding the patient's case:nursing, care mgt, primary team [place] [address] SUB INP/OBS CARE 350MIN Patient Type Established History Comprehensive Exam Comprehensive Medical Decision Making High Complexity Diagnoses Dyspnea and respiratory abnormalities R06.00; R06.89 Abdominal pain, generalized R10.84 Generalized weakness R53.1 Encounter for end of life care Z51.5 Failure to thrive in adult R62.7 Severe muscle deconditioning R29.898 Discussion about advance care planning held with family member Z71.0 Palliative care by specialist Z51.5
--- NOTE | 2023-09-29 14:32 | Hospitalist Progress Note ---
Date of Service September 29, 2023 Assessment & Plan (1) Failure to thrive in adult: Plan: Per admitting service notes with addendum Patient and family seeking end-of-life care due to progressive debility Palliative service consulted Continue morphine IV, Robinul, lorazepam as needed 09/28 Remains comfortable Continue fentanyl patch, IV morphine, Robinul, Ativan Appreciate palliative service recommendations hypertension ADD/mood disorder IBD status post surgery hx GERD Hypothyroidism, hx medication noncompliance DNR as per patient's prior directives Admission and Anticipated Discharge Date Admission Date: September 26, 2023 Subjective Follow-up for comfort measures status only, etc. Resting in bed, sleeping, comfortable Occasionally opens eyes No signs of pain, respiratory distress Review of Systems Review of Systems: all noted and negative except for above Physical Exam Physical Exam: General-very drowsy, no accessory muscle use Lungs-mild rales at the bases Extremities- no pretibial edema, no calf tenderness Neuro-very drowsy
[2023-09-29] MEDS: CHECK fentaNYL PATCH PLACEMENT SCH (17:49)
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
--- NOTE | 2023-09-30 14:41 | Hospitalist Progress Note ---
Date of Service September 30, 2023 Assessment & Plan (1) Failure to thrive in adult: Plan: Patient and family seeking end-of-life care due to progressive debility Palliative service consulted Currently on fentanyl patch Continue on as needed morphine, glycopyrrolate and Ativan Discussed with palliative care symptoms; no med changes today hypertension ADD/mood disorder IBD status post surgery hx GERD Hypothyroidism, hx medication noncompliance Please note the above document was generated using voice recognition software. It may contain grammatical, syntax or spelling errors. Any formal questions or concerns about the content, text or information contained within the body of this dictation should be directly addressed to the provider for clarification Admission and Anticipated Discharge Date Admission Date: September 26, 2023 Subjective Patient seen at bedside. She is opening her eyes. She is moaning intermittently. No significant events overnight Physical Exam Physical Exam: General-very drowsy, no accessory muscle use Lungs-mild rales at the bases Extremities- no pretibial edema, no calf tenderness Neuro-opens her eyes spontaneously. Moaning. Results & Data Results & Data Vital Signs (Past 12 Hours) Vital Signs O2 Del Method 09/30/23 07:30 Room Air
--- NOTE | 2023-09-30 14:53 | Communication Note ---
Date of Service: September 30, 2023 Brief [facility] Med ACP [phone] I spoke with Jose Roberto Shah,son; provided updates incl new attending on duty. Advised she is starting to have duskiness in nail beds and still moaning/crying out which may be uncontrolled pain and that I don't think she will leave the hospital - duskiness suggests she is transitioning to more active dying (I suspect.) Jose Roberto was agreeable to allowing me to keep her here. Please note: I will be in clinic tomorrow/10-01-23, and therefore not in the hospital but you can tiger me for any issues. p Please try to keep her care team limited to the same people and female providers given her ptsd TS 20min Thank you for allowing us to participate in the ongoing care of this patient. Please don't hesitate to call or page with any additional concerns. Dr. Urmila Peres DNP Director, Palliative Care
--- NOTE | 2023-10-01 14:32 | Hospitalist Progress Note ---
Date of Service October 01, 2023 Assessment & Plan (1) Failure to thrive in adult: Plan: Patient and family seeking end-of-life care due to progressive debility Palliative service consulted Currently on fentanyl patch Continue on as needed morphine, glycopyrrolate and Ativan hypertension ADD/mood disorder IBD status post surgery hx GERD Hypothyroidism, hx medication noncompliance Please note the above document was generated using voice recognition software. It may contain grammatical, syntax or spelling errors. Any formal questions or concerns about the content, text or information contained within the body of this dictation should be directly addressed to the provider for clarification Admission and Anticipated Discharge Date Admission Date: September 26, 2023 Subjective Patient appears comfortable. Not in any distress. She was given 8 mg of morphine yesterday Review of Systems Review of Systems: Unobtainable due to reduced consciousness Physical Exam Physical Exam: General-very drowsy, no accessory muscle use Lungs-mild rales at the bases Extremities- no pretibial edema, no calf tenderness Neuro-opens her eyes spontaneously. Results & Data Results & Data Vital Signs (Past 12 Hours) Vital Signs O2 Del Method 10/01/23 08:00 Room Air
--- NOTE | 2023-10-02 13:56 | Hospitalist Progress Note ---
Date of Service October 02, 2023 Assessment & Plan (1) Failure to thrive in adult: Plan: Patient and family seeking end-of-life care due to progressive debility Palliative service on board Currently on fentanyl patch Continue on as needed morphine, glycopyrrolate and Ativan hypertension ADD/mood disorder IBD status post surgery hx GERD Hypothyroidism, Please note the above document was generated using voice recognition software. It may contain grammatical, syntax or spelling errors. Any formal questions or concerns about the content, text or information contained within the body of this dictation should be directly addressed to the provider for clarification Admission and Anticipated Discharge Date Admission Date: September 26, 2023 Subjective Patient appears comfortable. Not in any distress. She was given 6 mg of morphine yesterday Review of Systems Review of Systems: Unobtainable due to reduced consciousness Physical Exam Physical Exam: General-very drowsy, no accessory muscle use Lungs-mild rales at the bases Extremities- no pretibial edema, no calf tenderness Neuro-opens her eyes spontaneously. Results & Data Results & Data Vital Signs (Past 12 Hours) Vital Signs O2 Del Method 10/02/23 07:45 Room Air
[2023-10-02] MEDS: MoRPHine SULFATE 4 MG/ML 1 ML CARP\\VIAL IV PRN (16:41)
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
--- NOTE | 2023-10-03 13:48 | Hospitalist Progress Note ---
Date of Service October 03, 2023 Assessment & Plan (1) Failure to thrive in adult: Plan: Patient and family seeking end-of-life care due to progressive debility Palliative service on board Currently on fentanyl patch Continue on as needed morphine, glycopyrrolate and Ativan Patient appears to be comfortable on current regimen. hypertension ADD/mood disorder IBD status post surgery hx GERD Hypothyroidism, Please note the above document was generated using voice recognition software. It may contain grammatical, syntax or spelling errors. Any formal questions or concerns about the content, text or information contained within the body of t his dictation should be directly addressed to the provider for clarification Admission and Anticipated Discharge Date Admission Date: September 26, 2023 Subjective Patient appears comfortable; requiring as needed morphine for comfort. Review of Systems Review of Systems: Unobtainable due to reduced consciousness Physical Exam Physical Exam: General-very drowsy, no accessory muscle use Lungs-mild rales at the bases Extremities- no pretibial edema, no calf tenderness Neuro-opens her eyes spontaneously.
[2023-10-03] MEDS: GLYCOPYRROLATE 0.2 MG/ML VIAL IV PRN (14:32)
--- NOTE | 2023-10-04 13:53 | Hospitalist Progress Note ---
Date of Service October 04, 2023 Assessment & Plan (1) Failure to thrive in adult: Plan: Patient and family seeking end-of-life care due to progressive debility Palliative service on board Currently on fentanyl patch Continue on as needed morphine, glycopyrrolate and Ativan Patient appears to be comfortable on current regimen. Continue present regimen hypertension ADD/mood disorder IBD status post surgery hx GERD Hypothyroidism, Please note the above document was generated using voice recognition software. It may contain grammatical, syntax or spelling errors. Any formal questions or concerns about the content, text or information contained within the body of this dictation should be directly addressed to the provider for clarification Admission and Anticipated Discharge Date Admission Date: September 26, 2023 Subjective Patient appears comfortable. Secretions has improved She has required multiple doses of IV morphine for the course of the day yesterday. Total of 18 mg Review of Systems Review of Systems: Unobtainable due to reduced consciousness Physical Exam Physical Exam: General-very drowsy, no accessory muscle use Lungs-mild rales at the bases Extremities- no pretibial edema, no calf tenderness Neuro-opens her eyes spontaneously. Results & Data Results & Data Vital Signs (Past 12 Hours) Vital Signs O2 Del Method 10/04/23 07:15 Room Air
--- NOTE | 2023-10-05 09:15 | Death Pronouncement Note ---
Date of Service October 05, 2023 Pronouncement Note Admission Date September 26, 2023 Date and Time of Date of : 10/04/23 Time of : 19:03 Additional Data Confirmation of : no pulse, no respirations, no heart sounds and pupils fixed and dilated Attending physician: Craig Monet MD
--- NOTE | 2023-10-05 15:32 | Discharge Summary ---
Date of Service October 04, 2023 Admission HPI Per Admitting Provider History obtained from patient, family, and records. Limited history from patient secondary to hearing impairment and confusion. Medical history significant for hypertension, mood disorder, ADD, IBD status post surgery, GERD, hypothyroidism, history of pelvic fracture, history of medication noncompliance as per records Last confinement May 2023 for gastroenteritis. Patient with progressive weakness and debility since leaving hospital as per family. Patient referred to [facility] medication specialist 3 months ago by PCP for frailty and goals of care discussion. DNR code status. Patient did not engage in conversation regarding treatment preference home health or hospice at time of encounter as per documentation. Patient noted by family to be increasingly weak and not walking few weeks ago. Patient not eating much and crying out in pain as per family. Unable to take oral pain medications as per family. Patient more confused than usual. Patient had previously verbalized to family that she would she would want hospice with her remaining time like before he . Family contacted PCPs office 3 days ago requesting for assistance to have home hospice come to patient's home for end-of-life care. Family informed of possible delay as initial request for home hospice care made out under patient's maiden last name (Meng) and not last name (Erickson). Patient brought to ER by family for assistance. 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 Admission Exam Per Admitting Provider GENERAL: Disoriented, hard of hearing, comfortable, occasionally moaning, chronically ill, no respiratory distress SKIN: Pallor, warm HEENT: Pale palpebral conjunctivae, no ptosis, dry buccal mucosa NECK : Supple, no tenderness CHEST : CTA, no tenderness HEART : RRR, systolic murmur ABDOMEN : some distention, no tenderness EXTREMITIES : No LE swelling, no LE tenderness NEUROLOGIC : Disoriented, no facial asymmetry, mild hearing impairment, gait and stance not assessed Principal Diagnosis adult failure to thrive Discharge Exam Patient Discharge Data Allergies Allergy/AdvReac Type Severity Reaction Status Date / Time aspirin AdvReac Intermediate ulcers Verified 09/25/23 23:06 meperidine AdvReac Intermediate Nausea Verified 09/25/23 23:06 Consultations 09/25/23 22:17 ED Decision to Admit Stat 09/26/23 00:24 Consult Palliative Care Routine Hospital Course (1) Failure to thrive in adult: Patient was brought to the hospital after progressive weakness and debility since leaving hospital as per family. Patient was not eating well at home; unable to take oral pain medication Patient gradually became confused Patient had previously verbalized to family that she would she want hospice with her remaining time like before he . Patient was admitted for comfort care measures during the hospitalization Palliative care was consulted for comanagement. Patient was placed on fentanyl patch, morphine, Ativan for comfort measures. Patient on October 04, 2023 at 7:03 PM. Please note the above document was generated using voice recognition software. It may contain grammatical, syntax or spelling errors. Any formal questions or concerns about the content, text or information contained within the body of this dictation should be directly addressed to the provider for clarification Total Time Total Time Spent Total Time Spent (In Minutes): 10 Total Time Includes: Examination of the Patient, Discharge Planning, Medication Reconciliation, Communication With Other Providers and Other Discharge Plan Discharge Items Patient Disposition: Other Date/Time: 10/04/23 19:03
== END 2023-10-04 20:04 | disposition expired | DRG 951 ==
LOC: 3E 21:26 → ED 21:26 → SUATTDRO 23:51 → 3E 09-26 01:26 → SUATTDRO 09-26 15:33